=== PATIENT | female | born 1945 | race Caucasian/White ===

== ENCOUNTER → 2016-09-10 | Outpatient (CLI) | payer OTHER ==
[~2016-09-10] MED LIST: ASPI81TA21 PO; CALCTAB13 PO; CHOL200010 PO; CYAN10005 PO; FURO-85 PO; INSDGI SC; LEVO75TA33 PO; LISI-461 PO; METF1TAB53 PO; OMEG10007 PO; SIMV20TA2 PO; VITA1CRE PO; VITACAP26 PO
--- NOTE | 2016-09-10 13:19 | DIAGNOSTIC IMAGING REPORT ---
LEFT KNEE 2 VIEWS HISTORY: Left knee pain. COMPARISON: None. FINDINGS: There is no fracture or dislocation. Soft tissues are unremarkable. No radiopaque foreign bodies. No knee effusion. Cartilage spaces are maintained for age. IMPRESSION: Unremarkable left knee. Electronically signed by: Jake Dejesus M.D. 09/10/2016 1:17 PM Dictated Date/Time: 09/10/2016 1:15 PM
[2016-09-10 17:09] LABS: BLOOD UREA NITROGEN 32 mg/dl (7-18); BUN/CREATININE RATIO 24.3 (10-20); CALCIUM 9.8 mg/dl (8.5-10.1); CARBON DIOXIDE 25 mmol/L (21-32); CHLORIDE 108 mmol/L (98-107); GLUCOSE 130 mg/dl (70-99); POTASSIUM 4.5 mmol/L (3.5-5.1); SODIUM 142 mmol/L (136-145)
[2016-09-10 17:43] LABS: LYME DISEASE AB IGG NEG (NEG); LYME DISEASE AB IGM NEG (NEG)
[2016-09-11 06:24] LABS: ESTIMATED AVERAGE GLUCOSE 194 mg/dl; HA1C FLAG Normal (Normal)
== END | disposition home or self-care (01) ==
LOC: C.RADBC 12:34
PROVIDERS: ATTEND Internal Medicine Geriatric Medicine
DX: M25.562 Pain in left knee (principal); E11.65 Type 2 diabetes mellitus with hyperglycemia; I10 Essential (primary) hypertension

== ENCOUNTER → 2016-10-05 | Outpatient (CLI) | payer OTHER | END | disposition home or self-care (01) | LOC: C.LAB 12:12 | PROVIDERS: ATTEND Internal Medicine Geriatric Medicine | DX: Z11.59 Encounter for screening for other viral diseases (principal) ==

== ENCOUNTER → 2016-11-09 | Outpatient (CLI) | payer OTHER ==
--- NOTE | 2016-11-09 15:29 | MAMMOGRAPHY REPORT ---
BILATERAL DIGITAL SCREENING MAMMOGRAM WITH CAD: 11/09/2016 CLINICAL HISTORY: Routine screening examination. TECHNIQUE: Bilateral CC and MLO views were obtained. Current study was also evaluated with a Comput er Aided Detection (CAD) system. COMPARISON: Comparison is made to exams dated: 10/29/2014 mammogram, 11/03/2015 mammogram, 10/15/2011 mammogram, and 10/14/2010 mammogram - [facility]. BREAST COMPOSITION: There are scattered areas of fibroglandular density in both breasts. FINDINGS: There are moderate vascular calcifications in the breasts. Scattered benign-appearing rudy like, probable secretory calcifications throughout the left greater than right breast. No new suspi cious mass, architectural distortion or cluster of microcalcifications is seen. IMPRESSION: ACR BI-RADS CATEGORY 1: NEGATIVE There is no mammographic evidence of malignancy. A 1 year screening mammogram is recommended. The p atient will receive written notification of the results. Approximately 10% of breast cancers are not detected with mammography. A negative mammographic repor t should not delay biopsy if a clinically suggestive mass is present. Suni Merida M.D. ay/:11/09/2016 12:47:19 Automation Test Developer: Christie GOTTLIEB)(Kody), [facility] letter sent: Normal 1/2 BI-RADS Code: ACR BI-RADS Category 1: Negative
== END | disposition home or self-care (01) ==
LOC: C.MAMM 09:30
PROVIDERS: ATTEND Internal Medicine Geriatric Medicine
DX: Z12.31 Encounter for screening mammogram for malignant neoplasm of breast (principal)

== ENCOUNTER → 2017-02-16 | Outpatient (CLI) | payer OTHER ==
[2017-02-16 14:44] LABS: URINE APPEARANCE CLEAR (CLEAR); URINE BILIRUBIN NEG (NEG); URINE COLOR YELLOW; URINE NITRITE NEG (NEG); UROBILINOGEN NEG (NEG); ZZUR CULT IF INDIC CLEAN CATCH NO
[2017-02-16 14:49] LABS: MANUAL MICROSCOPIC REQUIRED? NO; REVIEW REQ? NO
== END | disposition home or self-care (01) ==
LOC: C.LABSPEC 13:23
PROVIDERS: ATTEND Obstetrics & Gynecology
DX: N95.0 Postmenopausal bleeding (principal)

== ENCOUNTER → 2017-02-23 | Outpatient (CLI) | payer OTHER ==
[2017-02-23 13:10] LABS: BASO % 0.5 %; BASO ABS # 0.05 K/uL (0-0.2); COMPLETE YES; HEMATOCRIT 40.2 % (37-47); IG% 0.2 %; LYMPH % 25.5 %; LYMPH ABS # 2.33 K/uL (1.2-3.4); MEAN CELL VOLUME 90.7 fL (80-100); MEAN CORPUSCULAR HEMOGLOBIN 31.6 pg (25-34); MEAN CORPUSCULAR HGB CONC 34.8 g/dl (32-36); MEAN PLATELET VOLUME 9.6 fL (7.4-10.4); MONO % 6.8 %; PLATELET COUNT 216 K/uL (130-400); RED BLOOD COUNT 4.43 M/uL (4.2-5.4); WHITE BLOOD COUNT 9.15 K/uL (4.8-10.8)
[2017-02-23 13:42] LABS: BLOOD UREA NITROGEN 27 mg/dl (7-18); BUN/CREATININE RATIO 24.2 (10-20); CALCIUM 9.4 mg/dl (8.5-10.1); CARBON DIOXIDE 23 mmol/L (21-32); CHLORIDE 107 mmol/L (98-107); CHOLESTEROL 140 mg/dl (0-200); GLUCOSE 234 mg/dl (70-99); POTASSIUM 4.5 mmol/L (3.5-5.1); SODIUM 139 mmol/L (136-145); TRIGLYCERIDES 294 mg/dl (0-150); VERY LOW DENSITY LIPOPROT CALC 59 mg/dl
[2017-02-23 13:49] LABS: ESTIMATED AVERAGE GLUCOSE 223 mg/dl; HA1C FLAG Normal (Normal)
[2017-02-23 13:52] LABS: CHOLESTEROL/HDL RATIO 3.8; HDL CHOLESTEROL 37 mg/dl; LDL CHOLESTEROL CALCULATED 44 mg/dl; THYROID STIMULATING HORMONE 0.868 uIu/ml (0.300-4.500)
[2017-02-23 15:00] LABS: URINE PROTIEN/CREAT RATIO 0.2 (0-0.2); URINE TOTAL PROTEIN 18.2 mg/dl (0-11.9)
== END | disposition home or self-care (01) ==
LOC: C.LAB 11:54
PROVIDERS: ATTEND Internal Medicine Geriatric Medicine
DX: E03.9 Hypothyroidism, unspecified (principal); I10 Essential (primary) hypertension; M19.90 Unspecified osteoarthritis, unspecified site; E78.5 Hyperlipidemia, unspecified; E11.42 Type 2 diabetes mellitus with diabetic polyneuropathy; E55.9 Vitamin D deficiency, unspecified; E11.65 Type 2 diabetes mellitus with hyperglycemia; M25.50 Pain in unspecified joint; N18.3 Chronic kidney disease, stage 3 (moderate)

== ENCOUNTER → 2017-07-20 | Outpatient (CLI) | payer OTHER ==
[2017-07-20 16:00] LABS: URINE PROTIEN/CREAT RATIO 0.1 (0-0.2); URINE TOTAL PROTEIN 21.1 mg/dl (0-11.9)
== END | disposition home or self-care (01) ==
LOC: C.LAB 14:18
PROVIDERS: ATTEND Internal Medicine Geriatric Medicine
DX: E03.9 Hypothyroidism, unspecified (principal); I12.9 Hypertensive chronic kidney disease with stage 1 through stage 4 chronic kidney disease, or unspecified chronic kidney disease; R60.0 Localized edema; E11.65 Type 2 diabetes mellitus with hyperglycemia; M48.00 Spinal stenosis, site unspecified; N18.3 Chronic kidney disease, stage 3 (moderate)

== ENCOUNTER → 2017-09-09 | Outpatient (CLI) | payer OTHER ==
--- NOTE | 2017-09-09 12:52 | DIAGNOSTIC IMAGING REPORT ---
RIGHT HIP 2 VIEWS HISTORY: Right hip pain. COMPARISON: None. FINDINGS: There is no fracture or dislocation. Soft tissues are unremarkable. The visualized pelvic bones are intact. Moderate cartilage space narrowing and marginal osteophytes within the right hip consistent with degenerative change. IMPRESSION: No fractures. Moderate right hip osteoarthritis. Electronically signed by: Jake Dejesus M.D. 09/09/2017 12:51 PM Dictated Date/Time: 09/09/2017 12:48 PM
== END | disposition home or self-care (01) ==
LOC: C.RAD 12:15
PROVIDERS: ATTEND Nurse Practitioner Adult Health
DX: M25.551 Pain in right hip (principal)

== ENCOUNTER → 2017-09-09 | Outpatient (CLI) | payer OTHER ==
--- NOTE | 2017-09-09 13:58 | MAMMOGRAPHY REPORT ---
UNILATERAL LEFT DIGITAL DIAGNOSTIC MAMMOGRAM TOMOSYNTHESIS WITH CAD AND TARGETED LEFT ULTRASOUND: 08/22 CLINICAL HISTORY: The patient reports sensitivity/tenderness behind her left nipple since last Tuesday . She denies any palpable lumps, nipple discharge, or skin changes of the nipple. TECHNIQUE: Breast tomosynthesis in addition to standard 2D mammography was performed. Current study was also evaluated with a Computer Aided Detection (CAD) system. Left CC and MLO 2-D and tomosynthes is images were obtained. COMPARISON: Comparison is made to exams dated: 11/09/2016 mammogram, 11/03/2015 mammogram, 10/29/2014 m ammogram, 10/17/2013 mammogram, 10/16/2012 mammogram, and 10/15/2011 mammogram - [facility]. BREAST COMPOSITION: There are scattered areas of fibroglandular density in the left breast. FINDINGS: A square marker foss the site of the tenderness in the left subareolar region. There are no suspicious masses, calcifications, or areas of architectural distortion noted in the left breast m ammographically. There has been no significant interval change compared to prior exams. Scattered b enign-appearing calcifications are stable. Targeted ultrasound was performed of the area of sensitivity/tenderness pointed out by the patient in the left subareolar breast. Sonographically normal tissue is seen in this region, without evidence of a mass or other suspicious sonographic abnormality. IMPRESSION: ACR BI-RADS CATEGORY 2: BENIGN, TARGETED ULTRASOUND ACR BI-RADS CATEGORY 2: BENIGN No suspicious mammographic or sonographic abnormality to explain sensitivity/tenderness involving the left subareolar breast. There is no mammographic or targeted sonographic evidence of malignancy. R ecommend clinical follow-up for left breast tenderness, and recommend routine bilateral screening amy mograms which are due October 2017. The patient has been verbally notified of the results. Approximately 10% of breast cancers are not detected with mammography. A negative mammographic report should not delay biopsy if a clinically suggestive mass is present. Carolee Cerna M.D. /:09/09/2017 11:26:44 Splitter Tender: Ketty Lopez, [facility] letter sent: Normal 1/2 BI-RADS Code: ACR BI-RADS Category 2: Benign Ultrasound BI-RADS: ACR BI-RADS Category 2: Benign
== END | disposition home or self-care (01) ==
LOC: C.MAMM 11:00
PROVIDERS: ATTEND Nurse Practitioner Adult Health
DX: N64.4 Mastodynia (principal); R92.8 Other abnormal and inconclusive findings on diagnostic imaging of breast

== ENCOUNTER → 2017-11-15 | Outpatient (CLI) | payer OTHER ==
[~2017-11-15] MED LIST changes: +ACET-1257; +ASCO10003 PO; +ATOR-24 PO; +COEN1CAP PO; +GLUC10007 PO; -SIMV20TA2 PO; +VITA1CAP3; -VITA1CRE PO
--- NOTE | 2017-11-17 07:48 | MAMMOGRAPHY REPORT ---
BILATERAL DIGITAL SCREENING MAMMOGRAM TOMOSYNTHESIS WITH CAD: 11/15/2017 CLINICAL HISTORY: Routine screening. TECHNIQUE: Breast tomosynthesis in addition to standard 2D mammography was performed. Current study was also evaluated with a Computer Aided Detection (CAD) system. COMPARISON: Comparison is made to exams dated: 09/09/2017 mammogram, 11/09/2016 mammogram, 11/03/2015 m ammogram, 10/29/2014 mammogram, 10/17/2013 mammogram, and 10/16/2012 mammogram - [facility]. BREAST COMPOSITION: There are scattered areas of fibroglandular density in both breasts. FINDINGS: There are moderate vascular calcifications in the breasts. Scattered benign-appearing rodl lisa calcifications as well. No suspicious mass, architectural distortion or cluster of suspicious mi crocalcifications is seen. IMPRESSION: ACR BI-RADS CATEGORY 1: NEGATIVE There is no mammographic evidence of malignancy. A 1 year screening mammogram is recommended. The pa tient will receive written notification of the results. Approximately 10% of breast cancers are not detected with mammography. A negative mammographic report should not delay biopsy if a clinically suggestive mass is present. Suni Merida M.D. ay/:11/15/2017 20:09:51 Gemologist: Osbaldo VOGEL(R)(M), [facility] letter sent: Normal 1/2 BI-RADS Code: ACR BI-RADS Category 1: Negative
== END | disposition home or self-care (01) ==
LOC: C.MAMM 09:40
PROVIDERS: ATTEND Internal Medicine Geriatric Medicine
DX: Z12.31 Encounter for screening mammogram for malignant neoplasm of breast (principal)

== ENCOUNTER 2021-03-30 13:04 | Inpatient (IN) ==
[2021-03-30] MEDS ORDERED: ACETAMINOPHEN 1,000 MG/100 ML VIAL IV STA (16:05)
[2021-03-30] MEDS ORDERED: SODIUM CHLORIDE 0.9% 1000ML 1,000 ML IV SCH (16:15)
[2021-03-30 16:58] LABS: Basophils # (auto) 0.02 K/uL (0-0.2); Basophils % (auto) 0.3 %; Eosinophils # (auto) 0.11 K/uL (0-0.5); Eosinophils % (auto) 1.5 %; Hematocrit (blood only) 34.1 % (37-47); Hemoglobin 11.2 g/dL (12.0-16.0); Immature Granulocytes # (auto) 0.02 K/uL (0.00-0.02); Immature Granulocytes % (auto) 0.3 %; Lymphocytes # (auto) 0.82 K/uL (1.2-3.4); Lymphocytes % (auto) 11.2 %; Mean Corpuscular Hemoglobin 32.5 pg (25-34); Mean Corpuscular Hgb Conc 32.8 g/dL (32-36); Mean Corpuscular Volume 98.8 fL (80-100); Mean Platelet Volume 9.3 fL (7.4-10.4); Monocytes # (auto) 0.09 K/uL (0.11-0.59); Monocytes % (auto) 1.2 %; Neutrophils # (auto) 6.23 K/uL (1.4-6.5); Neutrophils % (auto) 85.5 %; Platelet Count 175 K/uL (130-400); RDW Coefficient of Variation 14.7 % (11.5-14.5); RDW Standard Deviation 52.9 fL (36.4-46.3); Red Blood Count 3.45 M/uL (4.2-5.4); White Blood Count 7.29 K/uL (4.8-10.8)
[2021-03-30 17:00] LABS: Appearance Urine Cloudy (Clear); Bacteria Urine Automated 4+ (Negative); Bilirubin Urine Negative (Negative); Blood Urine Trace (Negative); Cast Urine Automated 0 /lpf (0-5); Color Urine Yellow; Epithelial Cell Urine Auto 0-5 /lpf (0-5); Glucose Urine UA Negative (Negative); Ketones Urine Negative (Negative); Leukocyte Esterase Urine 2+ (Negative); Nitrite Urine Positive (Negative); Protein Urine 2+ (Negative); RBC Urine Automated 0-4 /hpf (0-4); Specific Gravity Urine 1.015 (1.000-1.030); Urobilinogen Urine Negative (Negative); WBC Urine Automated >30 /hpf (0-5)
[2021-03-30 17:03] LABS: Partial Thromboplastin Ratio 0.9; Partial Thromboplastin Time 22.9 Seconds (21.0-31.0); Prothrombin Time 10.2 Seconds (9.0-12.0)
--- NOTE | 2021-03-30 17:08 | XRay Report ---
XR chest 1V portable HISTORY: 75 years-old Female SEPSIS acute sepsis COMPARISON: Chest CT 02/23/2021, chest radiograph 09/09/2020 TECHNIQUE: Portable AP view of the chest FINDINGS: Cardiac silhouette is enlarged. Left subclavian Fruqng-m-Bzdq catheter appears unchanged. There is no pneumothorax, pleural effusion, airspace consolidation or overt pulmonary edema. Degenerative change s of the shoulders and spine. Right shoulder rotator cuff calcific tendinosis. IMPRESSION: No acute process. ACT 112: Negative or not required by law. The above report was generated using voice recognition software. It may contain grammatical, syntax o r spelling errors. Electronically signed by: Chavez Hopson M.D. 03/30/2021 5:06 PM
[2021-03-30 17:20] LABS: Albumin Level 3.9 gm/dl (3.4-5.0); BUN Creatinine Ratio 24.5 (10-20); Calcium 9.5 mg/dl (8.5-10.1); Creatinine Clr Calc Pharmacy 37.7 ml/min; Est GFR (Non-African American) 38.9 ml/min; Magnesium 1.2 mg/dl (1.8-2.4); Potassium 4.5 mmol/L (3.5-5.1)
[2021-03-30 17:24] LABS: Influenza A virus by PCR Negative (Negative); Influenza B virus by PCR Negative (Negative)
[2021-03-30 17:28] LABS: Albumin Globulin Ratio 1.1 (0.9-2); Bilirubin,Total 0.9 mg/dl (0.2-1); Globulin 3.6 gm/dl (2.5-4.0); Total Protein 7.5 gm/dl (6.4-8.2); Troponin I 0.054 ng/ml (0-0.045)
[2021-03-30] MEDS ORDERED: cefTRIAXone SODIUM 1,000 MG/50 ML BAG IV STA (17:44)
[2021-03-30] MEDS: MAGNESIUM SULFATE / D5W 1 GM/100 ML BAG IV SCH ×2 (19:45→22:56)
--- NOTE | 2021-03-30 21:47 | History & Physical Report ---
Date of Service March 30, 2021 Assessment & Plan (1) Sepsis: Plan: Mrs. Gutierrez is a 75 yo woman currently undergo chemotherapy for stage IV pancreatic cancer who presented for evaluation of acute illness. - SIRS criteria met on admission (Fever, HR); patient septic - lactate elevated to 2.1, trend - as for source, she appears to have a urinary tract infection and an acute COVID 19 infection - fortunately, patient does not appear to have a pneumonia associated with her COVID 19 infection at this time (CXR clear) - follow blood and urine cultures - IV fluid resuscitation at 30ml/kg + maintenance - continue IV ceftriaxone for UTI (2) COVID-19 in immunocompromised patient: Plan: - moderate illness severity (no CXR infiltrates, O2 sat > 94% on room air, RR not elevated) - Remdesirvir and Dexamethasone not indicated at this time - however consider starting if O2 sat < 94% - CXR clear, no apparent associated pneumonia. Will not initiate azithromycin at this time. - patient unlikely to be a candidate for tocilizumab given immunocompromised status (ie ongoing chemotherapy) - check d-dimer, LDH, Ferritin and CRP - zinc sulfate 220mg and vitamin D 5,000 IU daily - COVID 19 precautions (3) UTI (urinary tract infection): Plan: - UA 2+ LE, + nitrites, 4+ bacteria, > 30 WBCs - urine culture pending - on review of previous cultures, patient has grown lam-sensitive Klebsiella , and ecoli with resistance to cipro - continue IV ceftriaxone (4) Elevated troponin: Plan: - trop elevated to 0.054 on admission - EKG without acute ST segment changes - suspect secondary to demand/supply mismatch in the setting of high output state (sepsis) - trend trops (5) Elevated serum creatinine: Plan: - Cr elevated to 1.34, BUN at 33, ratio of 24 - baseline Cr ~ 1.1 - suspect secondary to pre-renal origin in the setting of acute sepsis - IVF as above - trend BMP (6) Hypomagnesemia: Plan: - mag level low at 1.2 - 2g IV replacement x2 ordered in ED - recheck level in am (7) Diabetic peripheral neuropathy associated with type 2 diabetes mellitus: Plan: - continue home insulin - DM 2 carb consistent diet - continue high intensity statin and KATHRYN inhibitor - continue gabapentin for neuropathy (8) Hypothyroidism: Plan: - continue home dose levothyroxine (9) Dyslipidemia: Plan: - continue home dose atorvastatin (10) Gastroesophageal reflux disease: Plan: - continue home omeprazole (11) Pancreatic cancer: Plan: - stage IV with mets to liver - currently undergoing chemo - patient will likely need to cancel this Fridays scheduled treatment as she will need to be on quarantine if out of hospital DVT ppx: On Xarelto (for hx of portal vein thrombosis) Diet: Carb consistent DM 2 Dispo: Med/tele Code: Full, I discussed with patient Admission and Anticipated Discharge Date Admission Date: March 30, 2021 History of Present Illness Chief Complaint: Covid-19 Primary Care Provider: aMnny Wren DO Mrs. Gutierrez is a 75 yo woman with a PMHx of stage IV pancreatic cancer with mets to the liver (currently undergoing chemotherapy) who presented for evaluation of generalized body aches, fever, cough, shortness of breath and chest heaviness. She first developed symptoms 03/29/21. She also reports some dysuria. She has been fully vaccinated against COVID 19 - however her son and his two daughters (who live in the house next to her) were all sick with COVID last week. Her last dose of chemo was Tuesday03/27/21 and she is scheduled to get another infusion this 04/03/21. Social Hx: No eoth. Never smoker In the ED, she was febrile to 40.0. Her HR was elevated to 126. Her BP was 141/77. RR 16, satting 94 on room air. Her WBC was normal, although she did have lymphopenia. COVID 19 positive. Flu A and B negative. Her Procal was not elevated. Lactate elevated to 2.1. UA showing + nitrite, 2+ LE, > 30 WBCs, 4+ bacteria. Urine and blood cultures pending. Hgb was low at 11.2 (although this appears to be her baseline); platelets were WNL. Coags WNL. Magnesium low at 1.2. Trop elevated to 0.054. Lipase not elevated. LFTs WNL. Creatinine elevated to 1.35, BUN to 33, ratio of 29. EKG showing sinus tach. CX showing no evidence of acute disease. She was given 2g of mag IV x 2, 1g Tylenol, 1g Ceftriaxone, 1 liter of NSS. Allergies Allergy/AdvReac Type Severity Reaction Status Date / Time diflunisal Allergy Unknown Dolobid - Verified 03/30/21 18:12 Unknown oxycodone Allergy Unknown upset Verified 03/30/21 18:12 stomach Home Medications Medication Instructions Recorded Confirmed Type ascorbic acid (vitamin C) 1,000 mg 1 gm PO DAILY tab 05/02/18 03/30/21 History tablet calcium carbonate 500 mg (1,250 1 tab PO DAILY tab 05/02/18 03/30/21 History mg)-vitamin D3 200 unit tablet (Calcium 500 + D) cyanocobalamin (vitamin B-12) 500 1,000 mcg PO DAILY tab 05/02/18 03/30/21 History mcg tablet cholecalciferol (vitamin D3) 50 2,000 unit PO QAM 09/03/19 03/30/21 History mcg (2,000 unit) tablet (Vitamin D3) omeprazole 20 mg tablet,delayed 20 mg PO DAILY PRN 09/03/19 03/30/21 History release furosemide 20 mg tablet (Lasix) 20 mg PO DAILY PRN #90 tab 03/07/20 03/30/21 Rx atorvastatin 40 mg tablet (Lipitor) 40 mg PO DAILY #90 tab 04/03/20 03/30/21 Rx rivaroxaban 20 mg tablet (Xarelto) 20 mg PO QDD 04/22/20 03/30/21 History metformin 1,000 mg tablet 1,000 mg PO BID #180 tab 04/23/20 03/30/21 Rx OneTouch Verio test strips (blood #300 ea NS 05/26/20 03/04/21 Rx sugar diagnostic) ondansetron HCl 8 mg tablet 8 mg PO Q8 PRN 09/09/20 03/30/21 History insulin aspart U-100 100 unit/mL 10 unit SUBCUT TIDM #15 ml 11/20/20 03/30/21 Rx (3 mL) subcutaneous pen (Novolog Flexpen U-100 Insulin aspart) gabapentin 100 mg capsule 200 mg PO BID #120 cap 12/04/20 03/30/21 Rx insulin glargine 100 unit/mL (3 42 unit SQ QPM #15 ml 01/05/21 03/30/21 Rx mL) subcutaneous pen (Basaglar KwikPen U-100 Insulin) lisinopril 10 mg tablet 10 mg PO QAM #90 tab 01/06/21 03/30/21 Rx levothyroxine 75 mcg tablet 75 mcg PO QAM #90 tab 03/26/21 03/30/21 Rx (Synthroid) Past Med/Surg History Medical History Cervical radiculopathy Chronic kidney disease Claudication of calf muscles Claudication of gluteal region De Quervain's tenosynovitis Degenerative disc disease Diabetes mellitus type II, uncontrolled Diabetic peripheral neuropathy associated with type 2 diabetes mellitus Diverticulosis Dyslipidemia Gastroesophageal reflux disease Hypertension Hypothyroidism IBS (irritable bowel syndrome) hx Insomnia Pancreatic cancer Port-A-Cath in place (09/06/19) Insertion of Mediport With Fluoroscopy Dr. Kern 09-06-19 Sensorineural hearing loss of both ears Spinal stenosis Vitamin D deficiency Surgical History H/O colonoscopy with polypectomy History of carpal tunnel surgery bilateral History of dilation and curettage History of ERCP History of esophagogastroduodenoscopy (EGD) Hx of cataract surgery S/P tubal ligation Family History Brother No problems noted. Aunt Breast cancer maternal Sister Breast cancer FHx: pancreatic cancer Father Diabetes Lung disease Mother Diabetes Renal failure Peripheral vascular disease Social History Smoking Status: Never smoker Second Hand Exposure: No; Do You Dip or Chew Tobacco: No; Tobacco Cessation Education Requested by Patient: No Hx Alcohol Use: No Hx Substance Use: No Preferred Language: Spanish Communication Ability: Effective Visual Impairment: Diminished Hearing Ability: Hard of Hearing Grease Renderer Required: No Beliefs That Will Affect Care: Scientology Scientology Beliefs: Gnosticist marital status: Current Living Situation: Spouse current occupational status: retired Other Information That Helps Us Care for You: No Feels Safe at Home: Yes Safety Concerns: Feels Safe At This Time Childhood Exposure to Second-Hand Smoke: Yes caffeine: Yes Dental Care, Regularly: Yes Physical Activity Frequency: Daily Physical Activity Frequency Comment: leg exercises Seatbelt Use: always Sunscreen Use: Yes Do you think of yourself as: straight/heterosexual Assistive Devices: None Review of Systems Constitutional: + fever and + fatigue Respiratory: + cough Genitourinary: + dysuria Physical Exam Constitutional: WD/WN, vitals as above cooperative and comfortable; no acute distress Eyes: + anicteric sclerae ENMT: external ear and nose normal, oropharynx normal Neck: trachea midline Respiratory: normal respiratory effort, lungs clear to auscultation Auscultation: no crackles and no wheezes Cardiovascular: RRR, no murmur, no edema Heart Sounds: normal S1 and normal S2 Extremities: no pedal edema Gastrointestinal (Abdomen): normal bowel sounds, soft, nontender, no hepatosplenomegaly Musculoskeletal: Head/Neck/Chest: normocephalic and head atraumatic Skin: no rashes, warm and dry Neurologic: moves all extremities Psychiatric: A+Ox3, euthymic affect Results & Data Results & Data ([facility]) Vital Signs (Past 12 Hours) Vital Signs Temp Pulse Pulse Pulse Resp BP BP 03/30/21 21:00 106 H 20 131/68 03/30/21 20:49 18 03/30/21 20:30 98 H 17 121/48 L 03/30/21 20:08 37.4 C 03/30/21 20:00 37.4 C 105 H 107 H 26 H 95/57 L 95/57 L 03/30/21 19:41 110 H 18 124/63 03/30/21 19:00 108 H 22 127/61 03/30/21 18:15 126 H 16 141/77 H 03/30/21 16:12 125 H 20 181/87 H 03/30/21 13:19 40.0 C H 119 H 20 165/75 H Pulse Ox 03/30/21 21:00 97 03/30/21 20:49 98 03/30/21 20:30 98 03/30/21 20:08 03/30/21 20:00 03/30/21 19:41 95 03/30/21 19:00 97 03/30/21 18:15 94 03/30/21 16:12 94 03/30/21 13:19 98 Laboratory Results Laboratory Results WBC 7.29 K/uL (4.8-10.8) 03/30/21 16:40 RBC 3.45 M/uL (4.2-5.4) L 03/30/21 16:40 Hgb 11.2 g/dL (12.0-16.0) L 03/30/21 16:40 Hct 34.1 % (37-47) L 03/30/21 16:40 MCV 98.8 fL (80-100) 03/30/21 16:40 MCH 32.5 pg (25-34) 03/30/21 16:40 MCHC 32.8 g/dL (32-36) 03/30/21 16:40 RDW Std Deviation 52.9 fL (36.4-46.3) H 03/30/21 16:40 RDW Coeff of Juanjose 14.7 % (11.5-14.5) H 03/30/21 16:40 Plt Count 175 K/uL (130-400) 03/30/21 16:40 MPV 9.3 fL (7.4-10.4) 03/30/21 16:40 Immature Gran % (Auto) 0.3 % 03/30/21 16:40 Neut % (Auto) 85.5 % 03/30/21 16:40 Lymph % (Auto) 11.2 % 03/30/21 16:40 [place] % (Auto) 1.2 % 03/30/21 16:40 Eos % (Auto) 1.5 % 03/30/21 16:40 Baso % (Auto) 0.3 % 03/30/21 16:40 Neut # (Auto) 6.23 K/uL (1.4-6.5) 03/30/21 16:40 Lymph # (Auto) 0.82 K/uL (1.2-3.4) L 03/30/21 16:40 [place] # (Auto) 0.09 K/uL (0.11-0.59) L 03/30/21 16:40 Eos # (Auto) 0.11 K/uL (0-0.5) 03/30/21 16:40 Baso # (Auto) 0.02 K/uL (0-0.2) 03/30/21 16:40 Immature Gran # (Auto) 0.02 K/uL (0.00-0.02) 03/30/21 16:40 PT 10.2 Seconds (9.0-12.0) 03/30/21 16:40 INR 1.0 (0.9-1.1) 03/30/21 16:40 APTT 22.9 Seconds (21.0-31.0) 03/30/21 16:40 PTT Ratio 0.9 03/30/21 16:40 D-Dimer 2000 ug/L FEU (0-500) H* 03/30/21 23:11 Sodium 135 mmol/L (136-145) L 03/30/21 16:40 Potassium 4.5 mmol/L (3.5-5.1) 03/30/21 16:40 Chloride 104 mmol/L (98-107) 03/30/21 16:40 Carbon Dioxide 22 mmol/L (21-32) 03/30/21 16:40 Anion Gap 9.0 (3-11) 03/30/21 16:40 BUN 33 mg/dl (7-18) H 03/30/21 16:40 Creatinine 1.35 mg/dl (0.6-1.2) H 03/30/21 16:40 Est Cr Clr Drug Dosing 37.7 ml/min 03/30/21 16:40 Est GFR ( Amer) 45.0 ml/min 03/30/21 16:40 Est GFR (Non-Af Amer) 38.9 ml/min 03/30/21 16:40 BUN/Creatinine Ratio 24.5 (10-20) H 03/30/21 16:40 Glucose 181 mg/dl (70-99) H 03/30/21 16:40 POC Glucose 205 mg/dl (70-99) H 03/30/21 23:13 Lactate 2.1 mmol/L (0.4-2.0) H* 03/30/21 18:25 Calcium 9.5 mg/dl (8.5-10.1) 03/30/21 16:40 Magnesium 1.2 mg/dl (1.8-2.4) L 03/30/21 16:40 Ferritin 287.7 ng/ml (8-388) 03/30/21 23:11 Total Bilirubin 0.9 mg/dl (0.2-1) 03/30/21 16:40 AST 19 U/L (15-37) 03/30/21 16:40 ALT 31 U/L (12-78) 03/30/21 16:40 Alkaline Phosphatase 86 U/L (45-117) 03/30/21 16:40 Ammonia 28.0 umol/L (11-32) 03/30/21 16:40 Lactate Dehydrogenase 198 U/L (84-246) 03/30/21 23:11 Troponin I 0.054 ng/ml (0-0.045) H* 03/30/21 16:40 C-Reactive Protein 4.90 mg/dl (0-0.29) H 03/30/21 23:11 Total Protein 7.5 gm/dl (6.4-8.2) 03/30/21 16:40 Albumin 3.9 gm/dl (3.4-5.0) 03/30/21 16:40 Globulin 3.6 gm/dl (2.5-4.0) 03/30/21 16:40 Albumin/Globulin Ratio 1.1 (0.9-2) 03/30/21 16:40 Lipase 82 U/L (73-393) 03/30/21 16:40 Procalcitonin 0.10 ng/ml (0-0.5) 03/30/21 16:40 Urine Color Yellow 03/30/21 16:40 Urine Appearance Cloudy (Clear) A 03/30/21 16:40 Urine pH 5.0 (4.5-7.5) 03/30/21 16:40 Ur Specific V[place]leave 1.015 (1.000-1.030) 03/30/21 16:40 Urine Protein 2+ (Negative) H 03/30/21 16:40 Urine Glucose (UA) Negative (Negative) 03/30/21 16:40 Urine Ketones Negative (Negative) 03/30/21 16:40 Urine Blood Trace (Negative) H 03/30/21 16:40 Urine Nitrite Positive (Negative) A 03/30/21 16:40 Urine Bilirubin Negative (Negative) 03/30/21 16:40 Urine Urobilinogen Negative (Negative) 03/30/21 16:40 Ur Leukocyte Esterase 2+ (Negative) H 03/30/21 16:40 Urine WBC (Auto) >30 /hpf (0-5) H 03/30/21 16:40 Urine RBC (Auto) 0-4 /hpf (0-4) 03/30/21 16:40 U Hyaline Cast (Auto) 0 /lpf (0-5) 03/30/21 16:40 U Epithel Cells (Auto) 0-5 /lpf (0-5) 03/30/21 16:40 Urine Bacteria (Auto) 4+ (Negative) H 03/30/21 16:40 COVID-19 Eval Order Covid19 at [facility] 03/30/21 16:13 SARS-CoV-2 (PCR) POSITIVE (Negative) A* 03/30/21 16:13 Influ A Molecular Assay Negative (Negative) 03/30/21 16:13 Influ B Molecular Assay Negative (Negative) 03/30/21 16:13 Impressions Chest X-Ray 03/30/21 16:06 XR chest 1V portable HISTORY: 75 years-old Female SEPSIS acute sepsis COMPARISON: Chest CT 02/23/2021, chest radiograph 09/09/2020 TECHNIQUE: Portable AP view of the chest FINDINGS: Cardiac silhouette is enlarged. Left subclavian Sddlnk-k-Nwvy catheter appears unchanged. There is no pneumothorax, pleural effusion, airspace consolidation or overt pulmonary edema. Degenerative changes of the shoulders and spine. Right shoulder rotator cuff calcific tendinosis. IMPRESSION: No acute process. ACT 112: Negative or not required by law. The above report was generated using voice recognition software. It may contain grammatical, syntax or spelling errors. Electronically signed by: Chavez Hopson M.D. 03/30/2021 5:06 PM Code Status & VTE Plan VTE Prophylaxis Plan VTE Prophylaxis will be ordered: No Supervising Physician Co-Signing Physician Notes Patient seen and examined, chart reviewed, case discussed with Dr. Malagon and I agree with the assessment and plan as documented above. Briefly, patient is a 75 yo female with history of metastatic pancreatic cancer presenting with fever, tachycardia, sepsis. Patient is positive for COVID-19. UA suggestive of infection as well. Symptoms began 2 days ago. Patient is fully vaccinated against Covid. On physical exam she is presently afebrile, tachycardic, blood pressure stable. No respiratory distress. Saturating well on room air Skinwarm, dry, intact, no rashes/lesions HEENTnormal cephalic/atraumatic, pupils equal and reactive to light, neck supple, moist mucous membranes Heart+ S1/S2, regular, tachycardic, no murmur/rubs/gallops Lungsequal air entry bilaterally, no rales/rhonchi/wheezes Abdomen+ bowel sounds, soft, nontender, nondistended Extremitieswarm, well-perfused, no clubbing/cyanosis/edema Labs and images reviewed. Significant for lactate = 2.1, troponin = 0.054 Sodium = 135, BUN = 33, creatinine = 1.35 UA suggestive of infection COVID positive Assessment/plan 77-year-old female with history of metastatic pancreatic cancer, diabetes, hyperlipidemia, hypertension presenting with sepsis (fever, tachycardia). Possible sources include COVID-19 infection versus UTI. Saturations are adequate on room air Admit to medical Maintain Covid precautions Follow urine culture Ceftriaxone for urinary coverage Trend troponin. Patient with no complaints of chest pain. Remainder of plan as above Resident Activity Tracking Resident Involvement: Resident Care Provided Care Provided: Adult Hospital Medicine
[2021-03-30] MEDS ORDERED: GLUCOSE 10 TABS/TUBE PO PRN (22:51)
[2021-03-30] MEDS ORDERED: GLUCOSE 40% GEL 15 GM TUBE PO PRN (22:51)
[2021-03-30] MEDS ORDERED: SODIUM CHLORIDE 0.9% 1000ML 500 ML IV ONE (22:51)
[2021-03-30] MEDS ORDERED: CARBOHYDRATES FOR HYPOGLYCEMIA PO PRN (22:51)
[2021-03-30] MEDS ORDERED: DEXTROSE 50% 50 ML SYRINGE IV PRN (22:51)
[2021-03-30] MEDS ORDERED: SODIUM CHLORIDE 0.9% 1000ML 1,000 ML IV ONE (22:51)
[2021-03-30] MEDS ORDERED: PANTOprazole 40 MG TAB PO PRN (22:51)
[2021-03-30] MEDS ORDERED: GLUCAGON FOR INJ 1 MG VIAL SQ PRN (22:51)
[2021-03-30] MEDS: INSULIN GLARGINE SOLOSTAR 100 UNITS/ML 3 ML PEN SQ SCH (23:48)
[2021-03-30 23:50] LABS: C Reactive Protein 4.9 mg/dl (0-0.29); Ferritin 287.7 ng/ml (8-388)
[2021-03-30 23:52] LABS: D Dimer 2000 ug/L FEU (0-500)
[2021-03-31] MEDS: ZINC SULFATE 220 MG CAPSULE PO SCH ×2 (00:01→09:02)
[2021-03-31] MEDS: CHOLECALCIFEROL 1,000 UNITS 25 MCG TAB PO SCH ×2 (00:01→09:02)
[2021-03-31] MEDS: GABAPENTIN 100 MG CAP PO SCH ×3 (00:02→20:01)
--- NOTE | 2021-03-31 00:16 | Emergency Department Note ---
History of Present Illness General Chief Complaint: Shortness of Breath/Dyspnea Stated Complaint: SOB, FLU LIKE SYMPTOMS Time Seen by Provider: 03/30/21 16:05 History of Present Illness Provider Complaint: shortness of breath and cough Onset (ago): day(s) (2) Severity: moderate Maximum Pain Intensity: 8 Relieved By: + nothing Exacerbated By: + coughing Context: + other (On chemotherapy for stage IV pancreatic cancer) Associated symptoms: + fever, + cough and + sputum production; no wheezing, no orthopnea, no lower extremity pain, no polyuria, no polydipsia, no paresthesias, no palpitations, no carpopedal spasm, no hemoptysis, no diaphoresis, no nausea/vomiting, no syncope, no abdominal pain, no rash, no sense of impending d oom, no chest congestion, no dizziness or no lightheadedness HPI Narrative: Patient also reports generalized body aches. Home Medications Medication Instructions Recorded Confirmed Type ascorbic acid (vitamin C) 1,000 mg 1 gm PO DAILY tab 05/02/18 03/30/21 History tablet calcium carbonate 500 mg (1,250 1 tab PO DAILY tab 05/02/18 03/30/21 History mg)-vitamin D3 200 unit tablet (Calcium 500 + D) cyanocobalamin (vitamin B-12) 500 1,000 mcg PO DAILY tab 05/02/18 03/30/21 History mcg tablet cholecalciferol (vitamin D3) 50 2,000 unit PO QAM 09/03/19 03/30/21 History mcg (2,000 unit) tablet (Vitamin D3) omeprazole 20 mg tablet,delayed 20 mg PO DAILY PRN 09/03/19 03/30/21 History release furosemide 20 mg tablet (Lasix) 20 mg PO DAILY PRN #90 tab 03/07/20 03/30/21 Rx atorvastatin 40 mg tablet (Lipitor) 40 mg PO DAILY #90 tab 04/03/20 03/30/21 Rx rivaroxaban 20 mg tablet (Xarelto) 20 mg PO QDD 04/22/20 03/30/21 History metformin 1,000 mg tablet 1,000 mg PO BID #180 tab 04/23/20 03/30/21 Rx OneTouch Verio test strips (blood #300 ea NS 05/26/20 03/04/21 Rx sugar diagnostic) ondansetron HCl 8 mg tablet 8 mg PO Q8 PRN 09/09/20 03/30/21 History insulin aspart U-100 100 unit/mL 10 unit SUBCUT TIDM #15 ml 11/20/20 03/30/21 Rx (3 mL) subcutaneous pen (Novolog Flexpen U-100 Insulin aspart) gabapentin 100 mg capsule 200 mg PO BID #120 cap 12/04/20 03/30/21 Rx insulin glargine 100 unit/mL (3 42 unit SQ QPM #15 ml 01/05/21 03/30/21 Rx mL) subcutaneous pen (Basaglar KwikPen U-100 Insulin) lisinopril 10 mg tablet 10 mg PO QAM #90 tab 01/06/21 03/30/21 Rx levothyroxine 75 mcg tablet 75 mcg PO QAM #90 tab 03/26/21 03/30/21 Rx (Synthroid) Allergies Allergy/AdvReac Type Severity Reaction Status Date / Time diflunisal Allergy Unknown Dolobid - Verified 03/30/21 18:12 Unknown oxycodone Allergy Unknown upset Verified 03/30/21 18:12 stomach Past Med/Surg History Medical History Cervical radiculopathy Chronic kidney disease Claudication of calf muscles Claudication of gluteal region De Quervain's tenosynovitis Degenerative disc disease Diabetes mellitus type II, uncontrolled Diabetic peripheral neuropathy associated with type 2 diabetes mellitus Diverticulosis Dyslipidemia Gastroesophageal reflux disease Hypertension Hypothyroidism IBS (irritable bowel syndrome) hx Insomnia Pancreatic cancer Port-A-Cath in place (09/06/19) Insertion of Mediport With Fluoroscopy Dr. Kern 09-06-19 Sensorineural hearing loss of both ears Spinal stenosis Vitamin D deficiency Surgical History H/O colonoscopy with polypectomy History of carpal tunnel surgery bilateral History of dilation and curettage History of ERCP History of esophagogastroduodenoscopy (EGD) Hx of cataract surgery S/P tubal ligation Family History Brother No problems noted. 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 Beliefs That Will Affect Care: Adventist Adventist Beliefs: Taoist marital status: Current Living Situation: Spouse current occupational status: retired Other Information That Helps Us Care for You: No Feels Safe at Home: Yes Safety Concerns: Feels Safe At This Time Childhood Exposure to Second-Hand Smoke: Yes caffeine: Yes Dental Care, Regularly: Yes Physical Activity Frequency: Daily Physical Activity Frequency Comment: leg exercises Seatbelt Use: always Sunscreen Use: Yes Do you think of yourself as: straight/heterosexual Assistive Devices: None Review of Systems A total of 10 systems reviewed and were otherwise negative Physical Exam Vital Signs: Vital Signs - 24 hr 03/30/21 13:19 03/30/21 16:12 03/30/21 18:15 Temperature 40.0 C H Temperature Source Temporal Artery Sc an Pulse Rate 119 H Pulse Rate [Left F char[place]] 125 H 126 H Respiratory Rate 20 20 16 Respiratory Effort / Characteristics Non-Labored Respiratory Depth Normal Respiratory Patter n Regular Blood Pressure 165/75 H Blood Pressure [Ri ght Arm] 181/87 H 141/77 H Blood Pressure Clarissa n 105 Blood Pressure Clarissa n [Right Arm] 118 98 Blood Pressure Pos ition [Right Arm] Sitting Pulse Oximetry 98 94 94 Oxygen Delivery Me thod Room Air Room Air Sepsis Recent Feve r Within 48 Hours No Sepsis New/Unexpla ined Change in Men germania Status N/A Sepsis Action Take n by Nursing No Action Required 03/30/21 18:30 03/30/21 19:00 03/30/21 19:30 Temperature Temperature Source Pulse Rate 108 H Pulse Rate [Left F [place]] Respiratory Rate 22 Respiratory Effort / Characteristics Non-Labored Respiratory Depth Respiratory Patter n Blood Pressure 127/61 Blood Pressure [Ri ght Arm] Blood Pressure Clarissa n 83 83 Blood Pressure Clarissa n [Right Arm] Blood Pressure Pos ition [Right Arm] Pulse Oximetry 97 Oxygen Delivery Me thod Room Air Room Air Sepsis Recent Feve r Within 48 Hours Sepsis New/Unexpla ined Change in Men germania Status Sepsis Action Take n by Nursing Physical Exam: Physical Exam GENERAL: She is oriented to person, place, and time. She appears well-developed and well-nourished. She does not appear distressed. HENT: Exam performed. -Head: Normocephalic and atraumatic. -Right Ear: External ear normal. No mastoid tenderness. -Left Ear: External ear normal. No mastoid tenderness. -Mouth/Throat: The oropharynx is clear and moist. No trismus in the jaw. No dental abscesses or uvula swelling. No oropharyngeal exudate or tonsillar abscesses. EYES: Conjunctivae and EOM are normal. Pupils are equal, round, and reactive to light. Right eye exhibits no discharge. Left eye exhibits no discharge. No scleral icterus. NECK: Normal range of motion. Neck supple. No JVD present. No spinous process tenderness present. No carotid bruit present. No rigidity. No tracheal deviation and normal range of motion present. No Brudzinski's sign and no Kernig's sign noted. CV: Tachycardic rate, regular rhythm, normal heart sounds and intact distal pulses. There is no peripheral edema. Palpable radial pulses bue. PULM/CHEST: Effort normal and breath sounds normal. No respiratory distress. No stridor. She has no wheezes. She has no rales. -Chest Wall: She exhibits no tenderness. ABD: The abdomen is soft. Bowel sounds are normal. She has no distension. No mass is present. There is no tenderness. There is no rebound, no guarding, no Robertson's sign and no tenderness at McBurney's point. Rovsig negative. No fluid wave. MUSC/SKEL: Normal range of motion. There is no peripheral edema, tenderness or deformity. LYMPH: No cervical adenopathy. NEURO: She is alert and oriented to person, place, and time. She has normal strength. No cranial nerve deficit or sensory deficit. Coordination and gait normal. GCS eye subscore is 4. GCS verbal subscore is 5. GCS motor subscore is 6. Cerebellar tests wnl. SKIN: Skin is warm and dry. She is not diaphoretic. PSYCH: She has a normal mood and affect. Behavior is normal. Judgment and thought content normal. Course Course 1605: The patient was evaluated in room A9. A complete history and physical exam was performed Cardiac monitoring: An order was placed for continuous cardiac monitoring. The monitor shows a rate of 110 with sinus tachycardia rhythm Patient was seen during a time of extreme volume and extreme acuity during the COVID-19 pandemic. Sepsis protocols were initiated. Patient was seen in full airborne precautions. Patient was seen in N95's, gloves, gowns, face shield by myself and staff. 1830: Vital signs stable. Labs within normal limits with the exception of 2.3. Repeat lactic acid after 1 L fluid 2.1. Magnesium 1.2. Troponin elevated 0.054. Urinalysis is infected. Patient is COVID-19 positive. Patient has been vaccine gets COVID-19. Patient will be admitted to the [facility]. No need for steroids at this point as patient is not hypoxic. Rocephin given for the patient's UTI. Administered Medications Gabapentin (Gabapentin 100 Mg Cap) 200 mg PO BID PEDRO PABLO Stop: 04/29/21 22:50 Last Admin: 03/31/21 00:02 Dose: 200 mg Documented by: [id number] Magnesium Sulfate/Dextrose (Magnesium Sulfate / D5w) 1 gm in 100 mls @ 50 mls/hr IV Q2H PEDRO PABLO Stop: 03/31/21 03:44 Last Admin: 03/30/21 22:56 Dose: 50 mls/hr Documented by: [id number] Infusion: 03/30/21 22:26 Dose: 0 mls/hr Documented by: [id number] Admin: 03/30/21 19:45 Dose: 50 mls/hr Documented by: [id number] Insulin Glargine (Insulin Glargine Solostar 100 Units/Ml 3 Ml Pen) 42 units SQ QPM PEDRO PABLO Stop: 04/29/21 22:50 Last Admin: 03/30/21 23:48 Dose: 42 units Documented by: [id number] Cosigned by: [id number] Vitamin D (Cholecalciferol 1,000 Units 25 Mcg Tab) 5,000 units PO QAM PEDRO PABLO Stop: 04/29/21 22:50 Last Admin: 03/31/21 00:01 Dose: 5,000 units Documented by: [id number] Zinc Sulfate (Zinc Sulfate 220 Mg Capsule) 220 mg PO QAM PEDRO PABLO Stop: 04/29/21 22:50 Last Admin: 03/31/21 00:01 Dose: 220 mg Documented by: [id number] Discontinued Medications Sodium Chloride (Nss 1000ml) 1,000 mls @ 999 mls/hr IV .Q1H1M PEDRO PABLO Stop: 03/30/21 17:15 Last Infusion: 03/30/21 19:52 Dose: 0 mls/hr Documented by: [id number] Admin: 03/30/21 16:49 Dose: 999 mls/hr Documented by: [id number] Acetaminophen (Ofirmev) 1,000 mg in 100 mls @ 400 mls/hr IV NOW STA Stop: 03/30/21 16:19 Last Infusion: 03/30/21 18:16 Dose: 0 mls/hr Documented by: [id number] Admin: 03/30/21 17:27 Dose: 400 mls/hr Documented by: [id number] Ceftriaxone Sodium (Rocephin) 1,000 mg in 50 mls @ 100 mls/hr IV NOW STA Stop: 03/30/21 18:13 Last Infusion: 03/30/21 18:50 Dose: 0 mls/hr Documented by: [id number] Admin: 03/30/21 18:20 Dose: 100 mls/hr Documented by: [id number] Sodium Chloride (Nss 1000ml) 1,000 mls @ 999 mls/hr IV .Q1H1M ONE Stop: 03/30/21 23:51 Last Admin: 03/30/21 23:07 Dose: 999 mls/hr Documented by: [id number] Medical Decision Making Laboratory Data Result diagrams: 03/30/21 16:40 03/30/21 16:40 Lab Results 03/30/21 03/30/21 03/30/21 Range/Units 16:13 16:13 16:13 WBC (4.8-10.8) K/uL RBC (4.2-5.4) M/uL Hgb (12.0-16.0) g/dL Hct (37-47) % MCV (80-100) fL MCH (25-34) pg MCHC (32-36) g/dL RDW Std Deviation (36.4-46.3) fL RDW Coeff of Juanjose (11.5-14.5) % Plt Count (130-400) K/uL MPV (7.4-10.4) fL Immature Gran % (Auto) % Neut % (Auto) % Lymph % (Auto) % [place] % (Auto) % Eos % (Auto) % Baso % (Auto) % Neut # (Auto) (1.4-6.5) K/uL Lymph # (Auto) (1.2-3.4) K/uL [place] # (Auto) (0.11-0.59) K/uL Eos # (Auto) (0-0.5) K/uL Baso # (Auto) (0-0.2) K/uL Immature Gran # (Auto) (0.00-0.02) K/uL PT (9.0-12.0) Seconds INR (0.9-1.1) APTT (21.0-31.0) Seconds PTT Ratio Sodium (136-145) mmol/L Potassium (3.5-5.1) mmol/L Chloride (98-107) mmol/L Carbon Dioxide (21-32) mmol/L Anion Gap (3-11) BUN (7-18) mg/dl Creatinine (0.6-1.2) mg/dl Est Cr Clr Drug Dosing ml/min Est GFR ( Amer) ml/min Est GFR (Non-Af Amer) ml/min BUN/Creatinine Ratio (10-20) Glucose (70-99) mg/dl Lactate (0.4-2.0) mmol/L Calcium (8.5-10.1) mg/dl Magnesium (1.8-2.4) mg/dl Total Bilirubin (0.2-1) mg/dl AST (15-37) U/L ALT (12-78) U/L Alkaline Phosphatase (45-117) U/L Ammonia (11-32) umol/L Troponin I (0-0.045) ng/ml Total Protein (6.4-8.2) gm/dl Albumin (3.4-5.0) gm/dl Globulin (2.5-4.0) gm/dl Albumin/Globulin Ratio (0.9-2) Lipase (73-393) U/L Procalcitonin (0-0.5) ng/ml Urine Color Urine Appearance (Clear) Urine pH (4.5-7.5) Ur Specific [place] (1.000-1.030) Urine Protein (Negative) Urine Glucose (UA) (Negative) Urine Ketones (Negative) Urine Blood (Negative) Urine Nitrite (Negative) Urine Bilirubin (Negative) Urine Urobilinogen (Negative) Ur Leukocyte Esterase (Negative) Urine WBC (Auto) (0-5) /hpf Urine RBC (Auto) (0-4) /hpf U Hyaline Cast (Auto) (0-5) /lpf U Epithel Cells (Auto) (0-5) /lpf Urine Bacteria (Auto) (Negative) COVID-19 Eval Order Covid19 at [facility] SARS-CoV-2 (PCR) POSITIVE A* (Negative) Influ A Molecular Assay Negative (Negative) Influ B Molecular Assay Negative (Negative) 03/30/21 03/30/21 03/30/21 Range/Units 16:40 16:40 16:40 WBC (4.8-10.8) K/uL RBC (4.2-5.4) M/uL Hgb (12.0-16.0) g/dL Hct (37-47) % MCV (80-100) fL MCH (25-34) pg MCHC (32-36) g/dL RDW Std Deviation (36.4-46.3) fL RDW Coeff of Juanjose (11.5-14.5) % Plt Count (130-400) K/uL MPV (7.4-10.4) fL Immature Gran % (Auto) % Neut % (Auto) % Lymph % (Auto) % [place] % (Auto) % Eos % (Auto) % Baso % (Auto) % Neut # (Auto) (1.4-6.5) K/uL Lymph # (Auto) (1.2-3.4) K/uL [place] # (Auto) (0.11-0.59) K/uL Eos # (Auto) (0-0.5) K/uL Baso # (Auto) (0-0.2) K/uL Immature Gran # (Auto) (0.00-0.02) K/uL PT (9.0-12.0) Seconds INR (0.9-1.1) APTT (21.0-31.0) Seconds PTT Ratio Sodium 135 L (136-145) mmol/L Potassium 4.5 (3.5-5.1) mmol/L Chloride 104 (98-107) mmol/L Carbon Dioxide 22 (21-32) mmol/L Anion Gap 9.0 (3-11) BUN 33 H (7-18) mg/dl Creatinine 1.35 H (0.6-1.2) mg/dl Est Cr Clr Drug Dosing 37.7 ml/min Est GFR ( Amer) 45.0 ml/min Est GFR (Non-Af Amer) 38.9 ml/min BUN/Creatinine Ratio 24.5 H (10-20) Glucose 181 H (70-99) mg/dl Lactate (0.4-2.0) mmol/L Calcium 9.5 (8.5-10.1) mg/dl Magnesium 1.2 L (1.8-2.4) mg/dl Total Bilirubin 0.9 (0.2-1) mg/dl AST 19 (15-37) U/L ALT 31 (12-78) U/L Alkaline Phosphatase 86 (45-117) U/L Ammonia 28.0 (11-32) umol/L Troponin I 0.054 H* (0-0.045) ng/ml Total Protein 7.5 (6.4-8.2) gm/dl Albumin 3.9 (3.4-5.0) gm/dl Globulin 3.6 (2.5-4.0) gm/dl Albumin/Globulin Ratio 1.1 (0.9-2) Lipase 82 (73-393) U/L Procalcitonin 0.10 (0-0.5) ng/ml Urine Color Urine Appearance (Clear) Urine pH (4.5-7.5) Ur Specific [place] (1.000-1.030) Urine Protein (Negative) Urine Glucose (UA) (Negative) Urine Ketones (Negative) Urine Blood (Negative) Urine Nitrite (Negative) Urine Bilirubin (Negative) Urine Urobilinogen (Negative) Ur Leukocyte Esterase (Negative) Urine WBC (Auto) (0-5) /hpf Urine RBC (Auto) (0-4) /hpf U Hyaline Cast (Auto) (0-5) /lpf U Epithel Cells (Auto) (0-5) /lpf Urine Bacteria (Auto) (Negative) COVID-19 Eval Order SARS-CoV-2 (PCR) (Negative) Influ A Molecular Assay (Negative) Influ B Molecular Assay (Negative) 03/30/21 03/30/21 03/30/21 Range/Units 16:40 16:40 16:40 WBC 7.29 (4.8-10.8) K/uL RBC 3.45 L (4.2-5.4) M/uL Hgb 11.2 L (12.0-16.0) g/dL Hct 34.1 L (37-47) % MCV 98.8 (80-100) fL MCH 32.5 (25-34) pg MCHC 32.8 (32-36) g/dL RDW Std Deviation 52.9 H (36.4-46.3) fL RDW Coeff of Juanjose 14.7 H (11.5-14.5) % Plt Count 175 (130-400) K/uL MPV 9.3 (7.4-10.4) fL Immature Gran % (Auto) 0.3 % Neut % (Auto) 85.5 % Lymph % (Auto) 11.2 % [place] % (Auto) 1.2 % Eos % (Auto) 1.5 % Baso % (Auto) 0.3 % Neut # (Auto) 6.23 (1.4-6.5) K/uL Lymph # (Auto) 0.82 L (1.2-3.4) K/uL [place] # (Auto) 0.09 L (0.11-0.59) K/uL Eos # (Auto) 0.11 (0-0.5) K/uL Baso # (Auto) 0.02 (0-0.2) K/uL Immature Gran # (Auto) 0.02 (0.00-0.02) K/uL PT 10.2 (9.0-12.0) Seconds INR 1.0 (0.9-1.1) APTT 22.9 (21.0-31.0) Seconds PTT Ratio 0.9 Sodium (136-145) mmol/L Potassium (3.5-5.1) mmol/L Chloride (98-107) mmol/L Carbon Dioxide (21-32) mmol/L Anion Gap (3-11) BUN (7-18) mg/dl Creatinine (0.6-1.2) mg/dl Est Cr Clr Drug Dosing ml/min Est GFR ( Amer) ml/min Est GFR (Non-Af Amer) ml/min BUN/Creatinine Ratio (10-20) Glucose (70-99) mg/dl Lactate 2.3 H* (0.4-2.0) mmol/L Calcium (8.5-10.1) mg/dl Magnesium (1.8-2.4) mg/dl Total Bilirubin (0.2-1) mg/dl AST (15-37) U/L ALT (12-78) U/L Alkaline Phosphatase (45-117) U/L Ammonia (11-32) umol/L Troponin I (0-0.045) ng/ml Total Protein (6.4-8.2) gm/dl Albumin (3.4-5.0) gm/dl Globulin (2.5-4.0) gm/dl Albumin/Globulin Ratio (0.9-2) Lipase (73-393) U/L Procalcitonin (0-0.5) ng/ml Urine Color Urine Appearance (Clear) Urine pH (4.5-7.5) Ur Specific [place] (1.000-1.030) Urine Protein (Negative) Urine Glucose (UA) (Negative) Urine Ketones (Negative) Urine Blood (Negative) Urine Nitrite (Negative) Urine Bilirubin (Negative) Urine Urobilinogen (Negative) Ur Leukocyte Esterase (Negative) Urine WBC (Auto) (0-5) /hpf Urine RBC (Auto) (0-4) /hpf U Hyaline Cast (Auto) (0-5) /lpf U Epithel Cells (Auto) (0-5) /lpf Urine Bacteria (Auto) (Negative) COVID-19 Eval Order SARS-CoV-2 (PCR) (Negative) Influ A Molecular Assay (Negative) Influ B Molecular Assay (Negative) 03/30/21 03/30/21 Range/Units 16:40 18:25 WBC (4.8-10.8) K/uL RBC (4.2-5.4) M/uL Hgb (12.0-16.0) g/dL Hct (37-47) % MCV (80-100) fL MCH (25-34) pg MCHC (32-36) g/dL RDW Std Deviation (36.4-46.3) fL RDW Coeff of Juanjose (11.5-14.5) % Plt Count (130-400) K/uL MPV (7.4-10.4) fL Immature Gran % (Auto) % Neut % (Auto) % Lymph % (Auto) % [place] % (Auto) % Eos % (Auto) % Baso % (Auto) % Neut # (Auto) (1.4-6.5) K/uL Lymph # (Auto) (1.2-3.4) K/uL [place] # (Auto) (0.11-0.59) K/uL Eos # (Auto) (0-0.5) K/uL Baso # (Auto) (0-0.2) K/uL Immature Gran # (Auto) (0.00-0.02) K/uL PT (9.0-12.0) Seconds INR (0.9-1.1) APTT (21.0-31.0) Seconds PTT Ratio Sodium (136-145) mmol/L Potassium (3.5-5.1) mmol/L Chloride (98-107) mmol/L Carbon Dioxide (21-32) mmol/L Anion Gap (3-11) BUN (7-18) mg/dl Creatinine (0.6-1.2) mg/dl Est Cr Clr Drug Dosing ml/min Est GFR ( Amer) ml/min Est GFR (Non-Af Amer) ml/min BUN/Creatinine Ratio (10-20) Glucose (70-99) mg/dl Lactate 2.1 H* (0.4-2.0) mmol/L Calcium (8.5-10.1) mg/dl Magnesium (1.8-2.4) mg/dl Total Bilirubin (0.2-1) mg/dl AST (15-37) U/L ALT (12-78) U/L Alkaline Phosphatase (45-117) U/L Ammonia (11-32) umol/L Troponin I (0-0.045) ng/ml Total Protein (6.4-8.2) gm/dl Albumin (3.4-5.0) gm/dl Globulin (2.5-4.0) gm/dl Albumin/Globulin Ratio (0.9-2) Lipase (73-393) U/L Procalcitonin (0-0.5) ng/ml Urine Color Yellow Urine Appearance Cloudy A (Clear) Urine pH 5.0 (4.5-7.5) Ur Specific [place] 1.015 (1.000-1.030) Urine Protein 2+ H (Negative) Urine Glucose (UA) Negative (Negative) Urine Ketones Negative (Negative) Urine Blood Trace H (Negative) Urine Nitrite Positive A (Negative) Urine Bilirubin Negative (Negative) Urine Urobilinogen Negative (Negative) Ur Leukocyte Esterase 2+ H (Negative) Urine WBC (Auto) >30 H (0-5) /hpf Urine RBC (Auto) 0-4 (0-4) /hpf U Hyaline Cast (Auto) 0 (0-5) /lpf U Epithel Cells (Auto) 0-5 (0-5) /lpf Urine Bacteria (Auto) 4+ H (Negative) COVID-19 Eval Order SARS-CoV-2 (PCR) (Negative) Influ A Molecular Assay (Negative) Influ B Molecular Assay (Negative) Imaging Data Radiologist's Impression: Chest X-Ray 03/30/21 16:06 XR chest 1V portable HISTORY: 75 years-old Female SEPSIS acute sepsis COMPARISON: Chest CT 02/23/2021, chest radiograph 09/09/2020 TECHNIQUE: Portable AP view of the chest FINDINGS: Cardiac silhouette is enlarged. Left subclavian [id number] catheter appears unchanged. There is no pneumothorax, pleural effusion, airspace consolidation or overt pulmonary edema. Degenerative changes of the shoulders and spine. Right shoulder rotator cuff calcific tendinosis. IMPRESSION: No acute process. ACT 112: Negative or not required by law. The above report was generated using voice recognition software. It may contain grammatical, syntax or spelling errors. Electronically signed by: Chavez Hopson M.D. 03/30/2021 5:06 PM ECG Data Interpretation: Sinus tachycardia with rate 111. [place] and QTc intervals are within normal limits. No ST elevation. QRS 76. [facility] Narrative 1605: The patient was evaluated in room A9. A complete history and physical exam was performed Cardiac monitoring: An order was placed for continuous cardiac monitoring. The monitor shows a rate of 110 with sinus tachycardia rhythm Patient was seen during a time of extreme volume and extreme acuity during the COVID-19 pandemic. Sepsis protocols were initiated. Patient was seen in full airborne precautions. Patient was seen in N95's, gloves, gowns, face shield by myself and staff. 1830: Vital signs stable. Labs within normal limits with the exception of 2.3. Repeat lactic acid after 1 L fluid 2.1. Magnesium 1.2. Troponin elevated 0.054. Urinalysis is infected. Patient is COVID-19 positive. Patient has been vaccine gets COVID-19. Patient will be admitted to the [facility]. No need for steroids at this point as patient is not hypoxic. Rocephin given for the patient's UTI. Impression & Plan COVID-19 in immunocompromised patient, UTI (urinary tract infection), Sepsis, Pancreatic cancer Discharge Plan Visit Data Chief Complaint: Shortness of Breath/Dyspnea Stated Complaint: SOB, FLU LIKE SYMPTOMS Discharge Problem: COVID-19 in immunocompromised patient, UTI (urinary tract infection), Sepsis, Pancreatic cancer Patient Disposition: Admitted As Inpatient Discharge Instructions Interventions: ED Discharge Assessment Last Done: 03/30/21 21:05 Discharge Problem: UTI (urinary tract infection) Qualifiers: Urinary tract infection type: site unspecified Hematuria presence: without hematuria Qualified Code(s): N39.0 - Urinary tract infection, site not specified Sepsis Qualifiers: Sepsis type: sepsis due to unspecified organism Sepsis acute organ dysfunction status: unspecified Qualified Code(s): A41.9 - Sepsis, unspecified organism Pancreatic cancer Qualifiers: Pancreatic malignancy location: unspecified Qualified Code(s): C25.9 - Malignant neoplasm of pancreas, unspecified
[2021-03-31] MEDS: MAGNESIUM SULFATE / D5W 1 GM/100 ML BAG IV SCH ×2 (00:33→02:39)
[2021-03-31] MEDS: SODIUM CHLORIDE 0.9% 1000ML 1,000 ML IV SCH ×2 (01:09→09:01)
--- NOTE | 2021-03-31 04:33 | Billing Data ---
Date of Service March 30, 2021 Coding Level of Care Code 89548 Office/OBS Consult Lvl 3
[2021-03-31] MEDS: LEVOTHYROXINE SODIUM 75 MCG TABLET PO SCH (05:54)
[2021-03-31] MEDS: ACETAMINOPHEN 325 MG TAB PO PRN ×2 (06:00→18:17)
--- NOTE | 2021-03-31 08:32 | Hospitalist Progress Note ---
Date of Service March 31, 2021 Assessment & Plan (1) Sepsis: Plan: Mrs. Gutierrez is a 75 yo woman currently undergo chemotherapy for stage IV pancreatic cancer who presented for evaluation of acute illness. - SIRS criteria met on admission (Fever, HR); patient septic - lactate elevated to 2.1, trend - as for source, she appears to have a gram negative urinary tract infection and an acute COVID 19 infection - fortunately, patient does not appear to have a pneumonia associated with her COVID 19 infection at this time (CXR clear) - follow blood( negative to date ) and urine cultures - IV fluid resuscitation at 30ml/kg + maintenance - continue IV ceftriaxone for UTI (2) COVID-19 in immunocompromised patient: Plan: - moderate illness severity (no CXR infiltrates, O2 sat > 94% on room air, RR not elevated) - Remdesirvir and Dexamethasone not indicated at this time - however consider starting if O2 sat < 94% - CXR clear, no apparent associated pneumonia. Will not initiate azithromycin at this time. - patient unlikely to be a candidate for tocilizumab given immunocompromised status (ie ongoing chemotherapy) - d-dimer 2000, CRP 4.6 - zinc sulfate 220mg and vitamin D 5,000 IU daily - COVID 19 precautions (3) UTI (urinary tract infection): Plan: - UA 2+ LE, + nitrites, 4+ bacteria, > 30 WBCs - urine culture gram negative but sensitivities pending - on review of previous cultures, patient has grown lam-sensitive Klebsiella , and ecoli with resistance to cipro - continue IV ceftriaxone (4) Elevated troponin: Plan: - trop elevated on admission - EKG without acute ST segment changes - suspect secondary to demand ischemia /supply mismatch in the setting of high output state (sepsis) - trend trops (5) Elevated serum creatinine: Plan: - Cr elevated to 1.34, BUN at 33, ratio of 24 - baseline Cr ~ 1.1 - suspect secondary to pre-renal origin in the setting of acute sepsis - IVF as above - trend BMP (6) Hypomagnesemia: Plan: - mag level low at 1.2 - 2g IV replacement x2 ordered in ED - recheck level in am (7) Diabetic peripheral neuropathy associated with type 2 diabetes mellitus: Plan: - continue home insulin - DM 2 carb consistent diet - continue high intensity statin and KATHRYN inhibitor - continue gabapentin for neuropathy (8) Hypothyroidism: Plan: - continue home dose levothyroxine (9) Dyslipidemia: Plan: - continue home dose atorvastatin (10) Gastroesophageal reflux disease: Plan: - continue home omeprazole (11) Pancreatic cancer: Plan: - stage IV with mets to liver - currently undergoing chemo - patient will likely need to cancel this Fridays scheduled treatment as she will need to be on quarantine if out of hospital DVT ppx: On Xarelto (for hx of portal vein thrombosis) Diet: Carb consistent DM 2 Dispo: Med/tele Code: Full, I discussed with patient (12) Sore throat: Plan: this it subjecive without acute infection [place] continue to monitor Admission and Anticipated Discharge Date Admission Date: March 30, 2021 Subjective Patient has no complaints of being short of breath she has a some minor sore throat. She does have some urinary frequency but no dysuria. He is remaining without hypoxemia Review of Systems Review of Systems: Mild distress and fatigue no headache, no visual changes no speech or swallowing issues does complain of sore throat no chest pain, pressure or palpitations no shortness of breath, does have a nonproductive cough but no wheezes no abdominal pain, nausea or vomiting, diarrhea or constipation no dysuria, hematuria or frequency no focal joint pain or swelling no back pain, CVA tenderness or radicular pain no bruising, bleeding or rashes no focal signs of weakness or numbness or altered sensation no complaints of anxiety or depression.. Physical Exam Physical Exam: The patient appeared well nourished and normally developed. Vital signs as documented. Head exam is normocephalic atraumatic Oropharynx with moderate posterior erythema but no thrush or exudates Neck is without JVD, lymphadenopathy, thyromegaly, or carotid bruits. Lungs are clear to auscultation, no focal loss of breath sounds Cardiac exam, Rhythm is regular.. No murmurs, rubs or gallops. Abdominal exam reveals normal bowel sounds, soft very mild suprapubic tenderness Extremities are nonedematous and both pedal pulses are present Neurologic exam is alert and oriented, no focal loss of strength or sensation Skin is without bruises or rashes Psychologically is without concerns for anxiety or depression Results & Data Results & Data ([facility]) Vital Signs (Past 12 Hours) Vital Signs Temp Pulse Pulse Pulse Resp BP BP 03/31/21 06:35 99.0 F 03/31/21 05:56 101.5 F H 118 H 18 119/66 03/31/21 03:22 100.2 F H 118 H 24 136/71 03/30/21 23:54 99.1 F 114 H 20 131/70 03/30/21 21:35 98.4 F 107 H 18 03/30/21 21:00 106 H 20 131/68 03/30/21 20:49 18 03/30/21 20:30 98 H 17 121/48 L BP Pulse Ox 03/31/21 06:35 03/31/21 05:56 95 03/31/21 03:22 93 03/30/21 23:54 98 03/30/21 21:35 147/76 H 99 03/30/21 21:00 97 03/30/21 20:49 98 03/30/21 20:30 98 PG Care Time/CCT Total # of Minutes Spent Total Time Spent with Patient: Total time spent is greater than 50% in coordination of care (as documented) at patient's floor/unit and/or counseling patient: Coding Level of Care Code 85821 Subseq Hosp Care Lvl 3 Diagnoses Sepsis A41.9 Sepsis acute organ dysfunction status: unspecified Sepsis type: sepsis due to unspecified organism COVID-19 in immunocompromised patient U07.1; D84.9 UTI (urinary tract infection) N39.0 Hematuria presence: without hematuria Urinary tract infection type: site unspecified Elevated troponin R77.8 Elevated serum creatinine R79.89 Hypomagnesemia E83.42 Diabetic peripheral neuropathy associated with type 2 diabetes mellitus E11.42 Hypothyroidism E03.9 Dyslipidemia E78.5 Gastroesophageal reflux disease K21.9 Pancreatic cancer C25.9 Pancreatic malignancy location: unspecified Sore throat J02.9 (1) UTI (urinary tract infection) Hematuria presence: without hematuria Urinary tract infection type: site unspecified Qualified Code(s): N39.0 - Urinary tract infection, site not specified (2) Pancreatic cancer Pancreatic malignancy location: unspecified Qualified Code(s): C25.9 - Ma lignant neoplasm of pancreas, unspecified (3) Sepsis Sepsis acute organ dysfunction status: unspecified Sepsis type: sepsis due to unspecified organism Qualified Code(s): A41.9 - Sepsis, unspecified organism
[2021-03-31 08:41] LABS: Basophils # (auto) 0.02 K/uL (0-0.2); Basophils % (auto) 0.5 %; Eosinophils # (auto) 0.09 K/uL (0-0.5); Eosinophils % (auto) 2.2 %; Hematocrit (blood only) 25.1 % (37-47); Hemoglobin 8.4 g/dL (12.0-16.0); Immature Granulocytes # (auto) 0.01 K/uL (0.00-0.02); Immature Granulocytes % (auto) 0.2 %; Lymphocytes # (auto) 0.68 K/uL (1.2-3.4); Lymphocytes % (auto) 16.3 %; Mean Corpuscular Hemoglobin 32.6 pg (25-34); Mean Corpuscular Hgb Conc 33.5 g/dL (32-36); Mean Corpuscular Volume 97.3 fL (80-100); Mean Platelet Volume 8.9 fL (7.4-10.4); Monocytes # (auto) 0.08 K/uL (0.11-0.59); Monocytes % (auto) 1.9 %; Neutrophils # (auto) 3.29 K/uL (1.4-6.5); Neutrophils % (auto) 78.9 %; Platelet Count 107 K/uL (130-400); RDW Coefficient of Variation 14.7 % (11.5-14.5); RDW Standard Deviation 51.8 fL (36.4-46.3); Red Blood Count 2.58 M/uL (4.2-5.4); White Blood Count 4.17 K/uL (4.8-10.8)
[2021-03-31] MEDS: lisinopril 10 MG TAB PO SCH (09:01)
[2021-03-31] MEDS: ATORVASTATIN 40 MG TAB PO SCH (09:02)
[2021-03-31] MEDS: INSULIN ASPART 100 UNITS/ML 3 ML PEN SQ SCH ×4 (09:16→19:50)
[2021-03-31 09:24] LABS: Albumin Globulin Ratio 0.9 (0.9-2); Albumin Level 2.6 gm/dl (3.4-5.0); BUN Creatinine Ratio 24.8 (10-20); Bilirubin,Total 0.4 mg/dl (0.2-1); Calcium 7.7 mg/dl (8.5-10.1); Creatinine Clr Calc Pharmacy 48.1 ml/min; Est GFR (African American) 60.3 ml/min; Globulin 2.9 gm/dl (2.5-4.0); Potassium 4.2 mmol/L (3.5-5.1); Total Protein 5.5 gm/dl (6.4-8.2)
--- NOTE | 2021-03-31 15:23 | Electrocardiogram Report ---
Test Reason : Blood Pressure : / mmHG Vent. Rate : 111 BPM Atrial Rate : 111 BPM P-R Int : 156 ms QRS Dur : 076 ms QT Int : 326 ms P-R-T Axes : 048 -01 035 degrees QTc Int : 443 ms Poor data quality, interpretation may be adversely affected Sinus tachycardia Poor R wave progression, consider anterior CA vs. lead placement vs. LVH Abnormal ECG When compared with ECG of 09-SEP-2020 03:16, No significant change was found Confirmed by Ac Tyler ([id number]) on 03/31/2021 3:23:10 PM Referred By: REFERRED SELF Confirmed By:Sameer Tyler
[2021-03-31] MEDS: RIVAROXABAN 15 MG TAB PO SCH (17:31)
[2021-03-31] MEDS: INSULIN GLARGINE SOLOSTAR 100 UNITS/ML 3 ML PEN SQ SCH (20:34)
[2021-04-01] MEDS: LEVOTHYROXINE SODIUM 75 MCG TABLET PO SCH (05:10)
[2021-04-01] MEDS: INSULIN ASPART 100 UNITS/ML 3 ML PEN SQ SCH ×4 (09:15→20:10)
[2021-04-01] MEDS: CHOLECALCIFEROL 1,000 UNITS 25 MCG TAB PO SCH (09:34)
[2021-04-01] MEDS: ZINC SULFATE 220 MG CAPSULE PO SCH (09:34)
[2021-04-01] MEDS: GABAPENTIN 100 MG CAP PO SCH ×2 (09:34→20:22)
[2021-04-01] MEDS: ATORVASTATIN 40 MG TAB PO SCH (09:34)
[2021-04-01] MEDS: lisinopril 10 MG TAB PO SCH (09:34)
[2021-04-01] MEDS: cefTRIAXone SODIUM 2,000 MG in DEXTROSE 5% 50 ML IV SCH (15:21)
[2021-04-01] MEDS: ACETAMINOPHEN 325 MG TAB PO PRN (17:20)
[2021-04-01] MEDS: RIVAROXABAN 15 MG TAB PO SCH (17:21)
--- NOTE | 2021-04-01 18:55 | Hospitalist Progress Note ---
Date of Service April 01, 2021 Assessment & Plan (1) Sepsis: Plan: Mrs. Gutierrez is a 75 yo woman currently undergo chemotherapy for stage IV pancreatic cancer who presented for evaluation of acute illness. - SIRS criteria met on admission (Fever, HR); patient septic - lactate elevated to 2.1, - as for source, she appears to have a gram negative urinary tract infection and an acute COVID 19 infection pansensitive Klebsiella - fortunately, patient does not appear to have a pneumonia associated with her COVID 19 infection at this time (CXR clear) - follow blood( negative to date ) and urine culture klebsiella - IV fluid resuscitation at 30ml/kg stop maintainence fluid - continue IV ceftriaxone for UTI (2) COVID-19 in immunocompromised patient: Plan: - moderate illness severity (no CXR infiltrates, O2 sat > 94% on room air, RR not elevated) - Remdesirvir and Dexamethasone not indicated at this time - however consider starting if O2 sat < 94% - CXR clear, no apparent associated pneumonia. Will not initiate azithromycin at this time. - patient unlikely to be a candidate for tocilizumab given immunocompromised status (ie ongoing chemotherapy) - d-dimer 2000, CRP 4.6 - zinc sulfate 220mg and vitamin D 5,000 IU daily - COVID 19 precautions (3) UTI (urinary tract infection): Plan: - UA 2+ LE, + nitrites, 4+ bacteria, > 30 WBCs - urine culture gram negative but sensitivities pending - on review of previous cultures, patient has grown lam-sensitive Klebsiella , and ecoli with resistance to cipro - continue IV ceftriaxone (4) Elevated troponin: Plan: - trop elevated on admission - EKG without acute ST segment changes - suspect secondary to demand ischemia /supply mismatch in the setting of high output state (sepsis) - trend trops (5) Elevated serum creatinine: Plan: - Cr elevated to 1.34, BUN at 33, ratio of 24 - baseline Cr ~ 1.1 - suspect secondary to pre-renal origin in the setting of acute sepsis - (6) Hypomagnesemia: Plan: - mag level low at 1.2 - 2g IV replacement x2 ordered in ED - recheck level in am (7) Diabetic peripheral neuropathy associated with type 2 diabetes mellitus: Plan: - continue home insulin - DM 2 carb consistent diet - continue high intensity statin and KATHRYN inhibitor - continue gabapentin for neuropathy (8) Hypothyroidism: Plan: - continue home dose levothyroxine (9) Dyslipidemia: Plan: - continue home dose atorvastatin (10) Gastroesophageal reflux disease: Plan: - continue home omeprazole (11) Pancreatic cancer: Plan: - stage IV with mets to liver - currently undergoing chemo - patient will likely need to cancel this Fridays scheduled treatment as she will need to be on quarantine if out of hospital DVT ppx: On Xarelto (for hx of portal vein thrombosis) Diet: Carb consistent DM 2 Dispo: Med/tele Code: Full, I discussed with patient (12) Sore throat: Plan: this it subjecive without acute infection [place] continue to monitor Admission and Anticipated Discharge Date Admission Date: March 30, 2021 Subjective Pt does not feel well today, fatigued and worn out, loss of smell, has no diarrhea, Patient has no complaints of being short of breath she has improved sore throat pain. She does have some urinary frequency but no dysuria. He is remaining without hypoxemia Review of Systems Review of Systems: Mild distress and fatigue no headache, no visual changes no speech or swallowing issues does complain of sore throat no chest pain, pressure or palpitations no shortness of breath, does have a nonproductive cough but no wheezes no abdominal pain, nausea or vomiting, diarrhea or constipation no dysuria, hematuria or frequency no focal joint pain or swelling no back pain, CVA tenderness or radicular pain no bruising, bleeding or rashes no focal signs of weakness or numbness or altered sensation no complaints of anxiety or depression.. Physical Exam Physical Exam: The patient appeared well nourished and normally developed. Vital signs as documented. Head exam is normocephalic atraumatic Oropharynx with moderate posterior erythema but no thrush or exudates Neck is without JVD, lymphadenopathy, thyromegaly, or carotid bruits. Lungs are clear to auscultation, no focal loss of breath sounds Cardiac exam, Rhythm is regular.. No murmurs, rubs or gallops. Abdominal exam reveals normal bowel sounds, soft very mild suprapubic tenderness Extremities are nonedematous and both pedal pulses are present Neurologic exam is alert and oriented, no focal loss of strength or sensation Skin is without bruises or rashes Psychologically is without concerns for anxiety or depression Results & Data Results & Data ([facility]) Vital Signs (Past 12 Hours) Vital Signs Temp Pulse Pulse Resp BP Pulse Ox 04/01/21 15:32 100 H 04/01/21 11:52 97.9 F 89 16 116/68 93 04/01/21 08:03 99.3 F 97 H 18 114/66 93 04/01/21 07:00 100 H PG Care Time/CCT Total # of Minutes Spent Total Time Spent with Patient: Total time spent is greater than 50% in coordi nation of care (as documented) at patient's floor/unit and/or counseling patient: Coding Level of Care Code 64477 Subseq Hosp Care Lvl 2 Diagnoses Sepsis A41.9 Sepsis acute organ dysfunction status: unspecified Sepsis type: sepsis due to unspecified organism COVID-19 in immunocompromised patient U07.1; D84.9 UTI (urinary tract infection) N39.0 Hematuria presence: without hematuria Urinary tract infection type: site unspecified Elevated troponin R77.8 Elevated serum creatinine R79.89 Hypomagnesemia E83.42 Diabetic peripheral neuropathy associated with type 2 diabetes mellitus E11.42 Hypothyroidism E03.9 Dyslipidemia E78.5 Gastroesophageal reflux disease K21.9 Pancreatic cancer C25.9 Pancreatic malignancy location: unspecified Sore throat J02.9 (1) Sepsis Sepsis acute organ dysfunction status: unspecified Sepsis type: sepsis due to unspecified organism Qualified Code(s): A41.9 - Sepsis, unspecified organism (2) UTI (urinary tract infection) Hematuria presence: without hematuria Urinary tract infection type: site unspecified Qualified Code(s): N39.0 - Urinary tract infection, site not specified (3) Pancreatic cancer Pancreatic malignancy location: unspecified Qualified Code(s): C25.9 - Malignant neoplasm of pancreas, unspecified
[2021-04-01] MEDS: INSULIN GLARGINE SOLOSTAR 100 UNITS/ML 3 ML PEN SQ SCH (20:10)
[2021-04-02] MEDS: LEVOTHYROXINE SODIUM 75 MCG TABLET PO SCH (04:42)
[2021-04-02] MEDS: ACETAMINOPHEN 325 MG TAB PO PRN ×3 (04:42→21:27)
[2021-04-02] MEDS: ZINC SULFATE 220 MG CAPSULE PO SCH (08:18)
[2021-04-02] MEDS: CHOLECALCIFEROL 1,000 UNITS 25 MCG TAB PO SCH (08:19)
[2021-04-02] MEDS: GABAPENTIN 100 MG CAP PO SCH ×2 (08:19→21:26)
[2021-04-02] MEDS: ATORVASTATIN 40 MG TAB PO SCH (08:19)
[2021-04-02] MEDS: INSULIN ASPART 100 UNITS/ML 3 ML PEN SQ SCH ×4 (08:24→22:00)
--- NOTE | 2021-04-02 09:06 | XRay Report ---
SINGLE VIEW CHEST CLINICAL HISTORY: Cough and fever. Covid. FINDINGS: An AP, portable, upright chest radiograph is compared to study dated 03/30/2021 and correlate d with chest CT dated 02/23/2021. A left subclavian central venous infusion port is unchanged in positi on. The cardiomediastinal silhouette is unremarkable. Atelectasis is noted at the lung bases. The lexx gs and pleural spaces are otherwise clear. No pneumothorax is seen. The skeletal structures are osteo penic. The bony thorax is grossly intact. Calcific tendinopathy is seen in both shoulders. IMPRESSION: No active disease in the chest. ACT 112: Negative or not required by law. Electronically signed by: Ashish Patrick M.D. 04/02/2021 9:05 AM
[2021-04-02] MEDS: lisinopril 10 MG TAB PO SCH (10:41)
[2021-04-02] MEDS: cefTRIAXone SODIUM 2,000 MG in DEXTROSE 5% 50 ML IV SCH (14:06)
[2021-04-02] MEDS: CHLORHEXIDINE GLUCONATE 0.12% 480 ML MT PRN (14:07)
--- NOTE | 2021-04-02 15:31 | Hospitalist Progress Note ---
Date of Service April 02, 2021 Assessment & Plan (1) Sepsis: Plan: Mrs. Gutierrez is a 75 yo woman currently undergo chemotherapy for stage IV pancreatic cancer who presented for evaluation of acute illness. - SIRS criteria met on admission (Fever, HR); patient septic - lactate elevated to 2.1, - as for source, she appears to have a gram negative urinary tract infection and an acute COVID 19 infection pansensitive Klebsiella - fortunately, patient does not appear to have a pneumonia associated with her COVID 19 infection at this time (CXR and exam clear) - follow blood( negative to date ) and urine culture klebsiella - - continue IV ceftriaxone for UTI, lam sensitive Klebsiella poa (2) COVID-19 in immunocompromised patient: Plan: - moderate illness severity (no CXR infiltrates, O2 sat > 94% on room air, RR not elevated) - Remdesirvir and Dexamethasone not indicated at this time - however consider starting if O2 sat < 94% - CXR clear, no apparent associated pneumonia. Will not initiate azithromycin at this time. - patient unlikely to be a candidate for tocilizumab given immunocompromised status (ie ongoing chemotherapy) - d-dimer 2000, CRP 4.6 - zinc sulfate 220mg and vitamin D 5,000 IU daily - COVID 19 precautions (3) UTI (urinary tract infection): Plan: - UA 2+ LE, + nitrites, 4+ bacteria, > 30 WBCs - urine culture Klebsiella lam sensitive - continue IV ceftriaxone (4) Elevated troponin: Plan: - trop elevated on admission - EKG without acute ST segment changes - suspect secondary to demand ischemia /supply mismatch in the setting of high output state (sepsis) - trend trops (5) Elevated serum creatinine: Plan: - Cr elevated to 1.34, BUN at 33, ratio of 24 - baseline Cr ~ 1.1 - suspect secondary to pre-renal origin in the setting of acute sepsis - (6) Hypomagnesemia: Plan: - mag level low at 1.2 - 2g IV replacement x2 ordered in ED - recheck level in am (7) Diabetic peripheral neuropathy associated with type 2 diabetes mellitus: Plan: - continue home insulin - DM 2 carb consistent diet - continue high intensity statin and KATHRYN inhibitor - continue gabapentin for neuropathy (8) Hypothyroidism: Plan: - continue home dose levothyroxine (9) Dyslipidemia: Plan: - continue home dose atorvastatin (10) Gastroesophageal reflux disease: Plan: - continue home omeprazole (11) Pancreatic cancer: Plan: - stage IV with mets to liver - currently undergoing chemo - patient will likely need to cancel this Fridays scheduled treatment as she will need to be on quarantine if out of hospital DVT ppx: On Xarelto (for hx of portal vein thrombosis) Diet: Carb consistent DM 2 Dispo: Med/tele Code: Full, I discussed with patient (12) Sore throat: Plan: this it subjecive without acute infection [place] continue to monitor Admission and Anticipated Discharge Date Admission Date: April 01, 2021 Subjective Feels improved but not as well as 2 days ago, continues loss of smell, has no diarrhea, Patient has no complaints of being short of breath she has improved sore throat pain. She continues wtih urinary frequency but no dysuria. He is remaining without hypoxemia but has some fever Review of Systems Review of Systems: Mild distress and fatigue no headache, no visual changes no speech or swallowing issues does complain of sore throat no chest pain, pressure or palpitations no shortness of breath, does have a nonproductive cough but no wheezes no abdominal pain, nausea or vomiting, diarrhea or constipation no dysuria, hematuria or frequency no focal joint pain or swelling no back pain, CVA tenderness or radicular pain no bruising, bleeding or rashes no focal signs of weakness or numbness or altered sensation no complaints of anxiety or depression.. Physical Exam Physical Exam: The patient appeared well nourished and normally developed. Vital signs as documented. Head exam is normocephalic atraumatic Oropharynx with moderate posterior erythema but no thrush or exudates Neck is without JVD, lymphadenopathy, thyromegaly, or carotid bruits. Lungs are clear to auscultation, no focal loss of breath sounds Cardiac exam, Rhythm is regular.. No murmurs, rubs or gallops. Abdominal exam reveals normal bowel sounds, soft very mild suprapubic tenderness Extremities are nonedematous and both pedal pulses are present Neurologic exam is alert and oriented, no focal loss of strength or sensation Skin is without bruises or rashes Psychologically is without concerns for anxiety or depression Results & Data Results & Data ([facility]) Vital Signs (Past 12 Hours) Vital Signs Temp Pulse Pulse Resp BP BP Pulse Ox 04/02/21 11:58 99.0 F 93 H 20 124/73 99 04/02/21 08:08 98.2 F 88 18 111/68 94 04/02/21 07:00 95 H PG Care Time/CCT Total # of Minutes Spent Total Time Spent with Patient: Total time spent is greater than 50% in coordination of care (as documented) at patient's floor/unit and/or counseling patient: Coding Level of Care Code 10399 Subseq Hosp Care Lvl 2 Diagnoses Sepsis A41.9 Sepsis acute organ dysfunction status: unspecified Sepsis type: sepsis due to unspecified organism COVID-19 in immunocompromised patient U07.1; D84.9 UTI (urinary tract infection) N39.0 Hematuria presence: without hematuria Urinary tract infection type: site unspecified Elevated troponin R77.8 Elevated serum creatinine R79.89 Hypomagnesemia E83.42 Diabetic peripheral neuropathy associated with type 2 diabetes mellitus E11.42 Hypothyroidism E03.9 Dyslipidemia E78.5 Gastroesophageal reflux disease K21.9 Pancreatic cancer C25.9 Pancreatic malignancy location: unspecified Sore throat J02.9 (1) Sepsis Sepsis acute organ dysfunction status: unspecified Sepsis type: sepsis due to unspecified organism Qualified Code(s): A41.9 - Sepsis, unspecified organism (2) UTI (urinary tract infection) Hematuria presence: without hematuria Urinary tract infection type: site unspecified Qualified Code(s): N39.0 - Urinary tract infection, site not specified (3) Pancreatic cancer Pancreatic malignancy location: unspecified Qualified Code(s): C25.9 - Malignant neoplasm of pancreas, unspecified
[2021-04-02] MEDS: ONDANSETRON INJ 2 MG/ML 2 ML VIAL IV PRN (15:32)
[2021-04-02] MEDS: RIVAROXABAN 15 MG TAB PO SCH (17:29)
[2021-04-02] MEDS: INSULIN GLARGINE SOLOSTAR 100 UNITS/ML 3 ML PEN SQ SCH (22:00)
--- NOTE | 2021-04-03 00:05 | Communication Note ---
Date of Service: April 03, 2021 I was paged regarding patient having persistent fevers despite Tylenol x1 tonight - T38.5 --> 38.2. Also with worsening tachycardia 100s --> 110s. Patient is getting Rocephin for UTI; also here for COVID and is immunosuppressed. I added Azithromycin for atypical coverage given COVID-19 infection in immunocompromised host. Also ordered stat CBC, as the patient's Hgb had dropped from 11.2 to 8.4 the day after admission, without repeat CBCs ordered for the last 48 hours. If Hgb <8, will consent for pRBCs and administer 1 unit. Will also get FOBT at that point in time.
[2021-04-03 00:29] LABS: Hematocrit (blood only) 25.7 % (37-47); Hemoglobin 8.5 g/dL (12.0-16.0); Mean Corpuscular Hemoglobin 31.8 pg (25-34); Mean Corpuscular Volume 96.3 fL (80-100); Nucleated RBC # (auto) 0.04 K/uL (0-0); Nucleated RBC % (auto) 0.8 %; Red Blood Count 2.67 M/uL (4.2-5.4); White Blood Count 4.24 K/uL (4.8-10.8)
[2021-04-03 00:46] LABS: BUN Creatinine Ratio 19.1 (10-20); Calcium 8.1 mg/dl (8.5-10.1); Est GFR (African American) 44.2 ml/min; Est GFR (Non-African American) 38.2 ml/min; Potassium 4.3 mmol/L (3.5-5.1)
[2021-04-03 00:52] LABS: Mean Corpuscular Hgb Conc 33.1 g/dL (32-36); Mean Platelet Volume 8.5 fL (7.4-10.4); Platelet Count 75 K/uL (130-400)
[2021-04-03 00:55] LABS: Basophils # (auto) 0.01 K/uL (0-0.2); Basophils % (auto) 0.2 %; Eosinophils # (auto) 0.05 K/uL (0-0.5); Eosinophils % (auto) 1.2 %; Immature Granulocytes % (auto) 2.4 %; Lymphocytes # (auto) 0.69 K/uL (1.2-3.4); Lymphocytes % (auto) 16.3 %; Monocytes # (auto) 0.61 K/uL (0.11-0.59); Monocytes % (auto) 14.4 %; Neutrophils # (auto) 2.78 K/uL (1.4-6.5); Neutrophils % (auto) 65.5 %; Platelet Estimate Decreased (Normal); RBC Morphology Unremarkable
[2021-04-03] MEDS: ACETAMINOPHEN 325 MG TAB PO PRN ×4 (01:40→23:31)
[2021-04-03] MEDS: AZITHROMYCIN 250 MG TAB PO SCH ×2 (01:40→10:09)
[2021-04-03] MEDS: LEVOTHYROXINE SODIUM 75 MCG TABLET PO SCH (06:09)
[2021-04-03 08:00] LABS: Creatinine Clr Calc Pharmacy 38.2 ml/min; Est GFR (African American) 45.8 ml/min; Est GFR (Non-African American) 39.6 ml/min
--- NOTE | 2021-04-03 08:34 | Hospitalist Progress Note ---
Date of Service April 03, 2021 Assessment & Plan (1) Sepsis: Plan: Mrs. Gutierrez is a 75 yo woman currently undergo chemotherapy for stage IV pancreatic cancer who presented for evaluation of acute illness. - SIRS criteria met on admission (Fever, HR); patient septic - lactate elevated to 2.1, - as for source, she appears to have a gram negative urinary tract infection and an acute COVID 19 infection pansensitive Klebsiella -Previously she did not appear to have a pneumonia associated with her COVID 19 infection at this time chest x-ray on admission and on 04/02 remains negative - follow blood( negative to date ) and urine culture klebsiella - - continue IV ceftriaxone for UTI, lam sensitive Klebsiella poa (2) COVID-19 in immunocompromised patient: Plan: - moderate illness severity (no CXR infiltrates, O2 sat > 94% on room air, RR not elevated) - Remdesirvir and Dexamethasone not indicated at this time - however consider starting if O2 sat < 94% - CXR clear, no apparent associated pneumonia. Will not initiate azithromycin at this time. - patient unlikely to be a candidate for tocilizumab given immunocompromised status (ie ongoing chemotherapy) - d-dimer 1999, CRP 4.6 - zinc sulfate 220mg and vitamin D 5,000 IU daily - COVID 19 precautions Patient first developed symptoms on 03/29/2021. She clinically is slightly escalat ing although her vital signs are not. Probably is about usp to the possible inflammatory phase that occurs around 2 weeks we are guarded regarding having the patient go home as she is now developed daily fevers not yet appear to be hypoxemic (3) UTI (urinary tract infection): Plan: - UA 2+ LE, + nitrites, 4+ bacteria, > 30 WBCs - urine culture Klebsiella lam sensitive - continue IV ceftriaxone (4) Elevated troponin: Plan: - trop elevated on admission - EKG without acute ST segment changes - suspect secondary to demand ischemia /supply mismatch in the setting of high output state (sepsis) - (5) Elevated serum creatinine: Plan: - Cr elevated to 1.34, BUN at 33, ratio of 24 - baseline Cr ~ 1.1 - suspect secondary to pre-renal origin in the setting of acute sepsis - (6) Hypomagnesemia: Plan: - mag level low at 1.2 - 2g IV replacement x2 ordered in ED - recheck level in am (7) Diabetic peripheral neuropathy associated with type 2 diabetes mellitus: Plan: - continue home insulin - DM 2 carb consistent diet - continue high intensity statin and KATHRYN inhibitor - continue gabapentin for neuropathy (8) Hypothyroidism: Plan: - continue home dose levothyroxine (9) Dyslipidemia: Plan: - continue home dose atorvastatin (10) Gastroesophageal reflux disease: Plan: - continue home omeprazole (11) Pancreatic cancer: Plan: - stage IV with mets to liver - currently undergoing chemo - patient will cancel this Tuesday 04/03 scheduled treatment as she will need to be on quarantine if out of hospital DVT ppx: On Xarelto (for hx of portal vein thrombosis) Diet: Carb consistent DM 2 Dispo: Med/tele Code: Full, (12) Sore throat: Plan: this it subjecive without acute infection [place] continue to monitor (13) Pancytopenia: Plan: could be multifactorial from covid infection or from her cancer treatment/chemotherapy patient is on Gemzar therapy last given 02/27/2021 Admission and Anticipated Discharge Date Admission Date: April 01, 2021 Subjective Today patient feels like she has the flu, continues loss of smell, has no diarrhea, Patient has no complaints of being short of breath she has improved sore throat pain. sHe is remaining without hypoxemia but has some fever and now is developing a nonproductive cough on 04/03/2021 Review of Systems Review of Systems: Mild distress and fatigue no headache, no visual changes no speech or swallowing issues does complain of sore throat no chest pain, pressure or palpitations no shortness of breath, does have a nonproductive cough but no wheezes no abdominal pain, nausea or vomiting, diarrhea or constipation no dysuria, hematuria or frequency no focal joint pain or swelling no back pain, CVA tenderness or radicular pain no bruising, bleeding or rashes no focal signs of weakness or numbness or altered sensation no complaints of anxiety or depression.. Physical Exam Physical Exam: The patient appeared well nourished and normally developed. Vital signs as documented. Head exam is normocephalic atraumatic Oropharynx with moderate posterior erythema but no thrush or exudates Neck is without JVD, lymphadenopathy, thyromegaly, or carotid bruits. Lungs are clear to auscultation, no focal loss of breath sounds she however appears slightly dyspneic sitting in the chair Cardiac exam, Rhythm is regular.. No murmurs, rubs or gallops. Abdominal exam reveals normal bowel sounds, soft very mild suprapubic tenderness Extremities are nonedematous and both pedal pulses are present Neurologic exam is alert and oriented, no focal loss of strength or sensation Skin is without bruises or rashes Psychologically is without concerns for anxiety or depression Results & Data Results & Data ([facility]) Vital Signs (Past 12 Hours) Vital Signs Temp Pulse Pulse Resp BP Pulse Ox 04/03/21 04:00 99.9 F H 93 H 20 109/64 94 04/02/21 23:10 117 H 04/02/21 23:00 100.8 F H 116 H 20 123/71 91 PG Care Time/CCT Total # of Minutes Spent Total Time Spent with Patient: Total time spent is greater than 50% in coordination of care (as documented) at patient's floor/unit and/or counseling patient: Coding Level of Care Code 72231 Subseq Hosp Care Lvl 3 Diagnoses Sepsis A41.9 Sepsis acute organ dysfunction status: unspecified Sepsis type: sepsis due to unspecified organism COVID-19 in immunocompromised patient U07.1; D84.9 UTI (urinary tract infection) N39.0 Hematuria presence: without hematuria Urinary tract infection type: site unspecified Elevated troponin R77.8 Elevated serum creatinine R79.89 Hypomagnesemia E83.42 Diabetic peripheral neuropathy associated with type 2 diabetes mellitus E11.42 Hypothyroidism E03.9 Dyslipidemia E78.5 Gastroesophageal reflux disease K21.9 Pancreatic cancer C25.9 Pancreatic malignancy location: unspecified Sore throat J02.9 Pancytopenia D61.818 (1) UTI (urinary tract infection) Hematuria presence: without hematuria Urinary tract infection type: site unspecified Qualified Code(s): N39.0 - Urinary tract infection, site not specified (2) Pancreatic cancer Pancreatic malignancy location: unspecified Qualified Code(s): C25.9 - Malignant neoplasm of pancreas, unspecified (3) Sepsis Sepsis acute organ dysfunction status: unspecified Sepsis type: sepsis due to unspecified organism Qualified Code(s): A41.9 - Sepsis, unspecified organism
[2021-04-03] MEDS ORDERED: AZITHROMYCIN 250 MG TAB PO SCH (09:00)
[2021-04-03] MEDS: ATORVASTATIN 40 MG TAB PO SCH (09:08)
[2021-04-03] MEDS: ZINC SULFATE 220 MG CAPSULE PO SCH (09:08)
[2021-04-03] MEDS: lisinopril 10 MG TAB PO SCH (09:08)
[2021-04-03] MEDS: GABAPENTIN 100 MG CAP PO SCH ×2 (09:08→21:17)
[2021-04-03] MEDS: CHOLECALCIFEROL 1,000 UNITS 25 MCG TAB PO SCH (09:09)
[2021-04-03] MEDS: INSULIN ASPART 100 UNITS/ML 3 ML PEN SQ SCH ×4 (09:19→21:30)
[2021-04-03] MEDS: CHLORHEXIDINE GLUCONATE 0.12% 480 ML MT PRN (09:20)
[2021-04-03] MEDS: POLYETHYLENE (MIRALAX) 17 GM PACK PO PRN (09:58)
[2021-04-03] MEDS: cefTRIAXone SODIUM 2,000 MG in DEXTROSE 5% 50 ML IV SCH (14:12)
[2021-04-03] MEDS: RIVAROXABAN 15 MG TAB PO SCH (16:56)
[2021-04-03] MEDS: ONDANSETRON INJ 2 MG/ML 2 ML VIAL IV PRN (19:40)
[2021-04-03] MEDS: INSULIN GLARGINE SOLOSTAR 100 UNITS/ML 3 ML PEN SQ SCH (21:30)
[2021-04-04] MEDS: LEVOTHYROXINE SODIUM 75 MCG TABLET PO SCH (06:22)
[2021-04-04] MEDS: CHOLECALCIFEROL 1,000 UNITS 25 MCG TAB PO SCH (08:53)
[2021-04-04] MEDS: ATORVASTATIN 40 MG TAB PO SCH (08:53)
[2021-04-04] MEDS: lisinopril 10 MG TAB PO SCH (08:54)
[2021-04-04] MEDS: ACETAMINOPHEN 325 MG TAB PO PRN ×3 (08:54→20:32)
[2021-04-04] MEDS: ZINC SULFATE 220 MG CAPSULE PO SCH (08:54)
[2021-04-04] MEDS: POLYETHYLENE (MIRALAX) 17 GM PACK PO PRN (08:54)
[2021-04-04] MEDS: GABAPENTIN 100 MG CAP PO SCH ×2 (08:54→21:18)
[2021-04-04] MEDS: INSULIN ASPART 100 UNITS/ML 3 ML PEN SQ SCH ×5 (08:55→23:18)
[2021-04-04] MEDS ORDERED: bisacodyL 10 MG SUPP PR STA (13:53)
[2021-04-04] MEDS: DOCUSATE SODIUM/SENNA 50/8.6MG TAB PO SCH (14:37)
[2021-04-04] MEDS: AZITHROMYCIN 250 MG TAB PO SCH (14:37)
[2021-04-04] MEDS: cefTRIAXone SODIUM 2,000 MG in DEXTROSE 5% 50 ML IV SCH (14:38)
[2021-04-04] MEDS: ONDANSETRON INJ 2 MG/ML 2 ML VIAL IV PRN ×2 (14:38→20:10)
[2021-04-04] MEDS ORDERED: PHARMACY GLYCEMIC MGMT CONSULT PRN (18:06)
--- NOTE | 2021-04-04 18:06 | Hospitalist Progress Note ---
Date of Service April 04, 2021 Assessment & Plan (1) Sepsis: Plan: Mrs. Gutierrez is a 75 yo woman currently undergo chemotherapy for stage IV pancreatic cancer who presented for evaluation of acute illness. - SIRS criteria met on admission (Fever, HR); patient septic - lactate elevated to 2.1, - as for source, she appears to have a gram negative urinary tract infection and an acute COVID 19 infection pansensitive Klebsiella -Previously she did not appear to have a pneumonia associated with her COVID 19 infection at this time chest x-ray on admission and on 04/02 remains negative - follow blood( negative to date ) and urine culture klebsiella - - continue IV ceftriaxone for UTI, lam sensitive Klebsiella poa (2) COVID-19 in immunocompromised patient: Plan: - moderate illness severity (no CXR infiltrates, O2 sat > 94% on room air, RR not elevated) - Remdesirvir and Dexamethasone not indicated at this time - however consider starting if O2 sat < 94% - CXR clear, no apparent associated pneumonia. Will not initiate azithromycin at this time. - patient unlikely to be a candidate for tocilizumab given immunocompromised status (ie ongoing chemotherapy) - d-dimer 1999, CRP 4.6 - zinc sulfate 220mg and vitamin D 5,000 IU daily - COVID 19 precautions Patient first developed symptoms on 03/29/2021. She clinically is slightly escalat ing although her vital signs are not. Probably is about shelter to the possible inflammatory phase that occurs around 2 weeks we are guarded regarding having the patient go home as she is now developed daily fevers assessment persistently low oxygen readings below 94% we will institute dexamethasone therapy at this time (3) UTI (urinary tract infection): Plan: - UA 2+ LE, + nitrites, 4+ bacteria, > 30 WBCs - urine culture Klebsiella lam sensitive - continue IV ceftriaxone (4) Elevated troponin: Plan: - trop elevated on admission - EKG without acute ST segment changes - suspect secondary to demand ischemia /supply mismatch in the setting of high output state (sepsis) - (5) Elevated serum creatinine: Plan: - Cr elevated to 1.34, BUN at 33, ratio of 24 - baseline Cr ~ 1.1 - suspect secondary to pre-renal origin in the setting of acute sepsis - (6) Hypomagnesemia: Plan: -Replete (7) Diabetic peripheral neuropathy associated with type 2 diabetes mellitus: Plan: - continue home insulin - DM 2 carb consistent diet - continue high intensity statin and KATHRYN inhibitor - continue gabapentin for neuropathy (8) Hypothyroidism: Plan: - continue home dose levothyroxine (9) Dyslipidemia: Plan: - continue home dose atorvastatin (10) Gastroesophageal reflux disease: Plan: - continue home omeprazole (11) Pancreatic cancer: Plan: - stage IV with mets to liver - currently undergoing chemo - patient will cancel this Tuesday 04/03 scheduled treatment as she will need to be on quarantine if out of hospital DVT ppx: On Xarelto (for hx of portal vein thrombosis) Diet: Carb consistent DM 2 Dispo: Med/tele Code: Full, (12) Sore throat: Plan: this it subjecive without acute infection [place] continue to monitor (13) Pancytopenia: Plan: could be multifactorial from covid infection or from her cancer treatment/chemotherapy patient is on Gemzar therapy last given 02/27/2021 Admission and Anticipated Discharge Date Admission Date: April 01, 2021 Subjective Patient continues to feel like she has the flu. My concern is for progression of her Covid disease however she is not had reliable need for oxygen supplementation. Continue treating for urinary tract infection present on admission. Her biggest concern is that she has not had a bowel movement. Review of Systems Review of Systems: Mild distress and fatigue no headache, no visual changes no speech or swallowing issues does complain of sore throat no chest pain, pressure or palpitations no shortness of breath, does have a nonproductive cough but no wheezes no abdominal pain, nausea or vomiting, complains of constipation no dysuria, hematuria or frequency no focal joint pain or swelling no back pain, CVA tenderness or radicular pain no bruising, bleeding or rashes no focal signs of weakness or numbness or altered sensation no complaints of anxiety or depression.. Physical Exam Physical Exam: The patient appeared well nourished and normally developed. Vital signs as documented. Head exam is normocephalic atraumatic Oropharynx with moderate posterior erythema but no thrush or exudates Neck is without JVD, lymphadenopathy, thyromegaly, or carotid bruits. Lungs are clear to auscultation, no focal loss of breath sounds she however continues to appear slightly dyspneic sitting in the chair Cardiac exam, Rhythm is regular.. No murmurs, rubs or gallops. Abdominal exam reveals normal bowel sounds, soft no distention no guarding Extremities are nonedematous and both pedal pulses are present Neurologic exam is alert and oriented, no focal loss of strength or sensation Skin is without bruises or rashes Psychologically is without concerns for anxiety or depression Results & Data Results & Data ([facility]) Vital Signs (Past 12 Hours) Vital Signs Temp Pulse Pulse Resp BP Pulse Ox 04/04/21 15:23 97 H 04/04/21 14:34 98.8 F 93 H 16 118/7 L 91 04/04/21 11:47 98.4 F 93 H 20 111/69 94 04/04/21 08:13 99.7 F H 109 H 20 107/70 94 04/04/21 07:24 93 H PG Care Time/CCT Total # of Minutes Spent Total Time Spent with Patient: Total time spent is greater than 50% in coordination of care (as documented) at patient's floor/unit and/or counseling patient: Coding Level of Care Code 96786 Subseq Hosp Care Lvl 3 Diagnoses Sepsis A41.9 Sepsis acute organ dysfunction status: unspecified Sepsis type: sepsis due to unspecified organism COVID-19 in immunocompromised patient U07.1; D84.9 UTI (urinary tract infection) N39.0 Hematuria presence: without hematuria Urinary tract infection type: site unspecified Elevated troponin R77.8 Elevated serum creatinine R79.89 Hypomagnesemia E83.42 Diabetic peripheral neuropathy associated with type 2 diabetes mellitus E11.42 Hypothyroidism E03.9 Dyslipidemia E78.5 Gastroesophageal reflux disease K21.9 Pancreatic cancer C25.9 Pancreatic malignancy location: unspecified Sore throat J02.9 Pancytopenia D61.818 (1) Sepsis Sepsis acute organ dysfunction status: unspecified Sepsis type: sepsis due to unspecified organism Qualified Code(s): A41.9 - Sepsis, unspecified organism (2) UTI (urinary tract infection) Hematuria presence: without hematuria Urinary tract infection type: site unspecified Qualified Code(s): N39.0 - Urinary tract infection, site not specified (3) Pancreatic cancer Pancreatic malignancy location: unspecified Qualified Code(s): C25.9 - Malignant neoplasm of pancreas, unspecified
[2021-04-04] MEDS: RIVAROXABAN 15 MG TAB PO SCH (18:30)
[2021-04-04] MEDS ORDERED: ACETAMINOPHEN 1000 MG/100 ML IV IV PRN (20:41)
[2021-04-04] MEDS ORDERED: INSULIN GLARGINE SOLOSTAR 100 UNITS/ML 3 ML PEN SQ ONE (21:00)
--- NOTE | 2021-04-04 21:15 | Pharmacy Report ---
Pharmacy Glycemic Short Note 2 - Date of Service April 04, 2021 - Glycemic Short BSG Results (Last 24 hours): 04/04/21 04/04/21 04/04/21 07:48 11:39 16:14 POC Glucose 130 H 205 H 203 H OUTPATIENT ANTIDIABETIC REGIMEN: * Basaglar 42 units HS * Novolog 10 units TIDM * Metformin ASSESSMENT: * Patient admitted 03/30 for COVID-19. Pharmacy consulted 04/04 2nd initiation of dexamethasone * Post-prandial BSG's have been a little elevated and steroids are starting. Will tighten Novolog parameters * Will increase basal only slightly despite dexamethasone initiation as the regimen is already basal heavy and the patient has no documented CHO intake today PLAN FOR INPATIENT GLYCEMIC CONTROL: * Hold outpatient oral diabetes medications * Basal insulin * Lantus 50 units SQ HS x1 * Bolus insulin * NovoLog per scale ACHS or Q6hrs while NPO - two overnight checks * Goal Range: Low 110 mg/dL - High 140 mg/dL * Correction Factor: 15 mg/dL/unit * Nutritional / Prandial insulin per carb ratio of 1 unit per 6 grams CHO consumed PLAN FOR DISCHARGE: * tbd
[2021-04-04] MEDS: dexAMETHasone 6 MG in SYRINGE 0 ML IV SCH (21:18)
[2021-04-05] MEDS: INSULIN ASPART 100 UNITS/ML 3 ML PEN SQ SCH ×5 (04:41→21:24)
[2021-04-05] MEDS: LEVOTHYROXINE SODIUM 75 MCG TABLET PO SCH (06:01)
[2021-04-05] MEDS ORDERED: INSULIN HUMAN NPH SC SCH (09:00)
[2021-04-05] MEDS: ATORVASTATIN 40 MG TAB PO SCH (09:38)
[2021-04-05] MEDS: CHOLECALCIFEROL 1,000 UNITS 25 MCG TAB PO SCH (09:38)
[2021-04-05] MEDS: ZINC SULFATE 220 MG CAPSULE PO SCH (09:39)
[2021-04-05] MEDS: dexAMETHasone 6 MG in SYRINGE 0 ML IV SCH (09:39)
[2021-04-05] MEDS: lisinopril 10 MG TAB PO SCH (09:39)
[2021-04-05] MEDS: GABAPENTIN 100 MG CAP PO SCH ×2 (09:39→20:36)
[2021-04-05] MEDS: DOCUSATE SODIUM/SENNA 50/8.6MG TAB PO SCH (09:39)
[2021-04-05] MEDS: ONDANSETRON INJ 2 MG/ML 2 ML VIAL IV PRN (09:40)
[2021-04-05] MEDS: AZITHROMYCIN 250 MG TAB PO SCH (09:40)
[2021-04-05] MEDS: ACETAMINOPHEN 325 MG TAB PO PRN (09:40)
[2021-04-05] MEDS: POLYETHYLENE (MIRALAX) 17 GM PACK PO PRN (09:40)
--- NOTE | 2021-04-05 10:15 | XRay Report ---
XR chest 1V portable HISTORY: covid and fever COMPARISON: Chest 04/02/2021. FINDINGS: No pneumothorax. No pleural effusions. The heart is mildly enlarged. There is a left subcla vian Port-A-Cath which was at the SVC. No evidence for pulmonary edema. Upper lung zones are clear. M ild interstitial thickening at the lung bases. IMPRESSION: Mild interstitial thickening at the lung bases. This may represent a developing atypical pneumonitis. ACT 112: Negative or not required by law. Electronically signed by: Jkae Dejesus M.D. 04/05/2021 10:14 AM
--- NOTE | 2021-04-05 10:53 | Pharmacy Report ---
Pharmacy Glycemic Short Note 2 - Date of Service April 05, 2021 - Glycemic Short BSG Results (Last 24 hours): 04/04/21 04/04/21 04/04/21 11:39 16:14 21:20 POC Glucose 205 H 203 H 152 H 04/04/21 04/05/21 04/05/21 23:04 04:23 08:53 POC Glucose 159 H 214 H 202 H OUTPATIENT ANTIDIABETIC REGIMEN: * Basaglar 42 units HS * Novolog 10 units TIDM * Metformin ASSESSMENT: 04/05 * Pt has been receiving ~58 units of insulin per day with suboptimal control * Glycemic control likely to continue to deteriorate with the addition of dexamethasone IV * NPH insulin is used to counteract the hyperglycemic effect of once daily steroids. The rationale for this approach is that the pharmacodynamics profile of NPH, mirrors the pharmacodynamics of once daily steroids. NPH should be dosed at the same time that steroid is given * The dose of NPH given is dependent on the steroid dose given * For doses of prednisone 40mg/day {or equivalent} or above --> NPH dose should be 0.4 units/kg * NPH dosing above is given in addition to patients basal insulin needs * Typically, patients will also need rapid-acting insulin with meals * Steroids have their most profound effect on post-prandial hyperglycemia - since PO intake has been quite minimal over the last 24hrs will start with 0.3 units/kg NPH and titrate based on BSG trends/PO intake. 04/04 * Patient admitted 03/30 for COVID-19. Pharmacy consulted 04/04 2nd initiation of dexamethasone * Post-prandial BSG's have been a little elevated and steroids are starting. Will tighten Novolog parameters * Will increase basal only slightly despite dexamethasone initiation as the regimen is already basal heavy and the patient has no documented CHO intake today PLAN FOR INPATIENT GLYCEMIC CONTROL: * Hold outpatient oral diabetes medications * Basal insulin * Lantus 45 units SQ HS (outpatient dosing) * Steroid induced hyperglycemia with DXM 6mg IV Q 24hrs * NPH 25 units (0.3 units/kg) SQ daily with DXM * Bolus insulin * NovoLog per scale ACHS or Q6hrs while NPO - two overnight checks * Goal Range: Low 110 mg/dL - High 140 mg/dL * Correction Factor: 15 mg/dL/unit * Nutritional / Prandial insulin per carb ratio of 1 unit per 6 grams CHO consumed PLAN FOR DISCHARGE: * tbd- A1c pending 04/05/21
[2021-04-05] MEDS ORDERED: REMDESIVIR 200 MG in SODIUM CHLORIDE 0.9% 210 ML IV STA (11:37)
[2021-04-05] MEDS ORDERED: INSULIN HUMAN NPH SC ONE (12:15)
--- NOTE | 2021-04-05 14:18 | Hospitalist Progress Note ---
Date of Service April 05, 2021 Assessment & Plan (1) Sepsis: Plan: Mrs. Gutierrez is a 75 yo woman currently undergo chemotherapy for stage IV pancreatic cancer who presented for evaluation of acute illness. - SIRS criteria met on admission (Fever, HR); patient septic to be from urinary source of a pansensitive Klebsiella. - lactate elevated to 2.1, blood( negative to date ) and urine culture klebsiella continues on IV ceftriaxone for UTI, - Now seems to be progressing with recurrent fevers and acute COVID 19 infection with bibasilar pulmonary infiltrates first seen on chest x-ray from April 05 with previous 2 - chest x-rays Dexamethasone started the evening of April 04 MD severe start the morning of April 05 given chest x-ray changes relatively reduced oxygen saturations to 90-91% not needing supplementation at this time Patient although vaccinated is at higher risk as she is on current Gemzar chemotherapy for pancreatic carcinoma which has been worsening over the last scan typically follows with Dr. Vincent and Aniyah Herron (2) COVID-19 in immunocompromised patient: Plan: - moderate illness severity (no CXR infiltrates, O2 sat > 94% on room air, RR not elevated) - Remdesirvir and Dexamethasone begun [id number] - CXR April 05 was read as mild interstitial thickening at the lung bases may be representing a developing atypical pneumonitis - COVID 19 precautions Patient first developed symptoms on 03/29/2021. Patient with temp of 1027 overnight. Patient immunosuppressed by chemotherapy. Patient fully vaccinated. Will check CRP and morning as well as LFTs and CBC (3) UTI (urinary tract infection): Plan: - UA 2+ LE, + nitrites, 4+ bacteria, > 30 WBCs - urine culture Klebsiella lam sensitive - continue IV ceftriaxone (4) Elevated troponin: Plan: - trop elevated on admission - EKG without acute ST segment changes - suspect secondary to demand ischemia /supply mismatch in the setting of high output state (sepsis) - (5) Elevated serum creatinine: Plan: - Cr elevated to 1.34, BUN at 33, ratio of 24 - baseline Cr ~ 1.1 - suspect secondary to pre-renal origin in the setting of acute sepsis - (6) Hypomagnesemia: Plan: -Replete (7) Diabetic peripheral neuropathy associated with type 2 diabetes mellitus: Plan: - continue insulin racemic management assisting given steroids were initiated - DM 2 carb consistent diet - continue high intensity statin and KATHRYN inhibitor - continue gabapentin for neuropathy (8) Hypothyroidism: Plan: - continue home dose levothyroxine (9) Dyslipidemia: Plan: - continue home dose atorvastatin (10) Gastroesophageal reflux disease: Plan: - continue home omeprazole (11) Pancreatic cancer: Plan: - stage IV with mets to liver - currently undergoing chemo - patient will cancel this Tuesday 04/03 scheduled treatment as she will need to be on quarantine if out of hospital DVT ppx: On Xarelto (for hx of portal vein thrombosis) Diet: Carb consistent DM 2 Dispo: Med/tele Code: Full, (12) Sore throat: Plan: this it subjecive without acute infection gar[place] continue to monitor (13) Pancytopenia: Plan: could be multifactorial from covid infection or from her cancer treatment/chemotherapy patient is on Gemzar therapy last given 02/27/2021 Admission and Anticipated Discharge Date Admission Date: April 01, 2021 Subjective Although initially with a confirmed urinary tract infection treated with antibiotics, the patient continues to feel like she has the flu. Patient has a history of ongoing pancreatic malignancy on Gemzar maintenance therapy and has been fully vaccinated for Covid. My concern is for progression of her Covid disease however she is not had reliable need for oxygen supplementation. However her oxygen trend is gone down over the last few days. Her fever curve continues with a temperature as high as 102.7 overnight from the 14 of the . Repeat chest x-ray shows now progressive infiltrates at the bases. Subsequently on the night of the dexamethasone was started and the morning of the remdesivir was begun although were near 1 week from initial onset of symptoms with the progression of pulmonary infiltrates I felt she may benefit from an antiviral therapy at this time. Review of Systems Review of Systems: Mild distress and moderate fatigue no headache, no visual changes no speech or swallowing issues does complain of sore throat no chest pain, pressure or palpitations no shortness of breath, continues with a nonproductive cough but no wheezes no abdominal pain, nausea or vomiting, complains of constipation no dysuria, hematuria or frequency no focal joint pain or swelling no back pain, CVA tenderness or radicular pain no bruising, bleeding or rashes no focal signs of weakness or numbness or altered sensation no complaints of anxiety or depression.. Physical Exam Physical Exam: The patient appeared well nourished and normally developed. Vital signs as documented. Head exam is normocephalic atraumatic Oropharynx with moderate posterior erythema but no thrush or exudates Neck is without JVD, lymphadenopathy, thyromegaly, or carotid bruits. Lungs no focal loss of breath sounds bases with scant rales, she however continues to appear slightly dyspneic sitting in the chair Cardiac exam, Rhythm is regular.. No murmurs, rubs or gallops. Abdominal exam reveals normal bowel sounds, soft no distention no guarding Extremities are nonedematous and both pedal pulses are present Neurologic exam is alert and oriented, no focal loss of strength or sensation Skin is without bruises or rashes Psychologically is without concerns for anxiety or depression Results & Data Results & Data ([facility]) Vital Signs (Past 12 Hours) Vital Signs Temp Pulse Pulse Resp BP BP Pulse Ox 04/05/21 11:01 97.7 F 97 H 20 105/63 95 04/05/21 08:56 98.8 F 91 H 20 103/62 93 04/05/21 06:18 85 04/05/21 04:56 97.9 F 82 18 117/72 95 PG Care Time/CCT Total # of Minutes Spent Total Time Spent with Patient: Total time spent is greater than 50% in coordination of care (as documented) at patient's floor/unit and/or counseling patient: Coding Level of Care Code 37884 Subseq Hosp Care Lvl 3 Diagnoses Sepsis A41.9 Sepsis acute organ dysfunction status: unspecified Sepsis type: sepsis due to unspecified organism COVID-19 in immunocompromised patient U07.1; D84.9 UTI (urinary tract infection) N39.0 Hematuria presence: without hematuria Urinary tract infection type: site unspecified Elevated troponin R77.8 Elevated serum creatinine R79.89 Hypomagnesemia E83.42 Diabetic peripheral neuropathy associated with type 2 diabetes mellitus E11.42 Hypothyroidism E03.9 Dyslipidemia E78.5 Gastroesophageal reflux disease K21.9 Pancreatic cancer C25.9 Pancreatic malignancy location: unspecified Sore throat J02.9 Pancytopenia D61.818 (1) Sepsis Sepsis acute organ dysfunction status: unspecified Sepsis type: sepsis due to unspecified organism Qualified Code(s): A41.9 - Sepsis, unspecified organism (2) UTI (urinary tract infection) Hematuria presence: without hematuria Urinary tract infection type: site unspecified Qualified Code(s): N39.0 - Urinary tract infection, site not specified (3) Pancreatic cancer Pancreatic malignancy location: unspecified Qualified Code(s): C25.9 - Malignant neoplasm of pancreas, unspecified
[2021-04-05] MEDS: SODIUM CHLORIDE 0.9% 10ML FLUSH IV SCH (16:28)
[2021-04-05] MEDS: cefTRIAXone SODIUM 2,000 MG in DEXTROSE 5% 50 ML IV SCH (16:29)
[2021-04-05] MEDS: RIVAROXABAN 15 MG TAB PO SCH (16:40)
[2021-04-05 16:41] LABS: Estimated Average Glucose 194 mg/dl; Hemoglobin A1C 8.4 % (4.5-5.6)
[2021-04-05] MEDS ORDERED: bisacodyL 10 MG SUPP PR PRN (20:48)
[2021-04-05] MEDS: INSULIN GLARGINE SOLOSTAR 100 UNITS/ML 3 ML PEN SQ SCH (21:25)
[2021-04-06] MEDS: LEVOTHYROXINE SODIUM 75 MCG TABLET PO SCH (06:08)
[2021-04-06 06:57] LABS: Hematocrit (blood only) 27.9 % (37-47); Hemoglobin 9.5 g/dL (12.0-16.0); Mean Corpuscular Hemoglobin 32.4 pg (25-34); Mean Corpuscular Hgb Conc 34.1 g/dL (32-36); Mean Corpuscular Volume 95.2 fL (80-100); Mean Platelet Volume 9.6 fL (7.4-10.4); Nucleated RBC # (auto) 0.03 K/uL (0-0); Nucleated RBC % (auto) 0.2 %; Platelet Count 114 K/uL (130-400); RDW Coefficient of Variation 15.2 % (11.5-14.5); RDW Standard Deviation 52.5 fL (36.4-46.3); Red Blood Count 2.93 M/uL (4.2-5.4); White Blood Count 13.54 K/uL (4.8-10.8)
[2021-04-06 07:16] LABS: Basophils # (auto) 0.02 K/uL (0-0.2); Basophils % (auto) 0.1 %; Immature Granulocytes # (auto) 0.12 K/uL (0.00-0.02); Immature Granulocytes % (auto) 0.9 %; Lymphocytes # (auto) 0.94 K/uL (1.2-3.4); Lymphocytes % (auto) 6.9 %; Monocytes # (auto) 0.82 K/uL (0.11-0.59); Monocytes % (auto) 6.1 %; Neutrophils # (auto) 11.64 K/uL (1.4-6.5); Toxic Granulation 1+
[2021-04-06 07:29] LABS: Albumin Level 2.7 gm/dl (3.4-5.0); BUN Creatinine Ratio 32.7 (10-20); Calcium 8.3 mg/dl (8.5-10.1); Creatinine Clr Calc Pharmacy 32.7 ml/min; Est GFR (African American) 38.1 ml/min; Est GFR (Non-African American) 32.9 ml/min; Potassium 4.5 mmol/L (3.5-5.1)
[2021-04-06 07:31] LABS: Albumin Globulin Ratio 0.7 (0.9-2); Bilirubin,Total 0.4 mg/dl (0.2-1); C Reactive Protein 9.3 mg/dl (0-0.29); Globulin 3.8 gm/dl (2.5-4.0); Total Protein 6.5 gm/dl (6.4-8.2)
[2021-04-06] MEDS: dexAMETHasone 6 MG in SYRINGE 0 ML IV SCH (08:52)
[2021-04-06] MEDS: CHOLECALCIFEROL 1,000 UNITS 25 MCG TAB PO SCH (08:52)
[2021-04-06] MEDS: ATORVASTATIN 40 MG TAB PO SCH (08:52)
[2021-04-06] MEDS: DOCUSATE SODIUM/SENNA 50/8.6MG TAB PO SCH (08:53)
[2021-04-06] MEDS: ZINC SULFATE 220 MG CAPSULE PO SCH (08:53)
[2021-04-06] MEDS: GABAPENTIN 100 MG CAP PO SCH ×2 (08:53→21:14)
[2021-04-06] MEDS: lisinopril 10 MG TAB PO SCH (08:53)
[2021-04-06] MEDS: INSULIN ASPART 100 UNITS/ML 3 ML PEN SQ SCH ×4 (09:47→21:29)
[2021-04-06] MEDS: INSULIN HUMAN NPH SC SCH (09:49)
[2021-04-06] MEDS: POLYETHYLENE (MIRALAX) 17 GM PACK PO PRN (11:22)
[2021-04-06] MEDS: AZITHROMYCIN 250 MG TAB PO SCH (11:23)
[2021-04-06] MEDS ORDERED: REMDESIVIR 100mg: Days 2-5 IV SCH (12:00)
[2021-04-06] MEDS: SODIUM CHLORIDE 0.9% 10ML FLUSH IV SCH (12:52)
[2021-04-06] MEDS: cefTRIAXone SODIUM 2,000 MG in DEXTROSE 5% 50 ML IV SCH (14:43)
--- NOTE | 2021-04-06 14:53 | Hospitalist Progress Note ---
Date of Service April 06, 2021 Assessment & Plan (1) Sepsis: Plan: Mrs. Gutierrez is a 75 yo woman currently undergo chemotherapy for stage IV pancreatic cancer who presented for evaluation of acute illness. - SIRS criteria met on admission (Fever, HR); patient septic to be from urinary source of a pansensitive Klebsiella. - lactate elevated to 2.1, blood( negative to date ) and urine culture klebsiella continues on IV ceftriaxone for UTI, - Dexamethasone started the evening of April 04 for COVID pneumonia, changes on CXR and fever vitals stable today, no fever, sepsis resolved (2) COVID-19 in immunocompromised patient: Plan: - moderate illness severity (no CXR infiltrates, O2 sat > 94% on room air, RR not elevated) - Remdesirvir and Dexamethasone begun [id number] - CXR April 05 was read as mild interstitial thickening at the lung bases may be representing a developing atypical pneumonitis - COVID 19 precautions Patient first developed symptoms on 03/29/2021. Patient with temp of 102.7 overnight. Patient immunosuppressed by chemotherapy. Patient fully vaccinated. CRP is 9.3 still saturating well on room air, likely discharge tomorrow AM if still on room air, continue Dexamethasone but can stop Remdesivir if ready for discharge (3) UTI (urinary tract infection): Plan: - UA 2+ LE, + nitrites, 4+ bacteria, > 30 WBCs - urine culture Klebsiella lam sensitive - continue IV ceftriaxone, change to Cefdinir on d/c (4) Elevated troponin: Plan: - trop elevated on admission - EKG without acute ST segment changes - suspect secondary to demand ischemia /supply mismatch in the setting of high output state (sepsis) - (5) Elevated serum creatinine: Plan: - Cr elevated to 1.34, BUN at 33, ratio of 24 - baseline Cr ~ 1.1 - suspect secondary to pre-renal origin in the setting of acute sepsis - Cr is 1.55, repeat tomorrow (6) Hypomagnesemia: Plan: -Replete (7) Diabetic peripheral neuropathy associated with type 2 diabetes mellitus: Plan: - continue insulin glycemic management assisting given steroids were initiated - DM 2 carb consistent diet - continue high intensity statin and KATHRYN inhibitor - continue gabapentin for neuropathy sugars around 200 today (8) Hypothyroidism: Plan: - continue home dose levothyroxine (9) Dyslipidemia: Plan: - continue home dose atorvastatin (10) Gastroesophageal reflux disease: Plan: - continue home omeprazole (11) Pancreatic cancer: Plan: - stage IV with mets to liver - currently undergoing chemo - patient will cancel this Tuesday 04/03 scheduled treatment as she will need to be on quarantine if out of hospital DVT ppx: On Xarelto (for hx of portal vein thrombosis) Diet: Carb consistent DM 2 Dispo: Med/tele Code: Full, (12) Sore throat: Plan: this it subjecive without acute infection gar[place] continue to monitor (13) Pancytopenia: Plan: could be multifactorial from covid infection or from her cancer treatment/chemotherapy patient is on Gemzar therapy last given 02/27/2021 Admission and Anticipated Discharge Date Admission Date: April 01, 2021 Subjective patient doing well, says she feels a little weaker than yesterday but overall okay slight cough but her breathing is stable, non-labored appetite is normal for her, no fever/chills, no nausea + constipation, trying some stool softener and Miralax discussed that she is on room air, if still on room air tomorrow then will discharge in the morning, she agrees with this plan Review of Systems Review of Systems: All systems reviewed & are unremarkable except as noted in Subjective Constitutional: + fatigue and + weakness; no fever Respiratory: + cough; no dyspnea and no dyspnea on exertion Cardiovascular: no chest pain and no edema Gastrointestinal: + constipation Physical Exam Constitutional: WD/WN, vitals as above Neck: trachea midline, no thyromegaly Respiratory: normal respiratory effort, lungs clear to auscultation Cardiovascular: RRR, no murmur, no edema Gastrointestinal (Abdomen): normal bowel sounds, soft, nontender, no hepatosplenomegaly Musculoskeletal: no cyanosis or clubbing, extremities motor strength 5/5 Skin: no rashes, warm and dry Neurologic: patellar DTR's 2+ bilat, sensation intact and PERRL, EOMI, accommodation nl, no face palsy, no dysarthria Psychiatric: A+Ox3, euthymic affect Results & Data Results & Data ([facility]) Vital Signs (Past 12 Hours) Vital Signs Temp Pulse Pulse Pulse Resp BP BP 04/06/21 14:19 36.5 C 84 20 109/65 04/06/21 14:03 36.5 C 84 20 109/65 04/06/21 11:37 36.5 C 88 16 126/64 04/06/21 08:00 94 H 04/06/21 06:16 36.6 C 97 H 20 138/62 04/06/21 04:35 36.6 C 91 H 18 101/56 L Pulse Ox 04/06/21 14:19 91 04/06/21 14:03 91 04/06/21 11:37 95 04/06/21 08:00 04/06/21 06:16 95 04/06/21 04:35 96 Laboratory Results Laboratory Results - last 24 hr 04/05/21 04/05/21 04/05/21 06:12 16:37 20:33 WBC RBC Hgb Hct MCV MCH MCHC RDW Std Deviation RDW Coeff of Juanjose Plt Count MPV Immature Gran % (Auto) Neut % (Auto) Lymph % (Auto) [place] % (Auto) Eos % (Auto) Baso % (Auto) Neut # (Auto) Lymph # (Auto) [place] # (Auto) Eos # (Auto) Baso # (Auto) Immature Gran # (Auto) Absolute Nucleated RBC Nucleated RBC % (auto) Toxic Granulation Sodium Potassium Chloride Carbon Dioxide Anion Gap BUN Creatinine Est Cr Clr Drug Dosing Est GFR ( Amer) Est GFR (Non-Af Amer) BUN/Creatinine Ratio Glucose POC Glucose 249 H 255 H Estimat Average Glucose 194 Hemoglobin A1c 8.4 H Calcium Total Bilirubin AST ALT Alkaline Phosphatase C-Reactive Protein Total Protein Albumin Globulin Albumin/Globulin Ratio 04/06/21 04/06/21 04/06/21 06:44 06:44 08:00 WBC 13.54 H RBC 2.93 L Hgb 9.5 L Hct 27.9 L MCV 95.2 MCH 32.4 MCHC 34.1 RDW Std Deviation 52.5 H RDW Coeff of Juanjose 15.2 H Plt Count 114 L MPV 9.6 Immature Gran % (Auto) 0.9 Neut % (Auto) 86.0 Lymph % (Auto) 6.9 [place] % (Auto) 6.1 Eos % (Auto) 0.0 Baso % (Auto) 0.1 Neut # (Auto) 11.64 H Lymph # (Auto) 0.94 L [place] # (Auto) 0.82 H Eos # (Auto) 0.00 Baso # (Auto) 0.02 Immature Gran # (Auto) 0.12 H Absolute Nucleated RBC 0.03 H Nucleated RBC % (auto) 0.2 Toxic Granulation 1+ Sodium 131 L Potassium 4.5 Chloride 101 Carbon Dioxide 24 Anion Gap 6.0 BUN 51 H Creatinine 1.55 H Est Cr Clr Drug Dosing 32.7 Est GFR ( Amer) 38.1 Est GFR (Non-Af Amer) 32.9 BUN/Creatinine Ratio 32.7 H Glucose 180 H POC Glucose 207 H Estimat Average Glucose Hemoglobin A1c Calcium 8.3 L Total Bilirubin 0.4 AST 44 H ALT 33 Alkaline Phosphatase 70 C-Reactive Protein 9.30 H Total Protein 6.5 Albumin 2.7 L Globulin 3.8 Albumin/Globulin Ratio 0.7 L 04/06/21 11:20 WBC RBC Hgb Hct MCV MCH MCHC RDW Std Deviation RDW Coeff of Juanjose Plt Count MPV Immature Gran % (Auto) Neut % (Auto) Lymph % (Auto) [place] % (Auto) Eos % (Auto) Baso % (Auto) Neut # (Auto) Lymph # (Auto) [place] # (Auto) Eos # (Auto) Baso # (Auto) Immature Gran # (Auto) Absolute Nucleated RBC Nucleated RBC % (auto) Toxic Granulation Sodium Potassium Chloride Carbon Dioxide Anion Gap BUN Creatinine Est Cr Clr Drug Dosing Est GFR ( Amer) Est GFR (Non-Af Amer) BUN/Creatinine Ratio Glucose POC Glucose 218 H Estimat Average Glucose Hemoglobin A1c Calcium Total Bilirubin AST ALT Alkaline Phosphatase C-Reactive Protein Total Protein Albumin Globulin Albumin/Globulin Ratio Medications Administered Current Inpatient Medications Acetaminophen (Acetaminophen 325 Mg Tab) 650 mg PO Q4H PRN PRN Reason: Pain or Fever Stop: 04/29/21 22:50 Last Admin: 04/05/21 09:40 Dose: 650 mg Documented by: Acetaminophen (Acetaminophen 1000 Mg/100 Ml Iv) 1,000 mg IV Q8 PRN PRN Reason: fever Stop: 04/07/21 20:40 Atorvastatin Calcium (Atorvastatin 40 Mg Tab) 40 mg PO DAILY [facility] Stop: 04/30/21 08:59 Last Admin: 04/06/21 08:52 Dose: 40 mg Documented by: Azithromycin (Azithromycin 250 Mg Tab) 250 mg PO DAILY@1100 [facility] Stop: 04/09/21 23:44 Last Admin: 04/06/21 11:23 Dose: 250 mg Documented by: Bisacodyl (Bisacodyl 10 Mg Supp) 10 mg MN DAILY PRN PRN Reason: Constipation Stop: 05/05/21 20:47 Last Admin: 04/06/21 06:09 Dose: 10 mg Documented by: Chlorhexidine Gluconate (Chlorhexidine Gluconate 0.12% 480 Ml) 15 ml MT Q6H PRN PRN Reason: sore mouth Stop: 04/30/21 17:41 Last Admin: 04/03/21 09:20 Dose: 15 ml Documented by: Nystatin 30 ml/ Dexamethasone 3.75 mg/ Diphenhydramine HCl 300 mg/ Sucrose 45 ml/Microcrystalline Cellulose 45 ml/ [employer]ENTIFIER 1 ea 0 ml PO Q4H PRN PRN Reason: sore throat Stop: 04/30/21 17:41 Last Admin: 04/05/21 13:03 Dose: 5 ml Documented by: Dextrose (Dextrose 50% 50 Ml Syringe) 25 - 50 ml IV UD PRN; Protocol PRN Reason: Hypoglycemia Protocol Stop: 04/29/21 22:50 Gabapentin (Gabapentin 100 Mg Cap) 200 mg PO BID [facility] Stop: 04/29/21 22:50 Last Admin: 04/06/21 08:53 Dose: 200 mg Documented by: Glucagon (Glucagon For Inj 1 Mg Vial) 1 mg SQ UD PRN; Protocol PRN Reason: Hypoglycemia Protocol Stop: 04/29/21 22:50 Glucose (Glucose 10 Tabs/Tube) 4 - 8 tabs PO UD PRN; Protocol PRN Reason: Hypoglycemia Protocol Stop: 04/29/21 22:50 Glucose (Glucose 40% Gel 15 Gm Tube) 15 - 30 gm PO UD PRN; Protocol PRN Reason: Hypoglycemia Protocol Stop: 04/29/21 22:50 Ceftriaxone Sodium 2,000 mg/ (Dextrose) 70 mls @ 140 mls/hr IV Q24H [facility] Stop: 04/09/21 14:44 Last Admin: 04/06/21 14:43 Dose: 140 mls/hr Documented by: Dexamethasone 6 mg/ Syringe 1.5 mls @ 1 mls/min IV QAM [facility] Stop: 04/13/21 09:02 Last Admin: 04/06/21 08:52 Dose: 1 mls/min Documented by: Remdesivir 100 mg/ Sodium (Chloride) 250 mls @ 250 mls/hr IV Q24H [facility]; Protocol Stop: 04/09/21 12:59 Last Infusion: 04/06/21 12:52 Dose: Infused Documented by: Insulin Aspart (Insulin Aspart 100 Units/Ml 3 Ml Pen) 0 units SQ ACHS [facility]; Protocol Stop: 05/04/21 20:59 Last Admin: 04/06/21 13:26 Dose: 13 units Documented by: Insulin Glargine (Insulin Glargine Solostar 100 Units/Ml 3 Ml Pen) 42 units SQ QPM [facility] Stop: 05/05/21 20:59 Last Admin: 04/05/21 21:25 Dose: 42 units Documented by: Insulin Human NPH (Insulin Human Nph) 35 units SC DAILY [facility]; Protocol Stop: 05/06/21 08:59 Last Admin: 04/06/21 09:49 Dose: 35 units Documented by: Levothyroxine Sodium (Levothyroxine Sodium 75 Mcg Tablet) 75 mcg PO DAILYBB [facility] Stop: 04/30/21 06:29 Last Admin: 04/06/21 06:08 Dose: 75 mcg Documented by: Lisinopril (Lisinopril 10 Mg Tab) 10 mg PO QAM [facility] Stop: 04/30/21 08:59 Last Admin: 04/06/21 08:53 Dose: 10 mg Documented by: Miscellaneous (Carbohydrates For Hypoglycemia ) 15 - 30 gm PO UD PRN PRN Reason: Hypoglycemia Protocol Stop: 04/29/21 22:50 Miscellaneous Information (Pharmacy Glycemic Mgmt Consult) 1 ea N/A UD PRN PRN Reason: Consult Stop: 05/04/21 18:05 Ondansetron HCl (Ondansetron Inj 2 Mg/Ml 2 Ml Vial) 4 mg IV Q6H PRN PRN Reason: Nausea Stop: 04/29/21 22:50 Last Admin: 04/05/21 09:40 Dose: 4 mg Documented by: Pantoprazole Sodium (Pantoprazole 40 Mg Tab) 40 mg PO DAILY PRN PRN Reason: Heartburn Polyethylene Glycol (Polyethylene (Miralax) 17 Gm Pack) 17 gm PO DAILY PRN PRN Reason: Constipation Stop: 04/29/21 22:50 Last Admin: 04/06/21 11:22 Dose: 17 gm Documented by: Rivaroxaban (Rivaroxaban 15 Mg Tab) 15 mg PO QDD [facility] Stop: 04/30/21 16:29 Last Admin: 04/05/21 16:40 Dose: 15 mg Documented by: Senna/Docusate Sodium (Docusate Sodium/Senna 50/8.6mg Tab) [facility] [place] [facility] [place] Stop: 05/04/21 13:59 Last Admin: 04/06/21 08:53 Dose: 2 tab Documented by: Sodium Chloride (Sodium Chloride 0.9% 10ml Flush) 30 ml IV Q24H [facility] Stop: 04/09/21 13:01 Last Admin: 04/06/21 12:52 Dose: 30 ml Documented by: Vitamin D (Cholecalciferol 1,000 Units 25 Mcg Tab) 5,000 units [facility] [place] [facility] [place] Stop: 04/29/21 22:50 Last Admin: 04/06/21 08:52 Dose: 5,000 units Documented by: Zinc Sulfate (Zinc Sulfate 220 Mg Capsule) 220 [facility] [place] [facility] [place] Stop: 04/29/21 22:50 Last Admin: 04/06/21 08:53 Dose: 220 mg Documented by: PG Care Time/CCT Total # of Minutes Spent Total Time Spent with Patient: Total time spent is greater than 50% in coordination of care (as documented) at patient's floor/unit and/or counseling patient: Coding Level of Care Code 91724 Subseq Hosp Care Lvl 3 Diagnoses Sepsis A41.9 Sepsis acute organ dysfunction status: unspecified Sepsis type: sepsis due to unspecified organism COVID-19 in immunocompromised patient U07.1; D84.9 UTI (urinary tract infection) N39.0 Hematuria presence: without hematuria Urinary tract infection type: site unspecified Elevated troponin R77.8 Elevated serum creatinine R79.89 Hypomagnesemia E83.42 Diabetic peripheral neuropathy associated with type 2 diabetes mellitus E11.42 Hypothyroidism E03.9 Dyslipidemia E78.5 Gastroesophageal reflux disease K21.9 Pancreatic cancer C25.9 Pancreatic malignancy location: unspecified Sore throat J02.9 Pancytopenia D61.818 (1) Sepsis Sepsis acute organ dysfunction status: unspecified Sepsis type: sepsis due to unspecified organism Qualified Code(s): A41.9 - Sepsis, unspecified organism (2) UTI (urinary tract infection) Hematuria presence: without hematuria Urinary tract infection type: site unspecified Qualified Code(s): N39.0 - Urinary tract infection, site not specified (3) Pancreatic cancer Pancreatic malignancy location: unspecified Qualified Code(s): C25.9 - Malignant neoplasm of pancreas, unspecified
[2021-04-06] MEDS: RIVAROXABAN 15 MG TAB PO SCH (17:52)
[2021-04-06] MEDS: INSULIN GLARGINE SOLOSTAR 100 UNITS/ML 3 ML PEN SQ SCH (21:29)
[2021-04-07] MEDS: LEVOTHYROXINE SODIUM 75 MCG TABLET PO SCH (06:12)
[2021-04-07] MEDS: POLYETHYLENE (MIRALAX) 17 GM PACK PO PRN (08:55)
[2021-04-07] MEDS: DOCUSATE SODIUM/SENNA 50/8.6MG TAB PO SCH (08:56)
[2021-04-07] MEDS: CHOLECALCIFEROL 1,000 UNITS 25 MCG TAB PO SCH (08:57)
[2021-04-07] MEDS: ATORVASTATIN 40 MG TAB PO SCH (08:57)
[2021-04-07] MEDS: lisinopril 10 MG TAB PO SCH (08:57)
[2021-04-07] MEDS: dexAMETHasone 6 MG in SYRINGE 0 ML IV SCH (08:57)
[2021-04-07] MEDS: GABAPENTIN 100 MG CAP PO SCH (08:58)
[2021-04-07] MEDS: ZINC SULFATE 220 MG CAPSULE PO SCH (08:58)
[2021-04-07] MEDS: INSULIN ASPART 100 UNITS/ML 3 ML PEN SQ SCH (09:11)
--- NOTE | 2021-04-07 09:11 | Discharge Summary ---
Date of Service April 07, 2021 Admission HPI Per Admitting Provider Mrs. Gutierrez is a 75 yo woman with a PMHx of stage IV pancreatic cancer with mets to the liver (currently undergoing chemotherapy) who presented for evaluation of generalized body aches, fever, cough, shortness of breath and chest heaviness. She first developed symptoms 03/29/21. She also reports some dysuria. She has been fully vaccinated against COVID 19 - however her son and his two daughters (who live in the house next to her) were all sick with COVID last week. Her last dose of chemo was Tuesday03/27/21 and she is scheduled to get another infusion this 04/03/21. Social Hx: No eoth. Never smoker In the ED, she was febrile to 40.0. Her HR was elevated to 126. Her BP was 141/77. RR 16, satting 94 on room air. Her WBC was normal, although she did have lymphopenia. COVID 19 positive. Flu A and B negative. Her Procal was not elevated. Lactate elevated to 2.1. UA showing + nitrite, 2+ LE, > 30 WBCs, 4+ bacteria. Urine and blood cultures pending. Hgb was low at 11.2 (although this appears to be her baseline); platelets were WNL. Coags WNL. Magnesium low at 1.2. Trop elevated to 0.054. Lipase not elevated. LFTs WNL. Creatinine elevated to 1.35, BUN to 33, ratio of 29. EKG showing sinus tach. CX showing no evidence of acute disease. She was given 2g of mag IV x 2, 1g Tylenol, 1g Ceftriaxone, 1 liter of NSS. Principal Diagnosis COVID 19 infection, UTI Discharge Exam Constitutional WD/WN, vitals as above Neck trachea midline, no thyromegaly Respiratory normal respiratory effort, lungs clear to auscultation Cardiovascular RRR, no murmur, no edema Gastrointestinal (Abdomen) normal bowel sounds, soft, nontender, no hepatosplenomegaly Musculoskeletal no cyanosis or clubbing, extremities motor strength 5/5 Skin no rashes, warm and dry Neurologic patellar DTR's 2+ bilat, sensation intact and PERRL, EOMI, accommodation nl, no face palsy, no dysarthria Psychiatric A+Ox3, euthymic affect Discharge Data Allergies Allergy/AdvReac Type Severity Reaction Status Date / Time diflunisal Allergy Unknown Dolobid - Verified 03/30/21 18:12 Unknown oxycodone Allergy Unknown upset Verified 03/30/21 18:12 stomach Consultations 03/30/21 18:08 ED Decision to Admit Stat Hospital Course (1) COVID-19 in immunocompromised patient: - moderate illness severity (no CXR infiltrates, O2 sat > 94% on room air, RR not elevated) - Remdesirvir and Dexamethasone begun [id number] - CXR April 05 was read as mild interstitial thickening at the lung bases may be representing a developing atypical pneumonitis - COVID 19 precautions Patient first developed symptoms on 03/29/2021. Patient with temp of 102.7 overnight. Patient immunosuppressed by chemotherapy. Patient fully vaccinated. CRP is 9.3 still saturating well on room air entire visit, although saturations did drop below 94% periodically treated initially with dexamethasone and Remdesivir, can stop the Remdesivir will send home on dexamethasone 6mg PO daily for 7 more days stay well rested, well nourished, well hydrated use Zinc for immune support follow up with PCP (2) Sepsis: Mrs. Gutierrez is a 75 yo woman currently undergo chemotherapy for stage IV pancreatic cancer who presented for evaluation of acute illness. - SIRS criteria met on admission (Fever, HR); patient septic to be from urinary source of a pansensitive Klebsiella. - lactate elevated to 2.1, blood( negative to date ) and urine culture klebsiella, treated with IV ceftriaxone for UTI Dexamethasone started the evening of April 04 for COVID pneumonia, changes on CXR and fever vitals stable for 3 days, no hypoxia send home on course of Cefdinir (3) UTI (urinary tract infection): - UA 2+ LE, + nitrites, 4+ bacteria, > 30 WBCs - urine culture Klebsiella lam sensitive - continue IV ceftriaxone, change to Cefdinir on d/c and complete a few more days of treatment (4) Elevated troponin: - trop elevated on admission - EKG without acute ST segment changes - suspect secondary to demand ischemia /supply mismatch in the setting of high output state (sepsis) (5) Elevated serum creatinine: - Cr elevated to 1.34, BUN at 33, ratio of 24 - baseline Cr ~ 1.1 - suspect secondary to pre-renal origin in the setting of acute sepsis - Cr was up to 1.55, down to 1.4 continue to hold lisinopril, only use Lasix if she has edema in legs stay well hydrated follow up with PCP, making adequate urine (6) Hypomagnesemia: -Replete (7) Diabetic peripheral neuropathy associated with type 2 diabetes mellitus: - continue insulin glycemic management assisting given steroids were initiated - DM 2 carb consistent diet - continue high intensity statin and KATHRYN inhibitor - continue gabapentin for neuropathy will use NPH insulin with the dexamethasone, she is comfortable with this plan (8) Hypothyroidism: - continue home dose levothyroxine (9) Dyslipidemia: - continue home dose atorvastatin (10) Gastroesophageal reflux disease: - continue home omeprazole (11) Pancreatic cancer: - stage IV with mets to liver - currently undergoing chemo - patient will contact Dr. Vincent this week to determine time of next follow up and next treatment DVT ppx: On Xarelto (for hx of portal vein thrombosis) Diet: Carb consistent DM 2 Dispo: Med/tele Code: Full, (12) Sore throat: this it subjecive without acute infection [place] continue to monitor (13) Pancytopenia: could be multifactorial from covid infection or from her cancer treatment/chemotherapy patient is on Gemzar therapy last given 02/27/2021 follow up with CBC with oncology Total Time Total Time Spent Total Time Spent (In Minutes): 38 Total Time Includes: Examination of the Patient, Discharge Planning and Medication Reconciliation Discharge Plan Discharge Items Patient Disposition: Home - Self-Care Reason For Visit: COVID 19 WITH SEPSIS Discharge Diagnosis: COVID 19 pneumonia Klebsiella UTI Condition on Discharge: Good Goals: stay well hydrated, well nourished complete course of dexamethasone Activity: Per Instructions section Activity Comment: stay isolated through 04/10/21, positive COVID test was 03/30/21 Driving/Machine Use: No limitations Weightbearing: Full weightbearing Non-emergency contact: Primary Care Provider Call non-emergency contact if: you have any medication questions and your symptoms worsen Follow-up/Referrals: Manny Wren DO [Primary Care Provider] - 04/15/21 2:00 pm () Diet: Carb Consistent or DM2 Addtl Attending Provider Instructions: Medications: - DEXAMETHASONE: 6mg daily for 7 more days, take in the morning, next dose on 04/08/21 - NPH INSULIN: 35 units in the morning, take with dexamethasone, this will blunt the hyperglycemic effects of the dexamethasone - CEFDINIR: antibiotic for Klebsiella UTI, take 5 more doses, next dose is this evening - ZINC: 220mg daily for immune support, take for next 10 days, obtain over the counter - LASIX: recommend holding this while you are fighting off infection, only use if you have edema in legs - LISINOPRIL: recommend holding this for the next week, blood pressure is stable, follow up with Dr Wren for further instructions hold on chemotherapy for time being, call Dr. Vincent's office for further instruc tion on when to schedule follow up, next chemo session COVID 19 pneumonia, moderate symptoms, never required oxygen no need for further Remdesivir, but given your chemotherapy status and being immunocompromised, would recommend completing course of dexamethasone stay well nourished, well hydrated, get plenty of rest monitor yourself for any worsening shortness of breath, you can monitor your pulse oximetry with a finger pulse ox (can get at pharmacy, [facility] etc) contact PCP if you breathing gets worse Klebsiella UTI: treated with Rocephin, change to Cefdinir for 5 more doses Pending Studies at Discharge: No Stand-Alone Forms: [facility] [employer], Smoking Cessation Medications and DC Order Prescriptions: New zinc sulfate [Orazinc] 50 mg zinc (220 mg) Capsule 220 mg PO QAM 10 Days Qty: 44 RF: 0 Novolin N NPH U-100 Insulin 100 unit/mL Suspension 35 unit SC DAILY 7 Days Qty: 2.45 RF: 0 dexamethasone 4 mg tablet 6 mg PO DAILY 7 Days Qty: 11 RF: 0 Continued ascorbic acid (vitamin C) 1,000 mg tablet 1 gm PO DAILY RF: 0 cyanocobalamin (vitamin B-12) 500 mcg tablet 1,000 mcg PO DAILY RF: 0 calcium carbonate-vitamin D3 [Calcium 500 + D] 500 mg(1,250mg) -200 unit tablet 1 tab PO DAILY RF: 0 furosemide [Lasix] 20 mg tablet 20 mg PO DAILY PRN (Reason: edema) Qty: 90 RF: 3 atorvastatin [Lipitor] 40 mg tablet 40 mg PO DAILY Qty: 90 RF: 3 Xarelto 20 mg tablet 20 mg PO QDD RF: 0 metformin 1,000 mg tablet 1,000 mg PO BID Qty: 180 RF: 3 (DME) OneTouch Verio test strips Strip See Rx Instructions .ROUTE .MEDSUPPLY Qty: 300 RF: 3 insulin aspart U-100 [Novolog Flexpen U-100 Insulin] 100 unit/mL (3 mL) insulin pen 10 unit subcut TIDM Qty: 15 RF: 3 Basaglar KwikPen U-100 Insulin 100 unit/mL (3 mL) insulin pen 42 unit SQ QPM Qty: 15 RF: 3 levothyroxine [Synthroid] 75 mcg tablet 75 mcg PO QAM Qty: 90 RF: 3 gabapentin 100 mg capsule 200 mg PO BID Qty: 120 RF: 3 cholecalciferol (vitamin D3) [Vitamin D3] 2,000 unit Tablet 2,000 unit PO QAM RF: 0 omeprazole 20 mg Tablet,Delayed Release (Dr/Ec) 20 mg PO DAILY PRN (Reason: Heartburn) RF: 0 ondansetron HCl 8 mg tablet 8 mg PO Q8 PRN (Reason: Nausea) RF: 0 Discontinued lisinopril 10 mg tablet 10 mg PO QAM Qty: 90 RF: 3 Discharge Orders: Discharge Order (Routine); Ordered 04/07/21 Ordered By: Ramirez Hawkins/Other Patient Handouts: A1C, Managing Type 2 Diabetes Admission Data Admit Date/Time: 04/01/21 18:50 Attending Provider: Ramirez Mora Admit Provider: Morgan Roper Primary Care Provider: Manny Wren Other Providers: Scott David Other Interventions: Discharge Summary Assessment (RN) Last Done: 04/07/21 10:00 Coding Level of Care Code D/C DAY MANAGEMENT >30 MINS Diagnoses Sepsis A41.9 Sepsis acute organ dysfunction status: unspecified Sepsis type: sepsis due to unspecified organism COVID-19 in immunocompromised patient U07.1; D84.9 UTI (urinary tract infection) N39.0 Hematuria presence: without hematuria Urinary tract infection type: site unspecified Elevated troponin R77.8 Elevated serum creatinine R79.89 Hypomagnesemia E83.42 Diabetic peripheral neuropathy associated with type 2 diabetes mellitus E11.42 Hypothyroidism E03.9 Dyslipidemia E78.5 Gastroesophageal reflux disease K21.9 Pancreatic cancer C25.9 Pancreatic malignancy location: unspecified Sore throat J02.9 Pancytopenia D61.818
[2021-04-07] MEDS: INSULIN HUMAN NPH SC SCH (09:12)
[2021-04-07 10:06] LABS: BUN Creatinine Ratio 38.2 (10-20); Calcium 8.6 mg/dl (8.5-10.1); Creatinine Clr Calc Pharmacy 34.9 ml/min; Est GFR (African American) 42.4 ml/min; Est GFR (Non-African American) 36.5 ml/min; Potassium 4.7 mmol/L (3.5-5.1)
[2021-04-07] MEDS: AZITHROMYCIN 250 MG TAB PO SCH (10:23)
--- NOTE | 2021-04-16 17:29 | Coding Query ---
CODING QUERY To promote full compliance with coding requirements relating to patient care, provider participation is requested in all cases of academic affairs dean uncertainty. Please assist us with the question(s) below: Coding Question(s): Patient admitted with COVID 19 infection and UTI-Sepsis. Discharge Summary documents pnemonia: mild interstitiual disease at lung bases, may be developing atypical pneumonia. Pt also is immunocompromised with Pancreatic cancer , receiving chemotherpy. Please document, if known or suspected, the etiology of the Pneumonia. Thanks for your help. Deandre Escalante [facility] Physician's Response(s): COVID 19 pneumonia suspected covered her for possible atypical bacterial infection initially given her immunocompromised status Principal Diagnosis: "that condition established after study, to be chiefly responsible for occasioning the admission of the patient to the hospital for care." Co-Existing Principal Diagnosis: "when two or more diagnoses equally meet the criteria for principal diagnosis as determined by the circumstances of admission, diagnostic work up, and/or therapy provided, and the Alphabetic Index, Tabular List, or another coding guideline does not provide sequencing direction, any one of the diagnoses may be sequenced first." "When the physician has documented what appears to be a current diagnosis in the body of the record, but has not included the diagnosis in the final diagnostic statement, the physician should be asked whether the diagnosis should be added." (Source Coding Clinic 2 QTR90. p3-4) DAOD
== END 2021-04-07 11:47 | disposition home or self-care (01) | DRG 871 ==
LOC: 2W 13:04 → ED 13:04 → SUATTDRO 19:34 → 2W 21:05 → SUATTDRO 04-01 18:50

== ENCOUNTER 2021-11-30 07:29 | Observation (INO) ==
[2021-11-30] MEDS ORDERED: SODIUM CHLORIDE 0.9% 500 ML IV ONE ×2 (07:54→10:49)
--- NOTE | 2021-11-30 08:01 | Emergency Department Note ---
History of Present Illness General Chief complaint: Back Injury/Pain Stated complaint: BACK PAIN, CAN'T THINK STRAIGHT Time Seen by Provider: 11/30/21 07:39 Source: patient Mode of arrival: ambulatory Limitations: no limitations History of Present Illness Maximum Pain Intensity: 10 This patient is a 76-year-old female who presents to the emergency department for evaluation of upper abdominal pain which started early yesterday morning/overnight. She states that the pain woke her up from sleep. She had a few episodes of vomiting but has not vomited since lunchtime yesterday. She states that the pain is across her upper abdomen, up under her ribs and radiates into the back. She took 3 Tylenol prior to arrival this morning and states that the pain is much better at this time. It was a 10/10 at its most severe. She denies any changes in bowel movements. She denies any urinary symptoms. She denies fever/chills. Patient does report that she has pancreatic cancer and is currently undergoing chemotherapy. She is scheduled for chemotherapy this morning but was concerned about the pain and decided to come get checked out first. Home Medications Medication Instructions Recorded Confirmed Type ascorbic acid (vitamin C) 1,000 mg 1 gm PO DAILY tab 05/02/18 11/30/21 History tablet calcium carbonate 500 mg-vitamin 1 tab PO DAILY tab 05/02/18 11/30/21 History D3 5 mcg (200 unit) tablet (Calcium 500 + D) cyanocobalamin (vitamin B-12) 500 1,000 mcg PO DAILY tab 05/02/18 11/30/21 History mcg tablet cholecalciferol (vitamin D3) 50 2,000 unit PO QAM 09/03/19 11/30/21 History mcg (2,000 unit) tablet (Vitamin D3) omeprazole 20 mg tablet,delayed 20 mg PO DAILY PRN 09/03/19 11/30/21 History release furosemide 20 mg tablet (Lasix) 20 mg PO DAILY PRN #90 tab 03/07/20 11/30/21 Rx rivaroxaban 20 mg tablet (Xarelto) 20 mg PO QDD 04/22/20 11/30/21 History ondansetron HCl 8 mg tablet 8 mg PO Q8 PRN 09/09/20 11/30/21 History levothyroxine 75 mcg tablet 75 mcg PO QAM #90 tab 03/26/21 11/30/21 Rx (Synthroid) insulin aspart U-100 100 unit/mL 10 unit SUBCUT TIDM #15 ml 05/29/21 11/30/21 Rx (3 mL) subcutaneous pen (Novolog Flexpen U-100 Insulin aspart) OneTouch Verio test strips (blood #300 ea NS 06/30/21 11/24/21 Rx sugar diagnostic) gabapentin 100 mg capsule 200 mg PO BID #120 cap 07/21/21 11/30/21 Rx metformin 1,000 mg tablet 1,000 mg PO BID #180 tab 08/03/21 11/30/21 Rx mirabegron 25 mg tablet,extended 25 mg PO DAILY #30 tab 10/27/21 11/30/21 Rx release 24 hr (Myrbetriq) insulin glargine 100 unit/mL (3 42 unit SQ QPM ml 11/19/21 11/30/21 History mL) subcutaneous pen (Basaglar KwikPen U-100 Insulin) Allergies Allergy/AdvReac Type Severity Reaction Status Date / Time diflunisal Allergy Unknown Dolobid - Verified 11/30/21 08:02 Unknown Past Med/Surg History Medical History (Updated 11/30/21 @ 15:33 by Heidy Tinoco PA-C) Cervical radiculopathy Chronic anticoagulation Chronic kidney disease Claudication of calf muscles Claudication of gluteal region COVID-19 in immunocompromised patient De Quervain's tenosynovitis Degenerative disc disease Diabetes mellitus type II, uncontrolled Diabetic peripheral neuropathy associated with type 2 diabetes mellitus Diverticulosis Dyslipidemia Gastroesophageal reflux disease Hypertension Hypothyroidism IBS (irritable bowel syndrome) hx Insomnia Mesenteric vein thrombosis Pancreatic cancer Port-A-Cath in place (09/06/19) Insertion of Mediport With Fluoroscopy Dr. Kern 09-06-19 Portal vein thrombosis Sensorineural hearing loss of both ears Sepsis Spinal stenosis Vitamin D deficiency Surgical History H/O colonoscopy with polypectomy History of carpal tunnel surgery bilateral History of dilation and curettage History of ERCP History of esophagogastroduodenoscopy (EGD) Hx of cataract surgery S/P tubal ligation Family History Brother No problems noted. Aunt Breast cancer maternal Sister Breast cancer FHx: pancreatic cancer Father Diabetes Lung disease Mother Diabetes Renal failure Peripheral vascular disease Social History Smoking Status: Never smoker Second Hand Exposure: No; Hx Alcohol Use: No Hx Substance Use: No Preferred Language: Turkish Communication Ability: Effective Visual Impairment: No Limitations Hearing Ability: Hard of Hearing Diabetic Educator Required: No Beliefs That Will Affect Care: Quaker Quaker Beliefs: Sikh marital status: Current Living Situation: Spouse current occupational status: retired Feels Safe at Home: Yes Childhood Exposure to Second-Hand Smoke: Yes caffeine: Yes Dental Care, Regularly: Yes Physical Activity Frequency: Daily Physical Activity Frequency Comment: leg exercises Seatbelt Use: always Sunscreen Use: Yes Do you think of yourself as: straight/heterosexual Assistive Devices: Walker Review of Systems A total of 10 systems reviewed and were otherwise negative Physical Exam Vital Signs Vital Signs - 24 hr 11/30/21 07:34 11/30/21 07:54 11/30/21 10:59 Temperature 36.7 C Temperature Source Temporal Artery Scan Pulse Rate 92 H Pulse Rate [Apical] 87 94 H Pulse Rhythm [Apical] Pulse Strength [Apical] Respiratory Rate 20 16 20 Respiratory Effort / Characteristics Non-Labored Respiratory Depth Normal Respiratory Pattern Blood Pressure 138/66 Blood Pressure [Left Arm] 106/57 L 114/67 Blood Pressure Mean 90 Blood Pressure Mean [Left Arm] 73 82 Blood Pressure Position Sitting Blood Pressure Position [Left Arm] Pulse Oximetry 100 100 100 Oxygen Delivery Method Room Air Sepsis Recent Fever Within 48 Hours No Sepsis New/Unexplained Change in Mental Status No Sepsis Action Taken by Nursing No Action Required 11/30/21 11:42 11/30/21 13:59 Temperature Temperature Source Pulse Rate Pulse Rate [Apical] 92 H 92 H Pulse Rhythm [Apical] Regular Pulse Strength [Apical] Normal Respiratory Rate 20 16 Respiratory Effort / Characteristics Non-Labored Spontaneous Respiratory Depth Normal Respiratory Pattern Regular Blood Pressure Blood Pressure [Left Arm] 116/66 142/93 H Blood Pressure Mean Blood Pressure Mean [Left Arm] 82 109 Blood Pressure Position Blood Pressure Position [Left Arm] Sitting Pulse Oximetry 99 99 Oxygen Delivery Method Room Air Sepsis Recent Fever Within 48 Hours Sepsis New/Unexplained Change in Mental Status Sepsis Action Taken by Nursing VITALS: Vitals are noted on the nurse's note and reviewed by myself. GENERAL: This is a 76-year-old female, in no acute distress, well-developed well-nourished. SKIN: The skin was without rashes. No jaundice. EYES: Pupils equal round and reactive to light and accommodation. No scleral icterus. MOUTH: Mucous membranes moist. NECK: Supple without nuchal rigidity. No lymphadenopathy. HEART: Regular rate and rhythm. Grade 2 systolic murmur heard at the left sternal border LUNGS: Clear to auscultation bilaterally without wheezes, rales or rhonchi. ABDOMEN: Positive bowel sounds x 4. Soft, nontender to palpation. No guarding or rebound tenderness. NEURO: Patient was alert and oriented to person place and time. Course Administered Medications Discontinued Medications Acetaminophen (Acetaminophen 325 Mg Tab) 650 mg PO NOW STA Stop: 11/30/21 13:51 Last Admin: 11/30/21 13:55 Dose: 650 mg Documented by: [id number] Hydromorphone HCl (Hydromorphone Inj 0.5 Mg/0.5 Ml Syr) 0.5 mg IV NOW STA Stop: 11/30/21 15:04 Last Admin: 11/30/21 15:07 Dose: 0.5 mg Documented by: [id number] Sodium Chloride (Nss) 500 mls @ 999 mls/hr IV .Q31M ONE Stop: 11/30/21 08:24 Last Infusion: 11/30/21 09:22 Dose: 0 mls/hr Documented by: [id number] Admin: 11/30/21 08:04 Dose: 999 mls/hr Documented by: [id number] Sodium Chloride (Nss) 500 mls @ 999 mls/hr IV .Q31M ONE Stop: 11/30/21 11:19 Last Infusion: 11/30/21 11:31 Dose: 0 mls/hr Documented by: [id number] Admin: 11/30/21 10:59 Dose: 999 mls/hr Documented by: [id number] Magnesium Sulfate/Dextrose (Magnesium Sulfate / D5w) 1 gm in 100 mls @ 50 mls/hr IV Q2H STA Stop: 11/30/21 14:09 Last Admin: 11/30/21 12:23 Dose: 50 mls/hr Documented by: [id number] Ioversol (Optiray 320 100ml) 95 ml IV ONCE ONE Stop: 11/30/21 09:29 Last Admin: 11/30/21 09:15 Dose: 95 ml Documented by: [id number] Ondansetron HCl (Ondansetron Inj 2 Mg/Ml 2 Ml Vial) 4 mg IV NOW STA Stop: 11/30/21 13:51 Last Admin: 11/30/21 13:55 Dose: 4 mg Documented by: [id number] Medical Decision Making Differential Diagnosis Appendicitis, ovarian cyst, ovarian torsion, infections, diverticulitis, UTI, obstruction, mesenteric ischemia, aortic pathology, inflammatory bowel disease, renal colic, PUD, pancreatitis, biliary pathology, hernia, volvulus, constipation, as well as other pathologies. Home Medications Current Medication List: was personally reviewed by me Laboratory Data Attestation: I reviewed the patient's lab results. Result diagrams: 11/30/21 07:55 11/30/21 07:55 Lab Results 11/30/21 11/30/21 11/30/21 Range/Units 07:55 07:55 07:55 WBC 4.97 (4.8-10.8) K/uL RBC 3.10 L (4.2-5.4) M/uL Hgb 10.4 L (12.0-16.0) g/dL Hct 31.0 L (37-47) % MCV 100.0 (80-100) fL MCH 33.5 (25-34) pg MCHC 33.5 (32-36) g/dL RDW Std Deviation 65.1 H (36.4-46.3) fL RDW Coeff of Juanjose 18.0 H (11.5-14.5) % Plt Count 168 (130-400) K/uL MPV 8.6 (7.4-10.4) fL Immature Gran % (Auto) 0.2 % Neut % (Auto) 75.8 % Lymph % (Auto) 12.3 % Donley % (Auto) 9.5 % Eos % (Auto) 2.0 % Baso % (Auto) 0.2 % Neut # (Auto) 3.77 (1.4-6.5) K/uL Lymph # (Auto) 0.61 L (1.2-3.4) K/uL Donley # (Auto) 0.47 (0.11-0.59) K/uL Eos # (Auto) 0.10 (0-0.5) K/uL Baso # (Auto) 0.01 (0-0.2) K/uL Immature Gran # (Auto) 0.01 (0.00-0.02) K/uL Sodium 134 L (136-145) mmol/L Potassium 4.4 (3.5-5.1) mmol/L Chloride 102 (98-107) mmol/L Carbon Dioxide 25 (21-32) mmol/L Anion Gap 7 (3-11) BUN 27 H (6-23) mg/dl Creatinine 1.24 H (0.6-1.2) mg/dl Est Cr Clr Drug Dosing 38.5 ml/min Est GFR ( Amer) 49.6 ml/min Est GFR (Non-Af Amer) 42.8 ml/min BUN/Creatinine Ratio 21.8 H (10-20) Glucose 179 H (70-99(Fasting)) mg/dl Lactate (0.4-2.0) mmol/L Calcium 8.6 (8.5-10.1) mg/dl Magnesium 1.6 L (1.7-2.4) mg/dl Total Bilirubin 0.5 (0.2-1.0) mg/dl AST 16 (13-39) U/L ALT 14 (7-52) U/L Alkaline Phosphatase 84 (34-104) U/L Troponin I < 0.03 (0-0.04) ng/ml Total Protein 5.7 L (6.0-8.3) gm/dl Albumin 3.4 (3.4-5.0) gm/dl Globulin 2.3 L (2.5-4.0) gm/dl Albumin/Globulin Ratio 1.5 (0.9-2) Lipase 78 (11-82) U/L Urine Color Urine Appearance (Clear) Urine pH (4.5-7.5) Ur Specific [place] (1.000-1.030) Urine Protein (Negative) Urine Glucose (UA) (Negative) Urine Ketones (Negative) Urine Blood (Negative) Urine Nitrite (Negative) Urine Bilirubin (Negative) Urine Urobilinogen (Negative) Ur Leukocyte Esterase (Negative) Urine WBC (Auto) (0-5) /hpf Urine RBC (Auto) (0-4) /hpf U Hyaline Cast (Auto) (0-5) /lpf U Epithel Cells (Auto) (0-5) /lpf Urine Bacteria (Auto) (Negative) SARS-CoV-2, RNA, NAAT (NEGATIVE) 11/30/21 11/30/21 11/30/21 Range/Units 08:14 08:15 10:49 WBC (4.8-10.8) K/uL RBC (4.2-5.4) M/uL Hgb (12.0-16.0) g/dL Hct (37-47) % MCV (80-100) fL MCH (25-34) pg MCHC (32-36) g/dL RDW Std Deviation (36.4-46.3) fL RDW Coeff of Juanjose (11.5-14.5) % Plt Count (130-400) K/uL MPV (7.4-10.4) fL Immature Gran % (Auto) % Neut % (Auto) % Lymph % (Auto) % Donley % (Auto) % Eos % (Auto) % Baso % (Auto) % Neut # (Auto) (1.4-6.5) K/uL Lymph # (Auto) (1.2-3.4) K/uL [place]ley # (Auto) (0.11-0.59) K/uL Eos # (Auto) (0-0.5) K/uL Baso # (Auto) (0-0.2) K/uL Immature Gran # (Auto) (0.00-0.02) K/uL Sodium (136-145) mmol/L Potassium (3.5-5.1) mmol/L Chloride (98-107) mmol/L Carbon Dioxide (21-32) mmol/L Anion Gap (3-11) BUN (6-23) mg/dl Creatinine (0.6-1.2) mg/dl Est Cr Clr Drug Dosing ml/min Est GFR ( Amer) ml/min Est GFR (Non-Af Amer) ml/min BUN/Creatinine Ratio (10-20) Glucose (70-99(Fasting)) mg/dl Lactate 1.2 (0.4-2.0) mmol/L Calcium (8.5-10.1) mg/dl Magnesium (1.7-2.4) mg/dl Total Bilirubin (0.2-1.0) mg/dl AST (13-39) U/L ALT (7-52) U/L Alkaline Phosphatase (34-104) U/L Troponin I (0-0.04) ng/ml Total Protein (6.0-8.3) gm/dl Albumin (3.4-5.0) gm/dl Globulin (2.5-4.0) gm/dl Albumin/Globulin Ratio (0.9-2) Lipase (11-82) U/L Urine Color Yellow Urine Appearance Clear (Clear) Urine pH 5.0 (4.5-7.5) Ur Specific [place] 1.020 (1.000-1.030) Urine Protein Negative (Negative) Urine Glucose (UA) Negative (Negative) Urine Ketones Trace H (Negative) Urine Blood Negative (Negative) Urine Nitrite Negative (Negative) Urine Bilirubin Negative (Negative) Urine Urobilinogen Negative (Negative) Ur Leukocyte Esterase 2+ H (Negative) Urine WBC (Auto) 10-30 H (0-5) /hpf Urine RBC (Auto) 0-4 (0-4) /hpf U Hyaline Cast (Auto) 5-10 H (0-5) /lpf U Epithel Cells (Auto) >30 H (0-5) /lpf Urine Bacteria (Auto) Negative (Negative) SARS-CoV-2, RNA, NAAT NEGATIVE (NEGATIVE) Imaging Data Attestation: I personally reviewed and interpreted this imaging study as follows: Radiologist's Impression: Abdomen/Pelvis CT 11/30/21 07:55 CT abd pelvis IV con only CLINICAL HISTORY: upper abdominal pain, pancreatic cancer TECHNIQUE: Helical axial images of the abdomen and pelvis were obtained and displayed. Automated dose lowering techniques and/or adjustment according to patient size were utilized for this exam. This exam was performed with intravenous contrast. COMPARISON: Comparison is made to CT abdomen pelvis 11/12/2021 FINDINGS: Lower chest: Bibasilar atelectasis versus scarring is seen. Again noted is a 4 mm left lower lobe nodule (series 3 image 50). Liver: Redemonstration of hepatic lesions measuring up to 13 mm in the right hepatic dome. These are better seen on prior CT chest performed 11/12/2021. Gallbladder and biliary tree: No calcified gallstones. Normal caliber wall. No intra- or extrahepatic biliary ductal dilation. Pancreas: Numerous cystic lesions are seen in the pancreas. There is prominence of the pancreatic duct at the pancreatic head. An ill-defined low-attenuation soft tissue density is seen in the pancreatic head. Soft tissue stranding is seen about the pancreas, minimally increased from prior exam. Spleen: Unremarkable. Adrenals: Unremarkable. Kidneys and ureters: Subcentimeter hypodensities are too small to characterize. Bladder: Unremarkable. Reproductive organs: Unremarkable. Bowel: Diverticulosis is seen without evidence of diverticulitis. The appendix is normal. Lymph nodes Retroperitoneal: Redemonstration of previously noted retroperitoneal mass. It is approximately unchanged in size measuring 28 20 mm. Mesenteric: Right sided soft tissue nodule adjacent to the kidney measures 12 x 20 mm, essentially unchanged. Pelvic: Unremarkable. Peritoneum: Normal. Vessels: Atherosclerotic calcifications are seen. Abdominal wall: Bilateral fat-containing inguinal hernias are seen. Bones: Degenerative changes in the visualized spine. IMPRESSION: 1. Interval development of fat stranding about the pancreas concerning for acute pancreatitis in this patient with abdominal pain. 2. Redemonstration of pancreatic mass and cystic lesions. 3. Redemonstration of hepatic lesions. 4. Multiple soft tissue nodules are again seen. Some 5. Stable pulmonary nodule. ACT 112: Negative or not required by law. Electronically signed by: Ramirez Ellison M.D. 11/30/2021 10:05 AM Chest X-Ray 11/30/21 07:58 XR chest 1V portable CLINICAL HISTORY: upper abdominal pain TECHNIQUE: Single frontal radiograph of the chest was obtained. Comparison: Comparison is made to chest radiographs 06/24/2021 FINDINGS: No lines and tubes are seen. The cardiomediastinal silhouette is normal. The lungs are clear. No evidence of pleural effusion or pneumothorax. Calcific tendinopathy is incidentally seen in the bilateral shoulders. IMPRESSION: No acute chest disease. ACT 112: Negative or not required by law. Electronically signed by: Ramirez Ellison M.D. 11/30/2021 8:26 AM MDM Narrative Continuous cardiac catheterization technologist: Order was placed for continuous cardiac catheterization technologist. Patient was placed on the cardiac catheterization technologist. Patient was noted to be in normal sinus rhythm at an initial rate of 92 bpm. The patient is a 76-year-old female who presents today complaining of upper abdominal and back pain. Patient has a history of pancreatic cancer. Labs revealed no leukocytosis, stable H&H. Creatinine mildly elevated which appears to be baseline for the patient. Lipase is not elevated, however CT scan does show evidence of pancreatitis. [facility] given [facility] care. Impression & Plan Acute pancreatitis Discharge Plan Visit Data Chief Complaint: Back Injury/Pain Stated Complaint: BACK PAIN, CAN'T THINK STRAIGHT ED Provider: Devang Kay ED Midlevel Provider: Heidy Tinoco Discharge Problem: Acute pancreatitis Forms Stand Alone Forms: My [facility] Prescriptions Prescriptions: No Action ascorbic acid (vitamin C) 1,000 mg tablet 1 gm PO DAILY RF: 0 cyanocobalamin (vitamin B-12) 500 mcg tablet 1,000 mcg PO DAILY RF: 0 calcium carbonate-vitamin D3 [Calcium 500 + D] 500 mg(1,250mg) -200 unit tablet 1 tab PO DAILY RF: 0 furosemide [Lasix] 20 mg tablet 20 mg PO DAILY PRN (Reason: edema) Qty: 90 RF: 3 Xarelto 20 mg tablet 20 mg PO QDD RF: 0 levothyroxine [Synthroid] 75 mcg tablet 75 mcg PO QAM Qty: 90 RF: 3 insulin aspart U-100 [Novolog Flexpen U-100 Insulin] 100 unit/mL (3 mL) insulin pen 10 unit subcut TIDM Qty: 15 RF: 3 (DME) OneTouch Verio test strips Strip See Rx Instructions .ROUTE .MEDSUPPLY Qty: 300 RF: 3 metformin 1,000 mg tablet 1,000 mg PO BID Qty: 180 RF: 3 Myrbetriq 25 mg tablet extended release 24 hr 25 mg PO DAILY Qty: 30 RF: 2 gabapentin 100 mg capsule 200 mg PO BID Qty: 120 RF: 3 Basaglar KwikPen U-100 Insulin 100 unit/mL (3 mL) insulin pen 42 unit SQ QPM RF: 0 cholecalciferol (vitamin D3) [Vitamin D3] 2,000 unit Tablet 2,000 unit PO QAM RF: 0 omeprazole 20 mg Tablet,Delayed Release (Dr/Ec) 20 mg PO DAILY PRN (Reason: Heartburn) RF: 0 ondansetron HCl 8 mg tablet 8 mg PO Q8 PRN (Reason: Nausea) RF: 0 Referrals Referrals: Manny Wren DO [Primary Care Provider] - Discharge Problem: Acute pancreatitis Qualifiers: Pancreatitis type: unspecified pancreatitis type Acute pancreatitis complication: unspecified Qualified Code(s): K85.90 - Acute pancreatitis without necrosis or infection, unspecified
[2021-11-30 08:04] LABS: Basophils # (auto) 0.01 K/uL (0-0.2); Basophils % (auto) 0.2 %; Hemoglobin 10.4 g/dL (12.0-16.0); Immature Granulocytes # (auto) 0.01 K/uL (0.00-0.02); Immature Granulocytes % (auto) 0.2 %; Lymphocytes # (auto) 0.61 K/uL (1.2-3.4); Lymphocytes % (auto) 12.3 %; Mean Corpuscular Hemoglobin 33.5 pg (25-34); Mean Corpuscular Hgb Conc 33.5 g/dL (32-36); Mean Platelet Volume 8.6 fL (7.4-10.4); Monocytes # (auto) 0.47 K/uL (0.11-0.59); Monocytes % (auto) 9.5 %; Neutrophils # (auto) 3.77 K/uL (1.4-6.5); Neutrophils % (auto) 75.8 %; Platelet Count 168 K/uL (130-400); RDW Standard Deviation 65.1 fL (36.4-46.3); White Blood Count 4.97 K/uL (4.8-10.8)
--- NOTE | 2021-11-30 08:27 | XRay Report ---
XR chest 1V portable CLINICAL HISTORY: upper abdominal pain TECHNIQUE: Single frontal radiograph of the chest was obtained. Comparison: Comparison is made to chest radiographs 06/24/2021 FINDINGS: No lines and tubes are seen. The cardiomediastinal silhouette is normal. The lungs are clear. No evid ence of pleural effusion or pneumothorax. Calcific tendinopathy is incidentally seen in the bilateral shoulders. IMPRESSION: No acute chest disease. ACT 112: Negative or not required by law. Electronically signed by: Ramirez Ellison M.D. 11/30/2021 8:26 AM
[2021-11-30 08:35] LABS: Alanine Aminotransferase 14 U/L (7-52); Albumin Globulin Ratio 1.5 (0.9-2); Albumin Level 3.4 gm/dl (3.4-5.0); Alkaline Phosphatase 84 U/L (34-104); Anion Gap 7 (3-11); Aspartate Aminotransferase 16 U/L (13-39); BUN Creatinine Ratio 21.8 (10-20); Bilirubin,Total 0.5 mg/dl (0.2-1.0); Blood Urea Nitrogen 27 mg/dl (6-23); Calcium 8.6 mg/dl (8.5-10.1); Carbon Dioxide 25 mmol/L (21-32); Chloride 102 mmol/L (98-107); Creatinine Clr Calc Pharmacy 38.5 ml/min; Est GFR (African American) 49.6 ml/min; Est GFR (Non-African American) 42.8 ml/min; Globulin 2.3 gm/dl (2.5-4.0); Glucose 179 mg/dl (70-99(Fasting)); Lipase 78 U/L (11-82); Potassium 4.4 mmol/L (3.5-5.1); Sodium 134 mmol/L (136-145); Total Protein 5.7 gm/dl (6.0-8.3); Troponin I < 0.03 ng/ml (0-0.04)
[2021-11-30 08:45] LABS: Appearance Urine Clear (Clear); Bacteria Urine Automated Negative (Negative); Bilirubin Urine Negative (Negative); Blood Urine Negative (Negative); Color Urine Yellow; Epithelial Cell Urine Auto >30 /lpf (0-5); Glucose Urine UA Negative (Negative); Ketones Urine Trace (Negative); Leukocyte Esterase Urine 2+ (Negative); Nitrite Urine Negative (Negative); Protein Urine Negative (Negative); RBC Urine Automated 0-4 /hpf (0-4); Urobilinogen Urine Negative (Negative)
[2021-11-30] MEDS ORDERED: OPTIRAY 320 100ml IV ONE (09:28)
--- NOTE | 2021-11-30 10:06 | CT Scan Report ---
CT abd pelvis IV con only CLINICAL HISTORY: upper abdominal pain, pancreatic cancer TECHNIQUE: Helical axial images of the abdomen and pelvis were obtained and displayed. Automated dose lowering techniques and/or adjustment according to patient size were utilized for this exam. This e xam was performed with intravenous contrast. COMPARISON: Comparison is made to CT abdomen pelvis 11/12/2021 FINDINGS: Lower chest: Bibasilar atelectasis versus scarring is seen. Again noted is a 4 mm left lower lobe no dule (series 3 image 50). Liver: Redemonstration of hepatic lesions measuring up to 13 mm in the right hepatic dome. These are better seen on prior CT chest performed 11/12/2021. Gallbladder and biliary tree: No calcified gallstones. Normal caliber wall. No intra- or extrahepatic biliary ductal dilation. Pancreas: Numerous cystic lesions are seen in the pancreas. There is prominence of the pancreatic bryant t at the pancreatic head. An ill-defined low-attenuation soft tissue density is seen in the pancreati c head. Soft tissue stranding is seen about the pancreas, minimally increased from prior exam. Spleen: Unremarkable. Adrenals: Unremarkable. Kidneys and ureters: Subcentimeter hypodensities are too small to characterize. Bladder: Unremarkable. Reproductive organs: Unremarkable. Bowel: Diverticulosis is seen without evidence of diverticulitis. The appendix is normal. Lymph nodes Retroperitoneal: Redemonstration of previously noted retroperitoneal mass. It is approximately unchanged in size measu ring 28 20 mm. Mesenteric: Right sided soft tissue nodule adjacent to the kidney measures 12 x 20 mm, essentially un changed. Pelvic: Unremarkable. Peritoneum: Normal. Vessels: Atherosclerotic calcifications are seen. Abdominal wall: Bilateral fat-containing inguinal hernias are seen. Bones: Degenerative changes in the visualized spine. IMPRESSION: 1. Interval development of fat stranding about the pancreas concerning for acute pancreatitis in thi s patient with abdominal pain. 2. Redemonstration of pancreatic mass and cystic lesions. 3. Redemonstration of hepatic lesions. 4. Multiple soft tissue nodules are again seen. Some 5. Stable pulmonary nodule. ACT 112: Negative or not required by law. Electronically signed by: Ramirez Ellison M.D. 11/30/2021 10:05 AM
--- NOTE | 2021-11-30 11:06 | Emergency Department Note ---
ED Visit Note Patient was seen and evaluated at the bedside w/ Latia Tinoco PA-C. Please see their note for history, physical, details, and disposition. Patient has history of pancreatic cancer who presents with pancreatitis. Patient was admitted to the medicine service. .
--- NOTE | 2021-11-30 11:27 | History & Physical Report ---
Date of Service November 30, 2021 Assessment & Plan (1) Acute pancreatitis: Plan: With history of metastatic pancreatic cancer currently on chemotherapy Presents with severe epigastric pain radiating through to the mid back and evidence of acute pancreatitis on CT abdomen/pelvis. Lipase is normal, LFTs are normal. No leukocytosis and is afebrile. Pain is pretty much resolved at this point with taking oxycodone and Tylenol prior to arrival, but will bring in on observation overnight to ensure she continues to improve Suspect pancreatitis is secondary to her pancreatic cancer. There is no evidence of intra or extrahepatic ductal dilatation or gallstones. She is not hypercalcemic. No known offending medications except perhaps Lasix which she takes occasionally. -Admit to medical/surgical unit -Keep n.p.o. except for ice chips and sips and can take p.o. meds -Start LR at 125 mL's per hour -Follow CBC, CMP, magnesium, lipase in the morning -Replete magnesium -IV Dilaudid as needed -Tylenol as needed for pain (2) Pancreatic cancer: Plan: With metastatic disease to the lungs, liver, muscle Currently undergoing chemotherapy with liposomal Irinotecan plus 5-FU/leucovorin with [facility]-Aniyah Fletcher PA-C Follow-up with oncology after discharge I will discuss with her primary oncology provider (3) Hypomagnesemia: Plan: Magnesium 1.6, does have chronic diarrhea and poor p.o. intake the last 2 days Replace with IV magnesium sulfate 2 g Follow level in the morning (4) Diabetes mellitus type II, uncontrolled: Plan: Previous hemoglobin A1c in 06/2021 controlled at 7.0% Cut her Lantus dose in half to 21 units in the evenings while n.p.o. NovoLog sliding scale Accu-Cheks Holding home metformin (5) Diabetic peripheral neuropathy associated with type 2 diabetes mellitus: Plan: Continue home gabapentin (6) Hypertension: Plan: Blood pressures are controlled and it appears she Carranza takes antihypertensives Takes Lasix as needed leg edema (7) Chronic kidney disease: Plan: CKD stage III, creatinine is at baseline at 1.24 -Avoid nephrotoxins -renally dose meds when appropriate -follow BMP (8) Hypothyroidism: Plan: Continue home levothyroxine Check TSH in the morning as it has been 1 year since her previous check (9) Gastroesophageal reflux disease: Plan: Continue PPI p.o. 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: Plan: As above (12) Portal vein thrombosis: Plan: As above Plan: DVT prophylaxis-Xarelto Disposition-bring in on observation to medical/surgical unit, expect could advance diet by tomorrow and discharged home if continues to improve Full code History of Present Illness Chief Complaint: Abdominal pain Primary Care Provider: Manny Wren DO This patient is a 76-year-old female with history of metastatic pancreatic cancer currently on chemotherapy, splenic and superior mesenteric vein as well as main portal vein thromboses on Xarelto, peripheral neuropathy, CKD stage III, HTN, hypothyroidism, chemotherapy-induced anemia, DM 2, hypokalemia, chemo induced diarrhea, and BRBPR secondary to hemorrhoids, who presents to the ER with severe upper abdominal pain radiating through to the mid and upper back for the last 48 hours. She did have some nausea vomiting yesterday but that has improved. The pain is somewhat improved with taking oxycodone and Tylenol prior to arrival. She was supposed to have chemotherapy this morning but came to the ER to get checked out instead. Pain was a 10/10 at its most severe. She was having a lot of diarrhea recently with her chemotherapy, but that had improved the last few days with taking Imodium. Denies urinary symptoms, no fevers or chills. No lightheadedness or headaches, no chest pain or shortness of breath. By the time I saw her for admission, she was reporting that her epigastric pain was completely resolved and she was feeling very hungry. In the ER, she was found to be afebrile and have normal vital signs, and laboratory work-up fairly unremarkable except for anemia with hemoglobin of 10.4, creatinine at 1.24 which is lower than her baseline, sodium mildly low at 134, but troponin was negative, lactate negative, blood glucose somewhat elevated at 179. LFTs and lipase were both normal, however a CT of the abdomen/pelvis showed acute pancreatitis and stable metastatic disease with pancreatic and liver masses. She was given 1 L of normal saline in the ER and will be admitted for acute pancreatitis. Allergies Allergy/AdvReac Type Severity Reaction Status Date / Time diflunisal Allergy Unknown Dolobid - Verified 11/30/21 08:02 Unknown Home Medications Medication Instructions Recorded Confirmed Type ascorbic acid (vitamin C) 1,000 mg 1 gm PO DAILY tab 05/02/18 11/30/21 History tablet calcium carbonate 500 mg-vitamin 1 tab PO DAILY tab 05/02/18 11/30/21 History D3 5 mcg (200 unit) tablet (Calcium 500 + D) cyanocobalamin (vitamin B-12) 500 1,000 mcg PO DAILY tab 05/02/18 11/30/21 History mcg tablet cholecalciferol (vitamin D3) 50 2,000 unit PO QAM 09/03/19 11/30/21 History mcg (2,000 unit) tablet (Vitamin D3) omeprazole 20 mg tablet,delayed 20 mg PO DAILY PRN 09/03/19 11/30/21 History release furosemide 20 mg tablet (Lasix) 20 mg PO DAILY PRN #90 tab 03/07/20 11/30/21 Rx rivaroxaban 20 mg tablet (Xarelto) 20 mg PO QDD 04/22/20 11/30/21 History ondansetron HCl 8 mg tablet 8 mg PO Q8 PRN 09/09/20 11/30/21 History levothyroxine 75 mcg tablet 75 mcg PO QAM #90 tab 03/26/21 11/30/21 Rx (Synthroid) insulin aspart U-100 100 unit/mL 10 unit SUBCUT TIDM #15 ml 05/29/21 11/30/21 Rx (3 mL) subcutaneous pen (Novolog Flexpen U-100 Insulin aspart) OneTouch Verio test strips (blood #300 ea NS 06/30/21 11/24/21 Rx sugar diagnostic) gabapentin 100 mg capsule 200 mg PO BID #120 cap 07/21/21 11/30/21 Rx metformin 1,000 mg tablet 1,000 mg PO BID #180 tab 08/03/21 11/30/21 Rx mirabegron 25 mg tablet,extended 25 mg PO DAILY #30 tab 10/27/21 11/30/21 Rx release 24 hr (Myrbetriq) insulin glargine 100 unit/mL (3 42 unit SQ QPM ml 11/19/21 11/30/21 History mL) subcutaneous pen (Basaglar KwikPen U-100 Insulin) Past Med/Surg History Medical History (Updated 11/30/21 @ 11:26 by Betty Patterson MD) Cervical radiculopathy Chronic anticoagulation Chronic kidney disease Claudication of calf muscles Claudication of gluteal region COVID-19 in immunocompromised patient De Quervain's tenosynovitis Degenerative disc disease Diabetes mellitus type II, uncontrolled Diabetic peripheral neuropathy associated with type 2 diabetes mellitus Diverticulosis Dyslipidemia Gastroesophageal reflux disease Hypertension Hypothyroidism IBS (irritable bowel syndrome) hx Insomnia Mesenteric vein thrombosis Pancreatic cancer Port-A-Cath in place (09/06/19) Insertion of Mediport With Fluoroscopy Dr. Kern 09-06-19 Portal vein thrombosis Sensorineural hearing loss of both ears Sepsis Spinal stenosis Vitamin D deficiency Surgical History H/O colonoscopy with polypectomy History of carpal tunnel surgery bilateral History of dilation and curettage History of ERCP History of esophagogastroduodenoscopy (EGD) Hx of cataract surgery S/P tubal ligation Family History Brother No problems noted. Aunt Breast cancer maternal Sister Breast cancer FHx: pancreatic cancer Father Diabetes Lung disease Mother Diabetes Renal failure Peripheral vascular disease Social History Smoking Status: Never smoker Second Hand Exposure: No; Hx Alcohol Use: No Hx Substance Use: No Preferred Language: Hungarian Communication Ability: Effective Visual Impairment: No Limitations Hearing Ability: Hard of Hearing Occupational Therapist Aide Required: No Beliefs That Will Affect Care: Pentecostal Pentecostal Beliefs: Adventist marital status: Current Living Situation: Spouse current occupational status: retired Feels Safe at Home: Yes Childhood Exposure to Second-Hand Smoke: Yes caffeine: Yes Dental Care, Regularly: Yes Physical Activity Frequency: Daily Physical Activity Frequency Comment: leg exercises Seatbelt Use: always Sunscreen Use: Yes Do you think of yourself as: straight/heterosexual Assistive Devices: Walker Review of Systems Review of Systems: All systems reviewed & are unremarkable except as noted in HPI & below Physical Exam Constitutional: WD/WN, vitals as above Eyes: + anicteric sclerae ENMT: external ear and nose normal, oropharynx normal Neck: trachea midline, no thyromegaly Respiratory: normal respiratory effort, lungs clear to auscultation Cardiovascular: RRR, no murmur, no edema Chest (Breasts): Chest: normal inspection of chest Gastrointestinal (Abdomen): normal bowel sounds, soft, nontender, no hepatosplenomegaly (Mildly distended) Musculoskeletal: Extremities: extremities normal to inspection; no cyanosis and no clubbing Skin: no rashes, warm and dry Neurologic: moves all extremities and awake; no focal motor deficits Psychiatric: A+Ox3, euthymic affect Lymphatic: no lymphedema Results & Data Results & Data ([facility]) Vital Signs (Past 12 Hours) Vital Signs Temp Pulse Pulse Resp BP BP Pulse Ox 11/30/21 10:59 94 H 20 114/67 100 11/30/21 07:54 87 16 106/57 L 100 11/30/21 07:34 36.7 C 92 H 20 138/66 100 Laboratory Results 11/30/21 11/30/21 11/30/21 Range/Units 10:49 08:15 08:14 WBC (4.8-10.8) K/uL RBC (4.2-5.4) M/uL Hgb (12.0-16.0) g/dL Hct (37-47) % MCV (80-100) fL MCH (25-34) pg MCHC (32-36) g/dL RDW Std Deviation (36.4-46.3) fL RDW Coeff of Juanjose (11.5-14.5) % Plt Count (130-400) K/uL MPV (7.4-10.4) fL Immature Gran % (Auto) % Neut % (Auto) % Lymph % (Auto) % [place] % (Auto) % Eos % (Auto) % Baso % (Auto) % Neut # (Auto) (1.4-6.5) K/uL Lymph # (Auto) (1.2-3.4) K/uL [place] # (Auto) (0.11-0.59) K/uL Eos # (Auto) (0-0.5) K/uL Baso # (Auto) (0-0.2) K/uL Immature Gran # (Auto) (0.00-0.02) K/uL Sodium (136-145) mmol/L Potassium (3.5-5.1) mmol/L Chloride (98-107) mmol/L Carbon Dioxide (21-32) mmol/L Anion Gap (3-11) BUN (6-23) mg/dl Creatinine (0.6-1.2) mg/dl Est Cr Clr Drug Dosing ml/min Est GFR ( Amer) ml/min Est GFR (Non-Af Amer) ml/min BUN/Creatinine Ratio (10-20) Glucose (70-99(Fasting)) mg/dl Lactate 1.2 (0.4-2.0) mmol/L Calcium (8.5-10.1) mg/dl Total Bilirubin (0.2-1.0) mg/dl AST (13-39) U/L ALT (7-52) U/L Alkaline Phosphatase (34-104) U/L Troponin I (0-0.04) ng/ml Total Protein (6.0-8.3) gm/dl Albumin (3.4-5.0) gm/dl Globulin (2.5-4.0) gm/dl Albumin/Globulin Ratio (0.9-2) Lipase (11-82) U/L Urine Color Yellow Urine Appearance Clear (Clear) Urine pH 5.0 (4.5-7.5) Ur Specific [place] 1.020 (1.000-1.030) Urine Protein Negative (Negative) Urine Glucose (UA) Negative (Negative) Urine Ketones Trace H (Negative) Urine Blood Negative (Negative) Urine Nitrite Negative (Negative) Urine Bilirubin Negative (Negative) Urine Urobilinogen Negative (Negative) Ur Leukocyte Esterase 2+ H (Negative) Urine WBC (Auto) 10-30 H (0-5) /hpf Urine RBC (Auto) 0-4 (0-4) /hpf U Hyaline Cast (Auto) 5-10 H (0-5) /lpf U Epithel Cells (Auto) >30 H (0-5) /lpf Urine Bacteria (Auto) Negative (Negative) SARS-CoV-2, RNA, NAAT NEGATIVE (NEGATIVE) 11/30/21 11/30/21 Range/Units 07:55 07:55 WBC 4.97 (4.8-10.8) K/uL RBC 3.10 L (4.2-5.4) M/uL Hgb 10.4 L (12.0-16.0) g/dL Hct 31.0 L (37-47) % MCV 100.0 (80-100) fL MCH 33.5 (25-34) pg MCHC 33.5 (32-36) g/dL RDW Std Deviation 65.1 H (36.4-46.3) fL RDW Coeff of Juanjose 18.0 H (11.5-14.5) % Plt Count 168 (130-400) K/uL MPV 8.6 (7.4-10.4) fL Immature Gran % (Auto) 0.2 % Neut % (Auto) 75.8 % Lymph % (Auto) 12.3 % [place] % (Auto) 9.5 % Eos % (Auto) 2.0 % Baso % (Auto) 0.2 % Neut # (Auto) 3.77 (1.4-6.5) K/uL Lymph # (Auto) 0.61 L (1.2-3.4) K/uL [place] # (Auto) 0.47 (0.11-0.59) K/uL Eos # (Auto) 0.10 (0-0.5) K/uL Baso # (Auto) 0.01 (0-0.2) K/uL Immature Gran # (Auto) 0.01 (0.00-0.02) K/uL Sodium 134 L (136-145) mmol/L Potassium 4.4 (3.5-5.1) mmol/L Chloride 102 (98-107) mmol/L Carbon Dioxide 25 (21-32) mmol/L Anion Gap 7 (3-11) BUN 27 H (6-23) mg/dl Creatinine 1.24 H (0.6-1.2) mg/dl Est Cr Clr Drug Dosing 38.5 ml/min Est GFR ( Amer) 49.6 ml/min Est GFR (Non-Af Amer) 42.8 ml/min BUN/Creatinine Ratio 21.8 H (10-20) Glucose 179 H (70-99(Fasting)) mg/dl Lactate (0.4-2.0) mmol/L Calcium 8.6 (8.5-10.1) mg/dl Total Bilirubin 0.5 (0.2-1.0) mg/dl AST 16 (13-39) U/L ALT 14 (7-52) U/L Alkaline Phosphatase 84 (34-104) U/L Troponin I < 0.03 (0-0.04) ng/ml Total Protein 5.7 L (6.0-8.3) gm/dl Albumin 3.4 (3.4-5.0) gm/dl Globulin 2.3 L (2.5-4.0) gm/dl Albumin/Globulin Ratio 1.5 (0.9-2) Lipase 78 (11-82) U/L Urine Color Urine Appearance (Clear) Urine pH (4.5-7.5) Ur Specific [place] (1.000-1.030) Urine Protein (Negative) Urine Glucose (UA) (Negative) Urine Ketones (Negative) Urine Blood (Negative) Urine Nitrite (Negative) Urine Bilirubin (Negative) Urine Urobilinogen (Negative) Ur Leukocyte Esterase (Negative) Urine WBC (Auto) (0-5) /hpf Urine RBC (Auto) (0-4) /hpf U Hyaline Cast (Auto) (0-5) /lpf U Epithel Cells (Auto) (0-5) /lpf Urine Bacteria (Auto) (Negative) SARS-CoV-2, RNA, NAAT (NEGATIVE) Diagnostic Findings Abdomen/Pelvis CT 11/30/21 07:55 CT abd pelvis IV con only CLINICAL HISTORY: upper abdominal pain, pancreatic cancer TECHNIQUE: Helical axial images of the abdomen and pelvis were obtained and displayed. Automated dose lowering techniques and/or adjustment according to patient size were utilized for this exam. This exam was performed with intravenous contrast. COMPARISON: Comparison is made to CT abdomen pelvis 11/12/2021 FINDINGS: Lower chest: Bibasilar atelectasis versus scarring is seen. Again noted is a 4 mm left lower lobe nodule (series 3 image 50). Liver: Redemonstration of hepatic lesions measuring up to 13 mm in the right hepatic dome. These are better seen on prior CT chest performed 11/12/2021. Gallbladder and biliary tree: No calcified gallstones. Normal caliber wall. No intra- or extrahepatic biliary ductal dilation. Pancreas: Numerous cystic lesions are seen in the pancreas. There is prominence of the pancreatic duct at the pancreatic head. An ill-defined low-attenuation soft tissue density is seen in the pancreatic head. Soft tissue stranding is seen about the pancreas, minimally increased from prior exam. Spleen: Unremarkable. Adrenals: Unremarkable. Kidneys and ureters: Subcentimeter hypodensities are too small to characterize. Bladder: Unremarkable. Reproductive organs: Unremarkable. Bowel: Diverticulosis is seen without evidence of diverticulitis. The appendix is normal. Lymph nodes Retroperitoneal: Redemonstration of previously noted retroperitoneal mass. It is approximately unchanged in size measuring 28 20 mm. Mesenteric: Right sided soft tissue nodule adjacent to the kidney measures 12 x 20 mm, essentially unchanged. Pelvic: Unremarkable. Peritoneum: Normal. Vessels: Atherosclerotic calcifications are seen. Abdominal wall: Bilateral fat-containing inguinal hernias are seen. Bones: Degenerative changes in the visualized spine. IMPRESSION: 1. Interval development of fat stranding about the pancreas concerning for acute pancreatitis in this patient with abdominal pain. 2. Redemonstration of pancreatic mass and cystic lesions. 3. Redemonstration of hepatic lesions. 4. Multiple soft tissue nodules are again seen. Some 5. Stable pulmonary nodule. ACT 112: Negative or not required by law. Electronically signed by: Ramirez Ellison M.D. 11/30/2021 10:05 AM Chest X-Ray 11/30/21 07:58 XR chest 1V portable CLINICAL HISTORY: upper abdominal pain TECHNIQUE: Single frontal radiograph of the chest was obtained. Comparison: Comparison is made to chest radiographs 06/24/2021 FINDINGS: No lines and tubes are seen. The cardiomediastinal silhouette is normal. The lungs are clear. No evidence of pleural effusion or pneumothorax. Calcific tendinopathy is incidentally seen in the bilateral shoulders. IMPRESSION: No acute chest disease. ACT 112: Negative or not required by law. Electronically signed by: Ramirez Ellison M.D. 11/30/2021 8:26 AM ECG Additional Comments: ECG with normal sinus rhythm, rate 91, some fusion complexes and incomplete right bundle branch block new from previous, no ischemic changes Code Status & VTE Plan Code Status Full code VTE Prophylaxis Plan VTE Prophylaxis will be ordered: Yes PG Care Time/CCT Total # of Minutes Spent Total Time Spent with Patient: Total time spent is greater than 50% in coordination of care (as documented) at patient's floor/unit and/or counseling patient: Coding Level of Care Code INT OBSERVATION CARE 70M LVL 3 Diagnoses Pancreatic cancer C25.9 Pancreatic malignancy location: unspecified Hypomagnesemia E83.42 Diabetes mellitus type II, uncontrolled E11.65 Diabetic peripheral neuropathy associated with type 2 diabetes mellitus E11.42 Hypertension I10 Chronic kidney disease N18.9 Hypothyroidism E03.9 Gastroesophageal reflux disease K21.9 Chronic anticoagulation Z79.01 Mesenteric vein thrombosis K55.069 Portal vein thrombosis I81 Acute pancreatitis K85.90 (1) Pancreatic cancer Pancreatic malignancy location: unspecified Qualified Code(s): C25.9 - Malign ant neoplasm of pancreas, unspecified
[2021-11-30] MEDS ORDERED: MAGNESIUM SULFATE / D5W 1 GM/100 ML BAG IV STA (12:10)
[2021-11-30] MEDS ORDERED: ACETAMINOPHEN 325 MG TAB PO STA (13:50)
[2021-11-30] MEDS ORDERED: ONDANSETRON INJ 2 MG/ML 2 ML VIAL IV STA (13:50)
[2021-11-30] MEDS ORDERED: HYDROmorphone INJ 0.5 MG/0.5 ML SYR IV STA (15:03)
[2021-11-30] MEDS ORDERED: DEXTROSE 50% 50 ML SYRINGE IV PRN (16:39)
[2021-11-30] MEDS ORDERED: ACETAMINOPHEN 325 MG TAB PO PRN (16:39)
[2021-11-30] MEDS ORDERED: CARBOHYDRATES FOR HYPOGLYCEMIA PO PRN (16:39)
[2021-11-30] MEDS ORDERED: ONDANSETRON INJ 2 MG/ML 2 ML VIAL IV PRN (16:39)
[2021-11-30] MEDS ORDERED: GLUCOSE 10 TABS/TUBE PO PRN (16:39)
[2021-11-30] MEDS ORDERED: GLUCOSE 40% GEL 15 GM TUBE PO PRN (16:39)
[2021-11-30] MEDS ORDERED: GLUCAGON FOR INJ 1 MG VIAL SQ PRN (16:39)
[2021-11-30] MEDS: LACTATED RINGER'S 1,000 ML IV SCH ×2 (17:01→20:38)
[2021-11-30] MEDS: HYDROmorphone INJ 0.5 MG/0.5 ML SYR IV PRN (17:05)
[2021-11-30] MEDS: INSULIN ASPART PER UNIT SC SCH (18:28)
[2021-11-30] MEDS: oxyCODONE HCL IR 5 MG TAB (IMMEDIATE RELEASE) PO PRN (18:29)
[2021-11-30] MEDS: GABAPENTIN 100 MG CAP PO SCH (20:17)
[2021-12-01] MEDS: INSULIN GLARGINE SOLOSTAR 100 UNITS/ML 3 ML PEN SQ SCH ×2 (00:18→20:58)
[2021-12-01] MEDS: oxyCODONE HCL IR 5 MG TAB (IMMEDIATE RELEASE) PO PRN ×2 (00:24→07:31)
[2021-12-01] MEDS: INSULIN ASPART PER UNIT SC SCH ×5 (00:43→20:57)
[2021-12-01] MEDS: HYDROmorphone INJ 0.5 MG/0.5 ML SYR IV PRN (03:52)
[2021-12-01] MEDS: LACTATED RINGER'S 1,000 ML IV SCH ×2 (05:17→15:12)
[2021-12-01] MEDS: LEVOTHYROXINE SODIUM 75 MCG TABLET PO SCH (05:20)
[2021-12-01 08:23] LABS: Basophils # (auto) 0.01 K/uL (0-0.2); Basophils % (auto) 0.2 %; Eosinophils # (auto) 0.13 K/uL (0-0.5); Eosinophils % (auto) 2.8 %; Hematocrit (blood only) 32.1 % (37-47); Hemoglobin 10.9 g/dL (12.0-16.0); Immature Granulocytes # (auto) 0.01 K/uL (0.00-0.02); Immature Granulocytes % (auto) 0.2 %; Lymphocytes # (auto) 0.66 K/uL (1.2-3.4); Mean Corpuscular Hemoglobin 33.5 pg (25-34); Mean Corpuscular Volume 98.8 fL (80-100); Mean Platelet Volume 8.6 fL (7.4-10.4); Monocytes % (auto) 10.6 %; Neutrophils % (auto) 72.2 %; Platelet Count 188 K/uL (130-400); RDW Coefficient of Variation 17.7 % (11.5-14.5); RDW Standard Deviation 63.7 fL (36.4-46.3); Red Blood Count 3.25 M/uL (4.2-5.4); White Blood Count 4.71 K/uL (4.8-10.8)
[2021-12-01 09:01] LABS: Estimated Average Glucose 123 mg/dl; Hemoglobin A1C 5.9 % (4.5-5.6)
[2021-12-01] MEDS: RIVAROXABAN 20 MG TAB PO SCH (09:58)
[2021-12-01] MEDS: PANTOprazole 40 MG TAB PO SCH (09:58)
[2021-12-01] MEDS: GABAPENTIN 100 MG CAP PO SCH ×2 (09:58→20:57)
[2021-12-01 10:43] LABS: Albumin Globulin Ratio 1.5 (0.9-2); Albumin Level 3.4 gm/dl (3.4-5.0); BUN Creatinine Ratio 18.4 (10-20); Bilirubin,Total 0.4 mg/dl (0.2-1.0); Calcium 8.9 mg/dl (8.5-10.1); Creatinine Clr Calc Pharmacy 46.2 ml/min; Est GFR (Non-African American) 53.5 ml/min; Globulin 2.3 gm/dl (2.5-4.0); Potassium 5.1 mmol/L (3.5-5.1); Total Protein 5.7 gm/dl (6.0-8.3)
--- NOTE | 2021-12-01 13:50 | Hospitalist Progress Note ---
Date of Service December 01, 2021 Assessment & Plan (1) Acute pancreatitis: Plan: With history of metastatic pancreatic cancer currently on chemotherapy Presents with severe epigastric pain radiating through to the mid back and evidence of acute pancreatitis on CT abdomen/pelvis. Lipase is normal, LFTs are normal. No leukocytosis and is afebrile. Suspect pancreatitis is secondary to her pancreatic cancer. -pain better this morning -Clear liquid diet, advance as tolerated (2) Pancreatic cancer: Plan: With metastatic disease to the lungs, liver, muscle Currently undergoing chemotherapy with liposomal Irinotecan plus 5-FU/leucovorin with the [facility]-Aniyah Fletcher PA-C Follow-up with oncology after discharge I will discuss with her primary oncology provider (3) Hypomagnesemia: Plan: Magnesium 1.6, does have chronic diarrhea and poor p.o. intake the last 2 days Replace with IV magnesium sulfate 2 g Follow level in the morning (4) Diabetes mellitus type II, uncontrolled: Plan: Previous hemoglobin A1c in 06/2021 controlled at 7.0% Cut her Lantus dose in half to 21 units in the evenings while n.p.o. NovoLog sliding scale Accu-Cheks Holding home metformin (5) Diabetic peripheral neuropathy associated with type 2 diabetes mellitus: Plan: Continue home gabapentin (6) Hypertension: Plan: Blood pressures are controlled and it appears she Carranza takes antihypertensives Takes Lasix as needed leg edema (7) Chronic kidney disease: Plan: CKD stage III, creatinine is at baseline at 1.24 -Avoid nephrotoxins -renally dose meds when appropriate -follow BMP (8) Hypothyroidism: Plan: Continue home levothyroxine Check TSH in the morning as it has been 1 year since her previous check (9) Gastroesophageal reflux disease: Plan: Continue PPI p.o. 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 Physical Exam Physical Exam: The patient is awake, alert and oriented 3, well developed and well nourished, normocephalic and atraumatic, lying in bed and in no acute distress. HEENT--PERRL, EOMI, mucous membranes and oropharynx mildly dry Neck--supple. No JVD. No bruits. Thyroid normal, trachea midline, no adenopathy. Heart--normal S1 and S2. No murmurs, rubs or gallops. Lungs--clear bilaterally, no respiratory distress, no accessory muscle use. Abdomen--mild abdominal tenderness Extremities--no cyanosis or clubbing. No edema. Dermatologic--normal skin turgor, normal color, no abnormal lymph nodes, no rash. Neurologic--cranial nerves II through XII grossly intact. Rheumatologic--normal range of motion. Psychiatric--normal affect. Results & Data Results & Data ([facility]) Vital Signs (Past 12 Hours) Vital Signs Temp Pulse Resp BP Pulse Ox 12/01/21 11:59 98.4 F 88 17 130/73 97 12/01/21 07:09 97.9 F 91 H 18 151/83 H 99 12/01/21 03:00 96 H 143/88 H 97 Laboratory Results Laboratory Results - last 24 hr 11/30/21 12/01/21 12/01/21 17:57 00:15 06:26 WBC RBC Hgb Hct MCV MCH MCHC RDW Std Deviation RDW Coeff of Juanjose Plt Count MPV Immature Gran % (Auto) Neut % (Auto) Lymph % (Auto) [place] % (Auto) Eos % (Auto) Baso % (Auto) Neut # (Auto) Lymph # (Auto) [place] # (Auto) Eos # (Auto) Baso # (Auto) Immature Gran # (Auto) Sodium Potassium Chloride Carbon Dioxide Anion Gap BUN Creatinine Est Cr Clr Drug Dosing Est GFR ( Amer) Est GFR (Non-Af Amer) BUN/Creatinine Ratio Glucose POC Glucose 146 H 108 H 90 Estimat Average Glucose Hemoglobin A1c Calcium Magnesium Total Bilirubin AST ALT Alkaline Phosphatase Total Protein Albumin Globulin Albumin/Globulin Ratio Lipase TSH 12/01/21 12/01/21 12/01/21 07:54 07:54 07:54 WBC 4.71 L RBC 3.25 L Hgb 10.9 L Hct 32.1 L MCV 98.8 MCH 33.5 MCHC 34.0 RDW Std Deviation 63.7 H RDW Coeff of Juanjose 17.7 H Plt Count 188 MPV 8.6 Immature Gran % (Auto) 0.2 Neut % (Auto) 72.2 Lymph % (Auto) 14.0 [place] % (Auto) 10.6 Eos % (Auto) 2.8 Baso % (Auto) 0.2 Neut # (Auto) 3.40 Lymph # (Auto) 0.66 L [place] # (Auto) 0.50 Eos # (Auto) 0.13 Baso # (Auto) 0.01 Immature Gran # (Auto) 0.01 Sodium 136 Potassium 5.1 Chloride 104 Carbon Dioxide 26 Anion Gap 6 BUN 19 Creatinine 1.03 Est Cr Clr Drug Dosing 46.2 Est GFR ( Amer) 62.0 Est GFR (Non-Af Amer) 53.5 BUN/Creatinine Ratio 18.4 Glucose 97 POC Glucose Estimat Average Glucose 123 Hemoglobin A1c 5.9 H Calcium 8.9 Magnesium 2.0 Total Bilirubin 0.4 AST 17 ALT 13 Alkaline Phosphatase 87 Total Protein 5.7 L Albumin 3.4 Globulin 2.3 L Albumin/Globulin Ratio 1.5 Lipase 16 TSH 12/01/21 12/01/21 07:54 11:55 WBC RBC Hgb Hct MCV MCH MCHC RDW Std Deviation RDW Coeff of Juanjose Plt Count MPV Immature Gran % (Auto) Neut % (Auto) Lymph % (Auto) [place] % (Auto) Eos % (Auto) Baso % (Auto) Neut # (Auto) Lymph # (Auto) [place] # (Auto) Eos # (Auto) Baso # (Auto) Immature Gran # (Auto) Sodium Potassium Chloride Carbon Dioxide Anion Gap BUN Creatinine Est Cr Clr Drug Dosing Est GFR ( Amer) Est GFR (Non-Af Amer) BUN/Creatinine Ratio Glucose POC Glucose 89 Estimat Average Glucose Hemoglobin A1c Calcium Magnesium Total Bilirubin AST ALT Alkaline Phosphatase Total Protein Albumin Globulin Albumin/Globulin Ratio Lipase TSH 2.335 PG Care Time/CCT Total # of Minutes Spent Total Time Spent with Patient: Total time spent is greater than 50% in coordination of care (as documented) at patient's floor/unit and/or counseling patient: Coding Level of Care Code 63404 Subseq Obs Care Lvl 2 Diagnoses Acute pancreatitis K85.90 Pancreatic cancer C25.9 Pancreatic malignancy location: unspecified Hypomagnesemia E83.42 Diabetes mellitus type II, uncontrolled E11.65 Diabetic peripheral neuropathy associated with type 2 diabetes mellitus E11.42 Hypertension I10 Chronic kidney disease N18.9 Hypothyroidism E03.9 Gastroesophageal reflux disease K21.9 Chronic anticoagulation Z79.01 Mesenteric vein thrombosis K55.069 Portal vein thrombosis I81 Time Spent (min) 35 (1) Pancreatic cancer Pancreatic malignancy location: unspecified Qualified Code(s): C25.9 - Malignant neoplasm of pancreas, unspecified
--- NOTE | 2021-12-01 21:22 | Electrocardiogram Report ---
Test Reason : Blood Pressure : / mmHG Vent. Rate : 091 BPM Atrial Rate : 091 BPM P-R Int : 182 ms QRS Dur : 102 ms QT Int : 394 ms P-R-T Axes : 066 003 027 degrees QTc Int : 484 ms Sinus rhythm Possible Left atrial enlargement Low voltage QRS Incomplete right bundle branch block Cannot rule out Anterior infarct (cited on or before 30-NOV-2021) Prolonged QT Abnormal ECG When compared with ECG of 30-MAR-2021 16:23, Incomplete right bundle branch block is now Present Confirmed by Charanjit Hendrix ([id number]) on 12/01/2021 9:21:39 PM Referred By: REFERRED SELF Confirmed By:Charanjit Hendrix
[2021-12-02] MEDS: LEVOTHYROXINE SODIUM 75 MCG TABLET PO SCH (05:40)
[2021-12-02] MEDS: INSULIN ASPART PER UNIT SC SCH (09:16)
[2021-12-02] MEDS: RIVAROXABAN 20 MG TAB PO SCH (09:18)
[2021-12-02] MEDS: PANTOprazole 40 MG TAB PO SCH (09:18)
[2021-12-02] MEDS: GABAPENTIN 100 MG CAP PO SCH (09:18)
--- NOTE | 2021-12-02 14:38 | Discharge Summary ---
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 She did have some nausea vomiting yesterday but that has improved. The pain is somewhat improved with taking oxycodone and Tylenol prior to arrival. She was supposed to have chemotherapy this morning but came to the ER to get checked out instead. Pain was a 10/10 at its most severe. She was having a lot of diarrhea recently with her chemotherapy, but that had improved the last few days with taking Imodium. Denies urinary symptoms, no fevers or chills. No lightheadedness or headaches, no chest pain or shortness of breath. By the time I saw her for admission, she was reporting that her epigastric pain was completely resolved and she was feeling very hungry. In the ER, she was found to be afebrile and have normal vital signs, and laboratory work-up fairly unremarkable except for anemia with hemoglobin of 10.4, creatinine at 1.24 which is lower than her baseline, sodium mildly low at 134, but troponin was negative, lactate negative, blood glucose somewhat elevated at 179. LFTs and lipase were both normal, however a CT of the abdomen/pelvis showed acute pancreatitis and stable metastatic disease with pancreatic and liver masses. She was given 1 L of normal saline in the ER and will be admitted for acute pancreatitis. Principal Diagnosis Acute Pancreatitis Discharge Exam The patient is awake, alert and oriented 3, well developed and well nourished, normocephalic and atraumatic, lying in bed and in no acute distress. HEENT--PERRL, EOMI, mucous membranes and oropharynx mildly dry Neck--supple. No JVD. No bruits. Thyroid normal, trachea midline, no adenopathy. Heart--normal S1 and S2. No murmurs, rubs or gallops. Lungs--clear bilaterally, no respiratory distress, no accessory muscle use. Abdomen--mild abdominal tenderness Extremities--no cyanosis or clubbing. No edema. Dermatologic--normal skin turgor, normal color, no abnormal lymph nodes, no rash. Neurologic--cranial nerves II through XII grossly intact. Rheumatologic--normal range of motion. Psychiatric--normal affect. Discharge Data Allergies Allergy/AdvReac Type Severity Reaction Status Date / Time diflunisal Allergy Unknown Dolobid - Verified 11/30/21 08:02 Unknown Ordered Studies 11/30/21 07:55 CT abd pelvis IV con only Stat Hospital Course (1) Acute pancreatitis: With history of metastatic pancreatic cancer currently on chemotherapy Presents with severe epigastric pain radiating through to the mid back and evidence of acute pancreatitis on CT abdomen/pelvis. Lipase is normal, LFTs are normal. No leukocytosis and is afebrile. Suspect pancreatitis is secondary to her pancreatic cancer. -pain is resolved -tolerated general diet (2) Pancreatic cancer: With metastatic disease to the lungs, liver, muscle Currently undergoing chemotherapy with liposomal Irinotecan plus 5-FU/leucovorin with [facility]Aniyah Fletcher PA-C Follow-up with oncology after discharge I will discuss with her primary oncology provider (3) Hypomagnesemia: Magnesium 1.6, does have chronic diarrhea and poor p.o. intake the last 2 days Replace with IV magnesium sulfate 2 g Follow level in the morning (4) Diabetes mellitus type II, uncontrolled: Previous hemoglobin A1c in 06/2021 controlled at 7.0% Cut her Lantus dose in half to 21 units in the evenings while n.p.o. NovoLog sliding scale Accu-Cheks Holding home metformin (5) Diabetic peripheral neuropathy associated with type 2 diabetes mellitus: Continue home gabapentin (6) Hypertension: Blood pressures are controlled and it appears she Carranza takes antihypertensives Takes Lasix as needed leg edema (7) Chronic kidney disease: CKD stage III, creatinine is at baseline at 1.24 -Avoid nephrotoxins -renally dose meds when appropriate -follow BMP (8) Hypothyroidism: Continue home levothyroxine Check TSH in the morning as it has been 1 year since her previous check (9) Gastroesophageal reflux disease: Continue PPI p.o. 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: As above (12) Portal vein thrombosis: As above DVT prophylaxis-Xarelto Disposition-bring in on observation to medical/surgical unit, expect could advance diet by tomorrow and discharged home if continues to improve Full code Total Time Total Time Spent Total Time Spent (In Minutes): 35 Discharge Plan Discharge Items Patient Disposition: Home - Self-Care Reason For Visit: ACUTE PANCREATITIS, PANCREATIC CA Discharge Diagnosis: acute pancreatitis-resolved Condition on Discharge: Good Activity: Resume your previous activity Non-emergency contact: Primary Care Provider Call non-emergency contact if: you have any medication questions and your symptoms worsen Follow-up/Referrals: Manny Wren DO [Primary Care Provider] - 12/08/21 11:30 am Diet: Regular Addtl Attending Provider Instructions: please make appointment to follow up with your regular doctors Pending Studies at Discharge: No Stand-Alone Forms: [employer], Smoking Cessation Medications and DC Order Prescriptions: Continued ascorbic acid (vitamin C) 1,000 mg tablet 1 gm PO DAILY RF: 0 cyanocobalamin (vitamin B-12) 500 mcg tablet 1,000 mcg PO DAILY RF: 0 calcium carbonate-vitamin D3 [Calcium 500 + D] 500 mg(1,250mg) -200 unit tablet 1 tab PO DAILY RF: 0 furosemide [Lasix] 20 mg tablet 20 mg PO DAILY PRN (Reason: edema) Qty: 90 RF: 3 Xarelto 20 mg tablet 20 mg PO QDD RF: 0 levothyroxine [Synthroid] 75 mcg tablet 75 mcg PO QAM Qty: 90 RF: 3 insulin aspart U-100 [Novolog Flexpen U-100 Insulin] 100 unit/mL (3 mL) insulin pen 10 unit subcut TIDM Qty: 15 RF: 3 (DME) OneTouch Verio test strips Strip See Rx Instructions .ROUTE .MEDSUPPLY Qty: 300 RF: 3 metformin 1,000 mg tablet 1,000 mg PO BID Qty: 180 RF: 3 Myrbetriq 25 mg tablet extended release 24 hr 25 mg PO DAILY Qty: 30 RF: 2 gabapentin 100 mg capsule 200 mg PO BID Qty: 120 RF: 3 Basaglar KwikPen U-100 Insulin 100 unit/mL (3 mL) insulin pen 42 unit SQ QPM RF: 0 cholecalciferol (vitamin D3) [Vitamin D3] 2,000 unit Tablet 2,000 unit PO QAM RF: 0 omeprazole 20 mg Tablet,Delayed Release (Dr/Ec) 20 mg PO DAILY PRN (Reason: Heartburn) RF: 0 ondansetron HCl 8 mg tablet 8 mg PO Q8 PRN (Reason: Nausea) RF: 0 Discharge Orders: Discharge Order (Routine); Ordered 12/02/21 Ordered By: Iesha Hawkins/Other Patient Handouts: Pancreatitis Acute Dc Admission Data Admit Date/Time: 11/30/21 12:09 Attending Provider: Iesha Drake Admit Provider: Betty Patterson Primary Care Provider: Manny Wren Other Interventions: Discharge Summary Assessment (RN) Last Done: 12/02/21 10:30 Coding Level of Care Code D/C DAY MANAGEMENT >30 MINS Diagnoses Acute pancreatitis K85.90 Pancreatic cancer C25.9 Pancreatic malignancy location: unspecified Hypomagnesemia E83.42 Diabetes mellitus type II, uncontrolled E11.65 Diabetic peripheral neuropathy associated with type 2 diabetes mellitus E11.42 Hypertension I10 Chronic kidney disease N18.9 Hypothyroidism E03.9 Gastroesophageal reflux disease K21.9 Chronic anticoagulation Z79.01 Mesenteric vein thrombosis K55.069 Portal vein thrombosis I81 Time Spent (min) 35
== END 2021-12-02 11:09 | disposition home or self-care (01) ==
LOC: ED 07:29 → 2W 07:29 → SUATTDRO 12:09 → 2W 16:24 → 3N 12-02 04:16
DX: Z79.82 Long term (current) use of aspirin; K55.069 Acute infarction of intestine, part and extent unspecified; Z79.01 Long term (current) use of anticoagulants; E03.9 Hypothyroidism, unspecified; Z88.6 Allergy status to analgesic agent; Z79.899 Other long term (current) drug therapy; K85.90 Acute pancreatitis without necrosis or infection, unspecified; E11.65 Type 2 diabetes mellitus with hyperglycemia; K21.9 Gastro-esophageal reflux disease without esophagitis; C25.9 Malignant neoplasm of pancreas, unspecified; N18.30 Chronic kidney disease, stage 3 unspecified; I12.9 Hypertensive chronic kidney disease with stage 1 through stage 4 chronic kidney disease, or unspecified chronic kidney disease; E11.42 Type 2 diabetes mellitus with diabetic polyneuropathy; Z79.84 Long term (current) use of oral hypoglycemic drugs; Z79.4 Long term (current) use of insulin; E11.22 Type 2 diabetes mellitus with diabetic chronic kidney disease; I81 Portal vein thrombosis; E83.42 Hypomagnesemia

== ENCOUNTER 2022-01-19 07:31 | Inpatient (IN) ==
--- NOTE | 2022-01-19 07:43 | Emergency Department Note ---
Impression & Plan Acute pancreatitis, Pancreatic cancer, Pancytopenia, Nausea & vomiting ED Provider Note NAME: DAMARIS ROSSI AGE: 76 SEX: F : 1945 ARRIVES VIA: Walk-In INFORMANT: [Patient][, ] ED PROVIDER(S): [Devang Kay MD] Chief Complaint: Nausea vomiting diarrhea HPI: Patient presents due to concern for nausea vomiting and diarrhea. The patient states that her symptoms began yesterday. The patient does have a known history of pancreatic cancer last receiving chemotherapy a week prior and does follow with Aniyah Russo PA-C through the cancer center. Patient denies any chest pains or shortness of breath. The patient was on a treatment of Bactrim which she finished yesterday for a history of a chronic wound of the left foot for which she states is slowly improving but still improving. Patient denies any current issues with left foot. Patient denies any fevers or chills. Patient most recently had a pancreatitis episode of several months ago and thinks that this is similar. Patient does have some upper abdominal pain that is nonradiating has been fairly constant beginning yesterday. The patient does have some scant blood in the stools but this is bright red and scant and believes it secondary to her hemorrhoids. The patient denies any dark stools. Patient denies any blood in the urine or dysuria. Patient denies history of kidney stones. Patient states he does not have any back pain and no trauma to the abdomen. Patient denies any alcohol or tobacco use. Patient did try to t shakila an oxycodone this morning but is unsure as to whether or not she vomited it back up. Patient denies any blood in the vomit. ROS: See HPI for pertinent positives and negatives. A total of 10 systems were reviewed and otherwise negative. Past medical history: See below Surgical history: See below Social history: See below Physical Exam: GENERAL: Fatigued in appearance, NAD, [wearing a mask,] non-toxic. EYE EXAM: Normal conjunctiva. PERRL, no anisocoria and EOM's grossly intact w/o pain. NECK: Supple, no nuchal rigidity, no adenopathy, non-tender. No signs of meningismus. LUNGS: Clear to auscultation. Normal chest wall mechanics. HEART: NSR, systolic ejection murmur noted. ABDOMEN: Abdomen soft, mild epigastric discomfort without peritonitis, no lower abdominal pain, negative obturators and psoas, normo-active bowel sounds, no masses, no rebound or guarding. BACK: No CVA TTP. SKIN: No rashes and no bruising. UPPER EXTREMITIES: Upper extremities are grossly normal. LOWER EXTREMITIES: Grossly normal, no edema. NEURO EXAM: A&O x3, cranial nerves II-XII grossly intact, normal speech, moves all 4 extremities on command w/o issue. Differential diagnoses: Appendicitis, ovarian cyst, ovarian torsion, ectopic , TOA, PID, infections, diverticulitis, UTI, obstruction, mesenteric ischemia, aortic pathology, inflammatory bowel disease, renal colic, PUD, pancreatitis, biliary pathology, hernia, volvulus, constipation, as well as other pathologies. Course: Patient was seen and evaluated the bedside. Full history physical exam was performed. [EKG interpreted by me] [] Imaging Studies: See Below [Cardiac monitoring: An order was placed for continuous cardiac monitoring. The monitor shows a rate of 105 with tachycardic and regular rhythm.] MDM: Patient was seen due to concern for vomiting diarrhea. Blood work is obtained along with CT abdomen pelvis. The patient was treated with IV fluids antiemetics and IV pain medication. Patient blood work does show significant leukopenia with anemia and thrombocytopenia. The patient states that she did get an injectable last week after her chemo in order to help raise her white blood cell count. The patien t's kidney function is at virtual baseline from her most recent with creat of 1.5. The patient did receive IV fluids. Urinalysis not show NIzza virus infection. COVID-negative. Lipase is elevated at 880. Patient CT consistent with acute on chronic pancreatitis. The patient does have mild increase in size of hepatic foci. Small omental soft tissue implants consistent with peritoneal carcinomatosis, which has not significantly changed. Patient may have an element of ileitis. Patient was informed of the findings. The patient currently is asymptomatic but given the patient's leukopenia/pancytopenia and associated pancreatitis with the patient would benefit from admission and treatment at this time. I did speak with the on-call hospitalist HERB White and the patient was admitted by Dr. Dash. Past Med/Surg History Medical History Acute pancreatitis Cervical radiculopathy Chronic anticoagulation Chronic kidney disease Claudication of calf muscles Claudication of gluteal region COVID-19 in immunocompromised patient De Quervain's tenosynovitis Degenerative disc disease Diabetes mellitus type II, uncontrolled Diabetic peripheral neuropathy associated with type 2 diabetes mellitus Diverticulosis Dyslipidemia Gastroesophageal reflux disease Hypertension Hypothyroidism IBS (irritable bowel syndrome) hx Insomnia Mesenteric vein thrombosis Pancreatic cancer Port-A-Cath in place (09/06/19) Insertion of Mediport With Fluoroscopy Dr. Kern 09-06-19 Portal vein thrombosis Sensorineural hearing loss of both ears Sepsis Spinal stenosis Vitamin D deficiency Surgical History H/O colonoscopy with polypectomy History of carpal tunnel surgery bilateral History of dilation and curettage History of ERCP History of esophagogastroduodenoscopy (EGD) Hx of cataract surgery S/P tubal ligation Family History Brother No problems noted. Aunt Breast cancer maternal Sister Breast cancer FHx: pancreatic cancer Father Diabetes Lung disease Mother Diabetes Renal failure Peripheral vascular disease Social History Smoking Status: Never smoker Second Hand Exposure: No; Hx Alcohol Use: No Hx Substance Use: No Preferred Language: [place] Communication Ability: Effective Visual Impairment: Diminished Hearing Ability: Hard of Hearing Carriage Dogger Required: No Beliefs That Will Affect Care: Spiritual marital status: Current Living Situation: Spouse current occupational status: retired Feels Safe at Home: Yes Childhood Exposure to Second-Hand Smoke: Yes caffeine: Yes Dental Care, Regularly: Yes Physical Activity Frequency: Daily Physical Activity Frequency Comment: leg exercises Seatbelt Use: always Sunscreen Use: Yes Do you think of yourself as: straight/heterosexual Assistive Devices: Cane and Walker Allergies Allergies Allergy/AdvReac Type Severity Reaction Status Date / Time diflunisal Allergy Unknown Dolobid - Verified 01/19/22 11:32 Unknown Home Meds Home Medications Medication Instructions Recorded Confirmed ascorbic acid (vitamin C) 1,000 mg 1 gm PO DAILY tab 05/02/18 01/19/22 tablet cyanocobalamin (vitamin B-12) 500 1,000 mcg PO DAILY tab 05/02/18 01/19/22 mcg tablet cholecalciferol (vitamin D3) 50 2,000 unit PO QAM 09/03/19 01/19/22 mcg (2,000 unit) tablet (Vitamin D3) omeprazole 20 mg tablet,delayed 20 mg PO DAILY PRN 09/03/19 01/19/22 release rivaroxaban 20 mg tablet (Xarelto) 20 mg PO QDD 04/22/20 01/19/22 ondansetron HCl 8 mg tablet 8 mg PO Q8 PRN 09/09/20 01/19/22 insulin glargine 100 unit/mL (3 42 unit SQ QPM ml 11/19/21 01/19/22 mL) subcutaneous pen (Basaglar KwikPen U-100 Insulin) Previous Rx's Medication Instructions Recorded furosemide 20 mg tablet (Lasix) 20 mg PO DAILY PRN #90 tab 03/07/20 levothyroxine 75 mcg tablet 75 mcg PO QAM #90 tab 03/26/21 (Synthroid) insulin aspart U-100 100 unit/mL 10 unit SUBCUT TIDM #15 ml 05/29/21 (3 mL) subcutaneous pen (Novolog Flexpen U-100 Insulin aspart) OneTouch Verio test strips (blood #300 ea NS 06/30/21 sugar diagnostic) gabapentin 100 mg capsule 200 mg PO BID #120 cap 07/21/21 metformin 1,000 mg tablet 1,000 mg PO BID #180 tab 08/03/21 mirabegron 25 mg tablet,extended 25 mg PO DAILY #30 tab 10/27/21 release 24 hr (Myrbetriq) Results & Data (ED) Vital Signs Vital Signs - 24 hr 01/19/22 07:33 01/19/22 07:52 01/19/22 08:06 Temperature 36.5 C Temperature Source Temporal Artery Scan Pulse Rate 111 H 91 H Pulse Rate [Left Finger] 93 H Pulse Rhythm Regular Pulse Rhythm [Left Finger] Pulse Strength [Left Finger] Normal Respiratory Rate 18 17 17 Respiratory Effort / Characteristics Non-Labored Spontaneous Respiratory Depth Normal Respiratory Pattern Blood Pressure 116/63 Blood Pressure [Left Arm] 109/65 Blood Pressure Mean 80 Blood Pressure Mean [Left Arm] 79 Blood Pressure Position Sitting Blood Pressure Position [Left Arm] Lying Pulse Oximetry 98 99 99 Oxygen Delivery Method Room Air Room Air Sepsis Recent Fever Within 48 Hours No Sepsis New/Unexplained Change in Mental Status No Sepsis Action Taken by Nursing No Action Required 01/19/22 09:31 01/19/22 11:00 Temperature Temperature Source Pulse Rate Pulse Rate [Left Finger] 90 90 Pulse Rhythm Pulse Rhythm [Left Finger] Regular Regular Pulse Strength [Left Finger] Normal Normal Respiratory Rate 18 17 Respiratory Effort / Characteristics Non-Labored Spontaneous Non-Labored Spontaneous Respiratory Depth Normal Normal Respiratory Pattern Regular Regular Blood Pressure Blood Pressure [Left Arm] 116/53 L Blood Pressure Mean Blood Pressure Mean [Left Arm] 74 Blood Pressure Position Blood Pressure Position [Left Arm] Lying Pulse Oximetry 98 96 Oxygen Delivery Method Room Air Room Air Sepsis Recent Fever Within 48 Hours Sepsis New/Unexplained Change in Mental Status Sepsis Action Taken by Alf Medications Current Medication List: was personally reviewed by me Laboratory Data Attestation: I reviewed the patient's lab results. Result diagrams: 01/19/22 08:05 01/19/22 08:05 Lab Results 01/19/22 01/19/22 01/19/22 Range/Units 08:05 08:05 08:05 WBC 0.37 L* (4.8-10.8) K/uL RBC 2.40 L (4.2-5.4) M/uL Hgb 8.0 L (12.0-16.0) g/dL Hct 24.3 L (37-47) % MCV 101.3 H (80-100) fL MCH 33.3 (25-34) pg MCHC 32.9 (32-36) g/dL RDW Std Deviation 58.9 H (36.4-46.3) fL RDW Coeff of Juanjose 15.7 H (11.5-14.5) % Plt Count 97 L (130-400) K/uL MPV 8.7 (7.4-10.4) fL Immature Gran % (Auto) Cancelled Neut % (Auto) Cancelled Lymph % (Auto) Cancelled Sutter % (Auto) Cancelled Eos % (Auto) Cancelled Baso % (Auto) Cancelled Neut # (Auto) Cancelled Lymph # (Auto) Cancelled Sutter # (Auto) Cancelled Eos # (Auto) Cancelled Baso # (Auto) Cancelled Immature Gran # (Auto) Cancelled Neutrophils % (Manual) Cancelled Band Neutrophils % Cancelled Lymphocytes % (Manual) Cancelled Prolymphocyte % Cancelled Reactive Lymphs % (Man) Cancelled Monocytes % (Manual) Cancelled Eosinophils % (Manual) Cancelled Basophils % (Manual) Cancelled Metamyelocytes % (Man) Cancelled Myelocytes % (Man) Cancelled Promyelocytes % (Man) Cancelled Blast Cells % (Manual) Cancelled Plasma Cell % (Manual) Cancelled Other Cells % Cancelled Nucleated RBC % Cancelled Neutrophils # (Manual) Cancelled Band Neutrophils # Cancelled Total Absolute Neuts Cancelled Lymphocytes # (Manual) Cancelled Prolymphocyte # Cancelled Reactive Lymphs # Cancelled Total Abs Lymphocytes Cancelled Monocytes # (Manual) Cancelled Eosinophils # (Manual) Cancelled Basophils # (Manual) Cancelled Metamyelocytes # (Man) Cancelled Myelocytes # (Manual) Cancelled Promyelocytes # (Man) Cancelled Blast Cells # (Man) Cancelled Plasma Cell # (Manual) Cancelled Other Cells # Cancelled Nucleated RBCs # (Man) Cancelled Hypersegmented Neuts Cancelled Hyposegmented Neuts Cancelled Hypogranular Neuts Cancelled Large Granular Lymphs Cancelled # Lrg Granular Lymphs Cancelled Hairy Cells Cancelled Smudge Cells Cancelled Toxic Granulation Cancelled Toxic Vacuolation Cancelled Dohle Bodies Cancelled Kleber Rods Cancelled Platelet Estimate Decreased L (Normal) Hypogranular Platelets Cancelled Clumped Platelets Cancelled Giant Platelets Cancelled Platelet Satelliting Cancelled RBC Morphology Cancelled Polychromasia Cancelled Hypochromasia Cancelled Poikilocytosis Cancelled Basophilic Stippling Cancelled Anisocytosis Cancelled Microcytosis Cancelled Macrocytosis Cancelled Spherocytes Cancelled Pappenheimer Bodies Cancelled Sickle Cells Cancelled Target Cells Cancelled Tear Drop Cells Cancelled Ovalocytes Cancelled Stomatocytes Cancelled [place] Bodies Cancelled Echinocytes Cancelled Acanthocytes (Spur) Cancelled Rouleaux Cancelled RBC Agglutinates Cancelled Schistocytes Cancelled RBC Morph Comment Cancelled Sezary Cell Cancelled Sodium 134 L (136-145) mmol/L Potassium 5.0 (3.5-5.1) mmol/L Chloride 103 (98-107) mmol/L Carbon Dioxide 24 (21-32) mmol/L Anion Gap 7 (3-11) BUN 32 H (6-23) mg/dl Creatinine 1.58 H (0.6-1.2) mg/dl Est Cr Clr Drug Dosing 29.0 ml/min Est GFR ( Amer) 37.0 ml/min Est GFR (Non-Af Amer) 31.9 ml/min BUN/Creatinine Ratio 20.3 H (10-20) Glucose 155 H (70-99(Fasting)) mg/dl Calcium 8.6 (8.5-10.1) mg/dl Total Bilirubin 0.6 (0.2-1.0) mg/dl AST 11 L (13-39) U/L ALT 9 (7-52) U/L Alkaline Phosphatase 87 (34-104) U/L Total Protein 5.9 L (6.0-8.3) gm/dl Albumin 3.5 (3.4-5.0) gm/dl Globulin 2.4 L (2.5-4.0) gm/dl Albumin/Globulin Ratio 1.5 (0.9-2) Lipase 882 H (11-82) U/L Urine Color Urine Appearance (Clear) Urine pH (4.5-7.5) Ur Specific [place] (1.000-1.030) Urine Protein (Negative) Urine Glucose (UA) (Negative) Urine Ketones (Negative) Urine Blood (Negative) Urine Nitrite (Negative) Urine Bilirubin (Negative) Urine Urobilinogen (Negative) Ur Leukocyte Esterase (Negative) Urine WBC (Auto) (0-5) /hpf Urine RBC (Auto) (0-4) /hpf U Hyaline Cast (Auto) (0-5) /lpf U Epithel Cells (Auto) (0-5) /lpf Urine Bacteria (Auto) (Negative) SARS-CoV-2, RNA, NAAT NEGATIVE (NEGATIVE) 01/19/22 Range/Units 10:00 WBC (4.8-10.8) K/uL RBC (4.2-5.4) M/uL Hgb (12.0-16.0) g/dL Hct (37-47) % MCV (80-100) fL MCH (25-34) pg MCHC (32-36) g/dL RDW Std Deviation (36.4-46.3) fL RDW Coeff of Juanjose (11.5-14.5) % Plt Count (130-400) K/uL MPV (7.4-10.4) fL Immature Gran % (Auto) Neut % (Auto) Lymph % (Auto) Sutter % (Auto) Eos % (Auto) Baso % (Auto) Neut # (Auto) Lymph # (Auto) Sutter # (Auto) Eos # (Auto) Baso # (Auto) Immature Gran # (Auto) Neutrophils % (Manual) Band Neutrophils % Lymphocytes % (Manual) Prolymphocyte % Reactive Lymphs % (Man) Monocytes % (Manual) Eosinophils % (Manual) Basophils % (Manual) Metamyelocytes % (Man) Myelocytes % (Man) Promyelocytes % (Man) Blast Cells % (Manual) Plasma Cell % (Manual) Other Cells % Nucleated RBC % Neutrophils # (Manual) Band Neutrophils # Total Absolute Neuts Lymphocytes # (Manual) Prolymphocyte # Reactive Lymphs # Total Abs Lymphocytes Monocytes # (Manual) Eosinophils # (Manual) Basophils # (Manual) Metamyelocytes # (Man) Myelocytes # (Manual) Promyelocytes # (Man) Blast Cells # (Man) Plasma Cell # (Manual) Other Cells # Nucleated RBCs # (Man) Hypersegmented Neuts Hyposegmented Neuts Hypogranular Neuts Large Granular Lymphs # Lrg Granular Lymphs Hairy Cells Smudge Cells Toxic Granulation Toxic Vacuolation Dohle Bodies Kleber Rods Platelet Estimate (Normal) Hypogranular Platelets Clumped Platelets Giant Platelets Platelet Satelliting RBC Morphology Polychromasia Hypochromasia Poikilocytosis Basophilic Stippling Anisocytosis Microcytosis Macrocytosis Spherocytes Pappenheimer Bodies Sickle Cells Target Cells Tear Drop Cells Ovalocytes Stomatocytes [place] Bodies Echinocytes Acanthocytes (Spur) Rouleaux RBC Agglutinates Schistocytes RBC Morph Comment Sezary Cell Sodium (136-145) mmol/L Potassium (3.5-5.1) mmol/L Chloride (98-107) mmol/L Carbon Dioxide (21-32) mmol/L Anion Gap (3-11) BUN (6-23) mg/dl Creatinine (0.6-1.2) mg/dl Est Cr Clr Drug Dosing ml/min Est GFR ( Amer) ml/min Est GFR (Non-Af Amer) ml/min BUN/Creatinine Ratio (10-20) Glucose (70-99(Fasting)) mg/dl Calcium (8.5-10.1) mg/dl Total Bilirubin (0.2-1.0) mg/dl AST (13-39) U/L ALT (7-52) U/L Alkaline Phosphatase (34-104) U/L Total Protein (6.0-8.3) gm/dl Albumin (3.4-5.0) gm/dl Globulin (2.5-4.0) gm/dl Albumin/Globulin Ratio (0.9-2) Lipase (11-82) U/L Urine Color Yellow Urine Appearance Cloudy A (Clear) Urine pH 5.0 (4.5-7.5) Ur Specific [place] 1.018 (1.000-1.030) Urine Protein Negative (Negative) Urine Glucose (UA) Negative (Negative) Urine Ketones Negative (Negative) Urine Blood Negative (Negative) Urine Nitrite Negative (Negative) Urine Bilirubin Negative (Negative) Urine Urobilinogen Negative (Negative) Ur Leukocyte Esterase Negative (Negative) Urine WBC (Auto) 1-5 (0-5) /hpf Urine RBC (Auto) 0-4 (0-4) /hpf U Hyaline Cast (Auto) 1-5 (0-5) /lpf U Epithel Cells (Auto) 20-30 H (0-5) /lpf Urine Bacteria (Auto) Negative (Negative) SARS-CoV-2, RNA, NAAT (NEGATIVE) Administered Medications Discontinued Medications Sodium Chloride (Nss 1000ml) 1,000 mls @ 999 mls/hr IV .Q1H1M STA Stop: 01/19/22 08:49 Last Infusion: 01/19/22 09:48 Dose: 0 mls/hr Documented by: [id number] Admin: 01/19/22 08:18 Dose: 999 mls/hr Documented by: [id number] Ioversol (Optiray 320 100ml) 95 ml IV ONCE ONE Stop: 01/19/22 09:58 Last Admin: 01/19/22 09:57 Dose: 95 ml Documented by: [id number] Morphine Sulfate (Morphine Sulfate 4 Mg/Ml 1 Ml Carp\Vial) 4 mg IV NOW STA Stop: 01/19/22 07:50 Last Admin: 01/19/22 08:19 Dose: Not Given Documented by: [id number] Morphine Sulfate (Morphine Sulfate 2 Mg/Ml Carp) 2 mg IV NOW STA Stop: 01/19/22 07:50 Last Admin: 01/19/22 08:18 Dose: 2 mg Documented by: [id number] Imaging Data Radiologist's Impression: Abdomen/Pelvis CT 01/19/22 07:[address] WITH IV CONTRAST CT DOSE: 452.28 mGy.cm HISTORY: h/o pancreatic cancer w/ h/o pancreatitis, nausea, vomiting, diarrhea. TECHNIQUE: Multiaxial CT images of the abdomen and pelvis were performed foll owing the use of intravenous contrast. A dose lowering technique was utilized adhering to the principles of ALARA. COMPARISON STUDY: Abdomen and pelvis CT 11/30/2021. FINDINGS: Patchy groundglass densities within the lungs posteriorly there is mild dependent change. Subcentimeter left lung base nodules remain unchanged. No pneumoperitoneum. No pneumatosis. Moderate right and mild left hip osteoarthritis. Vertebral body hemangiomas again noted within the lumbar spine. No suspicious osseous lesions identified. Increase in size in the scattered hepatic metastases. For comparative purposes a 2.2 cm lesion within the right hepatic dome previously measured 1.4 cm. The gallbladder is unremarkable. The spleen remains mildly enlarged. Normal adrenal glands. No hydronephrosis. Stable indeterminate 1.1 cm exophytic lesion within the upper pole the right kidney. A few left peripelvic renal cysts are noted. Mild peripancreatic inflammatory change and multiple cystic lesions within the pancreas are again noted. 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 Periaortic irregular 4.2 cm metastatic deposit is again noted. This encases the distal abdominal aorta and is slightly increased in size. Scattered omental soft tissue nodules consistent with peritoneal carcinomatosis again noted and not significantly changed. Redemonstration of the uterine fibroid. Normal bladder. Colonic diverticulosis. No evidence for acute diverticulitis. No evidence for bowel obstruction. Moderate thickening and adjacent fat stranding at the terminal ileum. This is consistent with a nonspecific ileitis. There is again noted a mildly enlarged ileocolic lymph node adjacent to the right kidney measuring 1.7 x 0.9 cm. Multiple cystic foci seen throughout the pancreas again noted. A discrete pancreatic mass is not clearly identified. IMPRESSION: 1. Redemonstration of the mild peripancreatic inflammatory change suggestive of acute pancreatitis. 2. Increase in size in the hepatic and a stat foci and distal periaortic metastatic lesion. 3. Scattered small omental soft tissue implants consistent with peritoneal carcinomatosis are again noted and not significantly changed. 4. Moderate thickening and adjacent fat stranding at the terminal ileum consist ent with a nonspecific ileitis. 5. Chronic occlusion of the portal splenic confluence is again noted. 6. Multiple scattered cystic lesions seen throughout the pancreas. A discrete pancreatic mass is not clearly identified. 7. Additional findings as described above. ACT 112: Negative or not required by law. Electronically signed by: Jake Dejesus M.D. 01/19/2022 11:08 AM Discharge Plan Visit Data Chief Complaint: Vomiting Stated Complaint: VOMITING, DIARRHEA, PAIN UNDER RIBS ED Provider: Devang Kay Discharge Problem: Acute pancreatitis, Pancreatic cancer, Pancytopenia, Nausea & vomiting Patient Disposition: Admitted As Inpatient Forms Stand Alone Forms: [facility] Prescriptions Prescriptions: No Action ascorbic acid (vitamin C) 1,000 mg tablet 1 gm PO DAILY RF: 0 cyanocobalamin (vitamin B-12) 500 mcg tablet 1,000 mcg PO DAILY RF: 0 furosemide [Lasix] 20 mg tablet 20 mg PO DAILY PRN (Reason: edema) Qty: 90 RF: 3 Xarelto 20 mg tablet 20 mg PO QDD RF: 0 levothyroxine [Synthroid] 75 mcg tablet 75 mcg PO QAM Qty: 90 RF: 3 insulin aspart U-100 [Novolog Flexpen U-100 Insulin] 100 unit/mL (3 mL) insulin pen 10 unit subcut TIDM Qty: 15 RF: 3 (DME) OneTouch Verio test strips Strip See Rx Instructions .ROUTE .MEDSUPPLY Qty: 300 RF: 3 metformin 1,000 mg tablet 1,000 mg PO BID Qty: 180 RF: 3 Myrbetriq 25 mg tablet extended release 24 hr 25 mg PO DAILY Qty: 30 RF: 2 gabapentin 100 mg capsule 200 mg PO BID Qty: 120 RF: 3 Basaglar KwikPen U-100 Insulin 100 unit/mL (3 mL) insulin pen 42 unit SQ QPM RF: 0 cholecalciferol (vitamin D3) [Vitamin D3] 2,000 unit Tablet 2,000 unit PO QAM RF: 0 omeprazole 20 mg Tablet,Delayed Release (Dr/Ec) 20 mg PO DAILY PRN (Reason: Heartburn) RF: 0 ondansetron HCl 8 mg tablet 8 mg PO Q8 PRN (Reason: Nausea) RF: 0 Referrals Referrals: Manny Wren, [Primary Care Provider] -
[2022-01-19] MEDS ORDERED: MoRPHine SULFATE 2 MG/ML CARP IV STA (07:49)
[2022-01-19] MEDS ORDERED: SODIUM CHLORIDE 0.9% 1000ML 1,000 ML IV STA (07:49)
[2022-01-19] MEDS ORDERED: MoRPHine SULFATE 4 MG/ML 1 ML CARP\\VIAL IV STA (07:49)
[2022-01-19 08:33] LABS: Hematocrit (blood only) 24.3 % (37-47); Mean Corpuscular Hemoglobin 33.3 pg (25-34); Mean Corpuscular Hgb Conc 32.9 g/dL (32-36); Mean Corpuscular Volume 101.3 fL (80-100); Mean Platelet Volume 8.7 fL (7.4-10.4); RDW Coefficient of Variation 15.7 % (11.5-14.5); RDW Standard Deviation 58.9 fL (36.4-46.3); White Blood Count 0.37 K/uL (4.8-10.8)
[2022-01-19 08:47] LABS: Platelet Count 97 K/uL (130-400); Platelet Estimate Decreased (Normal)
[2022-01-19 09:31] LABS: BUN Creatinine Ratio 20.3 (10-20); Calcium 8.6 mg/dl (8.5-10.1); Est GFR (Non-African American) 31.9 ml/min
[2022-01-19 09:32] LABS: Albumin Globulin Ratio 1.5 (0.9-2); Albumin Level 3.5 gm/dl (3.4-5.0); Bilirubin,Total 0.6 mg/dl (0.2-1.0); Globulin 2.4 gm/dl (2.5-4.0); Total Protein 5.9 gm/dl (6.0-8.3)
[2022-01-19] MEDS ORDERED: OPTIRAY 320 100ml IV ONE (09:57)
[2022-01-19 10:14] LABS: Appearance Urine Cloudy (Clear); Bacteria Urine Automated Negative (Negative); Bilirubin Urine Negative (Negative); Blood Urine Negative (Negative); Color Urine Yellow; Epithelial Cell Urine Auto 20-30 /lpf (0-5); Glucose Urine UA Negative (Negative); Ketones Urine Negative (Negative); Leukocyte Esterase Urine Negative (Negative); Nitrite Urine Negative (Negative); Protein Urine Negative (Negative); RBC Urine Automated 0-4 /hpf (0-4); Specific Gravity Urine 1.018 (1.000-1.030); Urobilinogen Urine Negative (Negative)
--- NOTE | 2022-01-19 11:10 | CT Scan Report ---
ABDOMEN AND PELVIS CT WITH IV CONTRAST CT DOSE: 452.28 mGy.cm HISTORY: h/o pancreatic cancer w/ h/o pancreatitis, nausea, vomiting, diarrhea. TECHNIQUE: Multiaxial CT images of the abdomen and pelvis were performed following the use of intrave nous contrast. A dose lowering technique was utilized adhering to the principles of ALARA. COMPARISON STUDY: Abdomen and pelvis CT 11/30/2021. FINDINGS: Patchy groundglass densities within the lungs posteriorly there is mild dependent change. S ubcentimeter left lung base nodules remain unchanged. No pneumoperitoneum. No pneumatosis. Moderate r ight and mild left hip osteoarthritis. Vertebral body hemangiomas again noted within the lumbar spine . No suspicious osseous lesions identified. Increase in size in the scattered hepatic metastases. For comparative purposes a 2.2 cm lesion within the right hepatic dome previously measured 1.4 cm. The g allbladder is unremarkable. The spleen remains mildly enlarged. Normal adrenal glands. No hydronephro sis. Stable indeterminate 1.1 cm exophytic lesion within the upper pole the right kidney. A few left peripelvic renal cysts are noted. Mild peripancreatic inflammatory change and multiple cystic lesions within the pancreas are again noted. Chronic occlusion of the portosplenic confluence is again noted . Periaortic irregular 4.2 cm metastatic deposit is again noted. This encases the distal abdominal ao rta and is slightly increased in size. Scattered omental soft tissue nodules consistent with peritone al carcinomatosis again noted and not significantly changed. Redemonstration of the uterine fibroid. Normal bladder. Colonic diverticulosis. No evidence for acute diverticulitis. No evidence for bowel o bstruction. Moderate thickening and adjacent fat stranding at the terminal ileum. This is consistent with a nonspecific ileitis. There is again noted a mildly enlarged ileocolic lymph node adjacent to t he right kidney measuring 1.7 x 0.9 cm. Multiple cystic foci seen throughout the pancreas again noted . A discrete pancreatic mass is not clearly identified. IMPRESSION: 1. Redemonstration of the mild peripancreatic inflammatory change suggestive of acute pancreatitis. 2. Increase in size in the hepatic and a stat foci and distal periaortic metastatic lesion. 3. Scattered small omental soft tissue implants consistent with peritoneal carcinomatosis are again n oted and not significantly changed. 4. Moderate thickening and adjacent fat stranding at the terminal ileum consistent with a nonspecific ileitis. 5. Chronic occlusion of the portal splenic confluence is again noted. 6. Multiple scattered cystic lesions seen throughout the pancreas. A discrete pancreatic mass is not clearly identified. 7. Additional findings as described above. ACT 112: Negative or not required by law. Electronically signed by: Jake Dejesus M.D. 01/19/2022 11:08 AM
--- NOTE | 2022-01-19 12:40 | History & Physical Report ---
Date of Service January 19, 2022 Assessment & Plan (1) Acute pancreatitis: Plan: Elevated lipase, epigastric abdominal pain with nausea/vomiting and radiographic evidence - BISAP- 2 - Secondary to her pancreatic cancer likely - LR infusion - adjust related to her urine output and hemodynamics - Clear bland diet- if pain and nausea return - will make NPO - Follow symptoms (2) Pancreatic cancer: Plan: Stage IV with metastasis to lung, liver, bone Currently undergoing chemotherapy with liposomal Irinotecan plus 5- FU/leucovorin - follow pancytopenia (3) Chronic anticoagulation: Plan: For mesenteric and portal vein thrombosus (4) Pancytopenia: Plan: WBC, HGB, Platlet count lower than normal when checked - patient states she got her WBC stimulating shot on last week - follow labs in morning- peripheral smear ordered (5) Pancytopenia due to antineoplastic chemotherapy: (6) Diabetes mellitus type II, uncontrolled: Plan: Hold Metformin - Aspart slinding scale - half dose her long lasting insulin until PO intake established to be consistent (7) Hypertension: Plan: Hold Lasix (8) Chronic kidney disease: Plan: GABRIELLA on CKD IIIa - GFR is 29 currently- in the setting of nausea/vomitting likely pre-renal - will provide crystalloid infusion overnight with LR for her pancreatitis and volume replacment - Continue with her current dose of her Xarelto- adjust dose in morning if renal function/CRCL not improved - Suspect this will improve with above treatment (9) Hypothyroidism: Plan: Continue Synthroid (10) Heel ulcer: Plan: Diabetic foot ulceration to her left heel- MSSA + on [id number]- completed 14 day course of bactrim - PCT negative and no osteo noted on previous imaging - appears better than previous picutres- no drainage or fluctuance (11) Ileitis: (12) Tachycardia: History of Present Illness Chief Complaint: upper abdominal pain Primary Care Provider: Manny Wren, DO 76 YOF [facility] medical history of: Pancreatic cancer (adenocarcinoma-2019) with mixed response and mets (currently on Lipsomal Irinotecan and 5FU Lucovirin), chronic left foot ulceration (follows with wound care- finished 14 day Bactrim for staph noted on foot culture), DMII, CKD IIIa, Hypothyroidism, GERD, 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 Patient comes to the EMD today for 2 day history of nausea, diarrhea, vomiting. This started on Tuesday evening, which is also her last report of tolerating any diet. She was woke up this morning with worsening of her abdominal pain, and both diarrhea and vomiting simultaneously. Her diarrhea has resolved but remains with nausea. Her emesis has been green, yellow, orange. No blood noted. She is noted to be leukopenic on admission- reports that she did get her "white blood cell shot" on of last week. Will send biomarkers for infectious/inflammatory markers. BMP with mild hyponatremia and hypochloremia. 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 Her lipase is elevated to 882 with stranding around the pancreas. Patient will be admitted, start IV hydration, nausea medications. Start with clear liquid bland diet if tolerates. Will currently hold on ABX at this time as afebrile, PCT is negative- she has just completed course of Bactrim as above- no evidence of osteo on previous foot xray. COVID: NEGATIVE on admission Allergies Allergy/AdvReac Type Severity Reaction Status Date / Time diflunisal Allergy Unknown Dolobid - Verified 01/19/22 11:32 Unknown Home Medications Medication Instructions Recorded Confirmed Type ascorbic acid (vitamin C) 1,000 mg 1 gm PO DAILY tab 05/02/18 01/19/22 History tablet cyanocobalamin (vitamin B-12) 500 1,000 mcg PO DAILY tab 05/02/18 01/19/22 History mcg tablet cholecalciferol (vitamin D3) 50 2,000 unit PO QAM 09/03/19 01/19/22 History mcg (2,000 unit) tablet (Vitamin D3) omeprazole 20 mg tablet,delayed 20 mg PO DAILY PRN 09/03/19 01/19/22 History release furosemide 20 mg tablet (Lasix) 20 mg PO DAILY PRN #90 tab 03/07/20 01/19/22 Rx rivaroxaban 20 mg tablet (Xarelto) 20 mg PO QDD 04/22/20 01/19/22 History ondansetron HCl 8 mg tablet 8 mg PO Q8 PRN 09/09/20 01/19/22 History levothyroxine 75 mcg tablet 75 mcg PO QAM #90 tab 03/26/21 01/19/22 Rx (Synthroid) insulin aspart U-100 100 unit/mL 10 unit SUBCUT TIDM #15 ml 05/29/21 01/19/22 Rx (3 mL) subcutaneous pen (Novolog Flexpen U-100 Insulin aspart) OneTouch Verio test strips (blood #300 ea NS 06/30/21 01/14/22 Rx sugar diagnostic) gabapentin 100 mg capsule 200 mg PO BID #120 cap 07/21/21 01/19/22 Rx metformin 1,000 mg tablet 1,000 mg PO BID #180 tab 08/03/21 01/19/22 Rx mirabegron 25 mg tablet,extended 25 mg PO DAILY #30 tab 10/27/21 01/19/22 Rx release 24 hr (Myrbetriq) insulin glargine 100 unit/mL (3 42 unit SQ QPM ml 11/19/21 01/19/22 History mL) subcutaneous pen (Basaglar KwikPen U-100 Insulin) Past Med/Surg History Medical History Acute pancreatitis Cervical radiculopathy Chronic anticoagulation Chronic kidney disease Claudication of calf muscles Claudication of gluteal region COVID-19 in immunocompromised patient De Quervain's tenosynovitis Degenerative disc disease Diabetes mellitus type II, uncontrolled Diabetic peripheral neuropathy associated with type 2 diabetes mellitus Diverticulosis Dyslipidemia Gastroesophageal reflux disease Hypertension Hypothyroidism IBS (irritable bowel syndrome) hx Insomnia Mesenteric vein thrombosis Pancreatic cancer Port-A-Cath in place (09/06/19) Insertion of Mediport With Fluoroscopy Dr. Kern 09-06-19 Portal vein thrombosis Sensorineural hearing loss of both ears Sepsis Spinal stenosis Vitamin D deficiency Surgical History H/O colonoscopy with polypectomy History of carpal tunnel surgery bilateral History of dilation and curettage History of ERCP History of esophagogastroduodenoscopy (EGD) Hx of cataract surgery S/P tubal ligation Family History Brother No problems noted. Aunt Breast cancer maternal Sister Breast cancer FHx: pancreatic cancer Father Diabetes Lung disease Mother Diabetes Renal failure Peripheral vascular disease Social History Smoking Status: Never smoker Second Hand Exposure: No; Do You Dip or Chew Tobacco: No; Tobacco Cessation Education Requested by Patient: No Hx Alcohol Use: No Hx Substance Use: No Preferred Language: Vietnamese Communication Ability: Effective Visual Impairment: Diminished Hearing Ability: Hard of Hearing Quality Assurance Analyst Required: No Beliefs That Will Affect Care: Shinto Shinto Beliefs: Scientology marital status: Current Living Situation: Spouse current occupational status: retired Other Information That Helps Us Care for You: No Feels Safe at Home: Yes Safety Concerns: Feels Safe At This Time Childhood Exposure to Second-Hand Smoke: Yes caffeine: Yes Dental Care, Regularly: Yes Physical Activity Frequency: Daily Physical Activity Frequency Comment: leg exercises Seatbelt Use: always Sunscreen Use: Yes Do you think of yourself as: straight/heterosexual Assistive Devices: None Review of Systems Review of Systems: REVIEW OF SYSTEMS: Constitutional: No fever, sweats or chills Eyes: No diplopia, no worsening or blurred vision ENT: normal hearing, no trouble swallowing Respiratory: No cough, sputum, dyspnea at rest or on exertion Cardiovascular: No chest pain, tightness or palpitations Abdomen: (+) pain, nausea, vomiting, diarrhea, (+) NO constipation Musculoskeletal: No joint pain, calf pain, swelling Neurologic: No weakness, numbness/tingling, or balance problems Psychiatric: No anxiety or depression Skin: No rash or itch Physical Exam Physical Exam: PHYSICAL EXAM: General: awake, alert, no apparent distress Head: Normocephalic, atraumatic ENT: PERRLA, EOMI, no pharyngeal exudate, mucous membranes moist Neuro: AAO x 3, speech clear and appropriate, strength intact bilaterally 5/5, sensation intact and equal all extremities and dermatomes, no pronator drift Chest: equal rise and fall of the chest, no accessory muscle use, no heaves or thrills, Clear to auscultation, on room air, Cardiac: Regular rate and rhythm, telemetry reviewed, skin warm dry, cap refill <3 seconds, peripheral pulses +2 no JVD, no murmur, no edema GI: NABS x 4 quadrants, soft, nontender to palpation, no rebound, guarding or tenderness : Spontaneously voiding, no pain, no CVA tenderness, Extremities: Normal inspection, no peripheral edema or erythema, calfs nontender to palpation Psych: Normal mood and affect Skin: left heel ulceration well granulated, no open area- covered with optifoam Results & Data Results & Data ([facility]) Vital Signs (Past 12 Hours) Vital Signs Temp Pulse Pulse Resp BP BP Pulse Ox 01/19/22 11:00 90 17 116/53 L 96 01/19/22 09:31 90 18 98 01/19/22 08:06 91 H 17 99 01/19/22 07:52 93 H 17 109/65 99 01/19/22 07:33 36.5 C 111 H 18 116/63 98 Laboratory Results Abnormal lab results 01/19/22 01/19/22 01/19/22 Range/Units 08:05 08:05 08:05 WBC 0.37 L* (4.8-10.8) K/uL RBC 2.40 L (4.2-5.4) M/uL Hgb 8.0 L (12.0-16.0) g/dL Hct 24.3 L (37-47) % MCV 101.3 H (80-100) fL RDW Std Deviation 58.9 H (36.4-46.3) fL RDW Coeff of Juanjose 15.7 H (11.5-14.5) % Plt Count 97 L (130-400) K/uL Platelet Estimate Decreased L (Normal) Sodium 134 L (136-145) mmol/L BUN 32 H (6-23) mg/dl Creatinine 1.58 H (0.6-1.2) mg/dl BUN/Creatinine Ratio 20.3 H (10-20) Glucose 155 H (70-99(Fasting)) mg/dl AST 11 L (13-39) U/L C-Reactive Protein 1.61 H (0-0.5) mg/dl Total Protein 5.9 L (6.0-8.3) gm/dl Globulin 2.4 L (2.5-4.0) gm/dl Lipase 882 H (11-82) U/L Urine Appearance (Clear) U Epithel Cells (Auto) (0-5) /lpf 01/19/22 Range/Units 10:00 WBC (4.8-10.8) K/uL RBC (4.2-5.4) M/uL Hgb (12.0-16.0) g/dL Hct (37-47) % MCV (80-100) fL RDW Std Deviation (36.4-46.3) fL RDW Coeff of Juanjose (11.5-14.5) % Plt Count (130-400) K/uL Platelet Estimate (Normal) Sodium (136-145) mmol/L BUN (6-23) mg/dl Creatinine (0.6-1.2) mg/dl BUN/Creatinine Ratio (10-20) Glucose (70-99(Fasting)) mg/dl AST (13-39) U/L C-Reactive Protein (0-0.5) mg/dl Total Protein (6.0-8.3) gm/dl Globulin (2.5-4.0) gm/dl Lipase (11-82) U/L Urine Appearance Cloudy A (Clear) U Epithel Cells (Auto) 20-30 H (0-5) /lpf Diagnostic Findings Abdomen/Pelvis CT 01/19/22 07:[address] WITH IV CONTRAST CT DOSE: 452.28 mGy.cm HISTORY: h/o pancreatic cancer w/ h/o pancreatitis, nausea, vomiting, diarrhea. TECHNIQUE: Multiaxial CT images of the abdomen and pelvis were performed following the use of intravenous contrast. A dose lowering technique was utilized adhering to the principles of ALARA. COMPARISON STUDY: Abdomen and pelvis CT 11/30/2021. FINDINGS: Patchy groundglass densities within the lungs posteriorly there is mild dependent change. Subcentimeter left lung base nodules remain unchanged. No pneumoperitoneum. No pneumatosis. Moderate right and mild left hip osteoarthritis. Vertebral body hemangiomas again noted within the lumbar spine. No suspicious osseous lesions identified. Increase in size in the scattered hepatic metastases. For comparative purposes a 2.2 cm lesion within the right hepatic dome previously measured 1.4 cm. The gallbladder is unremarkable. The spleen remains mildly enlarged. Normal adrenal glands. No hydronephrosis. Stable indeterminate 1.1 cm exophytic lesion within the upper pole the right kidney. A few left peripelvic renal cysts are noted. Mild peripancreatic inflammatory change and multiple cystic lesions within the pancreas are again noted. 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 Periaortic irregular 4.2 cm metastatic deposit is again noted. This encases the distal abdominal aorta and is slightly increased in size. Scattered omental soft tissue nodules consistent with peritoneal carcinomatosis again noted and not significantly changed. Redemonstration of the uterine fibroid. Normal bladder. Colonic diverticulosis. No evidence for acute diverticulitis. No evidence for bowel obstruction. Moderate thickening and adjacent fat stranding at the terminal i leum. This is consistent with a nonspecific ileitis. There is again noted a mildly enlarged ileocolic lymph node adjacent to the right kidney measuring 1.7 x 0.9 cm. Multiple cystic foci seen throughout the pancreas again noted. A discrete pancreatic mass is not clearly identified. IMPRESSION: 1. Redemonstration of the mild peripancreatic inflammatory change suggestive of acute pancreatitis. 2. Increase in size in the hepatic and a stat foci and distal periaortic metastatic lesion. 3. Scattered small omental soft tissue implants consistent with peritoneal carcinomatosis are again noted and not significantly changed. 4. Moderate thickening and adjacent fat stranding at the terminal ileum consistent with a nonspecific ileitis. 5. Chronic occlusion of the portal splenic confluence is again noted. 6. Multiple scattered cystic lesions seen throughout the pancreas. A discrete pancreatic mass is not clearly identified. 7. Additional findings as described above. ACT 112: Negative or not required by law. Electronically signed by: Jake Dejesus M.D. 01/19/2022 11:08 AM Medications Administered Home Medications ascorbic acid (vitamin C) 1,000 mg tablet 1 gm PO DAILY tab 05/02/18 [History Confirmed 01/19/22] cyanocobalamin (vitamin B-12) 500 mcg tablet 1,000 mcg PO DAILY tab 05/02/18 [History Confirmed 01/19/22] cholecalciferol (vitamin D3) 50 mcg (2,000 unit) tablet (Vitamin D3) 2,000 unit PO QAM 09/03/19 [History Confirmed 01/19/22] omeprazole 20 mg tablet,delayed release 20 mg PO DAILY PRN 09/03/19 [History Confirmed 01/19/22] furosemide 20 mg tablet (Lasix) 20 mg PO DAILY PRN #90 tab 03/07/20 [Rx Confirmed 01/19/22] rivaroxaban 20 mg tablet (Xarelto) 20 mg PO QDD 04/22/20 [History Confirmed 01/19/22] ondansetron HCl 8 mg tablet 8 mg PO Q8 PRN 09/09/20 [History Confirmed 01/19/22] levothyroxine 75 mcg tablet (Synthroid) 75 mcg PO QAM #90 tab 03/26/21 [Rx Confirmed 01/19/22] insulin aspart U-100 100 unit/mL (3 mL) subcutaneous pen (Novolog Flexpen U-100 Insulin aspart) 10 unit SUBCUT TIDM #15 ml 05/29/21 [Rx Confirmed 01/19/22] [employer] Verio test strips (blood sugar diagnostic) #300 ea NS 06/30/21 [Rx Confirmed 01/14/22] gabapentin 100 mg capsule 200 mg PO BID #120 cap 07/21/21 [Rx Confirmed 01/19/22] metformin 1,000 mg tablet 1,000 mg PO BID #180 tab 08/03/21 [Rx Confirmed 01/19/22] mirabegron 25 mg tablet,extended release 24 hr (Myrbetriq) 25 mg PO DAILY #30 tab 10/27/21 [Rx Confirmed 01/19/22] insulin glargine 100 unit/mL (3 mL) subcutaneous pen (Basaglar KwikPen U-100 Insulin) 42 unit SQ QPM ml 11/19/21 [History Confirmed 01/19/22] Active Medications Acetaminophen (Acetaminophen 325 Mg Tab) 650 mg PO Q4H PRN PRN Reason: Pain or Fever Stop: 02/18/22 13:38 Cyanocobalamin (Cyanocobalamin (B-12) 500 Mcg Tablet) 1,000 mcg PO DAILY PEDRO PABLO Stop: 02/19/22 08:59 Dextrose (Dextrose 50% 50 Ml Syringe) 25 - 50 ml IV UD PRN; Protocol PRN Reason: Hypoglycemia Protocol Stop: 02/18/22 13:38 Gabapentin (Gabapentin 100 Mg Cap) 200 mg PO BID PEDRO PABLO Stop: 02/18/22 20:59 Glucagon (Glucagon For Inj 1 Mg Vial) 1 mg SQ UD PRN; Protocol PRN Reason: Hypoglycemia Protocol Stop: 02/18/22 13:38 Glucose (Glucose 10 Tabs/Tube) 4 - 8 tabs PO UD PRN; Protocol PRN Reason: Hypoglycemia Protocol Stop: 02/18/22 13:38 Glucose (Glucose 40% Gel 15 Gm Tube) 15 - 30 gm PO UD PRN; Protocol PRN Reason: Hypoglycemia Protocol Stop: 02/18/22 13:38 Lactated Ringer's (Lr) 1,000 mls @ 110 mls/hr IV .Q9H6M [facility] Stop: 02/18/22 12:29 Last Admin: 01/19/22 13:50 Dose: 110 mls/hr Documented by: Insulin Aspart (Insulin Aspart Per Unit) 0 units SC ACHS [facility] Stop: 02/18/22 16:29 Last Admin: 01/19/22 16:35 Dose: Not Given Documented by: Insulin Glargine (Insulin Glargine Solostar 100 Units/Ml 3 Ml Pen) 21 units SQ QPM PEDRO PABLO Stop: 02/18/22 20:59 Levothyroxine Sodium (Levothyroxine Sodium 75 Mcg Tablet) 75 mcg PO DAILYBB [facility] Stop: 02/19/22 06:29 Mirabegron (Mirabegron Er 25 Mg Tab) 25 mg PO DAILY [facility] Stop: 02/19/22 08:59 Miscellaneous (Carbohydrates For Hypoglycemia ) 15 - 30 gm PO UD PRN PRN Reason: Hypoglycemia Protocol Stop: 02/18/22 13:38 Morphine Sulfate (Morphine Sulfate 2 Mg/Ml Carp) 2 mg IV Q4 PRN PRN Reason: Pain moderate to severe Stop: 02/02/22 13:38 Ondansetron HCl (Ondansetron Inj 2 Mg/Ml 2 Ml Vial) 4 mg IV Q6H PRN PRN Reason: Nausea Stop: 02/18/22 13:38 Rivaroxaban (Rivaroxaban 20 Mg Tab) 20 mg PO QDD [facility] Stop: 02/18/22 16:29 ECG Additional Comments: Sinus rhythm Possible Left atrial enlargement Low voltage QRS Incomplete right bundle branch block Cannot rule out Anterior infarct (cited on or before 30-NOV-2021) Prolonged QT Abnormal ECG When compared with ECG of 30-MAR-2021 16:23, Incomplete right bundle branch block is now Present Confirmed by Charanjit Hendrix ([id number]) on 12/01/2021 9:21:39 PM Code Status & VTE Plan Code Status CODE:: FULL VTE: SCDs, Rivaroxaban VTE Prophylaxis Plan VTE Prophylaxis will be ordered: Yes Supervising Physician Co-Signing Physician Notes Attending Attestation & Admission Note: Pt seen/examined, chart reviewed, care plan d/w ASHLEIGH Garcia. I agree w/ the sanford components of his admission documentation. Pleasant 76yo female with known stage 4 pancreatic ca currently receiving chemo under the care of Aniyah SOTELO at [facility], prior h/o acute pancreatitis, PVT & mesenteric vein thrombosis on Xarelto, CKD, and T2DM - presenting with <24 hours of severe upper abdominal pain (under both ribs) with radiation to both scapula. This was associated with nausea, emesis, and copious diarrhea. No fever. No sick contacts. Recent chemo on 01/11. Recent 14-day course of b actrim with day #1 of Rx on 01/04/22 per records for L heel ulcer. I saw the patient on the tele unit and by the time of my assessment her dry heaves, nausea, and abd pain had resolved. No diarrhea since early this am. She took clear liquid tray for dinner - tolerated such with no GI intolerance. Denies any chest pain, pleuritic pain or dyspnea. PMH/PSH/allergies/meds/sochx/famhx - reviewed tachy, afebrile, BP wnl gen - relaxing in recliner, NAD, nontoxic mouth - MM dry neck - no JVD heart - tachy, s1 s2 lungs - CTA b/l abd - minimal tenderness high epigastric region, BS+, no lower abdominal tenderness, mild distension, no peritoneal signs ext - no edema, pulses 2+ b/l CBC - pancytopenia BMP - Cr stable lipase - 882 CT a/p - reviewed EKG - NSR, no ST changes; low voltage; IRBBB A/P: 1. acute pancreatitis - etiology - recent bactrim use can cause such. Pancreatic ca itself via obstruction of the pancreatic duct could cause. Prior triglyceride levels several years ago was mildly high in the high 200s. Calcium wnl. No gallstones on CT today. LR at 125cc/hr. Pain meds. Clears are ok today - pain already resolved. I am surprised how rapidly her symptoms resolved, and her pain was somewhat unusual as it was just underneath the b/l ribs (as opposed to the midabdomen). Serial exams. Lipase in am. 2. ileitis - cause of presenting abd pain/nausea/emesis/diarrhea?? Exam is not c/w typhlitis. Monitor carefully. 3. stage 4 pancreatic ca - last chemo about 1 week ago 4. chemotherapy-induced pancytopenia - cbc am. 5. tachycardia - early SIRS?? Check echo, r/o any developing malignant pericardial effusion or other cardiac issue causing tachycardia. 6. nausea/vomiting/diarrhea - due to #1? due to nonspecific enteritis or ileitis? Check a cdiff. 7. no signs of typhlitis 8. chemotherapy-induced neutropenia/leukopenia - neutropenic precautions. 9. PVT/mesenteric vein thrombosis - on Xarelto 10. hypothyroidism - TSH 11/2021 wnl; on synthroid 11. T2DM Nader Dash MD PG Care Time/CCT Total # of Minutes Spent Total Time Spent with Patient: Total time spent is greater than 50% in coordination of care (as documented) at patient's floor/unit and/or counseling patient: Coding Level of Care Code 06248 Initial Inpt Care Lvl 3 Diagnoses Acute pancreatitis K85.90 Acute pancreatitis complication: unspecified Pancreatitis type: unspecified pancreatitis type Pancreatic cancer C25.9 Pancreatic malignancy location: unspecified Chronic anticoagulation Z79.01 Pancytopenia D61.818 Diabetes mellitus type II, uncontrolled E11.65 Hypertension I10 Chronic kidney disease N18.9 Hypothyroidism E03.9 Heel ulcer L97.409 Pancytopenia due to antineoplastic chemotherapy D61.810; [id number] Ileitis K52.9 Tachycardia R00.0 (1) Pancreatic cancer Pancreatic malignancy location: unspecified Qualified Code(s): C25.9 - Malignant neoplasm of pancreas, unspecified (2) Acute pancreatitis Acute pancreatitis complication: unspecified Pancreatitis type: unspecified pancreatitis type Qualified Code(s): K85.90 - Acute pancreatitis without necrosis or infection, unspecified
[2022-01-19] MEDS ORDERED: GLUCOSE 10 TABS/TUBE PO PRN (13:39)
[2022-01-19] MEDS ORDERED: GLUCAGON FOR INJ 1 MG VIAL SQ PRN (13:39)
[2022-01-19] MEDS ORDERED: GLUCOSE 40% GEL 15 GM TUBE PO PRN (13:39)
[2022-01-19] MEDS ORDERED: DEXTROSE 50% 50 ML SYRINGE IV PRN (13:39)
[2022-01-19] MEDS ORDERED: ONDANSETRON INJ 2 MG/ML 2 ML VIAL IV PRN (13:39)
[2022-01-19] MEDS: LACTATED RINGER'S 1,000 ML IV SCH ×2 (13:50→22:04)
[2022-01-19] MEDS: INSULIN ASPART PER UNIT SC SCH ×2 (16:35→20:36)
[2022-01-19] MEDS: RIVAROXABAN 20 MG TAB PO SCH (19:25)
[2022-01-19] MEDS: GABAPENTIN 100 MG CAP PO SCH (20:35)
[2022-01-19] MEDS: INSULIN GLARGINE SOLOSTAR 100 UNITS/ML 3 ML PEN SQ SCH (20:35)
[2022-01-19] MEDS: MoRPHine SULFATE 2 MG/ML CARP IV PRN (21:14)
[2022-01-19] MEDS: ACYCLOVIR 5% OINT 15 GM TUBE EXT SCH (23:29)
[2022-01-19] MEDS: ACETAMINOPHEN 325 MG TAB PO PRN (23:31)
[2022-01-19] MEDS: CARBOHYDRATES FOR HYPOGLYCEMIA PO PRN (23:42)
[2022-01-20] MEDS: MoRPHine SULFATE 2 MG/ML CARP IV PRN (01:18)
[2022-01-20] MEDS: LACTATED RINGER'S 1,000 ML IV SCH ×2 (05:33→18:24)
[2022-01-20] MEDS: LEVOTHYROXINE SODIUM 75 MCG TABLET PO SCH (05:33)
[2022-01-20] MEDS: CARBOHYDRATES FOR HYPOGLYCEMIA PO PRN (06:56)
[2022-01-20] MEDS: GABAPENTIN 100 MG CAP PO SCH ×2 (07:37→20:38)
[2022-01-20] MEDS: CYANOCOBALAMIN (B-12) 500 MCG TABLET PO SCH (07:38)
[2022-01-20] MEDS: FIRST - Mouthwash BLM 119 ML PO SCH ×4 (07:38→20:39)
[2022-01-20] MEDS: MIRABEGRON ER 25 MG TAB PO SCH (07:38)
[2022-01-20] MEDS: ACYCLOVIR 5% OINT 15 GM TUBE EXT SCH ×4 (07:39→20:39)
[2022-01-20] MEDS: INSULIN ASPART PER UNIT SC SCH ×4 (08:33→20:39)
[2022-01-20 08:49] LABS: Hematocrit (blood only) 24.1 % (37-47); Hemoglobin 7.9 g/dL (12.0-16.0); Mean Corpuscular Hemoglobin 33.1 pg (25-34); Mean Corpuscular Hgb Conc 32.8 g/dL (32-36); Mean Corpuscular Volume 100.8 fL (80-100); Mean Platelet Volume 9.1 fL (7.4-10.4); Platelet Count 64 K/uL (130-400); RDW Coefficient of Variation 15.3 % (11.5-14.5); RDW Standard Deviation 56.1 fL (36.4-46.3); Red Blood Count 2.39 M/uL (4.2-5.4); White Blood Count 0.26 K/uL (4.8-10.8)
[2022-01-20 09:03] LABS: BUN Creatinine Ratio 16.5 (10-20); Calcium 8.7 mg/dl (8.5-10.1); Creatinine Clr Calc Pharmacy 39.9 ml/min; Est GFR (African American) 54.3 ml/min; Est GFR (Non-African American) 46.8 ml/min; Magnesium 1.9 mg/dl (1.7-2.4); Potassium 4.6 mmol/L (3.5-5.1)
--- NOTE | 2022-01-20 10:29 | Hospitalist Progress Note ---
Date of Service January 20, 2022 Assessment & Plan (1) Acute pancreatitis: Plan: Elevated lipase, epigastric abdominal pain with nausea/vomiting and radiographic evidence - Rapid resolution - influenced her pancreatic cancer likely - Clear bland diet- (2) Pancreatic cancer: Plan: Stage IV with metastasis to lung, liver, bone Currently undergoing chemotherapy with liposomal Irinotecan plus 5-FU/leucov tee - pancytopenia I had a personal discussion with oncologic provider will use neupogen with daily assesment (3) Chronic anticoagulation: Plan: For mesenteric and portal vein thrombosus, rivaroxaban (4) Diabetes mellitus type II, uncontrolled: Plan: Hold Metformin - Aspart slinding scale - half dose her long lasting insulin until consistent po intake (5) Hypertension: Plan: Hold Lasix (6) Chronic kidney disease: Plan: GABRIELLA on CKD IIIa, gabriella resolved - GFR is 29 currently- in the setting of nausea/vomitting likely pre-renal - (7) Hypothyroidism: Plan: Continue Synthroid, tsh last checked 12/11 and normal (8) Heel ulcer: Plan: Diabetic foot ulceration to her left heel- MSSA + on [id number]- completed 14 day course of bactrim - PCT negative and no osteo noted on previous imaging - - no drainage or fluctuance Admission and Anticipated Discharge Date Admission Date: January 19, 2022 Subjective pt is improving, she is pancytopenic, discussion with oncology with permission to use neupogen eating better, still no appetite, intermittent mild abdominal pain, no diarrhea Review of Systems Review of Systems: 10 body systems reviewed in review of systems and are negative unless listed above Physical Exam Physical Exam: The patient appeared well nourished and normally developed. Vital signs as documented. Head exam is normocephalic atraumatic cold sore on lower left lip, apthous ulcers in mouth Neck is without JVD, thyromegaly, or carotid bruits. Lungs are clear to auscultation, no focal loss of breath sounds Cardiac exam, Rhythm is regular.. No murmurs, rubs or gallops. Abdominal exam reveals normal bowel sounds, soft non tender, no masses Extremities are nonedematous and both pedal pulses are present Neurologic exam is alert and oriented, no focal loss of strength or sensation Skin is with herpetic lip ulcers, healing, mouth ulcers look like aphthous ulcer s Psychologically is without concerns for anxiety or depression.. Results & Data Results & Data ([facility]) Vital Signs (Past 12 Hours) Vital Signs Temp Pulse Pulse Resp BP Pulse Ox 01/20/22 07:32 90 01/20/22 06:29 97.3 F L 89 18 109/66 99 01/20/22 03:57 97.9 F 102 H 18 124/67 98 01/19/22 23:18 97.9 F 96 H 18 119/69 99 PG Care Time/CCT Total # of Minutes Spent Total Time Spent with Patient: Total time spent is greater than 50% in coordination of care (as documented) at patient's floor/unit and/or counseling patient: Coding Level of Care Code 34261 Subseq Hosp Care Lvl 3 Diagnoses Acute pancreatitis K85.90 Acute pancreatitis complication: unspecified Pancreatitis type: unspecified pancreatitis type Pancreatic cancer C25.9 Pancreatic malignancy location: unspecified Chronic anticoagulation Z79.01 Diabetes mellitus type II, uncontrolled E11.65 Hypertension I10 Chronic kidney disease N18.9 Hypothyroidism E03.9 Heel ulcer L97.409 (1) Pancreatic cancer Pancreatic malignancy location: unspecified Qualified Code(s): C25.9 - Malignant neoplasm of pancreas, unspecified (2) Acute pancreatitis Acute pancreatitis complication: unspecified Pancreatitis type: unspecified pancreatitis type Qualified Code(s): K85.90 - Acute pancreatitis without necrosis or infection, unspecified
[2022-01-20] MEDS ORDERED: FILGRASTIM 480 MCG/1.6 ML VIAL SC ONE (15:16)
[2022-01-20] MEDS: RIVAROXABAN 20 MG TAB PO SCH (15:25)
[2022-01-20] MEDS: INSULIN GLARGINE SOLOSTAR 100 UNITS/ML 3 ML PEN SQ SCH (20:40)
[2022-01-20] MEDS: CHLORHEXIDINE GLUCONATE 0.12% 480 ML MT PRN (22:22)
[2022-01-20] MEDS: ACETAMINOPHEN 325 MG TAB PO PRN (22:22)
--- NOTE | 2022-01-20 23:14 | XCELERA ---
[id number]
[2022-01-21] MEDS: CARBOHYDRATES FOR HYPOGLYCEMIA PO PRN ×2 (00:57→01:08)
[2022-01-21] MEDS: LEVOTHYROXINE SODIUM 75 MCG TABLET PO SCH (05:17)
[2022-01-21] MEDS: MoRPHine SULFATE 2 MG/ML CARP IV PRN ×3 (06:03→16:56)
[2022-01-21] MEDS: CHLORHEXIDINE GLUCONATE 0.12% 480 ML MT PRN ×3 (06:11→21:26)
[2022-01-21] MEDS: GABAPENTIN 100 MG CAP PO SCH ×2 (07:55→21:29)
[2022-01-21] MEDS: ACYCLOVIR 5% OINT 15 GM TUBE EXT SCH ×4 (07:55→21:28)
[2022-01-21] MEDS: FIRST - Mouthwash BLM 119 ML PO SCH ×4 (07:56→21:29)
[2022-01-21] MEDS: MIRABEGRON ER 25 MG TAB PO SCH (07:56)
[2022-01-21] MEDS: CYANOCOBALAMIN (B-12) 500 MCG TABLET PO SCH (07:56)
[2022-01-21 08:18] LABS: Hematocrit (blood only) 22.4 % (37-47); Hemoglobin 7.5 g/dL (12.0-16.0); Mean Corpuscular Hemoglobin 33.5 pg (25-34); Mean Corpuscular Hgb Conc 33.5 g/dL (32-36); Mean Platelet Volume 9.5 fL (7.4-10.4); Platelet Count 59 K/uL (130-400); RDW Coefficient of Variation 15.3 % (11.5-14.5); RDW Standard Deviation 56.6 fL (36.4-46.3); Red Blood Count 2.24 M/uL (4.2-5.4); White Blood Count 0.62 K/uL (4.8-10.8)
[2022-01-21] MEDS ORDERED: SODIUM CHLORIDE 0.9% 250 ML IV PRN (08:32)
[2022-01-21 08:35] LABS: Platelet Estimate Decreased (Normal); Potassium 4.4 mmol/L (3.5-5.1); RBC Morphology Unremarkable
[2022-01-21 08:36] LABS: BUN Creatinine Ratio 10.3 (10-20); Calcium 8.7 mg/dl (8.5-10.1); Creatinine Clr Calc Pharmacy 39.6 ml/min; Est GFR (African American) 53.7 ml/min; Est GFR (Non-African American) 46.3 ml/min; Magnesium 1.8 mg/dl (1.7-2.4)
[2022-01-21] MEDS ORDERED: METOPROLOL TARTRATE 1 MG/ML VIAL IV PRN (08:37)
[2022-01-21 08:43] LABS: ALC (manual) 0.56 K/uL (1.2-3.4); ANC (manual) 0.01 K/uL (1.4-6.5); Basophils % (manual) 0.5 %; Lymphocytes # (manual) 0.56 K/uL (1.2-3.4); Lymphocytes % (manual) 90.2 %; Monocytes # (manual) 0.04 K/uL (0.11-0.59); Monocytes % (manual) 7.2 %; Neutrophils # (manual) 0.01 K/uL (1.4-6.5); Neutrophils % (manual) 2.1 %
[2022-01-21] MEDS: INSULIN ASPART PER UNIT SC SCH ×4 (08:57→21:13)
[2022-01-21] MEDS ORDERED: FILGRASTIM 480 MCG/1.6 ML VIAL SC ONE (10:26)
[2022-01-21] MEDS: ACETAMINOPHEN 325 MG TAB PO PRN ×2 (10:58→18:46)
[2022-01-21] MEDS: CEFEPIME 2,000 MG in SYRINGE 0 ML IV SCH ×2 (11:51→21:34)
--- NOTE | 2022-01-21 13:14 | Electrocardiogram Report ---
Test Reason : Blood Pressure : / mmHG Vent. Rate : 092 BPM Atrial Rate : 092 BPM P-R Int : 188 ms QRS Dur : 110 ms QT Int : 394 ms P-R-T Axes : 055 038 034 degrees QTc Int : 487 ms Normal sinus rhythm Low voltage QRS Incomplete right bundle branch block Poor R wave progression, consider anterior IA vs. lead placement vs. LVH Borderline ECG When compared with ECG of 30-NOV-2021 07:44, No significant change was found Confirmed by Leonardo Ceja ([id number]) on 01/21/2022 1:14:31 PM Referred By: REFERRED SELF Confirmed By:Leonardo Ceja
--- NOTE | 2022-01-21 14:34 | Electrocardiogram Report ---
Test Reason : Blood Pressure : / mmHG Vent. Rate : 120 BPM Atrial Rate : 120 BPM P-R Int : 162 ms QRS Dur : 110 ms QT Int : 324 ms P-R-T Axes : 061 -09 027 degrees QTc Int : 457 ms Sinus tachycardia Low voltage QRS Incomplete right bundle branch block Borderline ECG When compared with ECG of 19-JAN-2022 21:06, No significant change was found Confirmed by Leonardo Ceja ([id number]) on 01/21/2022 2:34:14 PM Referred By: REFERRED SELF Confirmed By:Leonardo Ceja
[2022-01-21] MEDS: RIVAROXABAN 20 MG TAB PO SCH (16:57)
--- NOTE | 2022-01-21 17:59 | Hospitalist Progress Note ---
Date of Service January 21, 2022 Assessment & Plan (1) Acute pancreatitis: Plan: REsolved Elevated lipase, epigastric abdominal pain with nausea/vomiting and radiographic evidence - Rapid resolution - influenced her pancreatic cancer likely - Clear bland diet- (2) Pancreatic cancer: Plan: Stage IV with metastasis to lung, liver, bone Currently undergoing chemotherapy with liposomal Irinotecan plus 5- FU/leucovorin - pancytopenia I had a personal discussion with oncologic provider will use neupogen with repeat dose 01/21/22 & daily assessment (3) Chronic anticoagulation: Plan: For mesenteric and portal vein thrombosus, rivaroxaban is anemic but does not seem to be blood loss but secondary to chemotherapy (4) Diabetes mellitus type II, uncontrolled: Plan: Hold Metformin - Aspart slinding scale - half dose her long lasting insulin until consistent po intake (5) Hypertension: Plan: Hold Lasix (6) Chronic kidney disease: Plan: GABRIELLA on CKD IIIa, gabriella resolved - GFR is 29 currently- in the setting of nausea/vomitting likely pre-renal - (7) Hypothyroidism: Plan: Continue Synthroid, tsh last checked 12/11 and normal (8) Heel ulcer: Plan: Diabetic foot ulceration to her left heel- MSSA + on - completed 14 day course of bactrim - PCT negative and no osteo noted on previous imaging - - no drainage or fluctuance (9) Anemia: Plan: symptomatic anemia, transfused x 1 unit, will follow, no signs of blood loss Admission and Anticipated Discharge Date Admission Date: January 19, 2022 Subjective pt does not feel well today, fatigued was having some tachycardia without chest pain was sinus tach, is anemic and will be transfused Review of Systems Review of Systems: 10 body systems reviewed in review of systems and are negative unless listed above Physical Exam Physical Exam: The patient appeared well nourished and normally developed. Vital signs as documented. Head exam is normocephalic atraumatic cold sore on lower left lip, apthous ulcers in mouth Neck is without JVD, thyromegaly, or carotid bruits. Lungs are clear to auscultation, no focal loss of breath sounds Cardiac exam, Rhythm is regular.. No murmurs, rubs or gallops. Abdominal exam reveals normal bowel sounds, soft non tender, no masses Extremities are nonedematous and both pedal pulses are present Neurologic exam is alert and oriented, no focal loss of strength or sensation Skin is with herpetic lip ulcers, healing, mouth ulcers look like aphthous ulcers Psychologically is without concerns for anxiety or depression.. Results & Data Results & Data ([facility]) Vital Signs (Past 12 Hours) Vital Signs Temp Pulse Pulse Resp BP BP Pulse Ox 01/21/22 15:57 98.1 F 100 H 18 122/74 97 01/21/22 15:21 108 H 01/21/22 14:40 98.1 F 106 H 18 128/74 97 01/21/22 13:40 98.8 F 105 H 18 121/70 97 01/21/22 13:39 01/21/22 12:40 98.8 F 105 H 19 125/69 96 01/21/22 12:10 98.8 F 113 H 18 119/67 96 01/21/22 11:55 99.0 F 108 H 18 122/68 96 01/21/22 11:39 98.2 F 108 H 18 130/72 96 01/21/22 11:10 98.2 F 108 H 20 133/73 95 01/21/22 10:43 99.9 F H 110 H 18 167/87 H 96 01/21/22 06:36 99.1 F 80 18 150/74 H 95 Pulse Ox 01/21/22 15:57 01/21/22 15:21 01/21/22 14:40 01/21/22 13:40 01/21/22 13:39 96 01/21/22 12:40 01/21/22 12:10 01/21/22 11:55 01/21/22 11:39 01/21/22 11:10 01/21/22 10:43 01/21/22 06:36 PG Care Time/CCT Total # of Minutes Spent Total Time Spent with Patient: Total time spent is greater than 50% in coordination of care (as documented) at patient's floor/unit and/or counseling patient: Coding Level of Care Code 92519 Subseq Hosp Care Lvl 2 Diagnoses Acute pancreatitis K85.90 Acute pancreatitis complication: unspecified Pancreatitis type: unspecified pancreatitis type Pancreatic cancer C25.9 Pancreatic malignancy location: unspecified Chronic anticoagulation Z79.01 Diabetes mellitus type II, uncontrolled E11.65 Hypertension I10 Chronic kidney disease N18.9 Hypothyroidism E03.9 Heel ulcer L97.409 Anemia D64.9 (1) Acute pancreatitis Acute pancreatitis complication: unspecified Pancreatitis type: unspecified pancreatitis type Qualified Code(s): K85.90 - Acute pancreatitis without necrosis or infection, unspecified (2) Pancreatic cancer Pancreatic malignancy location: unspecified Qualified Code(s): C25.9 - Malignant neoplasm of pancreas, unspecified
[2022-01-21] MEDS ORDERED: INSULIN GLARGINE SOLOSTAR 100 UNITS/ML 3 ML PEN SQ SCH (21:00)
[2022-01-22] MEDS: LEVOTHYROXINE SODIUM 75 MCG TABLET PO SCH (05:48)
[2022-01-22] MEDS: CHLORHEXIDINE GLUCONATE 0.12% 480 ML MT PRN (07:42)
[2022-01-22] MEDS: FIRST - Mouthwash BLM 119 ML PO SCH ×2 (07:43→11:40)
[2022-01-22] MEDS: INSULIN ASPART PER UNIT SC SCH ×2 (08:54→12:17)
[2022-01-22] MEDS: MIRABEGRON ER 25 MG TAB PO SCH (08:55)
[2022-01-22] MEDS: GABAPENTIN 100 MG CAP PO SCH (08:55)
[2022-01-22] MEDS: CYANOCOBALAMIN (B-12) 500 MCG TABLET PO SCH (08:55)
[2022-01-22 08:56] LABS: Hemoglobin 8.9 g/dL (12.0-16.0); Mean Corpuscular Hemoglobin 33.2 pg (25-34); Mean Corpuscular Hgb Conc 34.2 g/dL (32-36); RDW Coefficient of Variation 18.8 % (11.5-14.5); RDW Standard Deviation 65.8 fL (36.4-46.3); Red Blood Count 2.68 M/uL (4.2-5.4); White Blood Count 1.75 K/uL (4.8-10.8)
[2022-01-22] MEDS: ACYCLOVIR 5% OINT 15 GM TUBE EXT SCH ×2 (08:56→11:40)
[2022-01-22 08:58] LABS: Mean Platelet Volume 10.2 fL (7.4-10.4); Platelet Count 69 K/uL (130-400)
[2022-01-22 09:27] LABS: BUN Creatinine Ratio 9.9 (10-20); Calcium 8.6 mg/dl (8.5-10.1); Creatinine Clr Calc Pharmacy 38.5 ml/min; Magnesium 1.7 mg/dl (1.7-2.4); Potassium 3.9 mmol/L (3.5-5.1)
[2022-01-22 09:41] LABS: Anisocytosis Present; Dohle Bodies 2+; Giant Platelets 1+; Toxic Granulation 2+
[2022-01-22 09:43] LABS: ALC (manual) 0.85 K/uL (1.2-3.4); ANC (manual) 0.68 K/uL (1.4-6.5); Basophils # (manual) 0.05 K/uL (0-0.2); Basophils % (manual) 2.6 %; Blast # (manual) 0.02 K/uL (0-0); Blast Cells % (manual) 0.9 %; Lymphocytes # (manual) 0.85 K/uL (1.2-3.4); Lymphocytes % (manual) 48.3 %; Monocytes # (manual) 0.17 K/uL (0.11-0.59); Monocytes % (manual) 9.6 %; Neutrophils # (manual) 0.68 K/uL (1.4-6.5); Neutrophils % (manual) 38.6 %
[2022-01-22] MEDS: CEFEPIME 2,000 MG in SYRINGE 0 ML IV SCH (11:40)
--- NOTE | 2022-01-22 13:59 | Discharge Summary ---
Date of Service January 22, 2022 Admission HPI Per Admitting Provider 76 YOF [facility] medical history of: Pancreatic cancer (adenocarcinoma-2019) with mixed response and mets (currently on Lipsomal Irinotecan and 5FU Lucovirin), chronic left foot ulceration (follows with wound care- finished 14 day Bactrim for staph noted on foot culture), DMII, CKD IIIa, Hypothyroidism, GERD, 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 Patient comes to the EMD today for 2 day history of nausea, diarrhea, vomiting. This started on Tuesday evening, which is also her last report of tolerating any diet. She was woke up this morning with worsening of her abdominal pain, and both diarrhea and vomiting simultaneously. Her diarrhea has resolved but remains with nausea. Her emesis has been green, yellow, orange. No blood noted. She is noted to be leukopenic on admission- reports that she did get her "white blood cell shot" on of last week. Will send biomarkers for infectious/inflammatory markers. BMP with mild hyponatremia and hypochloremia. BUN and [employer] slight increase. Her lipase is elevated to 882 with stranding around the pancreas. Patient will be admitted, start IV hydration, nausea medications. Start with clear liquid bland diet if tolerates. Will currently hold on ABX at this time as afebrile, PCT is negative- she has just completed course of Bactrim as above- no evidence of osteo on previous foot xray. COVID: NEGATIVE on admission Principal Diagnosis pancreatitis ruled out chemotherapy induced pancytopenia intractable nausea and vomiting Discharge Exam The patient appeared stable Vital signs as documented. Lungs are clear to auscultation and appear unlabored Cardiac exam, Rhythm is regular.. No murmurs, rubs or gallops. Abdominal exam reveals normal bowel sounds, soft non tender, no masses Extremities are nonedematous and both pedal pulses are normal. Neurologic exam is alert and oriented, no focal loss of strength or sensation Skin is with cold sore on right lower lip with a small ulcers on inner left cheek Psychologically is without concerns for anxiety or depression. Discharge Data Allergies Allergy/AdvReac Type Severity Reaction Status Date / Time diflunisal Allergy Unknown Dolobid - Verified 01/19/22 11:32 Unknown Consultations 01/19/22 11:49 ED Decision to Admit Stat Ordered Studies 01/19/22 07:49 CT abd pelvis IV con only Stat Hospital Course (1) Acute pancreatitis: REsolved, ruled out elevated lipase, epigastric abdominal pain with nausea/vomiting and radiographic evidence - Rapid resolution of laboratory abnormalities -Changes seen on imaging leg influenced her pancreatic cancer -Tolerated diet well (2) Pancreatic cancer: Stage IV with metastasis to lung, liver, bone Currently undergoing chemotherapy with liposomal Irinotecan plus 5-FU/leuc ovorin -Chemotherapy induced pancytopenia I had a personal discussion with oncologic provider will use neupogen with repeat dose 01/21/22 & improvement of white count. Patient with some blasts seen this was also shared with oncology they will continue to watch this but feel this is a response of bone marrow to the stimulating factor (3) Chronic anticoagulation: For mesenteric and portal vein thrombosus, rivaroxaban is anemic but does not seem to be blood loss but secondary to chemotherapy (4) Diabetes mellitus type II, uncontrolled: Resume metformin and home insulin regiment (5) Hypertension: Lasix (6) Chronic kidney disease: GABRIELLA on CKD IIIa, gabriella resolved - (7) Hypothyroidism: Continue Synthroid, tsh last checked 12/11 and normal (8) Heel ulcer: Diabetic foot ulceration to her left heel- MSSA + on [id number]- completed 14 day course of bactrim - PCT negative and no osteo noted on previous imaging - - no drainage or fluctuance (9) Anemia: symptomatic anemia, transfused x 1 unit, will follow, no signs of blood loss Total Time Total Time Spent Total Time Spent (In Minutes): It required greater than 30 minutes to prepare this patient for discharge Discharge Plan Discharge Items Patient Disposition: Home - Self-Care Reason For Visit: NAUSEA,VOMITING Discharge Diagnosis: pancreatitis ruled out chemotherapy induced pancytopenia intractable nausea and vomiting Activity: Per Instructions section Activity Comment: slowly increase activity Non-emergency contact: Primary Care Provider and Oncologist Call non-emergency contact if: your symptoms worsen and you have a fever Follow-up/Referrals: Manny Wren, [Primary Care Provider] - Diet: Regular Addtl Attending Provider Instructions: Rest and recover at home Hydration and nutritional intake consider low-fat diet at this time Expect to keep [facility] with blood drawn at that point in time Monitor yourself at home for fever For cold sore continue to use the cream given to the hospital keep your cold sore moist with Chapstick or similar product Pending Studies at Discharge: Yes Stand-Alone Forms: [facility], Smoking Cessation Medications and DC Order Prescriptions: Continued ascorbic acid (vitamin C) 1,000 mg tablet 1 gm PO DAILY RF: 0 cyanocobalamin (vitamin B-12) 500 mcg tablet 1,000 mcg PO DAILY RF: 0 furosemide [Lasix] 20 mg tablet 20 mg PO DAILY PRN (Reason: edema) Qty: 90 RF: 3 Xarelto 20 mg tablet 20 mg PO QDD RF: 0 levothyroxine [Synthroid] 75 mcg tablet 75 mcg PO QAM Qty: 90 RF: 3 insulin aspart U-100 [Novolog Flexpen U-100 Insulin] 100 unit/mL (3 mL) insulin pen 10 unit subcut TIDM Qty: 15 RF: 3 (DME) OneTouch Verio test strips Strip See Rx Instructions .ROUTE .MEDSUPPLY Qty: 300 RF: 3 metformin 1,000 mg tablet 1,000 mg PO BID Qty: 180 RF: 3 Myrbetriq 25 mg tablet extended release 24 hr 25 mg PO DAILY Qty: 30 RF: 2 gabapentin 100 mg capsule 200 mg PO BID Qty: 120 RF: 3 Basaglar KwikPen U-100 Insulin 100 unit/mL (3 mL) insulin pen 42 unit SQ QPM RF: 0 cholecalciferol (vitamin D3) [Vitamin D3] 2,000 unit Tablet 2,000 unit PO QAM RF: 0 omeprazole 20 mg Tablet,Delayed Release (Dr/Ec) 20 mg PO DAILY PRN (Reason: Heartburn) RF: 0 ondansetron HCl 8 mg tablet 8 mg PO Q8 PRN (Reason: Nausea) RF: 0 Discharge Orders: Discharge Order (Routine); Ordered 01/22/22 Ordered By: Morgan Roper Admission Data Admit Date/Time: 01/19/22 12:35 Attending Provider: Morgan Roper Admit Provider: Nader Dash Primary Care Provider: Manny Wren Other Providers: Nader Dash Coding Level of Care Code D/C DAY MANAGEMENT >30 MINS Diagnoses Acute pancreatitis K85.90 Acute pancreatitis complication: unspecified Pancreatitis type: unspecified pancreatitis type Pancreatic cancer C25.9 Pancreatic malignancy location: unspecified Chronic anticoagulation Z79.01 Diabetes mellitus type II, uncontrolled E11.65 Hypertension I10 Chronic kidney disease N18.9 Hypothyroidism E03.9 Heel ulcer L97.409 Anemia D64.9
== END 2022-01-22 15:41 | disposition home health service (06) | DRG 808 ==
LOC: ED 07:31 → SUATTDRO 12:35 → EDINP 12:35 → 2W 13:28

== ENCOUNTER 2022-03-04 21:02 | Observation (INO) ==
[2022-03-04 21:34] LABS: Hematocrit (blood only) 28.1 % (34.1-44.9); Hemoglobin 9.2 g/dl (12.0-16.0); Mean Corpuscular Hemoglobin 34.2 pg (25.0-34.0); Mean Corpuscular Hgb Conc 32.7 g/dL (32.0-36.0); Mean Corpuscular Volume 104.5 fL (80.0-100.0); Mean Platelet Volume 8.6 fL (9.4-12.3); Platelet Count 171 K/uL (130-400); RDW Coefficient of Variation 17.5 % (11.5-14.5); Red Blood Count 2.69 M/uL (3.93-5.22); White Blood Count 20.06 K/ul (4.8-10.8)
[2022-03-04 21:52] LABS: Anion Gap 8 (3-11); BUN Creatinine Ratio 19.8 (10-20); Blood Urea Nitrogen 21 mg/dl (6-23); Carbon Dioxide 27 mmol/L (21-32); Chloride 100 mmol/L (98-107); Est GFR (African American) 59.9 ml/min; Est GFR (Non-African American) 51.7 ml/min; Glucose 114 mg/dl (70-99(Fasting)); Lipase 343 U/L (11-82); Potassium 4.5 mmol/L (3.5-5.1); Sodium 135 mmol/L (136-145)
[2022-03-04] MEDS ORDERED: MoRPHine SULFATE 10 MG/ML CARP/VIAL IV STA (22:14)
[2022-03-04] MEDS ORDERED: ACETAMINOPHEN 1,000 MG/100 ML VIAL IV STA (22:14)
[2022-03-04] MEDS ORDERED: SODIUM CHLORIDE 0.9% 1000ML 1,000 ML IV ONE (22:14)
[2022-03-04] MEDS ORDERED: OPTIRAY 320 100ml IV ONE (22:57)
[2022-03-04 23:11] LABS: Albumin Level 3.5 gm/dl (3.4-5.0); Bilirubin,Total 0.4 mg/dl (0.2-1.0); Total Protein 6.6 gm/dl (6.0-8.3)
[2022-03-04 23:17] LABS: Appearance Urine Clear (Clear); Bacteria Urine Automated Negative (Negative); Bilirubin Urine Negative (Negative); Blood Urine Negative (Negative); Cast Urine Automated 0 /lpf (0-5); Color Urine Yellow; Glucose Urine UA Negative (Negative); Ketones Urine Negative (Negative); Leukocyte Esterase Urine Negative (Negative); Nitrite Urine Negative (Negative); Protein Urine Trace (Negative); RBC Urine Automated 0-4 /hpf (0-4); Specific Gravity Urine 1.016 (1.000-1.030); Urobilinogen Urine Negative (Negative)
--- NOTE | 2022-03-05 00:15 | Emergency Department Note ---
Impression & Plan Pancreatitis, Pancreatic cancer, Abdominal carcinomatosis, Epigastric abdominal pain ED Provider Note NAME: DAMARIS ROSSI AGE: 76 SEX: F ARRIVES VIA: Walk-In INFORMANT: Patient ED PROVIDER(S): Chandrakant Gramajo MD CHIEF COMPLAINT: N/v, abdominal pain. 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 She denies any fevers, chills, cough, congestion. She reports that she had her last chemotherapy a week ago and reports she also receives UDENYCA injection to elevate her white blood cell count. Denies fevers, cough, congestion, chest pain or shortness of breath. On arrival, the patient is uncomfortable no acute distress, afebrile, HR 100s, BP 160s/70s and otherewise stable vital signs. She appears clinically dry. She has mild epigastric discomfort without discrete tenderness. EKG without overt acute ischemia. WBC 20K similar to prior values in the setting of receiving UDENYCA injection. H/H similar to prior. Platelets within normal limits. Chemistry without metabolic acidosis. LFTs without significant abnormality. Lipase is newly elevated from recent at 343. Procalcitonin is not significantly elevated. UA without convincing evidence of infection. COVID-19 RNA, SANYA test was negative. CT of the abdomen pelvis was performed and per preliminary stat rad report did not demonstrate acute findings however re-demonstrates the patient's known pancreatic cancer with associated carcinomatosis. Upon reevaluation the patient was feeling somwhat improved after IV fluid hydration, APAP and morphine. Patient and agrees with plan for admission for further management of her symptoms. Case was discussed with Dr. Antonio, [facility] hospitalist, who will evaluate the patient for admission. Triage Nursing notes reviewed and agree them. Prior medical records reviewed Vital Signs: reviewed and remarkable for tachycardia and hypertension. Differential diagnosis: Gastroenteritis, food borne illness, infections, appendicitis, diverticulitis, inflammatory bowel disease, obstruction, GI bleed, biliary pathology, volvulus, as well as other pathologies. ER treatment provided: See below. Diagnostics interpreted by me: ECG: Normal sinus rhythm, 96 bpm, no ectopy, no overt ST elevation or depression, QTC 42, QRS 102 Cardiac Monitoring: An order for continuous cardiac monitoring was placed and demonstrated normal sinus rhythm, 96 bpm, no ectopy. Laboratory studies: See below Imaging studies: See below Consultation(s): Case was discussed with Dr. Antonio, [facility] hospitalist, who will evaluate the patient for admission. 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 She denies any fevers, chills, cough, congestion. She reports that she had her last chemotherapy a week ago and reports she also receives UDENYCA injection to elevate her white blood cell count. Denies fevers, cough, conge stion, chest pain or shortness of breath. ROS: See above HPI for pertinent positives & negatives. A total of 10 systems reviewed and were otherwise negative. VITALS:See Below PHYSICAL EXAMINATION: GENERAL: Awake, alert, uncomfortable-appearing, in no distress HENT: Normocephalic, atraumatic. Oropharynx with dry mucous membranes and otherwise unremarkable. EYES: Normal conjunctiva. Sclera non-icteric. NECK: Supple. No nuchal rigidity. FROM. No JVD. RESPIRATORY: Clear to auscultation. CARDIAC: Regular rate, normal rhythm. Extremities warm and well perfused. Pulses equal. ABDOMEN: Soft, non-distended. Mild epigastric abdominal tenderness to palpation. No rebound or guarding. No masses. RECTAL: Deferred. MUSCULOSKELETAL: Chest examination reveals no tenderness. The back is symmetrical on inspection without obvious abnormality. There is no CVA tenderness to palpation. No joint edema. LOWER EXTREMITIES: Calves are equal size bilaterally and non-tender. No edema. No discoloration. NEURO: Normal sensorium. No sensory or motor deficits noted. SKIN: No rash or jaundice noted. Chandrakant Gramajo MD Past Med/Surg History Medical History Acute pancreatitis Cervical radiculopathy Chronic anticoagulation Chronic kidney disease Claudication of calf muscles Claudication of gluteal region COVID-19 in immunocompromised patient De Quervain's tenosynovitis Degenerative disc disease Diabetes mellitus type II, uncontrolled Diabetic peripheral neuropathy associated with type 2 diabetes mellitus Diverticulosis Dyslipidemia Gastroesophageal reflux disease Hypertension Hypothyroidism IBS (irritable bowel syndrome) hx Insomnia Mesenteric vein thrombosis Pancreatic cancer Port-A-Cath in place (09/06/19) Insertion of Mediport With Fluoroscopy Dr. Kern 09-06-19 Portal vein thrombosis Sensorineural hearing loss of both ears Sepsis Spinal stenosis Vitamin D deficiency Surgical History H/O colonoscopy with polypectomy History of carpal tunnel surgery bilateral History of dilation and curettage History of ERCP History of esophagogastroduodenoscopy (EGD) Hx of cataract surgery S/P tubal ligation Family History Brother No problems noted. Aunt Breast cancer maternal Sister Breast cancer FHx: pancreatic cancer Father Diabetes Lung disease Mother Diabetes Renal failure Peripheral vascular disease Social History Smoking Status: Never smoker Second Hand Exposure: No; Hx Alcohol Use: No Hx Substance Use: No Preferred Language: Jordanian Communication Ability: Effective Visual Impairment: Diminished Hearing Ability: Hard of Hearing Glacing Machine Tender Required: No Beliefs That Will Affect Care: None marital status: Current Living Situation: Spouse current occupational status: retired Feels Safe at Home: Yes Childhood Exposure to Second-Hand Smoke: Yes caffeine: Yes Dental Care, Regularly: Yes Physical Activity Frequency: Daily Physical Activity Frequency Comment: leg exercises Seatbelt Use: always Sunscreen Use: Yes Do you think of yourself as: straight/heterosexual Assistive Devices: Cane Allergies Allergies Allergy/AdvReac Type Severity Reaction Status Date / Time diflunisal Allergy Unknown Dolobid - Verified 03/05/22 02:34 Unknown Home Meds Home Medications Medication Instructions Recorded Confirmed ascorbic acid (vitamin C) 1,000 mg 1 gm PO DAILY 05/02/18 03/05/22 tablet cyanocobalamin (vitamin B-12) 500 1,000 mcg PO DAILY 05/02/18 03/05/22 mcg tablet cholecalciferol (vitamin D3) 50 2,000 unit PO QAM 09/03/19 03/05/22 mcg (2,000 unit) tablet (Vitamin D3) omeprazole 20 mg tablet,delayed 20 mg PO DAILY PRN Heartburn 09/03/19 03/05/22 release rivaroxaban 20 mg tablet (Xarelto) 20 mg PO QDD 04/22/20 03/05/22 ondansetron HCl 8 mg tablet 8 mg PO Q8 PRN Nausea 09/09/20 03/05/22 insulin glargine 100 unit/mL (3 42 unit subcut QPM 11/19/21 03/05/22 mL) subcutaneous pen (Basaglar KwikPen U-100 Insulin) blood sugar diagnostic (OneTouch 02/24/22 03/05/22 Verio test strips) insulin aspart U-100 100 unit/mL 10 unit subcut BID 03/01/22 03/05/22 (3 mL) subcutaneous pen (Novolog Flexpen U-100 Insulin aspart) insulin aspart U-100 100 unit/mL 15 unit subcut QAM 03/05/22 03/05/22 (3 mL) subcutaneous pen (Novolog Flexpen U-100 Insulin aspart) Previous Rx's Medication Instructions Recorded furosemide 20 mg tablet (Lasix) 20 mg PO DAILY PRN edema #90 tabs 03/07/20 levothyroxine 75 mcg tablet 75 mcg PO QAM #90 tabs 03/26/21 (Synthroid) gabapentin 100 mg capsule 200 mg PO BID #120 caps 07/21/21 metformin 1,000 mg tablet 1,000 mg PO BID #180 tabs 08/03/21 mirabegron 25 mg tablet,extended 25 mg PO DAILY #30 tabs 10/27/21 release 24 hr (Myrbetriq) lisinopril 10 mg tablet 10 mg PO DAILY #90 tabs 02/04/22 amoxicillin 500 mg capsule 500 mg PO TID #15 caps 02/26/22 Results & Data (ED) Vital Signs Vital Signs - 24 hr 03/04/22 21:05 03/04/22 21:55 03/04/22 23:03 Temperature 37 C Temperature Source Temporal Artery Scan Pulse Rate 108 H Pulse Rate [Apical] 100 H 95 H Pulse Rhythm Regular Pulse Rhythm [Apical] Pulse Strength Normal Respiratory Rate 18 18 18 Respiratory Effort / Characteristics Non-Labored Spontaneous Non-Labored Spontaneous Respiratory Depth Normal Normal Respiratory Pattern Regular Blood Pressure 168/77 H Blood Pressure [Left Arm] 144/86 H 113/72 Blood Pressure Mean 107 Blood Pressure Mean [Left Arm] 105 85 Blood Pressure Position Sitting Pulse Oximetry 100 99 98 Oxygen Delivery Method Room Air Room Air Room Air Sepsis Recent Fever Within 48 Hours No Sepsis New/Unexplained Change in Mental Status N/A Sepsis Action Taken by Nursing No Action Required 03/05/22 01:00 Temperature Temperature Source Pulse Rate Pulse Rate [Apical] 89 Pulse Rhythm Pulse Rhythm [Apical] Regular Pulse Strength Respiratory Rate 18 Respiratory Effort / Characteristics Respiratory Depth Respiratory Pattern Blood Pressure Blood Pressure [Left Arm] 141/70 H Blood Pressure Mean Blood Pressure Mean [Left Arm] 93 Blood Pressure Position Pulse Oximetry 96 Oxygen Delivery Method Room Air Sepsis Recent Fever Within 48 Hours Sepsis New/Unexplained Change in Mental Status Sepsis Action Taken by Nursing Laboratory Data Attestation: I reviewed the patient's lab results. Result diagrams: 03/04/22 21:20 03/04/22 21:20 Lab Results 03/04/22 03/04/22 03/04/22 Range/Units 21:20 21:20 21:20 WBC 20.06 H (4.8-10.8) K/ul RBC 2.69 L (3.93-5.22) M/uL Hgb 9.2 L (12.0-16.0) g/dl Hct 28.1 L (34.1-44.9) % MCV 104.5 H (80.0-100.0) fL MCH 34.2 H (25.0-34.0) pg MCHC 32.7 (32.0-36.0) g/dL RDW Std Deviation 67.0 H (36.4-46.3) fL RDW Coeff of Juanjose 17.5 H (11.5-14.5) % Plt Count 171 (130-400) K/uL MPV 8.6 L (9.4-12.3) fL Sodium 135 L (136-145) mmol/L Potassium 4.5 (3.5-5.1) mmol/L Chloride 100 (98-107) mmol/L Carbon Dioxide 27 (21-32) mmol/L Anion Gap 8 (3-11) BUN 21 (6-23) mg/dl Creatinine 1.06 (0.6-1.2) mg/dl Est Cr Clr Drug Dosing Not Reportable Est GFR ( Amer) 59.9 ml/min Est GFR (Non-Af Amer) 51.7 ml/min BUN/Creatinine Ratio 19.8 (10-20) Glucose 114 H (70-99(Fasting)) mg/dl Calcium 9.0 (8.5-10.1) mg/dl Total Bilirubin 0.4 (0.2-1.0) mg/dl Direct Bilirubin 0.0 (0-0.2) mg/dl AST 19 (13-39) U/L ALT 10 (7-52) U/L Alkaline Phosphatase 132 H (34-104) U/L Total Protein 6.6 (6.0-8.3) gm/dl Albumin 3.5 (3.4-5.0) gm/dl Lipase 343 H (11-82) U/L Procalcitonin (0-0.5) ng/ml Urine Color Urine Appearance (Clear) Urine pH (4.5-7.5) Ur Specific [place] (1.000-1.030) Urine Protein (Negative) Urine Glucose (UA) (Negative) Urine Ketones (Negative) Urine Blood (Negative) Urine Nitrite (Negative) Urine Bilirubin (Negative) Urine Urobilinogen (Negative) Ur Leukocyte Esterase (Negative) Urine WBC (Auto) (0-5) /hpf Urine RBC (Auto) (0-4) /hpf U Hyaline Cast (Auto) (0-5) /lpf U Epithel Cells (Auto) (0-5) /lpf Urine Bacteria (Auto) (Negative) SARS-CoV-2, RNA, NAAT (NEGATIVE) 03/04/22 03/04/22 03/04/22 Range/Units 21:20 22:52 23:03 WBC (4.8-10.8) K/ul RBC (3.93-5.22) M/uL Hgb (12.0-16.0) g/dl Hct (34.1-44.9) % MCV (80.0-100.0) fL MCH (25.0-34.0) pg MCHC (32.0-36.0) g/dL RDW Std Deviation (36.4-46.3) fL RDW Coeff of Juanjose (11.5-14.5) % Plt Count (130-400) K/uL MPV (9.4-12.3) fL Sodium (136-145) mmol/L Potassium (3.5-5.1) mmol/L Chloride (98-107) mmol/L Carbon Dioxide (21-32) mmol/L Anion Gap (3-11) BUN (6-23) mg/dl Creatinine (0.6-1.2) mg/dl Est Cr Clr Drug Dosing Est GFR ( Amer) ml/min Est GFR (Non-Af Amer) ml/min BUN/Creatinine Ratio (10-20) Glucose (70-99(Fasting)) mg/dl Calcium (8.5-10.1) mg/dl Total Bilirubin (0.2-1.0) mg/dl Direct Bilirubin (0-0.2) mg/dl AST (13-39) U/L ALT (7-52) U/L Alkaline Phosphatase (34-104) U/L Total Protein (6.0-8.3) gm/dl Albumin (3.4-5.0) gm/dl Lipase (11-82) U/L Procalcitonin 0.27 (0-0.5) ng/ml Urine Color Yellow Urine Appearance Clear (Clear) Urine pH 6.0 (4.5-7.5) Ur Specific [place] 1.016 (1.000-1.030) Urine Protein Trace H (Negative) Urine Glucose (UA) Negative (Negative) Urine Ketones Negative (Negative) Urine Blood Negative (Negative) Urine Nitrite Negative (Negative) Urine Bilirubin Negative (Negative) Urine Urobilinogen Negative (Negative) Ur Leukocyte Esterase Negative (Negative) Urine WBC (Auto) 1-5 (0-5) /hpf Urine RBC (Auto) 0-4 (0-4) /hpf U Hyaline Cast (Auto) 0 (0-5) /lpf U Epithel Cells (Auto) 10-20 H (0-5) /lpf Urine Bacteria (Auto) Negative (Negative) SARS-CoV-2, RNA, NAAT NEGATIVE (NEGATIVE) Administered Medications Lactated Ringer's (Lr) 1,000 mls @ 150 mls/hr IV .Q6H40M PEDRO PABLO Stop: 03/05/22 16:03 Last Admin: 03/05/22 03:15 Dose: 150 mls/hr Documented By: MICHAEL Levothyroxine Sodium (Levothyroxine Sodium 75 Mcg Tablet) 75 mcg PO DAILYBB PEDRO PABLO Stop: 04/04/22 06:29 Last Admin: 03/05/22 05:43 Dose: 75 mcg Documented By: JOSEPH Discontinued Medications Sodium Chloride (Nss 1000ml) 1,000 mls @ 999 mls/hr IV .Q1H1M ONE Stop: 03/04/22 23:14 Last Infusion: 03/05/22 02:38 Dose: 0 mls/hr Documented By: Admin: 03/04/22 22:38 Dose: 999 mls/hr Documented By: SHEN Acetaminophen (Ofirmev) 1,000 mg in 100 mls @ 400 mls/hr IV NOW STA Stop: 03/04/22 22:28 Last Infusion: 03/05/22 02:39 Dose: 0 mls/hr Documented By: Admin: 03/04/22 22:37 Dose: 400 mls/hr Documented By: SHEN Sodium Chloride (Nss 1000ml) 1,000 mls @ 125 mls/hr IV .Q8H PEDRO PABLO Stop: 04/04/22 00:59 Last Infusion: 03/05/22 04:42 Dose: 0 mls/hr Documented By: Admin: 03/05/22 02:38 Dose: 125 mls/hr Documented By: SHEN Ioversol (Optiray 320 100ml) 94 ml IV ONCE ONE Stop: 03/04/22 22:58 Last Admin: 03/04/22 22:58 Dose: 94 ml Documented By: AFTAB Morphine Sulfate (Morphine Sulfate 10 Mg/Ml Carp/Vial) 6 mg IV NOW STA Stop: 03/04/22 22:15 Last Admin: 03/04/22 22:37 Dose: 6 mg Documented By: SHEN Imaging Data Radiologist's Impression: STATRAD Preliminary Findings Only See Final Report For Complete Findings CT ABDOMEN & PELVIS With Contrast: Comparison: CT abdomen pelvis with contrast 01/19/2022 No acute findings or significant interval change compared to the prior exam. Redemonstration of multifocal cystic lesions throughout the uncinate process, head, body and tail of the pancreas, in this patient with provided history of known pancreatic cancer, with the largest lesion located within the pancreatic head and measuring approximately 3.3 x 2.3 cm in greatest axial dimension. Mild peripancreatic fat stranding, similar to prior, which can be seen in the clinical setting of pancreatitis. Grossly stable soft tissue metastatic implant adjacent to the anterior and left lateral margins of the distal aorta just above the aortic bifurcation. Redemonstration of multiple hypodensities compatible with metastases throughout the liver, a few in the right hepatic lobe which have increased in size. Chronic occlusion of the portal vein/splenic vein confluence with venous collaterals. Lucent lesions within L1 and L3, as seen previously, which likely represent osseous metastases. Multiple small scattered soft tissue implants, compatible with peritoneal carcinomatosis. Incidental findings: Colonic diverticulosis without active inflammation. Splenomegaly. Radiologist: Julia Katz M.D. Study ready at 23:11 and initial results transmitted at 23:46 Discharge Plan Visit Data Chief Complaint: Nausea Stated Complaint: PANCREATITIS. NAUSEA,DIZZY,WEAKNESS ED Provider: Chandrakant Gramajo Discharge Problem: Pancreatitis, Pancreatic cancer, Abdominal carcinomatosis, Epigastric abdominal pain Patient Disposition: Admitted As Inpatient Discharge Instructions Interventions: ED Discharge Assessment Last Done: 03/05/22 02:33
[2022-03-05] MEDS ORDERED: SODIUM CHLORIDE 0.9% 1000ML 1,000 ML IV SCH (01:00)
[2022-03-05] MEDS ORDERED: ONDANSETRON INJ 2 MG/ML 2 ML VIAL IV PRN ×2 (01:01→02:44)
--- NOTE | 2022-03-05 02:23 | History & Physical Report ---
Date of Service March 05, 2022 Assessment & Plan (1) Pancreatitis: Plan: 76yo female with history of metastatic adenocarcinoma of the pancreas, episodic pancreatitis presenting with epigastric abdominal pain, nausea, similar to prior episodes of pancreatitis. Lipase is elevated at 343. CT imaging with peripancreatic inflammation and stranding - possibly chronic finding. Pain is well controlled at present -Admit to medical -NPO -LR at 150mL/hr x 2 liters -Pain control with Tylenol, Morphine PRN -Zofran as needed (2) Pancreatic cancer: Plan: Patient follows with Oncology. She received her last chemo treatment on 02/23/22. -Outpatient followup as instructed (3) Diabetes: Plan: Well controlled. Last HgbA1C on 12/01/21 = 5.9 -Hold Metformin -Lantus 7u BID -Continue Gabapentin -ISS - goal blood sugar 100 - 140 (4) Hypertension: Plan: Blood pressure mildly elevated at 141/70 -Continue Lisinopril -Continue pain control -Monitor BP (5) Hypothyroidism: Plan: Chronic. Well controlled. TSH on 12/01/21 - 2.335 -Continue Synthroid 75mcg po daily (6) Heel ulcer: Plan: Chronic. Dressing in place -Continue wound care daily and as needed (7) Chronic anticoagulation: Plan: History of VTE -Continue Xarelto (8) Gastroesophageal reflux disease: Plan: Chronic -Pepcid 40mg po daily Plan F/E/N - LR at 150mL/hr x 2 liters, monitor electrolytes, NPO Ppx - Continue anticoagulation Code - Full Dispo - Admit to medical History of Present Illness Chief Complaint: abdominal pain Primary Care Provider: DO Helne Haile is a pleasant 76yo female with history of metastatic adenocarcinoma of the tail fo the pancreas diagnosed 08/01/2019. She has completed chemotherapy - last treatment 02/23/22 with Neupogen. Patient presents today with complaint of epigastric abdominal pain as well as nausea with two episodes of non-bloody/non-bilious emesis. She took an Oxycodone at home around 15:30 with some relief. Patients symptoms feel like prior episodes of pancreatitis. She denies fever, chills, chest pain, cough, SOB, diarrhea. No additional complaints at this time. ER Course: NSS x 1L, Morphine 6mg IV, Tylenol 1gm Allergies Allergy/AdvReac Type Severity Reaction Status Date / Time diflunisal Allergy Unknown Dolobid - Verified 03/05/22 02:34 Unknown Home Medications Medication Instructions Recorded Confirmed Type ascorbic acid (vitamin C) 1,000 mg 1 gm PO DAILY 05/02/18 03/01/22 History tablet cyanocobalamin (vitamin B-12) 500 1,000 mcg PO DAILY 05/02/18 03/01/22 History mcg tablet cholecalciferol (vitamin D3) 50 2,000 unit PO QAM 09/03/19 03/01/22 History mcg (2,000 unit) tablet (Vitamin D3) omeprazole 20 mg tablet,delayed 20 mg PO DAILY PRN Heartburn 09/03/19 03/01/22 History release furosemide 20 mg tablet (Lasix) 20 mg PO DAILY PRN edema #90 tabs 03/07/2007/13 Rx rivaroxaban 20 mg tablet (Xarelto) 20 mg PO QDD 04/22/20 03/01/22 History ondansetron HCl 8 mg tablet 8 mg PO Q8 PRN Nausea 09/09/20 03/01/22 History levothyroxine 75 mcg tablet 75 mcg PO QAM #90 tabs 03/26/21 03/01/22 Rx (Synthroid) gabapentin 100 mg capsule 200 mg PO BID #120 caps 07/21/21 03/01/22 Rx metformin 1,000 mg tablet 1,000 mg PO BID #180 tabs 08/03/21 03/01/22 Rx mirabegron 25 mg tablet,extended 25 mg PO DAILY #30 tabs 10/27/21 03/01/22 Rx release 24 hr (Myrbetriq) insulin glargine 100 unit/mL (3 42 unit subcut QPM 11/19/21 03/01/22 History mL) subcutaneous pen (Basaglar KwikPen U-100 Insulin) lisinopril 10 mg tablet 10 mg PO DAILY #90 tabs 02/04/22 03/01/22 Rx blood sugar diagnostic (OneTouch 02/24/22 03/01/22 History Verio test strips) amoxicillin 500 mg capsule 500 mg PO TID #15 caps 02/26/22 03/01/22 Rx insulin aspart U-100 100 unit/mL 10 unit subcut TIDM 03/01/22 History (3 mL) subcutaneous pen (Novolog Flexpen U-100 Insulin aspart) insulin aspart U-100 100 unit/mL 15 unit subcut QAM 03/05/22 03/05/22 History (3 mL) subcutaneous pen (Novolog Flexpen U-100 Insulin aspart) Past Med/Surg History Medical History Acute pancreatitis Cervical radiculopathy Chronic anticoagulation Chronic kidney disease Claudication of calf muscles Claudication of gluteal region COVID-19 in immunocompromised patient De Quervain's tenosynovitis Degenerative disc disease Diabetes mellitus type II, uncontrolled Diabetic peripheral neuropathy associated with type 2 diabetes mellitus Diverticulosis Dyslipidemia Gastroesophageal reflux disease Hypertension Hypothyroidism IBS (irritable bowel syndrome) hx Insomnia Mesenteric vein thrombosis Pancreatic cancer Port-A-Cath in place (09/06/19) Insertion of Mediport With Fluoroscopy Dr. Kern 09-06-19 Portal vein thrombosis Sensorineural hearing loss of both ears Sepsis Spinal stenosis Vitamin D deficiency Surgical History H/O colonoscopy with polypectomy History of carpal tunnel surgery bilateral History of dilation and curettage History of ERCP History of esophagogastroduodenoscopy (EGD) Hx of cataract surgery S/P tubal ligation Family History Brother No problems noted. Aunt Breast cancer maternal Sister Breast cancer FHx: pancreatic cancer Father Diabetes Lung disease Mother Diabetes Renal failure Peripheral vascular disease Social History Smoking Status: Never smoker Second Hand Exposure: No; Hx Alcohol Use: No Hx Substance Use: No Preferred Language: Bengali Communication Ability: Effective Visual Impairment: Diminished Hearing Ability: Hard of Hearing Case Technician Required: No Beliefs That Will Affect Care: Zoroastrian Zoroastrian Beliefs: Zoroastrian marital status: Current Living Situation: Spouse current occupational status: retired Feels Safe at Home: Yes Childhood Exposure to Second-Hand Smoke: Yes caffeine: Yes Dental Care, Regularly: Yes Physical Activity Frequency: Daily Physical Activity Frequency Comment: leg exercises Seatbelt Use: always Sunscreen Use: Yes Do you think of yourself as: straight/heterosexual Assistive Devices: Cane and Walker Review of Systems Review of Systems: All systems reviewed & are unremarkable except as noted in HPI & below Physical Exam Physical Exam: General: patient resting comfortably, NAD, non-toxic in appearance, AA&O x 4 Skin: warm, dry, intact, no rashes or lesions HEENT: NC/AT, PERRL, EOMI, anicteric sclera, conjunctiva without injection, external ear normal to inspection and nontender, nares patent, moist mucus membranes, dentition intact, no oropharyngeal lesions, neck supple, trachea midline, no LAD, no thyromegaly, no JVD Heart: +S1/S2, regular, 3/6 CAITIE across precordium, no rubs/gallops Lungs: equal air entry bilaterally, no rales/rhonchi/wheezes Abd: +BS, soft, mildly tender in epigastric region, no rebound/guarding Ext: warm, 2+ pulses in UE/LE bilaterally, no clubbing/cyanosis or edema, wound on LLE medial heel - dressing in place, boot in place Neuro: nonfocal, patient AA&O x 4, speech intact, no facial droop, moving all extremities on command with equal strength 5/5 Results & Data Results & Data ([facility]) Vital Signs (Past 12 Hours) Vital Signs Temp Pulse Pulse Resp BP BP Pulse Ox 03/05/22 01:00 89 18 141/70 H 96 03/04/22 23:03 95 H 18 113/72 98 03/04/22 21:55 100 H 18 144/86 H 99 03/04/22 21:05 37 C 108 H 18 168/77 H 100 O2 Del Method 03/05/22 01:00 Room Air 03/04/22 23:03 Room Air 03/04/22 21:55 Room Air 03/04/22 21:05 Room Air Laboratory Results Laboratory Results WBC 20.06 K/ul (4.8-10.8) H 03/04/22 21:20 RBC 2.69 M/uL (3.93-5.22) L 03/04/22 21:20 Hgb 9.2 g/dl (12.0-16.0) L 03/04/22 21:20 Hct 28.1 % (34.1-44.9) L 03/04/22 21:20 MCV 104.5 fL (80.0-100.0) H 03/04/22 21:20 MCH 34.2 pg (25.0-34.0) H 03/04/22 21:20 MCHC 32.7 g/dL (32.0-36.0) 03/04/22 21:20 RDW Std Deviation 67.0 fL (36.4-46.3) H 03/04/22 21:20 RDW Coeff of Juanjose 17.5 % (11.5-14.5) H 03/04/22 21:20 Plt Count 171 K/uL (130-400) 03/04/22 21:20 MPV 8.6 fL (9.4-12.3) L 03/04/22 21:20 Sodium 135 mmol/L (136-145) L 03/04/22 21:20 Potassium 4.5 mmol/L (3.5-5.1) 03/04/22 21:20 Chloride 100 mmol/L (98-107) 03/04/22 21:20 Carbon Dioxide 27 mmol/L (21-32) 03/04/22 21:20 Anion Gap 8 (3-11) 03/04/22 21:20 BUN 21 mg/dl (6-23) 03/04/22 21:20 Creatinine 1.06 mg/dl (0.6-1.2) 03/04/22 21:20 Est Cr Clr Drug Dosing Not Reportable 03/04/22 21:20 Est GFR ( Amer) 59.9 ml/min 03/04/22 21:20 Est GFR (Non-Af Amer) 51.7 ml/min 03/04/22 21:20 BUN/Creatinine Ratio 19.8 (10-20) 03/04/22 21:20 Glucose 114 mg/dl (70-99(Fasting)) H 03/04/22 21:20 Calcium 9.0 mg/dl (8.5-10.1) 03/04/22 21:20 Total Bilirubin 0.4 mg/dl (0.2-1.0) 03/04/22 21:20 Direct Bilirubin 0.0 mg/dl (0-0.2) 03/04/22 21:20 AST 19 U/L (13-39) 03/04/22 21:20 ALT 10 U/L (7-52) 03/04/22 21:20 Alkaline Phosphatase 132 U/L (34-104) H 03/04/22 21:20 Total Protein 6.6 gm/dl (6.0-8.3) 03/04/22 21:20 Albumin 3.5 gm/dl (3.4-5.0) 03/04/22 21:20 Lipase 343 U/L (11-82) H 03/04/22 21:20 Procalcitonin 0.27 ng/ml (0-0.5) 03/04/22 21:20 Urine Color Yellow 03/04/22 22:52 Urine Appearance Clear (Clear) 03/04/22 22:52 Urine pH 6.0 (4.5-7.5) 03/04/22 22:52 Ur Specific [place] 1.016 (1.000-1.030) 03/04/22 22:52 Urine Protein Trace (Negative) H 03/04/22 22:52 Urine Glucose (UA) Negative (Negative) 03/04/22 22:52 Urine Ketones Negative (Negative) 03/04/22 22:52 Urine Blood Negative (Negative) 03/04/22 22:52 Urine Nitrite Negative (Negative) 03/04/22 22:52 Urine Bilirubin Negative (Negative) 03/04/22 22:52 Urine Urobilinogen Negative (Negative) 03/04/22 22:52 Ur Leukocyte Esterase Negative (Negative) 03/04/22 22:52 Urine WBC (Auto) 1-5 /hpf (0-5) 03/04/22 22:52 Urine RBC (Auto) 0-4 /hpf (0-4) 03/04/22 22:52 U Hyaline Cast (Auto) 0 /lpf (0-5) 03/04/22 22:52 U Epithel Cells (Auto) 10-20 /lpf (0-5) H 03/04/22 22:52 Urine Bacteria (Auto) Negative (Negative) 03/04/22 22:52 SARS-CoV-2, RNA, NAAT NEGATIVE (NEGATIVE) 03/04/22 23:[address] Abdomen and Pelvis with IV contrast - per STAT rad - No acute findings or significant interval change cocmpared to the prior exam. Redemonstration of multifocal cystic lesions throughout the uncinate process, head, body and tail of the pancreas, in this patient with provided histoyr of known pancreatic cancer, withthe largest lesion located within the pancreatic head and measuring appx 3.3 x 2.3cm in greatest axial dimension. Mild peripancreatic fat stranding, similar to prior, which can be seen in the clinical setting of pancreatitis. Grossly stable soft tissue metastatic implant adjacent ot the anterior an dleft lateral margins of the distal aorta just above the aortic bifurcation. Redemonstration of multiple hypodensities compatible with metastases throughout the liver... Code Status & VTE Plan VTE Prophylaxis Plan VTE Prophylaxis will be ordered: Yes PG Care Time/CCT Total # of Minutes Spent Total Time Spent with Patient: Total time spent is greater than 50% in coordination of care (as documented) at patient's floor/unit and/or counseling patient: Coding Level of Care Code 96410 Initial Inpt Care Lvl 3 Diagnoses Pancreatitis K85.90 Pancreatic cancer C25.9 Diabetes E11.9 Hypertension I10 Hypothyroidism E03.9 Heel ulcer L97.409 Chronic anticoagulation Z79.01 Gastroesophageal reflux disease K21.9
[2022-03-05] MEDS ORDERED: DOCUSATE SODIUM 100 MG CAP PO PRN (02:44)
[2022-03-05] MEDS ORDERED: GLUCOSE 40% GEL 15 GM TUBE PO PRN (02:44)
[2022-03-05] MEDS ORDERED: DEXTROSE 50% 50 ML SYRINGE IV PRN (02:44)
[2022-03-05] MEDS ORDERED: ACETAMINOPHEN 325 MG TAB PO PRN (02:44)
[2022-03-05] MEDS ORDERED: GLUCAGON FOR INJ 1 MG VIAL SQ PRN (02:44)
[2022-03-05] MEDS ORDERED: CARBOHYDRATES FOR HYPOGLYCEMIA PO PRN (02:44)
[2022-03-05] MEDS ORDERED: GLUCOSE 10 TAB/TUBE PO PRN (02:44)
[2022-03-05] MEDS: LACTATED RINGER'S 1,000 ML IV SCH ×2 (03:15→11:15)
[2022-03-05] MEDS: LEVOTHYROXINE SODIUM 75 MCG TABLET PO SCH (05:43)
[2022-03-05] MEDS: lisinopril 10 MG TAB PO SCH (07:30)
[2022-03-05] MEDS: CYANOCOBALAMIN (B-12) 500 MCG TABLET PO SCH (07:30)
[2022-03-05] MEDS: MIRABEGRON ER 25 MG TAB PO SCH (07:30)
[2022-03-05] MEDS: GABAPENTIN 100 MG CAP PO SCH ×2 (07:30→20:32)
[2022-03-05] MEDS: FAMOTIDINE 40 MG TABLET PO SCH (07:30)
--- NOTE | 2022-03-05 07:31 | CT Scan Report ---
CT abd pelvis IV con only CLINICAL HISTORY: Diffuse abdominal pain with nausea and vomiting. Evaluate for pancreatitis. History of pancreatic carcinoma and carcinomatosis. COMPARISON STUDY: 01/19/2022 CT DOSE: 681.30 mGy.cm TECHNIQUE: Standard CT of the Abdomen and Pelvis was performed with IV contrast. A dose lowering chad hnique was utilized adhering to the principles of ALARA. Contrast Volume: Optiray 320, 94 ml. The patient did not receive oral contrast. FINDINGS: Lung base: There has been interval increase in size and number of noncalcified pulmonary nodules invo lving the lower lobes characteristic of worsening metastatic disease. Mild interstitial fibrotic lebron ges are again seen at the left lung base. The patient is status post previous mitral valve surgery. Abdominal cavity: There is again evidence for periaortic adenopathy which is not significantly change d. Minimal peritoneal seeding is also present characteristic of carcinomatosis. There is no gross asc ites. There are bilateral inguinal hernias containing peritoneal fat. No bowel loop herniation is see n. Liver: There is increase in size and number of metastatic lesions throughout the liver. Spleen: There is homogeneous attenuation of the splenic parenchyma. There is no enhancing mass lesion . There is mild splenomegaly. Pancreas: There is again evidence for a large cystic mass involving the head of pancreas . Multiple c ystic lesions are also present within the pancreatic bed. Mild chronic peripancreatic inflammatory ch anges are seen which are not significantly changed from previous study. Findings are characteristic o f chronic pancreatitis. Gall Bladder: The gallbladder is well distended with no evidence for intraluminal calculi, wall thick ening or pericholecystic edema. Adrenal glands: The adrenal glands are normal in size and attenuation. There is no evidence for enhan cing mass lesion. Kidneys: There is homogeneous attenuation of the renal parenchyma bilaterally. There is no evidence f or renal calculus or hydronephrosis. There is no evidence for enhancing mass. Bowel: The bowel loops are normally placed within the abdomen and pelvis without evidence for dilatat ion or obstruction. There is no evidence for mass lesion. There is sigmoid diverticulosis without kathi dence for diverticulitis. There are no inflammatory changes present. There is no evidence for free ai r. Bladder: The bladder is within normal limits with no evidence for focal mass, calculus or diverticulu m. : There is an enlarged, fibroid uterus. There is no evidence for pelvic ascites. Vasculature: There is no evidence for aneurysmal dilatation of the abdominal aorta. There is chronic portal vein thrombosis. Collateral vessels present. Osseous structures: There is no acute osseous pathology. There are again lytic lesions of L1 and L3 c haracteristic of metastatic disease. Prominent degenerative changes are also present. IMPRESSION: 1. Compared to previous examination, there is worsening metastatic disease to the lungs and liver. Kailyn mbar spine metastases are also again seen. 2. Large cystic mass of the head and uncinate process of pancreas is again seen along with cystic ebony nges of the body and tail. Mild chronic pancreatitis is present. 3. Periaortic adenopathy and carcinomatosis are again seen. 4. Diverticulosis without evidence for diverticulitis. 5. Additional nonacute findings are delineated above. ACT 112: Negative or not required by law. Electronically signed by: Zack Logan M.D. 03/05/2022 7:30 AM
--- NOTE | 2022-03-05 07:47 | Hospitalist Progress Note ---
Date of Service March 05, 2022 Assessment & Plan (1) Pancreatitis: Plan: 76yo female with history of metastatic adenocarcinoma of the pancreas, episodic pancreatitis presenting with epigastric abdominal pain, nausea, similar to prior episodes of pancreatitis. Lipase is elevated at 343. CT imaging with peripancreatic inflammation and stranding - possibly chronic finding. Pain is controlled at present -try clears -LR at 150mL/hr x 2 liters -Pain control with Tylenol, Morphine PRN -Zofran as needed (2) Pancreatic cancer: Plan: Patient follows with Oncology. She received her last chemo treatment on 02/23/22. -Outpatient followup as instructed (3) Diabetes: Plan: Well controlled. Last HgbA1C on 12/01/21 = 5.9 -Holding Metformin -Lantus 7u BID -Continue Gabapentin -ISS - goal blood sugar 100 - 140 (4) Hypertension: Plan: Blood pressure mildly elevated at 141/70 -Continue Lisinopril -Continue pain control (5) Hypothyroidism: Plan: Chronic. Well controlled. TSH on 12/01/21 - 2.335 -Continue Synthroid 75mcg po daily (6) Heel ulcer: Plan: Chronic. Dressing in place -Continue wound care daily and as needed (7) Chronic anticoagulation: Plan: History of VTE -Continue Xarelto (8) Gastroesophageal reflux disease: Plan: Chronic -Pepcid 40mg po daily Plan F/E/N - LR at 150mL/hr x 2 liters, monitor electrolytes, NPO Ppx - Continue anticoagulation Code - Full Admission and Anticipated Discharge Date Admission Date: March 05, 2022 Subjective pt is feeling improved and wants to eat some clear liquids no additional pain Review of Systems Review of Systems: Mild distress and fatigue no headache, no visual changes no speech or swallowing issues no chest pain, pressure or palpitations no shortness of breath, cough or wheezes mild abdominal pain, no nausea or vomiting no dysuria, hematuria or frequency no focal joint pain or swelling no back pain, CVA tenderness or radicular pain no bruising, bleeding or rashes no focal signs of weakness or numbness or altered sensation no complaints of anxiety or depression.. Physical Exam Physical Exam: The patient appeared well nourished and normally developed. Vital signs as documented. Head exam is normocephalic atraumatic Neck is without JVD, thyromegaly, or carotid bruits. Lungs are clear to auscultation, no focal loss of breath sounds Cardiac exam, Rhythm is regular.. No murmurs, rubs or gallops. Abdominal exam reveals normal bowel sounds, soft mildly tender Extremities are nonedematous and both pedal pulses are present Neurologic exam is alert and oriented, no focal loss of strength or sensation Skin is without bruises or rashes Psychologically is without concerns for anxiety or depression.. Results & Data Results & Data ([facility]) Vital Signs (Past 12 Hours) Vital Signs Temp Pulse Pulse Pulse Resp BP BP 03/05/22 04:50 97.7 F 89 20 117/75 03/05/22 04:30 97.7 F 89 18 117/75 03/05/22 04:08 82 18 127/65 03/05/22 02:41 87 18 124/63 03/05/22 01:00 89 18 141/70 H 03/04/22 23:03 95 H 18 113/72 03/04/22 21:55 100 H 18 144/86 H 03/04/22 21:05 98.6 F 108 H 18 168/77 H Pulse Ox O2 Del Method 03/05/22 04:50 98 Room Air 03/05/22 04:30 98 Room Air 03/05/22 04:08 98 Room Air 03/05/22 02:41 98 Room Air 03/05/22 01:00 96 Room Air 03/04/22 23:03 98 Room Air 03/04/22 21:55 99 Room Air 03/04/22 21:05 100 Room Air PG Care Time/CCT Total # of Minutes Spent Total Time Spent with Patient: Total time spent is greater than 50% in coordination of care (as documented) at patient's floor/unit and/or counseling patient: Coding Level of Care Code 82976 Subseq Hosp Care Lvl 2 Diagnoses Pancreatitis K85.90 Pancreatic cancer C25.9 Diabetes E11.9 Hypertension I10 Hypothyroidism E03.9 Heel ulcer L97.409 Chronic anticoagulation Z79.01 Gastroesophageal reflux disease K21.9
[2022-03-05] MEDS: LANTUS PER UNIT CHARGE SQ SCH ×2 (08:27→20:33)
[2022-03-05] MEDS: INSULIN ASPART PER UNIT SC SCH ×4 (08:28→20:32)
[2022-03-05] MEDS: MoRPHine SULFATE 4 MG/ML 1 ML CARP\\VIAL IV PRN ×2 (12:15→21:48)
[2022-03-05] MEDS: MoRPHine SULFATE 2 MG/ML CARP IV PRN ×2 (14:46→18:54)
[2022-03-05] MEDS: RIVAROXABAN 20 MG TAB PO SCH (15:49)
--- NOTE | 2022-03-05 18:02 | Electrocardiogram Report ---
Test Reason : Blood Pressure : / mmHG Vent. Rate : 096 BPM Atrial Rate : 096 BPM P-R Int : 172 ms QRS Dur : 102 ms QT Int : 382 ms P-R-T Axes : 070 013 025 degrees QTc Int : 482 ms Normal sinus rhythm Possible Left atrial enlargement Low voltage QRS Incomplete right bundle branch block Borderline ECG Confirmed by Ac Tyler ([id number]) on 03/05/2022 6:02:24 PM Referred By: REFERRED SELF Confirmed By:Sameer Tyler
[2022-03-06] MEDS: LEVOTHYROXINE SODIUM 75 MCG TABLET PO SCH (05:34)
[2022-03-06] MEDS: INSULIN ASPART PER UNIT SC SCH ×4 (08:01→20:28)
[2022-03-06 08:02] LABS: Basophils # (auto) 0.04 K/uL (0-0.2); Basophils % (auto) 0.4 %; Eosinophils # (auto) 0.15 K/uL (0-0.50); Eosinophils % (auto) 1.3 %; Hematocrit (blood only) 25.1 % (34.1-44.9); Hemoglobin 7.8 g/dl (12.0-16.0); Immature Granulocytes # (auto) 0.16 K/uL (0.00-0.02); Immature Granulocytes % (auto) 1.4 %; Lymphocytes # (auto) 1.04 K/uL (1.2-3.4); Lymphocytes % (auto) 9.2 %; Mean Corpuscular Hemoglobin 32.8 pg (25.0-34.0); Mean Corpuscular Hgb Conc 31.1 g/dL (32.0-36.0); Mean Corpuscular Volume 105.5 fL (80.0-100.0); Mean Platelet Volume 8.5 fL (9.4-12.3); Monocytes # (auto) 0.67 K/uL (0.24-0.82); Monocytes % (auto) 5.9 %; Neutrophils # (auto) 9.25 K/uL (1.4-6.5); Neutrophils % (auto) 81.8 %; Platelet Count 150 K/uL (130-400); RDW Coefficient of Variation 17.2 % (11.5-14.5); RDW Standard Deviation 65.9 fL (36.4-46.3); Red Blood Count 2.38 M/uL (3.93-5.22); White Blood Count 11.31 K/ul (4.8-10.8)
[2022-03-06] MEDS: LANTUS PER UNIT CHARGE SQ SCH ×2 (08:02→20:28)
[2022-03-06] MEDS: CYANOCOBALAMIN (B-12) 500 MCG TABLET PO SCH (08:06)
[2022-03-06] MEDS: MIRABEGRON ER 25 MG TAB PO SCH (08:06)
[2022-03-06] MEDS: GABAPENTIN 100 MG CAP PO SCH ×2 (08:06→20:29)
[2022-03-06] MEDS: lisinopril 10 MG TAB PO SCH (08:07)
[2022-03-06] MEDS: FAMOTIDINE 40 MG TABLET PO SCH (08:07)
[2022-03-06 08:26] LABS: Albumin Level 3.1 gm/dl (3.4-5.0); BUN Creatinine Ratio 14.3 (10-20); Bilirubin,Total 0.2 mg/dl (0.2-1.0); Calcium 8.4 mg/dl (8.5-10.1); Creatinine Clr Calc Pharmacy 47.3 ml/min; Est GFR (African American) 65.9 ml/min; Est GFR (Non-African American) 56.8 ml/min; Phosphorus 3.8 mg/dl (2.5-4.9); Potassium 4.3 mmol/L (3.5-5.1); Total Protein 5.7 gm/dl (6.0-8.3)
[2022-03-06 08:39] LABS: RBC Morphology Unremarkable
[2022-03-06] MEDS: LIDOCAINE 5% 1 PATCH TD SCH (11:22)
[2022-03-06] MEDS: RIVAROXABAN 20 MG TAB PO SCH (17:08)
--- NOTE | 2022-03-06 17:18 | Hospitalist Progress Note ---
Date of Service March 06, 2022 Assessment & Plan (1) Pancreatitis: Plan: 76yo female with history of metastatic adenocarcinoma of the pancreas, episodic pancreatitis presenting with epigastric abdominal pain, nausea, similar to prior episodes of pancreatitis. Lipase is elevated at 343->. CT imaging with peripancreatic inflammation and stranding - possibly chronic finding. pain is persistent -stopping ivf -Pain control with Tylenol, Morphine PRN -Zofran as needed is known to have diane mets, has shoulder pain will have x ray (2) Pancreatic cancer: Plan: Patient follows with Oncology. She received her last chemo treatment on 02/23/22. -Outpatient followup as instructed has chemo induced anemia (3) Diabetes: Plan: Well controlled. Last HgbA1C on 12/01/21 = 5.9 -Holding Metformin -Lantus 7u BID -Continue Gabapentin -ISS - goal blood sugar 100 - 140 (4) Hypertension: Plan: Blood pressure mildly elevated at 141/70 -Continue Lisinopril -Continue pain control (5) Hypothyroidism: Plan: Chronic. Well controlled. TSH on 12/01/21 - 2.335 -Continue Synthroid 75mcg po daily (6) Heel ulcer: Plan: Chronic. Dressing in place -Continue wound care daily and as needed (7) Chronic anticoagulation: Plan: History of VTE -Continue Xarelto (8) Gastroesophageal reflux disease: Plan: Chronic -Pepcid 40mg po daily Plan Ppx - Continue anticoagulation Code - Full Admission and Anticipated Discharge Date Admission Date: March 05, 2022 Subjective pt is feeling improved and wants to advance pt required parenteral pain medicine Review of Systems Review of Systems: Mild distress and fatigue no headache, no visual changes no speech or swallowing issues no chest pain, pressure or palpitations no shortness of breath, cough or wheezes mild abdominal pain, no nausea or vomiting no dysuria, hematuria or frequency right shoulder pain no back pain, CVA tenderness or radicular pain no bruising, bleeding or rashes no focal signs of weakness or numbness or altered sensation no complaints of anxiety or depression.. Physical Exam Physical Exam: The patient appeared well nourished and normally developed. Vital signs as documented. Head exam is normocephalic atraumatic Neck is without JVD, thyromegaly, or carotid bruits. Lungs are clear to auscultation, no focal loss of breath sounds Cardiac exam, Rhythm is regular.. No murmurs, rubs or gallops. Abdominal exam reveals normal bowel sounds, soft mildly tender Extremities are nonedematous and both pedal pulses are present left shoulder pain Neurologic exam is alert and oriented, no focal loss of strength or sensation Skin is without bruises or rashes Psychologically is without concerns for anxiety or depression.. Results & Data Results & Data ([facility]) Vital Signs (Past 12 Hours) Vital Signs Temp Pulse Resp BP Pulse Ox O2 Del Method 03/06/22 15:16 98.2 F 95 H 20 108/60 97 03/06/22 06:16 97.9 F 96 H 18 120/69 96 Room Air PG Care Time/CCT Total # of Minutes Spent Total Time Spent with Patient: Total time spent is greater than 50% in coordination of care (as documented) at patient's floor/unit and/or counseling patient: Coding Level of Care Code 43569 Subseq Hosp Care Lvl 2 Diagnoses Pancreatitis K85.90 Pancreatic cancer C25.9 Diabetes E11.9 Hypertension I10 Hypothyroidism E03.9 Heel ulcer L97.409 Chronic anticoagulation Z79.01 Gastroesophageal reflux disease K21.9
[2022-03-07] MEDS: LEVOTHYROXINE SODIUM 75 MCG TABLET PO SCH (05:36)
[2022-03-07] MEDS: MoRPHine SULFATE 4 MG/ML 1 ML CARP\\VIAL IV PRN ×2 (07:30→21:58)
--- NOTE | 2022-03-07 08:27 | XRay Report ---
LEFT SHOULDER 3 VIEWS CLINICAL HISTORY: Atraumatic left shoulder pain. FINDINGS: 3 views of the left shoulder are obtained. No prior studies are available for comparison at the time of dictation. The skeletal structures are osteopenic. There is no radiographic evidence of fracture or dislocation. Productive degenerative change is noted at the acromioclavicular joint. Mild osteophytic arthritic change is seen at the glenohumeral articulation. Bony overgrowth is noted donato g the greater tuberosity of the humeral head. There is evidence of calcific tendinopathy. A left subc lavian central venous infusion port is in place. The heart is enlarged. The left lung parenchyma is c lear as imaged. IMPRESSION: 1. No acute bony abnormality is identified in the left shoulder. 2. Osteopenia with degenerative change and calcific tendinopathy as above. Electronically signed by: Ashish Patrick M.D. 03/07/2022 8:26 AM
[2022-03-07] MEDS: LIDOCAINE 5% 1 PATCH TD SCH (08:36)
[2022-03-07] MEDS: CYANOCOBALAMIN (B-12) 500 MCG TABLET PO SCH (08:37)
[2022-03-07] MEDS: FAMOTIDINE 40 MG TABLET PO SCH (08:37)
[2022-03-07] MEDS: MIRABEGRON ER 25 MG TAB PO SCH (08:37)
[2022-03-07] MEDS: GABAPENTIN 100 MG CAP PO SCH ×2 (08:37→21:55)
[2022-03-07] MEDS: lisinopril 10 MG TAB PO SCH (08:38)
[2022-03-07] MEDS: LANTUS PER UNIT CHARGE SQ SCH ×2 (08:43→21:54)
[2022-03-07] MEDS: INSULIN ASPART PER UNIT SC SCH ×4 (08:44→21:54)
[2022-03-07] MEDS ORDERED: oxyCODONE HCL IR 5 MG TAB (IMMEDIATE RELEASE) PO STA (09:41)
[2022-03-07] MEDS ORDERED: oxyCODONE HCL IR 5 MG TAB (IMMEDIATE RELEASE) PO PRN (09:41)
[2022-03-07] MEDS ORDERED: dexAMETHasone 4 MG in SYRINGE 0 ML IV ONE (10:00)
--- NOTE | 2022-03-07 17:52 | Hospitalist Progress Note ---
Date of Service March 07, 2022 Assessment & Plan (1) Pancreatitis: Plan: 76yo female with history of metastatic adenocarcinoma of the pancreas, episodic pancreatitis presenting with epigastric abdominal pain, nausea, similar to prior episodes of pancreatitis. Lipase is elevated at 343->. CT imaging with peripancreatic inflammation and stranding - possibly chronic finding. pain is resolved -stopping ivf -Pain control with Tylenol, Morphine PRN -Zofran as needed is known to have diane mets, has shoulder pain x ray no mets but arthritic changes, try lidoderm on back and voltaren on front (2) Pancreatic cancer: Plan: Patient follows with Oncology. She received her last chemo treatment on 02/23/22. -Outpatient followup as instructed has chemotherapy induced anemia (3) Diabetes: Plan: Well controlled. Last HgbA1C on 12/01/21 = 5.9 -Holding Metformin -Lantus 7u BID -Continue Gabapentin -ISS - goal blood sugar 100 - 140 (4) Hypertension: Plan: Blood pressure mildly elevated at 141/70 -Continue Lisinopril -Continue pain control (5) Hypothyroidism: Plan: Chronic. Well controlled. TSH on 12/01/21 - 2.335 -Continue Synthroid 75mcg po daily (6) Heel ulcer: Plan: Chronic. Dressing in place -Continue wound care daily and as needed (7) Chronic anticoagulation: Plan: History of VTE -Continue Xarelto (8) Gastroesophageal reflux disease: Plan: Chronic -Pepcid 40mg po daily Plan Ppx - Continue anticoagulation Code - Full Admission and Anticipated Discharge Date Admission Date: March 05, 2022 Subjective pt is feeling improved and wants to advance diet pt required parenteral pain medicine biggest issue is left shoulder pain Review of Systems Review of Systems: Mild distress and fatigue no headache, no visual changes no speech or swallowing issues no chest pain, pressure or palpitations no shortness of breath, cough or wheezes mild abdominal pain, no nausea or vomiting no dysuria, hematuria or frequency left shoulder pain both anterior and posterior no back pain, CVA tenderness or radicular pain no bruising, bleeding or rashes no focal signs of weakness or numbness or altered sensation no complaints of anxiety or depression.. Physical Exam Physical Exam: The patient appeared well nourished and normally developed. Vital signs as documented. Head exam is normocephalic atraumatic Neck is without JVD, thyromegaly, or carotid bruits. Lungs are clear to auscultation, no focal loss of breath sounds Cardiac exam, Rhythm is regular.. No murmurs, rubs or gallops. Abdominal exam reveals normal bowel sounds, soft mildly tender Extremities are nonedematous and both pedal pulses are present left shoulder pain both the AC area and the posterior scapulae spine Neurologic exam is alert and oriented, no focal loss of strength or sensation Skin is without bruises or rashes Psychologically is without concerns for anxiety or depression.. Results & Data Results & Data ([facility]) Vital Signs (Past 12 Hours) Vital Signs Temp Pulse Resp BP Pulse Ox O2 Del Method 03/07/22 07:11 98.2 F 87 20 109/68 98 Room Air PG Care Time/CCT Total # of Minutes Spent Total Time Spent with Patient: Total time spent is greater than 50% in coordination of care (as documented) at patient's floor/unit and/or counseling patient: Coding Level of Care Code 15760 Subseq Hosp Care Lvl 2 Diagnoses Pancreatitis K85.90 Pancreatic cancer C25.9 Diabetes E11.9 Hypertension I10 Hypothyroidism E03.9 Heel ulcer L97.409 Chronic anticoagulation Z79.01 Gastroesophageal reflux disease K21.9
[2022-03-07] MEDS ORDERED: ACETAMINOPHEN 500 MG TAB PO PRN (17:57)
[2022-03-07] MEDS: RIVAROXABAN 20 MG TAB PO SCH (18:06)
[2022-03-07] MEDS: DICLOFENAC SOD 1% GEL 100 GM TUBE EXT SCH ×2 (18:08→22:26)
[2022-03-08] MEDS: LEVOTHYROXINE SODIUM 75 MCG TABLET PO SCH (06:13)
[2022-03-08] MEDS: INSULIN ASPART PER UNIT SC SCH ×2 (08:39→12:11)
[2022-03-08] MEDS: LANTUS PER UNIT CHARGE SQ SCH (08:39)
[2022-03-08] MEDS: CYANOCOBALAMIN (B-12) 500 MCG TABLET PO SCH (08:40)
[2022-03-08] MEDS: lisinopril 10 MG TAB PO SCH (08:40)
[2022-03-08] MEDS: LIDOCAINE 5% 1 PATCH TD SCH (08:40)
[2022-03-08] MEDS: FAMOTIDINE 40 MG TABLET PO SCH (08:40)
[2022-03-08] MEDS: MIRABEGRON ER 25 MG TAB PO SCH (08:40)
[2022-03-08] MEDS: GABAPENTIN 100 MG CAP PO SCH (08:41)
[2022-03-08] MEDS: DICLOFENAC SOD 1% GEL 100 GM TUBE EXT SCH (08:42)
--- NOTE | 2022-03-08 17:22 | Discharge Summary ---
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 She has completed chemotherapy - last treatment 02/23/22 with Neupogen. Patient presents today with complaint of epigastric abdominal pain as well as nausea with two episodes of non-bloody/non-bilious emesis. She took an Oxycodone at home around 15:30 with some relief. Patients symptoms feel like prior episodes of pancreatitis. She denies fever, chills, chest pain, cough, SOB, diarrhea. No additional complaints at this time. ER Course: NSS x 1L, Morphine 6mg IV, Tylenol 1gm Principal Diagnosis pancreatic cancer with oncologic associated pain pancreatitis left shoulder pain Discharge Exam The patient appeared stable Vital signs as documented. Lungs are clear to auscultation and appear unlabored Cardiac exam, Rhythm is regular.. No murmurs, rubs or gallops. Abdominal exam reveals normal bowel sounds, soft non tender, no masses Extremities left shoulder has some pain and limited ROM Neurologic exam is alert and oriented, no focal loss of strength or sensation Skin is without bruises or rashes Psychologically is without concerns for anxiety or depression. Discharge Data Allergies Allergy/AdvReac Type Severity Reaction Status Date / Time diflunisal Allergy Unknown Dolobid - Verified 03/05/22 02:34 Unknown Consultations 03/05/22 00:57 ED Decision to Admit Stat Ordered Studies 03/04/22 22:14 CT abd pelvis IV con only Urgent Hospital Course (1) Pancreatitis: 76yo female with history of metastatic adenocarcinoma of the pancreas, episodic pancreatitis presenting with epigastric abdominal pain, nausea, similar to prior episodes of pancreatitis. Lipase is elevated at 343->. CT imaging with peripancreatic inflammation and stranding - possibly chronic finding. pain is resolved is known to have diane mets, has shoulder pain x ray no mets but arthritic changes, try voltaren and can use topical lidoderm otc if needed (2) Pancreatic cancer: Patient follows with Oncology. She received her last chemo treatment on 02/23/22. -Outpatient followup as instructed has chemotherapy induced anemia (3) Diabetes: Well controlled. Last HgbA1C on 12/01/21 = 5.9 -resume Metformin -Continue Gabapentin (4) Hypertension: -Continue Lisinopril (5) Hypothyroidism: Chronic. Well controlled. TSH on 12/01/21 - 2.335 -Continue Synthroid 75mcg po daily (6) Heel ulcer: Chronic. (7) Chronic anticoagulation: History of VTE -Continue Xarelto (8) Gastroesophageal reflux disease: Chronic -Pepcid 40mg po daily Plan Code - Full Total Time Total Time Spent Total Time Spent (In Minutes): It required greater than 30 minutes to prepare this patient for discharge Discharge Plan Discharge Items Patient Disposition: Home - Home Health Services Reason For Visit: ABDOMINAL PAIN Discharge Diagnosis: abdominal pain due to pancreatitis pancreatic cancer shoulder pain Activity: Resume your previous activity Non-emergency contact: Oncologist Call non-emergency contact if: your symptoms worsen and you have a fever Follow-up/Referrals: Manny Wren DO [Primary Care Provider] - 03/12/22 2:45 pm Diet: Regular Addtl Attending Provider Instructions: [facility] for [facility] you may use the Voltaren cream to help with your arthritic shoulder pain if you wish to get pain patches you may use them also but not both at the same time on the same site, you can try the over the counter patches first and if you need them continuously you may get Rx from your pcp Pending Studies at Discharge: No Stand-Alone Forms: [facility] [employer], Smoking Cessation Medications and DC Order Prescriptions: New acetaminophen [Tylenol Extra Strength] 500 mg Tablet 1,000 mg PO Q8H PRN (Reason: fever or pain) Qty: 90 0RF diclofenac sodium [Voltaren Arthritis Pain] 1 % Gel 2 g EXT BID PRN (Reason: arthritic pain) Qty: 100 0RF Continued ascorbic acid (vitamin C) 1,000 mg tablet 1 gm PO DAILY cyanocobalamin (vitamin B-12) 500 mcg tablet 1,000 mcg PO DAILY insulin aspart U-100 [Novolog Flexpen U-100 Insulin] 100 unit/mL (3 mL) insulin pen 10 unit subcut BID Rx Instructions: 15 U @ bkft, 10 U lunch&supper; sliding scale furosemide [Lasix] 20 mg tablet 20 mg PO DAILY PRN (Reason: edema) Qty: 90 3RF Xarelto 20 mg tablet 20 mg PO QDD Rx Instructions: must administer with evening meal levothyroxine [Synthroid] 75 mcg tablet 75 mcg PO QAM Qty: 90 3RF metformin 1,000 mg tablet 1,000 mg PO BID Qty: 180 3RF Myrbetriq 25 mg tablet extended release 24 hr 25 mg PO DAILY Qty: 30 2RF lisinopril 10 mg tablet 10 mg PO DAILY Qty: 90 3RF gabapentin 100 mg capsule 200 mg PO BID Qty: 120 3RF Basaglar KwikPen U-100 Insulin 100 unit/mL (3 mL) insulin pen 42 unit SQ QPM (DME) OneTouch Verio test strips Strip See Rx Instructions .ROUTE .MEDSUPPLY Rx Instructions: use to test three times daily cholecalciferol (vitamin D3) [Vitamin D3] 2,000 unit Tablet 2,000 unit PO QAM omeprazole 20 mg Tablet,Delayed Release (Dr/Ec) 20 mg PO DAILY PRN (Reason: Heartburn) ondansetron HCl 8 mg tablet 8 mg PO Q8 PRN (Reason: Nausea) insulin aspart U-100 [Novolog Flexpen U-100 Insulin] 100 unit/mL (3 mL) in sulin pen 15 unit SUBCUT QAM Discontinued amoxicillin 500 mg capsule 500 mg PO TID Qty: 15 0RF Discharge Orders: Discharge Order (Routine); Ordered 03/08/22 Ordered By: Morgan Roper Admission Data Admit Date/Time: 03/05/22 02:18 Attending Provider: Morgan Roper Admit Provider: Heather Antonio Primary Care Provider: Manny Wren Other Providers: Heather Antonio Other Interventions: Discharge Summary Assessment (RN) Last Done: 03/08/22 12:28 Coding Level of Care Code D/C DAY MANAGEMENT >30 MINS Diagnoses Pancreatitis K85.90 Pancreatic cancer C25.9 Diabetes E11.9 Hypertension I10 Hypothyroidism E03.9 Heel ulcer L97.409 Chronic anticoagulation Z79.01 Gastroesophageal reflux disease K21.9
== END 2022-03-08 13:45 | disposition home health service (06) ==
LOC: ED 21:02 → SUATTDRO 03-05 02:18 → INTOOBSV 03-05 02:18 → EDINP 03-05 02:18 → 2W 03-05 02:33

== ENCOUNTER 2022-03-15 12:46 | Observation (INO) ==
[2022-03-15] MEDS ORDERED: SODIUM CHLORIDE 0.9% 1000ML 1,000 ML IV STA (13:07)
[2022-03-15] MEDS ORDERED: ONDANSETRON INJ 2 MG/ML 2 ML VIAL IV STA (13:07)
--- NOTE | 2022-03-15 13:15 | Emergency Department Note ---
Impression & Plan Epigastric abdominal pain, Pancreatic cancer, Acute pancreatitis ED Provider Note NAME: DAMARIS ROSSI AGE: 76 SEX: F : 1945 ARRIVES VIA: Walk-In INFORMANT: [Patient] ED PROVIDER(S): [Ashish Dupree MD] CHIEF COMPLAINT: Abdominal pain HISTORY OF PRESENT ILLNESS: Patient is a 76-year-old female with a history of pancreatic cancer and pancreatitis. She was discharged from our hospital on 03/08 after a bout of pancreatic discomfort/pancreatitis. She states that her symptoms have returned. She has had epigastric pain that is severe radiating to her shoulder blades for the last 3 days. She has had some nausea and some vomiting. She had a bout of diarrhea yesterday. No urinary complaints. No fever, no cough or congestion or shortness of breath. She believes that she has pancreatitis today again. The patient states that she had a PET scan performed to see how her pancreatic cancer is doing. That test was performed today, she is not sure the results. She is not currently receiving chemotherapy. REVIEW OF SYSTEMS: See HPI for pertinent positives and negatives. A total of ten systems were reviewed and were otherwise negative. PMHx/PSHx: See Below SOCIAL HISTORY: See Below. PHYSICAL EXAM: GENERAL: Patient is in no acute distress. HEENT: No acute trauma, normocephalic atraumatic, mucous membranes moist, no nasal congestion, no scleral icterus. NECK: No stridor, no adenopathy, no meningismus, trachea is midline. LUNGS: Clear to auscultation bilaterally, no wheeze, no rhonchi, breath sounds equal. HEART: Mildly tachycardic, 2/6 systolic murmur, regular rhythm ABDOMEN: Soft, mildly tender in the epigastrium, no rebound, no peritonitis EXTREMITIES: No cyanosis, moderate bilateral pedal edema, full range of motion of all the joints without pain or difficulty, no signs for acute trauma. NEUROLOGIC: Oriented x 3, no acute motor or sensory deficits, no focal weakness. SKIN: No rash, no jaundice, no diaphoresis. DIFFERENTIAL DIAGNOSIS: Appendicitis, ovarian cyst, ovarian torsion, diverticulitis, UTI, obstruction, mesenteric ischemia, aortic pathology, inflammatory bowel disease, renal colic, PUD, pancreatitis, biliary pathology, hernia, volvulus, constipation, as well as other pathologies. EMERGENCY DEPARTMENT COURSE/PROCEDURES: ECG: Indication was abdominal pain. The ECG shows a sinus rhythm with PVCs. The rate is 86. There is an incomplete right bundle branch block. There is no ST elevation. QTc is 507. Continuous Cardiac Monitoring: An order was placed for continuous cardiac monitoring. The monitor shows a rate of 89 with normal sinus rhythm. MEDICAL DECISION MAKING: There is no leukocytosis. The patient is anemic, but, this is baseline for the patient. There is a normal platelet count. No renal failure or significant electrolyte abnormality. No worrisome liver enzyme elevation. ECG shows a sinus rhythm, no ischemia. Cardiac enzyme testing x1 is not consistent with acute cardiac injury. Lipase is elevated consistent with pancreatitis. Urinalysis does not show infection. COVID test returned negative. Chest x-ray does not show pneumonia or free air. Abdominal and pelvis CT shows pancreatitis, the pancreas appeared worse when compared to previous imaging. The patient presents with epigastric pain. She has a history of pancreatitis. She was given IV morphine and IV Zofran, she received IV saline. Given the recurrence of the pancreatitis, I do think a hospital stay is w arranted. I spoke with the patient and child support case officer. The on-call hospitalist was consulted. Past Med/Surg History Medical History Acute pancreatitis Cervical radiculopathy Chronic anticoagulation Chronic kidney disease Claudication of calf muscles Claudication of gluteal region COVID-19 in immunocompromised patient De Quervain's tenosynovitis Degenerative disc disease Diabetes mellitus type II, uncontrolled Diabetic peripheral neuropathy associated with type 2 diabetes mellitus Diverticulosis Dyslipidemia Gastroesophageal reflux disease Hypertension Hypothyroidism IBS (irritable bowel syndrome) hx Insomnia Mesenteric vein thrombosis Pancreatic cancer Port-A-Cath in place (09/06/19) Insertion of Mediport With Fluoroscopy Dr. Kern 09-06-19 Portal vein thrombosis Sensorineural hearing loss of both ears Sepsis Spinal stenosis Vitamin D deficiency Surgical History H/O colonoscopy with polypectomy History of carpal tunnel surgery bilateral History of dilation and curettage History of ERCP History of esophagogastroduodenoscopy (EGD) Hx of cataract surgery S/P tubal ligation Family History Brother No problems noted. Aunt Breast cancer maternal Sister Breast cancer FHx: pancreatic cancer Father Diabetes Lung disease Mother Diabetes Renal failure Peripheral vascular disease Social History Smoking Status: Never smoker Second Hand Exposure: No; Hx Alcohol Use: No Hx Substance Use: No Preferred Language: Salvadorean Communication Ability: Effective Visual Impairment: Diminished Hearing Ability: Hard of Hearing Physician Primary Care Sports Medicine Required: No Beliefs That Will Affect Care: None marital status: Current Living Situation: Spouse current occupational status: retired Feels Safe at Home: Yes Childhood Exposure to Second-Hand Smoke: Yes caffeine: Yes Dental Care, Regularly: Yes Physical Activity Frequency: Daily Physical Activity Frequency Comment: leg exercises Seatbelt Use: always Sunscreen Use: Yes Do you think of yourself as: straight/heterosexual Assistive Devices: Cane, Special Shoe and Walker Allergies Allergies Allergy/AdvReac Type Severity Reaction Status Date / Time diflunisal Allergy Unknown Dolobid - Verified 03/15/22 15:28 Unknown Home Meds Home Medications Medication Instructions Recorded Confirmed ascorbic acid (vitamin C) 1,000 mg 1 gm PO DAILY 05/02/18 03/15/22 tablet cyanocobalamin (vitamin B-12) 500 1,000 mcg PO DAILY 05/02/18 03/15/22 mcg tablet cholecalciferol (vitamin D3) 50 2,000 unit PO QAM 09/03/19 03/15/22 mcg (2,000 unit) tablet (Vitamin D3) omeprazole 20 mg tablet,delayed 20 mg PO DAILY PRN Heartburn 09/03/19 03/15/22 release rivaroxaban 20 mg tablet (Xarelto) 20 mg PO QDD 04/22/20 03/15/22 ondansetron HCl 8 mg tablet 8 mg PO Q8 PRN Nausea 09/09/20 03/15/22 insulin glargine 100 unit/mL (3 42 unit subcut QPM 11/19/21 03/15/22 mL) subcutaneous pen (Basaglar KwikPen U-100 Insulin) blood sugar diagnostic (OneTouch 02/24/22 03/12/22 Verio test strips) insulin aspart U-100 100 unit/mL 10 unit subcut BID 03/01/22 03/15/22 (3 mL) subcutaneous pen (Novolog Flexpen U-100 Insulin aspart) insulin aspart U-100 100 unit/mL 15 unit subcut QAM 03/05/22 03/15/22 (3 mL) subcutaneous pen (Novolog Flexpen U-100 Insulin aspart) Previous Rx's Medication Instructions Recorded furosemide 20 mg tablet (Lasix) 20 mg PO DAILY PRN edema #90 tabs 03/07/20 levothyroxine 75 mcg tablet 75 mcg PO QAM #90 tabs 03/26/21 (Synthroid) gabapentin 100 mg capsule 200 mg PO BID #120 caps 07/21/21 metformin 1,000 mg tablet 1,000 mg PO BID #180 tabs 08/03/21 mirabegron 25 mg tablet,extended 25 mg PO DAILY #30 tabs 10/27/21 release 24 hr (Myrbetriq) lisinopril 10 mg tablet 10 mg PO DAILY #90 tabs 02/04/22 acetaminophen 500 mg tablet 1,000 mg PO Q8H PRN fever or pain 03/08/22 (Tylenol Extra Strength) #90 tabs diclofenac sodium 1 % topical gel 2 g EXT BID PRN arthritic pain 03/08/22 (Voltaren Arthritis Pain) #100 grams Results & Data (ED) Vital Signs Vital Signs - 24 hr 03/15/22 12:54 03/15/22 13:16 03/15/22 14:09 Temperature 36.7 C Temperature Source Temporal Artery Scan Pulse Rate 89 85 90 Respiratory Rate 20 23 20 Respiratory Effort / Characteristics Non-Labored Spontaneous Respiratory Depth Normal Respiratory Pattern Regular Blood Pressure 162/74 H 167/84 H Blood Pressure Mean 103 111 Pulse Oximetry 100 Oxygen Delivery Method Room Air Sepsis Recent Fever Within 48 Hours No Sepsis New/Unexplained Change in Mental Status No Sepsis Action Taken by Nursing No Action Required 03/15/22 15:26 03/15/22 15:29 03/15/22 15:00 Temperature Temperature Source Pulse Rate 91 H Respiratory Rate 18 Respiratory Effort / Characteristics Non-Labored Respiratory Depth Normal Respiratory Pattern Blood Pressure 156/84 H Blood Pressure Mean 108 Pulse Oximetry 99 99 Oxygen Delivery Method Room Air Room Air Sepsis Recent Fever Within 48 Hours Sepsis New/Unexplained Change in Mental Status Sepsis Action Taken by [facility] Medications Current Medication List: was personally reviewed by me Laboratory Data Attestation: I reviewed the patient's lab results. Result diagrams: 03/15/22 13:39 03/15/22 13:39 Lab Results 03/15/22 03/15/22 03/15/22 Range/Units 13:39 13:39 13:39 WBC 10.76 (4.8-10.8) K/ul RBC 2.55 L (3.93-5.22) M/uL Hgb 8.5 L (12.0-16.0) g/dl Hct 26.2 L (34.1-44.9) % MCV 102.7 H (80.0-100.0) fL MCH 33.3 (25.0-34.0) pg MCHC 32.4 (32.0-36.0) g/dL RDW Std Deviation 59.9 H (36.4-46.3) fL RDW Coeff of Juanjose 15.9 H (11.5-14.5) % Plt Count 217 (130-400) K/uL MPV 8.6 L (9.4-12.3) fL Immature Gran % (Auto) 0.5 % Neut % (Auto) 82.3 % Lymph % (Auto) 10.1 % Terry % (Auto) 4.9 % Eos % (Auto) 1.7 % Baso % (Auto) 0.5 % Neut # (Auto) 8.86 H (1.4-6.5) K/uL Lymph # (Auto) 1.09 L (1.2-3.4) K/uL Terry # (Auto) 0.53 (0.24-0.82) K/uL Eos # (Auto) 0.18 (0-0.50) K/uL Baso # (Auto) 0.05 (0-0.2) K/uL Immature Gran # (Auto) 0.05 H (0.00-0.02) K/uL Sodium 133 L (136-145) mmol/L Potassium 4.1 (3.5-5.1) mmol/L Chloride 99 (98-107) mmol/L Carbon Dioxide 27 (21-32) mmol/L Anion Gap 7 (3-11) BUN 18 (6-23) mg/dl Creatinine 0.94 (0.6-1.2) mg/dl Est Cr Clr Drug Dosing Not Reportable Est GFR ( Amer) 69.3 ml/min Est GFR (Non-Af Amer) 59.8 ml/min BUN/Creatinine Ratio 19.1 (10-20) Glucose 125 H (70-99(Fasting)) mg/dl Calcium 9.2 (8.5-10.1) mg/dl Magnesium 1.7 (1.7-2.4) mg/dl Total Bilirubin 0.4 (0.2-1.0) mg/dl AST 16 (13-39) U/L ALT 10 (7-52) U/L Alkaline Phosphatase 96 (34-104) U/L Troponin I High Sens 11.4 (0-14) pg/ml Total Protein 6.4 (6.0-8.3) gm/dl Albumin 3.4 (3.4-5.0) gm/dl Globulin 3.0 (2.5-4.0) gm/dl Albumin/Globulin Ratio 1.1 (0.9-2) Lipase 126 H (11-82) U/L Urine Color Urine Appearance (Clear) Urine pH (4.5-7.5) Ur Specific [place] (1.000-1.030) Urine Protein (Negative) Urine Glucose (UA) (Negative) Urine Ketones (Negative) Urine Blood (Negative) Urine Nitrite (Negative) Urine Bilirubin (Negative) Urine Urobilinogen (Negative) Ur Leukocyte Esterase (Negative) SARS-CoV-2, RNA, NAAT NEGATIVE (NEGATIVE) 03/15/22 Range/Units 14:13 WBC (4.8-10.8) K/ul RBC (3.93-5.22) M/uL Hgb (12.0-16.0) g/dl Hct (34.1-44.9) % MCV (80.0-100.0) fL MCH (25.0-34.0) pg MCHC (32.0-36.0) g/dL RDW Std Deviation (36.4-46.3) fL RDW Coeff of Juanjose (11.5-14.5) % Plt Count (130-400) K/uL MPV (9.4-12.3) fL Immature Gran % (Auto) % Neut % (Auto) % Lymph % (Auto) % Terry % (Auto) % Eos % (Auto) % Baso % (Auto) % Neut # (Auto) (1.4-6.5) K/uL Lymph # (Auto) (1.2-3.4) K/uL Terry # (Auto) (0.24-0.82) K/uL Eos # (Auto) (0-0.50) K/uL Baso # (Auto) (0-0.2) K/uL Immature Gran # (Auto) (0.00-0.02) K/uL Sodium (136-145) mmol/L Potassium (3.5-5.1) mmol/L Chloride (98-107) mmol/L Carbon Dioxide (21-32) mmol/L Anion Gap (3-11) BUN (6-23) mg/dl Creatinine (0.6-1.2) mg/dl Est Cr Clr Drug Dosing Est GFR ( Amer) ml/min Est GFR (Non-Af Amer) ml/min BUN/Creatinine Ratio (10-20) Glucose (70-99(Fasting)) mg/dl Calcium (8.5-10.1) mg/dl Magnesium (1.7-2.4) mg/dl Total Bilirubin (0.2-1.0) mg/dl AST (13-39) U/L ALT (7-52) U/L Alkaline Phosphatase (34-104) U/L Troponin I High Sens (0-14) pg/ml Total Protein (6.0-8.3) gm/dl Albumin (3.4-5.0) gm/dl Globulin (2.5-4.0) gm/dl Albumin/Globulin Ratio (0.9-2) Lipase (11-82) U/L Urine Color Yellow Urine Appearance Clear (Clear) Urine pH 7.0 (4.5-7.5) Ur Specific [place] 1.011 (1.000-1.030) Urine Protein Negative (Negative) Urine Glucose (UA) Negative (Negative) Urine Ketones Negative (Negative) Urine Blood Negative (Negative) Urine Nitrite Negative (Negative) Urine Bilirubin Negative (Negative) Urine Urobilinogen Negative (Negative) Ur Leukocyte Esterase Negative (Negative) SARS-CoV-2, RNA, NAAT (NEGATIVE) Administered Medications Morphine Sulfate (Morphine Sulfate 4 Mg/Ml 1 Ml Carp\\Vial) 4 mg IV Q15M PRN PRN Reason: Pain Stop: 03/29/22 13:06 Last Admin: 03/15/22 15:03 Dose: 4 mg Documented By: Admin: 03/15/22 13:32 Dose: 4 mg Documented By: HS Discontinued Medications Sodium Chloride (Nss 1000ml) 1,000 mls @ 999 mls/hr IV .Q1H1M STA Stop: 03/15/22 14:07 Last Infusion: 03/15/22 15:04 Dose: 0 mls/hr Documented By: Admin: 03/15/22 13:32 Dose: 999 mls/hr Documented By: HS Ondansetron HCl (Ondansetron Inj 2 Mg/Ml 2 Ml Vial) 4 mg IV NOW STA Stop: 03/15/22 13:08 Last Admin: 03/15/22 13:32 Dose: 4 mg Documented By: HS Imaging Data Radiologist's Impression: Chest X-Ray 03/15/22 13:08 XR chest 1V portable HISTORY: Generalized abdominal pain. COMPARISON: Chest 11/30/2021. FINDINGS: The cardiac silhouette remains mildly enlarged. Bibasilar interstitial thickening persists. No new focal lung consolidations. No evidence for pulmonary edema. No pleural effusions. No pneumothorax. A left subclavian Port-A-Cath terminates at the SVC. IMPRESSION: Mild cardiomegaly and chronic bibasilar interstitial thickening. ACT 112: Negative or not required by law. Electronically signed by: Jake Dejesus M.D. 03/15/2022 1:39 PM Abdomen/Pelvis CT 03/15/22 13:10 CT abd pelvis wo con CLINICAL HISTORY: Epigastric pain. History of pancreatic cancer with metastatic disease and chronic pancreatitis COMPARISON STUDY: 03/05/2022 CT DOSE: 502.53 mGy.cm TECHNIQUE: Standard CT of the Abdomen and Pelvis was performed without IV contrast. The patient did not receive oral contrast. A dose lowering technique was utilized adhering to the principles of ALARA. FINDINGS: Lung base: Multiple pulmonary nodules are again seen at the lung bases. There is again evidence of previous mitral valve surgery. Abdominal cavity: There is again evidence for periaortic adenopathy. No gross abdominal ascites is seen. There is again evidence for peritoneal seeding characteristic of carcinomatosis. Liver: There are again diffuse liver metastases which are not as well-seen on this noncontrast study.. Spleen: The spleen is homogeneous in attenuation on these limited noncontrast images. There is again evidence for mild splenomegaly. Pancreas: There is again a large cystic mass at the head of the pancreas with cystic changes seen throughout the body the pancreas. Increased inflammatory changes are seen within the peripancreatic fat, again characteristic of pancreatitis. The findings have slightly worsened since the previous study. Gall Bladder: The gallbladder is well distended with no evidence for cholel ithiasis, wall thickening or pericholecystic edema.. Adrenal glands: The adrenal glands are normal in size and attenuation on these limited noncontrast images. Kidneys: The kidneys are homogeneous in attenuation on these limited noncontrast images. There is no evidence for gross renal mass, calculus or hydronephrosis bilaterally. Bowel: The bowel loops are normally placed within the abdomen and pelvis without evidence for dilatation or obstruction. There is no evidence for mass lesion. There is again evidence for sigmoid diverticulosis without evidence for diverticulitis. There are no inflammatory changes present. There is no evidence for free air. Bladder: There is no evidence for focal bladder wall thickening, calculus or diverticulum. : There is again enlarged, fibroid uterus. Vasculature: There is no evidence for focal aneurysmal dilatation of the abdominal aorta. Osseous structures: There is no acute osseous pathology. Extensive degenerative changes are again seen along with lytic lesions of L1 and L3. IMPRESSION: 1. Compared to the previous study of 10 days ago, there is evidence for increased inflammatory changes surrounding the pancreas characteristic of worsening pancreatitis. 2. No other evidence for new acute intra-abdominal or pelvic abnormality on these limited noncontrast images. 3. There is again evidence for pancreatic mass and metastatic disease which is unchanged. ACT 112: Negative or not required by law. Electronically signed by: Zack Logan M.D. 03/15/2022 2:13 PM Discharge Plan Visit Data Chief Complaint: Abdominal Pain Stated Complaint: ABD PAIN ED Provider: Ashish Dupree Discharge Problem: Epigastric abdominal pain, Pancreatic cancer, Acute pancreatitis Patient Disposition: Admitted As Inpatient Condition: Fair Forms Stand Alone Forms: My [facility] Prescriptions Prescriptions: No Action ascorbic acid (vitamin C) 1,000 mg tablet 1 gm PO DAILY cyanocobalamin (vitamin B-12) 500 mcg tablet 1,000 mcg PO DAILY insulin aspart U-100 [Novolog Flexpen U-100 Insulin] 100 unit/mL (3 mL) insulin pen 10 unit subcut BID Rx Instructions: 15 U @ bkft, 10 U lunch&supper; sliding scale furosemide [Lasix] 20 mg tablet 20 mg PO DAILY PRN (Reason: edema) Qty: 90 3RF Xarelto 20 mg tablet 20 mg PO QDD Rx Instructions: PER PT "TOOK TODAY", 03/15/22. must administer with evening meal levothyroxine [Synthroid] 75 mcg tablet 75 mcg PO QAM Qty: 90 3RF metformin 1,000 mg tablet 1,000 mg PO BID Qty: 180 3RF Myrbetriq 25 mg tablet extended release 24 hr 25 mg PO DAILY Qty: 30 2RF lisinopril 10 mg tablet 10 mg PO DAILY Qty: 90 3RF gabapentin 100 mg capsule 200 mg PO BID Qty: 120 3RF Basaglar KwikPen U-100 Insulin 100 unit/mL (3 mL) insulin pen 42 unit SQ QPM (DME) OneTouch Verio test strips Strip See Rx Instructions .ROUTE .MEDSUPPLY Rx Instructions: use to test three times daily cholecalciferol (vitamin D3) [Vitamin D3] 2,000 unit Tablet 2,000 unit PO QAM omeprazole 20 mg Tablet,Delayed Release (Dr/Ec) 20 mg PO DAILY PRN (Reason: Heartburn) ondansetron HCl 8 mg tablet 8 mg PO Q8 PRN (Reason: Nausea) insulin aspart U-100 [Novolog Flexpen U-100 Insulin] 100 unit/mL (3 mL) insulin pen 15 unit SUBCUT QAM acetaminophen [Tylenol Extra Strength] 500 mg Tablet 1,000 mg PO Q8H PRN (Reason: fever or pain) Qty: 90 0RF diclofenac sodium [Voltaren Arthritis Pain] 1 % Gel 2 g EXT BID PRN (Reason: arthritic pain) Qty: 100 0RF Referrals Referrals: Manny Wren DO [Primary Care Provider] -
[2022-03-15] MEDS: MoRPHine SULFATE 4 MG/ML 1 ML CARP\\VIAL IV PRN ×4 (13:32→20:20)
--- NOTE | 2022-03-15 13:41 | XRay Report ---
XR chest 1V portable HISTORY: Generalized abdominal pain. COMPARISON: Chest 11/30/2021. FINDINGS: The cardiac silhouette remains mildly enlarged. Bibasilar interstitial thickening persists. No new focal lung consolidations. No evidence for pulmonary edema. No pleural effusions. No pneumoth orax. A left subclavian Port-A-Cath terminates at the SVC. IMPRESSION: Mild cardiomegaly and chronic bibasilar interstitial thickening. ACT 112: Negative or not required by law. Electronically signed by: Jake Dejesus M.D. 03/15/2022 1:39 PM
[2022-03-15 14:00] LABS: Basophils # (auto) 0.05 K/uL (0-0.2); Basophils % (auto) 0.5 %; Eosinophils # (auto) 0.18 K/uL (0-0.50); Eosinophils % (auto) 1.7 %; Hematocrit (blood only) 26.2 % (34.1-44.9); Hemoglobin 8.5 g/dl (12.0-16.0); Immature Granulocytes # (auto) 0.05 K/uL (0.00-0.02); Immature Granulocytes % (auto) 0.5 %; Lymphocytes # (auto) 1.09 K/uL (1.2-3.4); Lymphocytes % (auto) 10.1 %; Mean Corpuscular Hemoglobin 33.3 pg (25.0-34.0); Mean Corpuscular Hgb Conc 32.4 g/dL (32.0-36.0); Mean Corpuscular Volume 102.7 fL (80.0-100.0); Mean Platelet Volume 8.6 fL (9.4-12.3); Monocytes # (auto) 0.53 K/uL (0.24-0.82); Monocytes % (auto) 4.9 %; Neutrophils # (auto) 8.86 K/uL (1.4-6.5); Neutrophils % (auto) 82.3 %; Platelet Count 217 K/uL (130-400); RDW Coefficient of Variation 15.9 % (11.5-14.5); RDW Standard Deviation 59.9 fL (36.4-46.3); Red Blood Count 2.55 M/uL (3.93-5.22); White Blood Count 10.76 K/ul (4.8-10.8)
--- NOTE | 2022-03-15 14:15 | CT Scan Report ---
CT abd pelvis wo con CLINICAL HISTORY: Epigastric pain. History of pancreatic cancer with metastatic disease and chronic p ancreatitis COMPARISON STUDY: 03/05/2022 CT DOSE: 502.53 mGy.cm TECHNIQUE: Standard CT of the Abdomen and Pelvis was performed without IV contrast. The patient did not receive oral contrast. A dose lowering technique was utilized adhering to the principles of JEREMY Burger FINDINGS: Lung base: Multiple pulmonary nodules are again seen at the lung bases. There is again evidence of pr evious mitral valve surgery. Abdominal cavity: There is again evidence for periaortic adenopathy. No gross abdominal ascites is se en. There is again evidence for peritoneal seeding characteristic of carcinomatosis. Liver: There are again diffuse liver metastases which are not as well-seen on this noncontrast study. . Spleen: The spleen is homogeneous in attenuation on these limited noncontrast images. There is again evidence for mild splenomegaly. Pancreas: There is again a large cystic mass at the head of the pancreas with cystic changes seen thr oughout the body the pancreas. Increased inflammatory changes are seen within the peripancreatic fat, again characteristic of pancreatitis. The findings have slightly worsened since the previous study. Gall Bladder: The gallbladder is well distended with no evidence for cholelithiasis, wall thickening or pericholecystic edema.. Adrenal glands: The adrenal glands are normal in size and attenuation on these limited noncontrast im ages. Kidneys: The kidneys are homogeneous in attenuation on these limited noncontrast images. There is no evidence for gross renal mass, calculus or hydronephrosis bilaterally. Bowel: The bowel loops are normally placed within the abdomen and pelvis without evidence for dilatat ion or obstruction. There is no evidence for mass lesion. There is again evidence for sigmoid diverti culosis without evidence for diverticulitis. There are no inflammatory changes present. There is no e vidence for free air. Bladder: There is no evidence for focal bladder wall thickening, calculus or diverticulum. : There is again enlarged, fibroid uterus. Vasculature: There is no evidence for focal aneurysmal dilatation of the abdominal aorta. Osseous structures: There is no acute osseous pathology. Extensive degenerative changes are again see n along with lytic lesions of L1 and L3. IMPRESSION: 1. Compared to the previous study of 10 days ago, there is evidence for increased inflammatory change s surrounding the pancreas characteristic of worsening pancreatitis. 2. No other evidence for new acute intra-abdominal or pelvic abnormality on these limited noncontrast images. 3. There is again evidence for pancreatic mass and metastatic disease which is unchanged. ACT 112: Negative or not required by law. Electronically signed by: Zack Logan M.D. 03/15/2022 2:13 PM
[2022-03-15 14:29] LABS: Troponin I High Sensitivity 11.4 pg/ml (0-14)
[2022-03-15 14:33] LABS: Alanine Aminotransferase 10 U/L (7-52); Albumin Globulin Ratio 1.1 (0.9-2); Albumin Level 3.4 gm/dl (3.4-5.0); Alkaline Phosphatase 96 U/L (34-104); Anion Gap 7 (3-11); Aspartate Aminotransferase 16 U/L (13-39); BUN Creatinine Ratio 19.1 (10-20); Bilirubin,Total 0.4 mg/dl (0.2-1.0); Blood Urea Nitrogen 18 mg/dl (6-23); Calcium 9.2 mg/dl (8.5-10.1); Carbon Dioxide 27 mmol/L (21-32); Chloride 99 mmol/L (98-107); Est GFR (African American) 69.3 ml/min; Est GFR (Non-African American) 59.8 ml/min; Glucose 125 mg/dl (70-99(Fasting)); Lipase 126 U/L (11-82); Magnesium 1.7 mg/dl (1.7-2.4); Potassium 4.1 mmol/L (3.5-5.1); Sodium 133 mmol/L (136-145); Total Protein 6.4 gm/dl (6.0-8.3)
[2022-03-15 15:17] LABS: Appearance Urine Clear (Clear); Bilirubin Urine Negative (Negative); Blood Urine Negative (Negative); Color Urine Yellow; Glucose Urine UA Negative (Negative); Ketones Urine Negative (Negative); Leukocyte Esterase Urine Negative (Negative); Nitrite Urine Negative (Negative); Protein Urine Negative (Negative); Specific Gravity Urine 1.011 (1.000-1.030); Urobilinogen Urine Negative (Negative)
--- NOTE | 2022-03-15 16:09 | History & Physical Report ---
Date of Service March 15, 2022 Assessment & Plan (1) Acute pancreatitis: (2) Pancreatic cancer: Plan: Concern for possible acute pancreatitis, however the patient is not acutely tender and has a minimally elevated lipase. Suspect this may be progression of the patient's known pancreatic cancer with worsening chronic pain. Will admit to a general medical bed for now Keep n.p.o., hydrate with NS Continue to follow lipase Patient was given morphine 4mg which was effective in controlling her pain. We will switch over to low-dose IV Dilaudid for now With ask palliative care to evaluate for symptom control, patient may need help completing a POLST form as she was unclear on her CODE STATUS Also consider oncology evaluation, patient follows with Aniyah Herron at the oncology office Of note, patient has a history of mesenteric vein thrombosis, for which she is on Xarelto anticoagulation (3) Hypothyroidism: Plan: Continue Synthroid as ordered (4) Hypertension: Plan: Continue lisinopril (5) Diabetes mellitus type II, uncontrolled: Plan: I will place patient on sliding scale insulin. Patient is on glargine 42 units every afternoon, will cut to 21 units while patient remains n.p.o. and Hold metformin Plan Patient is on Xarelto 20 mg daily, will continue this as well I did discuss CODE STATUS with the patient, she was very unsure what she wanted, frequently deferring to her . She did eventually decide on a DNR/DNI. As noted above, we will asked palliative care to come and discuss POLST form as well as participating in symptom management. History of Present Illness Chief Complaint: Abdominal shoulder pain Primary Care Provider: Manny Wren, This is a 76-year-old female with past medical history of metastatic pancreatic cancer that presents today complaining of abdominal pain. Patient is pleasant good historian. is present at bedside. Patient was admitted here with similar complaints. Patient has a history of metastatic adenocarcinoma, previously diagnosed 08/01. She just finished chemotherapy on 02/23. Patient had initially been admitted with nausea with some vomiting along with epigastric pain. Patient tells me she was discharged and is feeling much better. She was sticking to a clear liquid diet. However, she did have a little bit of barbecue chicken and feels that this may have set off of further pain. Starting 48 hours prior to admission, the pain returned and is similar presentation as before. This is notably epigastric with some radiation along the diaphragmatic border. He says it also radiates into her shoulder, mainly the left. She has been nauseous and has diminished p.o. intake. She did restart the clear liquid diet but does not think it was very effective in clearing her symptoms. Patient had a PET scan scheduled earlier today which she did get done. No read is available for this yet. She then presented to the emergency room for further evaluation. At this time, she appears to be comfortable after analgesia in the ER. Lipase was minimally elevated to 128 and ER is asking us to admit for acute pancreatitis. Allergies Allergy/AdvReac Type Severity Reaction Status Date / Time diflunisal Allergy Unknown Dolobid - Verified 03/15/22 15:28 Unknown Home Medications Medication Instructions Recorded Confirmed Type ascorbic acid (vitamin C) 1,000 mg 1 gm PO DAILY 05/02/18 03/15/22 History tablet cyanocobalamin (vitamin B-12) 500 1,000 mcg PO DAILY 05/02/18 03/15/22 History mcg tablet cholecalciferol (vitamin D3) 50 2,000 unit PO QAM 09/03/19 03/15/22 History mcg (2,000 unit) tablet (Vitamin D3) omeprazole 20 mg tablet,delayed 20 mg PO DAILY PRN Heartburn 09/03/19 03/15/22 History release furosemide 20 mg tablet (Lasix) 20 mg PO DAILY PRN edema #90 tabs 03/07/20 03/15/22 Rx rivaroxaban 20 mg tablet (Xarelto) 20 mg PO QDD 04/22/20 03/15/22 History ondansetron HCl 8 mg tablet 8 mg PO Q8 PRN Nausea 09/09/20 03/15/22 History levothyroxine 75 mcg tablet 75 mcg PO QAM #90 tabs 03/26/21 03/15/22 Rx (Synthroid) gabapentin 100 mg capsule 200 mg PO BID #120 caps 07/21/21 03/15/22 Rx metformin 1,000 mg tablet 1,000 mg PO BID #180 tabs 08/03/21 03/15/22 Rx mirabegron 25 mg tablet,extended 25 mg PO DAILY #30 tabs 10/27/21 03/15/22 Rx release 24 hr (Myrbetriq) insulin glargine 100 unit/mL (3 42 unit subcut QPM 11/19/21 03/15/22 History mL) subcutaneous pen (Basaglar KwikPen U-100 Insulin) lisinopril 10 mg tablet 10 mg PO DAILY #90 tabs 02/04/22 03/15/22 Rx blood sugar diagnostic (OneTouch 02/24/22 03/12/22 History Verio test strips) insulin aspart U-100 100 unit/mL 10 unit subcut BID 03/01/22 03/15/22 History (3 mL) subcutaneous pen (Novolog Flexpen U-100 Insulin aspart) insulin aspart U-100 100 unit/mL 15 unit subcut QAM 03/05/22 03/15/22 History (3 mL) subcutaneous pen (Novolog Flexpen U-100 Insulin aspart) acetaminophen 500 mg tablet 1,000 mg PO Q8H PRN fever or pain 03/08/22 03/15/22 Rx (Tylenol Extra Strength) #90 tabs diclofenac sodium 1 % topical gel 2 g EXT BID PRN arthritic pain 03/08/22 03/15/22 Rx (Voltaren Arthritis Pain) #100 grams Past Med/Surg History Medical History (Updated 03/15/22 @ 16:33 by Ashish Dupree MD) Acute pancreatitis Cervical radiculopathy Chronic anticoagulation Chronic kidney disease Claudication of calf muscles Claudication of gluteal region COVID-19 in immunocompromised patient De Quervain's tenosynovitis Degenerative disc disease Diabetes mellitus type II, uncontrolled Diabetic peripheral neuropathy associated with type 2 diabetes mellitus Diverticulosis Dyslipidemia Gastroesophageal reflux disease Hypertension Hypothyroidism IBS (irritable bowel syndrome) hx Insomnia Mesenteric vein thrombosis Pancreatic cancer Port-A-Cath in place (09/06/19) Insertion of Mediport With Fluoroscopy Dr. Kern 09-06-19 Portal vein thrombosis Sensorineural hearing loss of both ears Sepsis Spinal stenosis Vitamin D deficiency Surgical History H/O colonoscopy with polypectomy History of carpal tunnel surgery bilateral History of dilation and curettage History of ERCP History of esophagogastroduodenoscopy (EGD) Hx of cataract surgery S/P tubal ligation Family History Brother No problems noted. Aunt Breast cancer maternal Sister Breast cancer FHx: pancreatic cancer Father Diabetes Lung disease Mother Diabetes Renal failure Peripheral vascular disease Social History Smoking Status: Never smoker Second Hand Exposure: No; Hx Alcohol Use: No Hx Substance Use: No Preferred Language: Telugu Communication Ability: Effective Visual Impairment: Diminished Hearing Ability: Hard of Hearing Food Service Clerk Required: No Beliefs That Will Affect Care: None marital status: Current Living Situation: Spouse current occupational status: retired Feels Safe at Home: Yes Childhood Exposure to Second-Hand Smoke: Yes caffeine: Yes Dental Care, Regularly: Yes Physical Activity Frequency: Daily Physical Activity Frequency Comment: leg exercises Seatbelt Use: always Sunscreen Use: Yes Do you think of yourself as: straight/heterosexual Assistive Devices: Cane, Special Shoe and Walker Review of Systems Constitutional: + weakness and + weight loss; no fever, no chills and no weight gain Eyes: as per Subjective / HPI Respiratory: no cough, no chest congestion, no dyspnea and no dyspnea on exertion Cardiovascular: no chest pain, no orthopnea, no palpitations, no lightheadedness and no edema Gastrointestinal: + abdominal pain, + nausea and + diarrhea/loose stools (chronic/unchanged); no vomiting and no constipation Genitourinary: no dysuria, no difficulty urinating, no urinary frequency, no urinary hesitancy, no urinary urgency and no flank pain Musculoskeletal: no back pain, no neck pain, no joint pain, no stiffness and no myalgia Integumentary: no rash Neurologic: no gait abnormality, no unsteadiness, no falls and no generalized weakness Physical Exam Constitutional: cooperative; no acute distress Eyes: nonicteric Neck: trachea midline, no thyromegaly Respiratory: normal respiratory effort Auscultation: lungs clear to au scultation bilaterally; no crackles, no rales, no rhonchi and no wheezes Cardiovascular: Rate/Rhythm: regular rate and regular rhythm Heart Sounds: normal S1 and normal S2 Gastrointestinal (Abdomen): Inspection/Auscultation: abdomen normal to inspection and + hypoactive bowel sounds Percussion/Palpation: abdomen soft; abdomen nontender, no guarding, abdomen not rigid and no hepatosplenomegaly Skin: no rashes, warm and dry Neurologic: patellar DTR's 2+ bilat, sensation intact and PERRL, EOMI, accommodation nl, no face palsy, no dysarthria Results & Data Results & Data ([facility]) Vital Signs (Past 12 Hours) Vital Signs Temp Pulse Resp BP Pulse Ox O2 Del Method 03/15/22 15:00 91 H 18 156/84 H 99 03/15/22 15:29 Room Air 03/15/22 15:26 99 Room Air 03/15/22 14:09 90 20 167/84 H 03/15/22 13:16 85 23 03/15/22 12:54 36.7 C 89 20 162/74 H 100 Room Air Laboratory Results Laboratory Results WBC 10.76 K/ul (4.8-10.8) 03/15/22 13:39 RBC 2.55 M/uL (3.93-5.22) L 03/15/22 13:39 Hgb 8.5 g/dl (12.0-16.0) L 03/15/22 13:39 Hct 26.2 % (34.1-44.9) L 03/15/22 13:39 MCV 102.7 fL (80.0-100.0) H 03/15/22 13:39 MCH 33.3 pg (25.0-34.0) 03/15/22 13:39 MCHC 32.4 g/dL (32.0-36.0) 03/15/22 13:39 RDW Std Deviation 59.9 fL (36.4-46.3) H 03/15/22 13:39 RDW Coeff of Juanjose 15.9 % (11.5-14.5) H 03/15/22 13:39 Plt Count 217 K/uL (130-400) 03/15/22 13:39 MPV 8.6 fL (9.4-12.3) L 03/15/22 13:39 Immature Gran % (Auto) 0.5 % 03/15/22 13:39 Neut % (Auto) 82.3 % 03/15/22 13:39 Lymph % (Auto) 10.1 % 03/15/22 13:39 [place] % (Auto) 4.9 % 03/15/22 13:39 Eos % (Auto) 1.7 % 03/15/22 13:39 Baso % (Auto) 0.5 % 03/15/22 13:39 Neut # (Auto) 8.86 K/uL (1.4-6.5) H 03/15/22 13:39 Lymph # (Auto) 1.09 K/uL (1.2-3.4) L 03/15/22 13:39 [place] # (Auto) 0.53 K/uL (0.24-0.82) 03/15/22 13:39 Eos # (Auto) 0.18 K/uL (0-0.50) 03/15/22 13:39 Baso # (Auto) 0.05 K/uL (0-0.2) 03/15/22 13:39 Immature Gran # (Auto) 0.05 K/uL (0.00-0.02) H 03/15/22 13:39 Sodium 133 mmol/L (136-145) L 03/15/22 13:39 Potassium 4.1 mmol/L (3.5-5.1) 03/15/22 13:39 Chloride 99 mmol/L (98-107) 03/15/22 13:39 Carbon Dioxide 27 mmol/L (21-32) 03/15/22 13:39 Anion Gap 7 (3-11) 03/15/22 13:39 BUN 18 mg/dl (6-23) 03/15/22 13:39 Creatinine 0.94 mg/dl (0.6-1.2) 03/15/22 13:39 Est Cr Clr Drug Dosing Not Reportable 03/15/22 13:39 Est GFR ( Amer) 69.3 ml/min 03/15/22 13:39 Est GFR (Non-Af Amer) 59.8 ml/min 03/15/22 13:39 BUN/Creatinine Ratio 19.1 (10-20) 03/15/22 13:39 Glucose 125 mg/dl (70-99(Fasting)) H 03/15/22 13:39 Calcium 9.2 mg/dl (8.5-10.1) 03/15/22 13:39 Magnesium 1.7 mg/dl (1.7-2.4) 03/15/22 13:39 Total Bilirubin 0.4 mg/dl (0.2-1.0) 03/15/22 13:39 AST 16 U/L (13-39) 03/15/22 13:39 ALT 10 U/L (7-52) 03/15/22 13:39 Alkaline Phosphatase 96 U/L (34-104) 03/15/22 13:39 Troponin I High Sens 11.4 pg/ml (0-14) 03/15/22 13:39 Total Protein 6.4 gm/dl (6.0-8.3) 03/15/22 13:39 Albumin 3.4 gm/dl (3.4-5.0) 03/15/22 13:39 Globulin 3.0 gm/dl (2.5-4.0) 03/15/22 13:39 Albumin/Globulin Ratio 1.1 (0.9-2) 03/15/22 13:39 Lipase 126 U/L (11-82) H 03/15/22 13:39 Urine Color Yellow 03/15/22 14:13 Urine Appearance Clear (Clear) 03/15/22 14:13 Urine pH 7.0 (4.5-7.5) 03/15/22 14:13 Ur Specific [place] 1.011 (1.000-1.030) 03/15/22 14:13 Urine Protein Negative (Negative) 03/15/22 14:13 Urine Glucose (UA) Negative (Negative) 03/15/22 14:13 Urine Ketones Negative (Negative) 03/15/22 14:13 Urine Blood Negative (Negative) 03/15/22 14:13 Urine Nitrite Negative (Negative) 03/15/22 14:13 Urine Bilirubin Negative (Negative) 03/15/22 14:13 Urine Urobilinogen Negative (Negative) 03/15/22 14:13 Ur Leukocyte Esterase Negative (Negative) 03/15/22 14:13 SARS-CoV-2, RNA, NAAT NEGATIVE (NEGATIVE) 03/15/22 13:39 Impressions Chest X-Ray 03/15/22 13:08 XR chest 1V portable HISTORY: Generalized abdominal pain. COMPARISON: Chest 11/30/2021. FINDINGS: The cardiac silhouette remains mildly enlarged. Bibasilar interstitial thickening persists. No new focal lung consolidations. No evidence for pulmonary edema. No pleural effusions. No pneumothorax. A left subclavian Port-A-Cath terminates at the SVC. IMPRESSION: Mild cardiomegaly and chronic bibasilar interstitial thickening. ACT 112: Negative or not required by law. Electronically signed by: Jake Dejesus M.D. 03/15/2022 1:39 PM Abdomen/Pelvis CT 03/15/22 13:10 CT abd pelvis wo con CLINICAL HISTORY: Epigastric pain. History of pancreatic cancer with metastatic disease and chronic pancreatitis COMPARISON STUDY: 03/05/2022 CT DOSE: 502.53 mGy.cm TECHNIQUE: Standard CT of the Abdomen and Pelvis was performed without IV contrast. The patient did not receive oral contrast. A dose lowering technique was utilized adhering to the principles of ALARA. FINDINGS: Lung base: Multiple pulmonary nodules are again seen at the lung bases. There is again evidence of previous mitral valve surgery. Abdominal cavity: There is again evidence for periaortic adenopathy. No gross abdominal ascites is seen. There is again evidence for peritoneal seeding characteristic of carcinomatosis. Liver: There are again diffuse liver metastases which are not as well-seen on this noncontrast study.. Spleen: The spleen is homogeneous in attenuation on these limited noncontrast images. There is again evidence for mild splenomegaly. Pancreas: There is again a large cystic mass at the head of the pancreas with cystic changes seen throughout the body the pancreas. Increased inflammatory changes are seen within the peripancreatic fat, again characteristic of pancreatitis. The findings have slightly worsened since the previous study. Gall Bladder: The gallbladder is well distended with no evidence for cholelithiasis, wall thickening or pericholecystic edema.. Adrenal glands: The adrenal glands are normal in size and attenuation on these limited noncontrast images. Kidneys: The kidneys are homogeneous in attenuation on these limited noncontrast images. There is no evidence for gross renal mass, calculus or hydronephrosis bilaterally. Bowel: The bowel loops are normally placed within the abdomen and pelvis without evidence for dilatation or obstruction. There is no evidence for mass lesion. There is again evidence for sigmoid diverticulosis without evidence for diverticulitis. There are no inflammatory changes present. There is no evidence for free air. Bladder: There is no evidence for focal bladder wall thickening, calculus or diverticulum. : There is again enlarged, fibroid uterus. Vasculature: There is no evidence for focal aneurysmal dilatation of the abdomin al aorta. Osseous structures: There is no acute osseous pathology. Extensive degenerative changes are again seen along with lytic lesions of L1 and L3. IMPRESSION: 1. Compared to the previous study of 10 days ago, there is evidence for increased inflammatory changes surrounding the pancreas characteristic of worsening pancreatitis. 2. No other evidence for new acute intra-abdominal or pelvic abnormality on these limited noncontrast images. 3. There is again evidence for pancreatic mass and metastatic disease which is unchanged. ACT 112: Negative or not required by law. Electronically signed by: Zack Logan M.D. 03/15/2022 2:13 PM PG Care Time/CCT Total # of Minutes Spent Total Time Spent with Patient: Total time spent is greater than 50% in coordination of care (as documented) at patient's floor/unit and/or counseling patient: Coding Level of Care Code 36209 Initial Inpt Care Lvl 3 Diagnoses Acute pancreatitis K85.90 Acute pancreatitis complication: unspecified Pancreatitis type: unspecified pancreatitis type Pancreatic cancer C25.9 Pancreatic malignancy location: unspecified Hypothyroidism E03.9 Hypertension I10 Diabetes mellitus type II, uncontrolled E11.65 (1) Pancreatic cancer Pancreatic malignancy location: unspecified Qualified Code(s): C25.9 - Malignant neoplasm of pancreas, unspecified (2) Acute pancreatitis Acute pancreatitis complication: unspecified Pancreatitis type: unspecified pancreatitis type Qualified Code(s): K85.90 - Acute pancreatitis without necrosis or infection, unspecified
[2022-03-15] MEDS ORDERED: SCOPOLAMINE 1 MG TDSY TD ONE (20:12)
[2022-03-15] MEDS ORDERED: ACETAMINOPHEN 500 MG TAB PO PRN (22:03)
[2022-03-15] MEDS ORDERED: DEXTROSE 50% 50 ML SYRINGE IV PRN (22:03)
[2022-03-15] MEDS ORDERED: DICLOFENAC SOD 1% GEL 100 GM TUBE EXT PRN (22:03)
[2022-03-15] MEDS ORDERED: CARBOHYDRATES FOR HYPOGLYCEMIA PO PRN (22:03)
[2022-03-15] MEDS ORDERED: GLUCOSE 40% GEL 15 GM TUBE PO PRN (22:03)
[2022-03-15] MEDS ORDERED: HYDROmorphone INJ 0.5 MG/0.5 ML SYR IV PRN (22:03)
[2022-03-15] MEDS ORDERED: GLUCOSE 10 TAB/TUBE PO PRN (22:03)
[2022-03-15] MEDS ORDERED: GLUCAGON FOR INJ 1 MG VIAL SQ PRN (22:03)
[2022-03-15] MEDS: SODIUM CHLORIDE 0.9% 1000ML 1,000 ML IV SCH (22:21)
[2022-03-15] MEDS: CHECK SCOPOLAMINE PATCH PLACEMENT SCH (22:23)
[2022-03-15] MEDS: RIVAROXABAN 20 MG TAB PO SCH (22:23)
[2022-03-15] MEDS ORDERED: LANTUS PER UNIT CHARGE SQ SCH (22:30)
[2022-03-15] MEDS: INSULIN ASPART PER UNIT SC SCH (23:04)
[2022-03-15] MEDS: GABAPENTIN 100 MG CAP PO SCH (23:31)
[2022-03-16] MEDS: CHECK SCOPOLAMINE PATCH PLACEMENT SCH ×3 (00:01→17:03)
[2022-03-16] MEDS: SODIUM CHLORIDE 0.9% 1000ML 1,000 ML IV SCH ×2 (05:21→13:20)
[2022-03-16] MEDS: INSULIN ASPART PER UNIT SC SCH ×4 (06:09→17:14)
[2022-03-16] MEDS ORDERED: LEVOTHYROXINE SODIUM 75 MCG TABLET PO SCH (06:30)
--- NOTE | 2022-03-16 07:30 | Hospitalist Progress Note ---
Date of Service March 16, 2022 Assessment & Plan (1) Acute pancreatitis: Plan: 76yo Female PMH pancreatic cancer with mets to bone liver lungs, HTN, DM Hypothyroid HLD CKD GERD here for abd tenderness nausea vomitting. (1) Abd pain/nausea/vomiting- with mild elevation of lipase likely from pancreatic irritation 2/2 cancer: -not acutely tender and has a minimally elevated lipase. Suspect this may be progression of the patient's known pancreatic cancer with worsening chronic pain. -in ED given morphine dilaudid, will transition to PO oxycodone for pain as trial for home regime -resumed clear liquid diet advance as tolerated -dc'd IVF -lipase downtrending -Plan to discharge on home regime of oxycodone 5mg PRN and zofran PRN with clear liquid diet if she develops similar pains at home again to reduce frequency of hospitalization. (2) Pancreatic cancer: -discussed with oncology, given no acute change in status or imaging do not need to be seen at this time, will discuss with oncology management of home narcotics -discussed with palliative care, when she no longer is on chemotherapy she qualifies for hospice care -patient has a history of mesenteric vein thrombosis, for which she is on Xarelto anticoagulation -Plan to discuss POLST form while in hospital (3) Hypothyroidism: Continue Synthroid as ordered (4) Hypertension: Continue lisinopril (5) Diabetes mellitus type II, uncontrolled: I will place patient on sliding scale insulin. Patient is on glargine 42 units every afternoon, will cut to 21 units while patient remains n.p.o. and Hold metformin FENa: clear liquid diet advance as tolerated Code Status: DNR/DNI DVT PPX: Lovenox Case Management: will discuss if patient requires home health at this time. Dispo: med/surg Blanca Nelson Do PGY 2, FCM (2) Pancreatic cancer: (3) Hypothyroidism: (4) Hypertension: (5) Diabetes mellitus type II, uncontrolled: Admission and Anticipated Discharge Date Admission Date: March 15, 2022 Subjective Patient seen at bedside, calm comfortable cooperative. She states her abdominal pain is improved from before. Patient states she has had multiple rounds of chemo for her pancreatic cancer, is aware it has spread to other organs. She regrets not getting checked earlier to find her pancreatic cancer. Patient states she has lived a good life, feels bad for younger children who get cancer. She looks forward to reaching age 77 and having another anniversary with her . Patient lives with her at home, children and grandchildren live close by as neighbors or downstairs, likes playing with her great grandchildren. She states she walks without a cane or walker, is planning to have assistance with cleaning come to house. She would like to be at home with her family, is aware her condition is getting worse getting hospitalized more often. She states she was able to sleep and eat well, she has better appetite without chemotherapy. States she follows with Dr. Palacio for oncology appointment this week, had a PET scan yesterday doesn't know results yet. Patient states she had pain earlier in the week held off coming to the hospital to visit her brother with a terminal diagnosis, brother yesterday the viewing is on 5pm she would like to be discharged before then. Review of Systems Review of Systems: Negative fever chills Negative headache dizziness Negative chest pain palpitations SOB Negative nausea vomitting diarrhea constipation Negative numbness tingling rash swelling Physical Exam Constitutional: WD/WN, vitals as above Eyes: PERRL, conjunctivae normal, anicteric sclerae ENMT: external ear and nose normal, oropharynx normal Neck: trachea midline, no thyromegaly Respiratory: normal respiratory effort, lungs clear to auscultation Cardiovascular: RRR, no murmur, no edema Chest (Breasts): Chest: normal inspection of chest Gastrointestinal (Abdomen): Inspection/Auscultation: + abdomen distended (mild) Percussion/Palpation: + abdomen tender (mild tendernessumbilical region) and abdomen soft Skin: no rashes, warm and dry Results & Data Results & Data ([facility]) Vital Signs (Past 12 Hours) Vital Signs Temp Pulse Pulse Resp BP BP Pulse Ox 03/15/22 22:05 36.4 C L 97 H 18 139/69 99 03/15/22 22:03 36.4 C L 97 H 18 139/69 99 03/15/22 21:57 78 20 115/77 99 O2 Del Method 03/15/22 22:05 Room Air 03/15/22 22:03 Room Air 03/15/22 21:57 Room Air Diagnostic Findings Laboratory Results WBC 10.76 K/ul (4.8-10.8) 03/15/22 13:39 RBC 2.55 M/uL (3.93-5.22) L 03/15/22 13:39 Hgb 8.5 g/dl (12.0-16.0) L 03/15/22 13:39 Hct 26.2 % (34.1-44.9) L 03/15/22 13:39 MCV 102.7 fL (80.0-100.0) H 03/15/22 13:39 MCH 33.3 pg (25.0-34.0) 03/15/22 13:39 MCHC 32.4 g/dL (32.0-36.0) 03/15/22 13:39 RDW Std Deviation 59.9 fL (36.4-46.3) H 03/15/22 13:39 RDW Coeff of Juanjose 15.9 % (11.5-14.5) H 03/15/22 13:39 Plt Count 217 K/uL (130-400) 03/15/22 13:39 MPV 8.6 fL (9.4-12.3) L 03/15/22 13:39 Immature Gran % (Auto) 0.5 % 03/15/22 13:39 Neut % (Auto) 82.3 % 03/15/22 13:39 Lymph % (Auto) 10.1 % 03/15/22 13:39 [place] % (Auto) 4.9 % 03/15/22 13:39 Eos % (Auto) 1.7 % 03/15/22 13:39 Baso % (Auto) 0.5 % 03/15/22 13:39 Neut # (Auto) 8.86 K/uL (1.4-6.5) H 03/15/22 13:39 Lymph # (Auto) 1.09 K/uL (1.2-3.4) L 03/15/22 13:39 [place] # (Auto) 0.53 K/uL (0.24-0.82) 03/15/22 13:39 Eos # (Auto) 0.18 K/uL (0-0.50) 03/15/22 13:39 Baso # (Auto) 0.05 K/uL (0-0.2) 03/15/22 13:39 Immature Gran # (Auto) 0.05 K/uL (0.00-0.02) H 03/15/22 13:39 Sodium 134 mmol/L (136-145) L 03/16/22 07:16 Potassium 4.4 mmol/L (3.5-5.1) 03/16/22 07:16 Chloride 103 mmol/L (98-107) 03/16/22 07:16 Carbon Dioxide 28 mmol/L (21-32) 03/16/22 07:16 Anion Gap 3 (3-11) 03/16/22 07:16 BUN 15 mg/dl (6-23) 03/16/22 07:16 Creatinine 0.87 mg/dl (0.6-1.2) 03/16/22 07:16 Est Cr Clr Drug Dosing 52.6 ml/min 03/16/22 07:16 Est GFR ( Amer) 76.1 ml/min 03/16/22 07:16 Est GFR (Non-Af Amer) 65.6 ml/min 03/16/22 07:16 BUN/Creatinine Ratio 17.2 (10-20) 03/16/22 07:16 Glucose 78 mg/dl (70-99(Fasting)) 03/16/22 07:16 POC Glucose 188 mg/dl (70-99) H 03/16/22 12:16 Calcium 8.2 mg/dl (8.5-10.1) L 03/16/22 07:16 Magnesium 1.7 mg/dl (1.7-2.4) 03/16/22 07:16 Total Bilirubin 0.3 mg/dl (0.2-1.0) 03/16/22 07:16 AST 12 U/L (13-39) L 03/16/22 07:16 ALT 8 U/L (7-52) 03/16/22 07:16 Alkaline Phosphatase 81 U/L (34-104) 03/16/22 07:16 Troponin I High Sens 11.4 pg/ml (0-14) 03/15/22 13:39 Total Protein 5.2 gm/dl (6.0-8.3) L 03/16/22 07:16 Albumin 2.9 gm/dl (3.4-5.0) L 03/16/22 07:16 Globulin 2.3 gm/dl (2.5-4.0) L 03/16/22 07:16 Albumin/Globulin Ratio 1.3 (0.9-2) 03/16/22 07:16 Lipase 38 U/L (11-82) 03/16/22 07:16 Urine Color Yellow 03/15/22 14:13 Urine Appearance Clear (Clear) 03/15/22 14:13 Urine pH 7.0 (4.5-7.5) 03/15/22 14:13 Ur Specific [place] 1.011 (1.000-1.030) 03/15/22 14:13 Urine Protein Negative (Negative) 03/15/22 14:13 Urine Glucose (UA) Negative (Negative) 03/15/22 14:13 Urine Ketones Negative (Negative) 03/15/22 14:13 Urine Blood Negative (Negative) 03/15/22 14:13 Urine Nitrite Negative (Negative) 03/15/22 14:13 Urine Bilirubin Negative (Negative) 03/15/22 14:13 Urine Urobilinogen Negative (Negative) 03/15/22 14:13 Ur Leukocyte Esterase Negative (Negative) 03/15/22 14:13 SARS-CoV-2, RNA, NAAT NEGATIVE (NEGATIVE) 03/15/22 13:39 Impressions Chest X-Ray 03/15/22 13:08 XR chest 1V portable HISTORY: Generalized abdominal pain. COMPARISON: Chest 11/30/2021. FINDINGS: The cardiac silhouette remains mildly enlarged. Bibasilar interstitial thickening persists. No new focal lung consolidations. No evidence for pulmonary edema. No pleural effusions. No pneumothorax. A left subclavian Port-A-Cath terminates at the SVC. IMPRESSION: Mild cardiomegaly and chronic bibasilar interstitial thickening. ACT 112: Negative or not required by law. Electronically signed by: Jake Dejesus M.D. 03/15/2022 1:39 PM Abdomen/Pelvis CT 03/15/22 13:10 CT abd pelvis wo con CLINICAL HISTORY: Epigastric pain. History of pancreatic cancer with metastatic disease and chronic pancreatitis COMPARISON STUDY: 03/05/2022 CT DOSE: 502.53 mGy.cm TECHNIQUE: Standard CT of the Abdomen and Pelvis was performed without IV contrast. The patient did not receive oral contrast. A dose lowering technique was utilized adhering to the principles of ALARA. FINDINGS: Lung base: Multiple pulmonary nodules are again seen at the lung bases. There is again evidence of previous mitral valve surgery. Abdominal cavity: There is again evidence for periaortic adenopathy. No gross abdominal ascites is seen. There is again evidence for peritoneal seeding characteristic of carcinomatosis. Liver: There are again diffuse liver metastases which are not as well-seen on this noncontrast study.. Spleen: The spleen is homogeneous in attenuation on these limited noncontrast images. There is again evidence for mild splenomegaly. Pancreas: There is again a large cystic mass at the head of the pancreas with cystic changes seen throughout the body the pancreas. Increased inflammatory changes are seen within the peripancreatic fat, again characteristic of pancreatitis. The findings have slightly worsened since the previous study. Gall Bladder: The gallbladder is well distended with no evidence for c holelithiasis, wall thickening or pericholecystic edema.. Adrenal glands: The adrenal glands are normal in size and attenuation on these limited noncontrast images. Kidneys: The kidneys are homogeneous in attenuation on these limited noncontrast images. There is no evidence for gross renal mass, calculus or hydronephrosis bilaterally. Bowel: The bowel loops are normally placed within the abdomen and pelvis without evidence for dilatation or obstruction. There is no evidence for mass lesion. There is again evidence for sigmoid diverticulosis without evidence for diverticulitis. There are no inflammatory changes present. There is no evidence for free air. Bladder: There is no evidence for focal bladder wall thickening, calculus or diverticulum. : There is again enlarged, fibroid uterus. Vasculature: There is no evidence for focal aneurysmal dilatation of the abdominal aorta. Osseous structures: There is no acute osseous pathology. Extensive degenerative changes are again seen along with lytic lesions of L1 and L3. IMPRESSION: 1. Compared to the previous study of 10 days ago, there is evidence for increased inflammatory changes surrounding the pancreas characteristic of worsening pancreatitis. 2. No other evidence for new acute intra-abdominal or pelvic abnormality on these limited noncontrast images. 3. There is again evidence for pancreatic mass and metastatic disease which is unchanged. ACT 112: Negative or not required by law. Electronically signed by: Zack Logan M.D. 03/15/2022 2:13 PM Medications Administered Current Inpatient Medications Acetaminophen (Acetaminophen 500 Mg Tab) 1,000 mg PO Q8H PRN PRN Reason: fever or pain Stop: 04/14/22 22:02 Dextrose (Dextrose 50% 50 Ml Syringe) 25 - 50 ml IV UD PRN; Protocol PRN Reason: Hypoglycemia Protocol Stop: 04/14/22 22:02 Diclofenac Sodium (Diclofenac Sod 1% Gel 100 Gm Tube) 2 gm EXT BID PRN; Protoc ol PRN Reason: arthritic pain Stop: 04/14/22 22:02 Gabapentin (Gabapentin 100 Mg Cap) 200 mg PO BID [facility], [facility]1983 Stop: 04/14/22 22:02 Last Admin: 03/16/22 08:57 Dose: 200 mg Glucagon (Glucagon For Inj 1 Mg Vial) 1 mg SQ UD PRN; Protocol PRN Reason: Hypoglycemia Protocol Stop: 04/14/22 22:02 Glucose (Glucose 40% Gel 15 Gm Tube) 15 - 30 gm PO UD PRN; Protocol PRN Reason: Hypoglycemia Protocol Stop: 04/14/22 22:02 Glucose (Glucose 10 Tab/Tube) 4 - 8 tab PO UD PRN; Protocol PRN Reason: Hypoglycemia Treatment Stop: 04/14/22 22:02 Hydromorphone HCl (Hydromorphone Inj 0.5 Mg/0.5 Ml Syr) 0.5 mg IV Q6H PRN PRN Reason: Pain Stop: 03/29/22 22:02 Last Admin: 03/16/22 08:12 Dose: 0.5 mg Sodium Chloride (Nss 1000ml) 1,000 mls @ 125 mls/hr IV .Q8H [facility], [facility]1983 Stop: 04/14/22 22:02 Last Admin: 03/16/22 13:20 Dose: 125 mls/hr Insulin Aspart (Insulin Aspart Per Unit) 0 units SC ACHS PEDRO PABLO Stop: 04/14/22 22:14 Last Admin: 03/16/22 13:20 Dose: 4 units Insulin Glargine (Lantus Per Unit Charge) 21 units SQ QPM PEDRO PABLO Stop: 04/14/22 22:29 Last Admin: 03/15/22 23:43 Dose: 21 units Levothyroxine Sodium (Levothyroxine Sodium 75 Mcg Tablet) 75 mcg PO DAILYBB [facility]1983 Stop: 04/15/22 06:29 Last Admin: 03/16/22 06:04 Dose: 75 mcg Lisinopril (Lisinopril 10 Mg Tab) 10 mg PO DAILY [facility] Stop: 04/15/22 08:59 Last Admin: 03/16/22 09:05 Dose: 10 mg Mirabegron (Mirabegron Er 25 Mg Tab) 25 mg PO DAILY [facility] Stop: 04/15/22 08:59 Last Admin: 03/16/22 08:57 Dose: 25 mg Miscellaneous (Check Scopolamine Patch Placement) 1 each N/A QS PEDRO PABLO Stop: 03/18/22 05:59 Last Admin: 03/16/22 08:08 Dose: 1 each Miscellaneous (Remove Transderm-Scop Patch) 1 each N/A ONE ONE Stop: 03/18/22 06:01 Miscellaneous (Carbohydrates For Hypoglycemia ) 15 - 30 gm PO UD PRN PRN Reason: Hypoglycemia Protocol Stop: 04/14/22 22:02 Oxycodone HCl (Oxycodone Hcl Ir 5 Mg Tab (Immediate Release)) 5 mg PO Q6H PRN PRN Reason: Pain Stop: 03/30/22 11:47 Rivaroxaban (Rivaroxaban 20 Mg Tab) 20 mg PO QDD [facility] Stop: 04/14/22 22:02 Last Admin: 03/15/22 22:23 Dose: Not Given Resident Activity Tracking Resident Involvement: Resident Care Provided Care Provided: Adult Hospital Medicine (1) Pancreatic cancer Pancreatic malignancy location: unspecified Qualified Code(s): C25.9 - Malignant neoplasm of pancreas, unspecified (2) Acute pancreatitis Acute pancreatitis complication: unspecified Pancreatitis type: unspecified pancreatitis type Qualified Code(s): K85.90 - Acute pancreatitis without necrosis or infection, unspecified
[2022-03-16 08:29] LABS: Albumin Globulin Ratio 1.3 (0.9-2); Albumin Level 2.9 gm/dl (3.4-5.0); BUN Creatinine Ratio 17.2 (10-20); Bilirubin,Total 0.3 mg/dl (0.2-1.0); Calcium 8.2 mg/dl (8.5-10.1); Creatinine Clr Calc Pharmacy 52.6 ml/min; Est GFR (African American) 76.1 ml/min; Est GFR (Non-African American) 65.6 ml/min; Globulin 2.3 gm/dl (2.5-4.0); Magnesium 1.7 mg/dl (1.7-2.4); Potassium 4.4 mmol/L (3.5-5.1); Total Protein 5.2 gm/dl (6.0-8.3)
[2022-03-16] MEDS ORDERED: Nursing to Pharmacy Communication SCH (08:45)
[2022-03-16] MEDS: GABAPENTIN 100 MG CAP PO SCH (08:57)
[2022-03-16] MEDS ORDERED: MIRABEGRON ER 25 MG TAB PO SCH (09:00)
[2022-03-16] MEDS ORDERED: lisinopril 10 MG TAB PO SCH (09:00)
[2022-03-16] MEDS ORDERED: oxyCODONE HCL IR 5 MG TAB (IMMEDIATE RELEASE) PO PRN (11:48)
--- NOTE | 2022-03-16 14:25 | Electrocardiogram Report ---
Test Reason : Blood Pressure : / mmHG Vent. Rate : 086 BPM Atrial Rate : 086 BPM P-R Int : 176 ms QRS Dur : 100 ms QT Int : 424 ms P-R-T Axes : 070 009 029 degrees QTc Int : 507 ms Poor data quality, interpretation may be adversely affected Sinus rhythm with occasional Premature ventricular complexes Low voltage QRS Incomplete right bundle branch block Poor R wave progression, consider anterior ND vs. lead placement vs. LVH Abnormal ECG When compared with ECG of 04-MAR-2022 21:17, Premature ventricular complexes are now Present Confirmed by Leonardo Ceja ([id number]) on 03/16/2022 2:25:15 PM Referred By: REFERRED SELF Confirmed By:Leonardo Ceja
[2022-03-16] MEDS ORDERED: fentaNYL 12 MCG/HR TDSY TD SCH (16:15)
[2022-03-16] MEDS: RIVAROXABAN 20 MG TAB PO SCH (17:04)
--- NOTE | 2022-03-16 17:14 | Discharge Summary ---
Date of Service March 16, 2022 Admission HPI Per Admitting Provider This is a 76-year-old female with past medical history of metastatic pancreatic cancer that presents today complaining of abdominal pain. Patient is pleasant good historian. is present at bedside. Patient was admitted here with similar complaints. Patient has a history of metastatic adenocarcinoma, previously diagnosed 08/01. She just finished chemotherapy on 02/23. Patient had initially been admitted with nausea with some vomiting along with epigastric pain. Patient tells me she was discharged and is feeling much better. She was sticking to a clear liquid diet. However, she did have a little bit of barbecue chicken and feels that this may have set off of further pain. Starting 48 hours prior to admission, the pain returned and is similar presentation as before. This is notably epigastric with some radiation along the diaphragmatic border. He says it also radiates into her shoulder, mainly the left. She has been nauseous and has diminished p.o. intake. She did restart the clear liquid diet but does not think it was very effective in clearing her symptoms. Patient had a PET scan scheduled earlier today which she did get done. No read is available for this yet. She then presented to the emergency room for further evaluation. At this time, she appears to be comfortable after analgesia in the ER. Lipase was minimally elevated to 128 and ER is asking us to admit for acute pancreatitis. Admission Exam Per Admitting Provider Constitutional: cooperative; no acute distress Eyes: nonicteric Neck: trachea midline, no thyromegaly Respiratory: normal respiratory effort Auscultation: lungs clear to auscultation bilaterally; no crackles, no rales, no rhonchi and no wheezes Cardiovascular: Rate/Rhythm: regular rate and regular rhythm Heart Sounds: normal S1 and normal S2 Gastrointestinal (Abdomen): Inspection/Auscultation: abdomen normal to inspection and + hypoactive bowel sounds Percussion/Palpation: abdomen soft; abdomen nontender, no guarding, abdomen not rigid and no hepatosplenomegaly Skin: no rashes, warm and dry Neurologic: patellar DTR's 2+ bilat, sensation intact and PERRL, EOMI, accommodation nl, no face palsy, no dysarthria Principal Diagnosis pancreatic cancer Discharge Exam General: Grossly A&O. NAD. Cooperative. HEENT: Atraumatic, normocephalic. EOMI Pulm: CTAB. -wheezes, -rales, -rhonchi. Symmetrical chest rise. No respiratory distress. Cardiac: RRR, +3/6 systolic murmur, loudest at aortic area. Trace BLE edema. Abdominal: Nontender, nondistended, soft. No epigastric tenderness. Discharge Data Allergies Allergy/AdvReac Type Severity Reaction Status Date / Time diflunisal Allergy Unknown Dolobid - Verified 03/15/22 15:28 Unknown Consultations 03/15/22 15:40 ED Decision to Admit Stat Ordered Studies Cardiac Enzymes 03/16/22 Range/Units 07:16 AST 12 L (13-39) U/L Comprehensive Metabolic Panel 03/16/22 Range/Units 07:16 Sodium 134 L (136-145) mmol/L Potassium 4.4 (3.5-5.1) mmol/L Chloride 103 (98-107) mmol/L Carbon Dioxide 28 (21-32) mmol/L BUN 15 (6-23) mg/dl Creatinine 0.87 (0.6-1.2) mg/dl Glucose 78 (70-99(Fasting)) mg/dl Calcium 8.2 L (8.5-10.1) mg/dl AST 12 L (13-39) U/L ALT 8 (7-52) U/L Alkaline Phosphatase 81 (34-104) U/L Total Protein 5.2 L (6.0-8.3) gm/dl Albumin 2.9 L (3.4-5.0) gm/dl Intake and Output 03/16/22 03/16/22 03/16/22 06:59 14:59 22:59 Intake Total 875 / 1875 997.917 / 997.917 Output Total 300 / 300 Balance 575 / 1575 997.917 / 997.917 Intake: IV 875 / 1875 997.917 / 997.917 Sodium Chloride 0.9% 1000ML 1, 875 / 875 997.917 / 997.917 000 ml @ 125 mls/hr IV .Q8H [facility] Rx#:[id number] Output: Urine 300 / 300 Other: Weight 71.7 kg 71.7 kg Patient Weight 03/17/22 06:59 Weight 71.7 kg Chest X-Ray 03/15/22 13:08 XR chest 1V portable HISTORY: Generalized abdominal pain. COMPARISON: Chest 11/30/2021. FINDINGS: The cardiac silhouette remains mildly enlarged. Bibasilar interstitial thickening persists. No new focal lung consolidations. No evidence for pulmonary edema. No pleural effusions. No pneumothorax. A left subclavian Port-A-Cath terminates at the SVC. IMPRESSION: Mild cardiomegaly and chronic bibasilar interstitial thickening. ACT 112: Negative or not required by law. Electronically signed by: Jake Dejesus M.D. 03/15/2022 1:39 PM Abdomen/Pelvis CT 03/15/22 13:10 CT abd pelvis wo con CLINICAL HISTORY: Epigastric pain. History of pancreatic cancer with metastatic disease and chronic pancreatitis COMPARISON STUDY: 03/05/2022 CT DOSE: 502.53 mGy.cm TECHNIQUE: Standard CT of the Abdomen and Pelvis was performed without IV contrast. The patient did not receive oral contrast. A dose lowering technique was utilized adhering to the principles of ALARA. FINDINGS: Lung base: Multiple pulmonary nodules are again seen at the lung bases. There is again evidence of previous mitral valve surgery. Abdominal cavity: There is again evidence for periaortic adenopathy. No gross abdominal ascites is seen. There is again evidence for peritoneal seeding characteristic of carcinomatosis. Liver: There are again diffuse liver metastases which are not as well-seen on this noncontrast study.. Spleen: The spleen is homogeneous in attenuation on these limited noncontrast images. There is again evidence for mild splenomegaly. Pancreas: There is again a large cystic mass at the head of the pancreas with cystic changes seen throughout the body the pancreas. Increased inflammatory changes are seen within the peripancreatic fat, again characteristic of pancreatitis. The findings have slightly worsened since the previous study. Gall Bladder: The gallbladder is well distended with no evidence for chol elithiasis, wall thickening or pericholecystic edema.. Adrenal glands: The adrenal glands are normal in size and attenuation on these limited noncontrast images. Kidneys: The kidneys are homogeneous in attenuation on these limited noncontrast images. There is no evidence for gross renal mass, calculus or hydronephrosis bilaterally. Bowel: The bowel loops are normally placed within the abdomen and pelvis without evidence for dilatation or obstruction. There is no evidence for mass lesion. There is again evidence for sigmoid diverticulosis without evidence for diverticulitis. There are no inflammatory changes present. There is no evidence for free air. Bladder: There is no evidence for focal bladder wall thickening, calculus or diverticulum. : There is again enlarged, fibroid uterus. Vasculature: There is no evidence for focal aneurysmal dilatation of the abdominal aorta. Osseous structures: There is no acute osseous pathology. Extensive degenerative changes are again seen along with lytic lesions of L1 and L3. IMPRESSION: 1. Compared to the previous study of 10 days ago, there is evidence for increased inflammatory changes surrounding the pancreas characteristic of worsening pancreatitis. 2. No other evidence for new acute intra-abdominal or pelvic abnormality on these limited noncontrast images. 3. There is again evidence for pancreatic mass and metastatic disease which is unchanged. ACT 112: Negative or not required by law. Electronically signed by: Zack Logan M.D. 03/15/2022 2:13 PM Hospital Course (1) Pancreatic cancer: 76yo Female PMH pancreatic cancer with mets, HTN, DM Hypothyroidism, HLD, CKD, and GERD here for epigastric abdominal tenderness, nausea, and vomiting. Pain/inflammation from pancreatic cancer -She has had several prior hospitalizations w/ similar presentation -CT abd w/ increased inflammatory changes of pancreas -Minimally elevated lipase, downtrended to normal -Per patient's oncology provider, will start 12mg fentanyl patch, patch will need to be changed every 3 days. Intended for short-term use only, e.g. 1 week. 30 MME. -Oxycodone 5mg PRN only for breakthrough pain -W/ the above narcotic regimen, instructed patient to check BP if episodes of dizziness/weakness -Low fat diet for 2 weeks Pancreatic cancer: -discussed with oncology, see pain regimen recs above -discussed with palliative care, when she no longer is on chemotherapy she qualifies for hospice care -patient has a history of mesenteric vein thrombosis, for which she is on Xarelto anticoagulation -PCP to continue goals of care discussion and discussion of POLST form. Patient was DNR/DNI this admission Hypoglycemic episode: - Hypoglycemia to 50s while on inpatient regimen, received 21u lantus prior evening and 4u aspart a few hours prior - Reduction in insulin regimen; see below - Check A1c at outpatient clinic. Last A1c was 5.9 in 11/2021. (goal A1c for her age 7-7.9) It is possible that there is improved glycemic control w/ unintentional weight loss 2/2 pancreatic cancer. She had hypoglycemia to 60s in 11/2021 and 01/2022. Diabetes mellitus type II, uncontrolled: - Resume home metformin - Insulin aspart discontinued - Insulin Basaglar decreased from 42u qhs to 10u qhs Anemia - Hb 8.5 this admission, stable per chart review History of mesenteric vein thrombosis -Continue home Xarelto Hypothyroidism: -Continue home levothyroxine Hypertension: -Continue lisinopril (2) Hypothyroidism: (3) Hypertension: (4) Type 2 diabetes, HbA1c goal < 7%: (5) Hypoglycemic episode in patient with diabetes mellitus: (6) Anemia: Total Time Total Time Spent Total Time Spent (In Minutes): <30 Discharge Plan Discharge Items Patient Disposition: Home - Self-Care Reason For Visit: ABDOMINAL PAIN Discharge Diagnosis: pancreatic cancer Activity: Per Instructions section Non-emergency contact: Primary Care Provider Call non-emergency contact if: you have any medication questions, your symptoms worsen and you have a fever Follow-up/Referrals: Aniyah Fletcher PA-C [Family Provider] - (f/u within 1 week) Manny Wren DO [Primary Care Provider] - (hospital discharge follow up within 1 week of discharge) Diet: Regular Addtl Attending Provider Instructions: You were admitted to [facility] for abdominal pain. This was thought to be a flare up of pain from your pancreatic cancer. Your pain regimen has been adjusted and you will be temporarily wearing a fentanyl patch. Change this patch every 3 days. Additional patches and refills will be managed by your oncology team. I only recommend short term use (<7 days) of this. Please follow up with Aniyah Fletcher in the oncology office. The oxycodone can be taken for breakthrough pain, but please use with caution. Your blood pressures were borderline low prior to discharge and the narcotic pain medications can lower this. Check your blood pressure if you feel dizzy. Skip a dose of your blood pressure medicine lisinopril if your blood pressure is lower than 90 (top number) or 60 (bottom number). Consider eating a lower fat diet for the next 2 weeks as this may help with some of the abdominal pain. You were given a dose of Xarelto prior to leaving the hospital. Your blood sugars were low this admission. Please recheck your A1c in the outpatient setting because the goal A1c is >7%. Yours was 5.9% meaning your diabetes was controlled too well in November and this may have contributed to the multiple instances of low sugars. Changes to diabetes medications: Discontinuation of the short acting insulin (you were previously taking 15mg, 10mg, 10mg). Reduction of the long acting insulin basaglar from 42mg to 10mg once a night. You will need to take a dose of the 10mg long acting insulin tonight. Continue the metformin. Call your pcp if any new or concerning symptoms. Visit the emergency room if severe or emergent symptoms. Follow up with PCP within 1 week. Pending Studies at Discharge: No Stand-Alone Forms: My [facility] [employer], Smoking Cessation Medications and DC Order Prescriptions: Continued ascorbic acid (vitamin C) 1,000 mg tablet 1 gm PO DAILY cyanocobalamin (vitamin B-12) 500 mcg tablet 1,000 mcg PO DAILY furosemide [Lasix] 20 mg tablet 20 mg PO DAILY PRN (Reason: edema) Qty: 90 3RF Xarelto 20 mg tablet 20 mg PO QDD Rx Instructions: PER PT "TOOK TODAY", 03/15/22. must administer with evening meal levothyroxine [Synthroid] 75 mcg tablet 75 mcg PO QAM Qty: 90 3RF metformin 1,000 mg tablet 1,000 mg PO BID Qty: 180 3RF Myrbetriq 25 mg tablet extended release 24 hr 25 mg PO DAILY Qty: 30 2RF lisinopril 10 mg tablet 10 mg PO DAILY Qty: 90 3RF gabapentin 100 mg capsule 200 mg PO BID Qty: 120 3RF (DME) OneTouch Verio test strips Strip See Rx Instructions .ROUTE .MEDSUPPLY Rx Instructions: use to test three times daily cholecalciferol (vitamin D3) [Vitamin D3] 2,000 unit Tablet 2,000 unit PO QAM omeprazole 20 mg Tablet,Delayed Release (Dr/Ec) 20 mg PO DAILY PRN (Reason: Heartburn) ondansetron HCl 8 mg tablet 8 mg PO Q8 PRN (Reason: Nausea) acetaminophen [Tylenol Extra Strength] 500 mg Tablet 1,000 mg PO Q8H PRN (Reason: fever or pain) Qty: 90 0RF diclofenac sodium [Voltaren Arthritis Pain] 1 % Gel 2 g EXT BID PRN (Reason: arthritic pain) Qty: 100 0RF Changed insulin glargine [Basaglar KwikPen U-100 Insulin] 100 unit/mL (3 mL) insulin pen 10 unit SQ QPM 30 Days Qty: 0 0RF Discontinued insulin aspart U-100 [Novolog Flexpen U-100 Insulin] 100 unit/mL (3 mL) ins ulin pen 10 unit subcut BID Rx Instructions: 15 U @ bkft, 10 U lunch&supper; sliding scale insulin aspart U-100 [Novolog Flexpen U-100 Insulin] 100 unit/mL (3 mL) insulin pen 15 unit SUBCUT QAM Discharge Orders: Discharge Order (Routine); Ordered 03/16/22 Ordered By: Goldy Hawkins/Other Patient Handouts: ED Diet: Diabetes Admission Data Admit Date/Time: 03/15/22 16:37 Attending Provider: Mindy Becerra Admit Provider: Bertin Hodges Primary Care Provider: Manny Wren Other Providers: Bertin Hodges Other Interventions: Discharge Summary Assessment (RN) Last Done: 03/16/22 19:10 Supervising Physician Co-Signing Physician Notes Resident Physician Supervision Note: I independently interviewed and examined the patient and verified the [place] history and physical, reviewed labs and image studies and agree with resident Dr. Daniel findings and care plan. Resident Activity Tracking Resident Involvement: Resident Care Provided Care Provided: Adult Hospital Medicine
[2022-03-17] MEDS ORDERED: CHECK fentaNYL PATCH PLACEMENT SCH
== END 2022-03-16 20:40 | disposition home or self-care (01) | DRG 436 ==
LOC: ED 12:46 → EDINP 16:37 → SUATTDRO 16:37 → INTOOBSV 16:37 → 3N 21:57

== ENCOUNTER 2022-06-04 18:36 | Inpatient (IN) ==
[2022-06-04 19:19] LABS: Basophils # (auto) 0.05 K/uL (0-0.2); Basophils % (auto) 0.5 %; Eosinophils # (auto) 0.21 K/uL (0-0.50); Hematocrit (blood only) 24.9 % (34.1-44.9); Hemoglobin 8.6 g/dl (12.0-16.0); Immature Granulocytes # (auto) 0.07 K/uL (0.00-0.02); Immature Granulocytes % (auto) 0.7 %; Lymphocytes # (auto) 0.76 K/uL (1.2-3.4); Lymphocytes % (auto) 7.3 %; Mean Corpuscular Hemoglobin 33.6 pg (25.0-34.0); Mean Corpuscular Hgb Conc 34.5 g/dL (32.0-36.0); Mean Corpuscular Volume 97.3 fL (80.0-100.0); Monocytes # (auto) 1.09 K/uL (0.24-0.82); Monocytes % (auto) 10.5 %; Neutrophils # (auto) 8.22 K/uL (1.4-6.5); Platelet Count 261 K/uL (130-400); RDW Coefficient of Variation 20.6 % (11.5-14.5); RDW Standard Deviation 72.1 fL (36.4-46.3); Red Blood Count 2.56 M/uL (3.93-5.22)
[2022-06-04 19:38] LABS: Alanine Aminotransferase 13 U/L (7-52); Albumin Level 3.3 gm/dl (3.4-5.0); Alkaline Phosphatase 254 U/L (34-104); Anion Gap 9 (3-11); Aspartate Aminotransferase 29 U/L (13-39); BUN Creatinine Ratio 17.3 (10-20); Bilirubin,Total 0.6 mg/dl (0.2-1.0); Blood Urea Nitrogen 43 mg/dl (6-23); Calcium 8.5 mg/dl (8.5-10.1); Carbon Dioxide 24 mmol/L (21-32); Chloride 93 mmol/L (98-107); Est GFR (African American) 21.3 ml/min; Est GFR (Non-African American) 18.4 ml/min; Globulin 3.4 gm/dl (2.5-4.0); Glucose 245 mg/dl (70-99(Fasting)); Lipase 14 U/L (11-82); Potassium 4.5 mmol/L (3.5-5.1); Sodium 126 mmol/L (136-145); Total Protein 6.7 gm/dl (6.0-8.3)
[2022-06-04 20:22] LABS: Anisocytosis Present; Polychromasia 1+; Rouleaux 1+; Tear Drop Cells 1+
[2022-06-04] MEDS ORDERED: ONDANSETRON INJ 2 MG/ML 2 ML VIAL IV STA ×2 (20:48→22:48)
[2022-06-04] MEDS ORDERED: MoRPHine SULFATE 4 MG/ML 1 ML CARP\\VIAL IV STA (20:48)
[2022-06-04] MEDS: SODIUM CHLORIDE 0.9% 1000ML 1,000 ML IV SCH (21:13)
--- NOTE | 2022-06-04 22:29 | CT Scan Report ---
CT abd pelvis wo con CLINICAL HISTORY: saritha hx pancreatic ca TECHNIQUE: Helical axial images of the abdomen and pelvis were obtained. Automated dose lowering tech niques and/or adjustment according to patient size were utilized for this exam. This exam was perfor med without intravenous contrast. CT DOSE: 493.95 mGy.cm COMPARISON: Comparison is made to CT abdomen pelvis 05/25/2022 FINDINGS: Lower chest: Numerous pulmonary nodules are seen. Bilateral calcifications are seen. Liver: Numerous hepatic lesions are seen. Gallbladder and biliary tree: No calcified gallstones. Normal caliber wall. No intra- or extrahepatic biliary ductal dilation. Pancreas: Pancreatic nodules are seen. Although evaluation is limited by noncontrast technique, the a ppearance is similar to prior exam. Spleen: Unremarkable. Adrenals: There is a left adrenal nodule, similar in extent to prior exam. Kidneys and ureters: There is new left hydronephrosis secondary to ureteric obstruction from a retrop eritoneal mass. The right kidney is unremarkable. Bladder: Limited evaluation due to underdistention. Reproductive organs: Unremarkable. Bowel: Diverticulosis is seen without evidence of diverticulitis. The appendix is normal. A hiatal he rnia is seen. Lymph nodes Retroperitoneal: Minimal enlargement of a left soft tissue mass, now measures 46 x 58 mm compared to 42 x 58 mm in prior exam. Pelvic: Unremarkable. Mesenteric: Unremarkable. Peritoneum: Numerous peritoneal deposits are again seen, overall similar in size to prior exam. Vessels: Atherosclerotic calcifications are seen. Abdominal wall: Bilateral fat-containing inguinal hernias are seen. Bones: Degenerative changes in the visualized spine. IMPRESSION: 1. Interval development of left-sided hydronephrosis and hydroureter secondary to a large left retro peritoneal conglomerate which has enlarged in the interval. 2. Redemonstration of extensive metastatic disease in this patient with pancreatic malignancy. Homero , hepatic, adrenal, pulmonary, and mesenteric foci of disease are seen. 3. Additional findings as above. ACT 112: Negative or not required by law. Electronically signed by: Ramirez Ellison M.D. 06/04/2022 10:26 PM
[2022-06-04] MEDS ORDERED: MoRPHine SULFATE 10 MG/ML CARP/VIAL IV STA (22:48)
[2022-06-04 22:49] LABS: Appearance Urine Clear (Clear); Bacteria Urine Automated Negative (Negative); Bilirubin Urine Negative (Negative); Blood Urine Negative (Negative); Color Urine Yellow; Epithelial Cell Urine Auto >30 /lpf (0-5); Glucose Urine UA Negative (Negative); Ketones Urine Negative (Negative); Leukocyte Esterase Urine 2+ (Negative); Nitrite Urine Negative (Negative); Protein Urine Trace (Negative); RBC Urine Automated 0-4 /hpf (0-4); Specific Gravity Urine 1.011 (1.000-1.030); Urobilinogen Urine Negative (Negative)
--- NOTE | 2022-06-04 23:49 | History & Physical Report ---
Date of Service June 04, 2022 Assessment & Plan (1) ASRITHA (acute kidney injury): Plan: Creatinine 2.49 upon admission, with base 1.05 Question Secondary to large left retroperitoneal mass Consult oncology Dr. Palacio Consult urology Dr. Merida. Question is whether only option is to treat the mass, or is a urologic option possible IV fluids Repeat laboratories in a.m. (2) Hydronephrosis, left: Plan: Left hydroureteronephrosis/acute kidney injury- Secondary to large left retroperitoneal mass (3) Hydroureter on left: Plan: see above (4) Epigastric abdominal pain: Plan: Patient's most significant symptoms. Give pantoprazole 40 mg IV and famotidine 20 mg IV now Placed on pantoprazole 40 mg p.o. twice daily and famotidine 20 mg p.o. twice daily Add Carafate 4 times daily (5) Acute hyponatremia: Plan: Sodium 126 on admission, with base 137 IV fluids, and repeat laboratories in a.m. (6) Type 2 diabetes, HbA1c goal < 7%: Plan: Hold metformin Continue glargine 10 units daily Placed on Accu-Cheks with NovoLog coverage (7) Hypothyroidism: Plan: Continue levothyroxine 75 mcg daily (8) Hypertension: (9) Metastasis from pancreatic cancer: Plan: Worsening as noted on CT consult Dr. Palacio (10) Gastroesophageal reflux disease: (11) Portal vein thrombosis: Plan: For now hold Xarelto until determined no procedure will be performed Start heparin drip in a.m. 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 Primary Care Provider: Manny Wren DO The patient is a 76-year-old female with a past medical history including metastatic pancreatic cancer, diabetes mellitus, hypertension, hypothyroidism, chronic pain syndrome, GERD, mesenteric vein thrombosis, CKD, cervical radiculopathy, diabetic peripheral neuropathy, history of pancreatitis, portal vein thrombosis, bilateral sensorineural hearing loss and spinal stenosis. On 04/15/2022, patient had left subclavian Mediport removed, and a right IJ Mediport placed. CT scan of abdomen pelvis showed left hydroureteronephrosis, secondary to large left retroperitoneal conglomerate of mass that was increased in size compared to previous, with extensive metastases from pancreatic malignancy noted. Allergies Allergy/AdvReac Type Severity Reaction Status Date / Time No Known Allergies Allergy Verified 06/04/22 23:57 Home Medications Medication Instructions Recorded Confirmed Type ascorbic acid (vitamin C) 1,000 mg 1 gm PO DAILY 05/02/18 06/04/22 History tablet cholecalciferol (vitamin D3) 50 2,000 unit PO QAM 09/03/19 06/04/22 History mcg (2,000 unit) tablet (Vitamin D3) omeprazole 20 mg tablet,delayed 20 mg PO DAILY PRN Heartburn 09/03/19 06/04/22 History release furosemide 20 mg tablet (Lasix) 20 mg PO DAILY PRN edema #90 tabs 03/07/20 06/04/22 Rx ondansetron HCl 8 mg tablet 8 mg PO Q8 PRN Nausea 09/09/20 06/04/22 History metformin 1,000 mg tablet 1,000 mg PO BID #180 tabs 08/03/21 06/04/22 Rx lisinopril 10 mg tablet 10 mg PO DAILY #90 tabs 02/04/22 06/04/22 Rx blood sugar diagnostic (OneTouch 02/24/22 06/04/22 History Verio test strips) acetaminophen 500 mg tablet 1,000 mg PO Q8H PRN fever or pain 03/08/22 06/04/22 Rx (Tylenol Extra Strength) #90 tabs diclofenac sodium 1 % topical gel 2 g EXT BID PRN arthritic pain 03/08/22 06/04/22 Rx (Voltaren Arthritis Pain) #100 grams fentanyl 12 mcg/hr transdermal 1 patch transdermal Q72H 03/24/22 06/04/22 History patch oxycodone 5 mg capsule 5 mg PO Q4H PRN Pain 03/24/22 06/04/22 History ciprofloxacin HCl 500 mg tablet 500 mg PO BID 06/01/22 06/04/22 History (Cipro) gabapentin 300 mg capsule 300 mg PO BID 06/04/22 06/04/22 History insulin glargine 100 unit/mL (3 10 - 20 unit subcut QPM 06/04/22 06/04/22 History mL) subcutaneous pen (Basaglar KwikPen U-100 Insulin) levothyroxine 75 mcg tablet 75 mcg PO DAILYBB 06/04/22 06/04/22 History (Synthroid) pantoprazole 40 mg tablet,delayed 40 mg PO DAILY 06/04/22 06/04/22 History release rivaroxaban 20 mg tablet (Xarelto) 20 mg PO DAILY 06/04/22 06/04/22 History Past Med/Surg History Medical History (Updated 06/05/22 @ 02:41 by Venkat Cloud MD) Anemia Chronic Cervical radiculopathy Chronic kidney disease Degenerative disc disease Diabetes mellitus type II, uncontrolled Diabetic peripheral neuropathy associated with type 2 diabetes mellitus Dyslipidemia Edema of lower extremity Recent lasix rx Gastroesophageal reflux disease History of COVID-19 03/2021 > hospitalized for PNA ([facility]) History of IBS History of pancreatitis Hypertension Hypothyroidism Mesenteric vein thrombosis Per records, pt uncertain of details Pancreatic cancer Current chemo (last dose 04/13/22) Portal vein thrombosis Per remote records, pt uncertain of details Sensorineural hearing loss of both ears Spinal stenosis Surgical History H/O colonoscopy with polypectomy History of carpal tunnel surgery RT/LEFT History of dilation and curettage History of ERCP History of esophagogastroduodenoscopy (EGD) History of tooth extraction Hx of cataract surgery RT/LEFT Port-A-Cath in place Insertion of Mediport With Fluoroscopy Dr. Kern 09-06-19>LEFT SIDE "NOT WORKING NOW" REASON FOR PROCEDURE S/P tubal ligation Family History Brother No problems noted. Aunt Breast cancer maternal Sister Breast cancer FHx: pancreatic cancer Father Diabetes Lung disease Mother Diabetes Renal failure Peripheral vascular disease Other No family history of adverse response to anesthesia Social History Smoking Status: Never smoker Second Hand Exposure: Yes (mother smoked); Do You Dip or Chew Tobacco: No; Tobacco Cessation Education Requested by Patient: No Hx Alcohol Use: No Hx Substance Use: No Preferred Language: Pashto Communication Ability: Effective Visual Impairment: Diminished Hearing Ability: Hard of Hearing Terrazzo Layer Helper Required: No Beliefs That Will Affect Care: None marital status: Current Living Situation: Spouse current occupational status: retired Other Information That Helps Us Care for You: No Feels Safe at Home: Yes Safety Concerns: Feels Safe At This Time Childhood Exposure to Second-Hand Smoke: Yes Diet Comment: Low fat caffeine: Yes Dental Care, Regularly: Yes Physical Activity Frequency: Daily Physical Activity Frequency Comment: leg exercises Seatbelt Use: always Sunscreen Use: Yes Do you think of yourself as: straight/heterosexual Assistive Devices: Walker Assistive Devices Comment: uses walker at night Review of Systems Review of Systems: The patient denies chest pain, palpitations, shortness of breath, dyspnea on exertion, cough, lower extremity swelling, sore throat, fevers, chills, sweats, diarrhea , constipation, blood in urine or stool, dysuria, urinary frequency or urgency, lightheadedness, dizziness, headache, memory loss, loss of consciousness, rash, abnormal bruising or bleeding, imbalance, focal weakness, numbness or tingling in arms or legs, generalized art hralgias or myalgias, back or neck pain, or night sweats. The review of systems is otherwise negative other than for that already noted above, and at least 10 systems have been reviewed. Physical Exam Physical Exam: The patient is awake, alert and oriented 3, well developed and well nourished, normocephalic and atraumatic, lying in bed and in no acute distress. HEENT--PERRL, EOMI, mucous membranes and oropharynx dry. Neck--supple. No JVD. No bruits. Thyroid normal, trachea midline, no adenopathy. Heart--normal S1 and S2. No murmurs, rubs or gallops. Lungs--clear bilaterally, no respiratory distress, no accessory muscle use. Abdomen--normal bowel sounds and soft. Mild epigastric discomfort. No ndistended Extremities--no cyanosis or clubbing. No edema Dermatologic--normal skin turgor, normal color, no abnormal lymph nodes, no rash. Neurologic--cranial nerves II through XII grossly intact. Rheumatologic--normal range of motion. Psychiatric--normal affect. Results & Data Results & Data ([facility]) Vital Signs (Past 12 Hours) Vital Signs Temp Pulse Pulse Resp BP BP Pulse Ox 06/04/22 22:36 64 16 122/65 96 06/04/22 20:36 64 16 116/74 94 06/04/22 18:41 36.3 C L 106 H 18 126/64 99 O2 Del Method 06/04/22 22:36 06/04/22 20:36 Room Air 06/04/22 18:41 Room Air Laboratory Results Laboratory Results WBC 10.40 K/ul (4.8-10.8) 06/04/22 19:05 RBC 2.56 M/uL (3.93-5.22) L 06/04/22 19:05 Hgb 8.6 g/dl (12.0-16.0) L 06/04/22 19:05 Hct 24.9 % (34.1-44.9) L 06/04/22 19:05 MCV 97.3 fL (80.0-100.0) 06/04/22 19:05 MCH 33.6 pg (25.0-34.0) 06/04/22 19:05 MCHC 34.5 g/dL (32.0-36.0) 06/04/22 19:05 RDW Std Deviation 72.1 fL (36.4-46.3) H 06/04/22 19:05 RDW Coeff of Juanjose 20.6 % (11.5-14.5) H 06/04/22 19:05 Plt Count 261 K/uL (130-400) 06/04/22 19:05 MPV 9.0 fL (9.4-12.3) L 06/04/22 19:05 Immature Gran % (Auto) 0.7 % 06/04/22 19:05 Neut % (Auto) 79.0 % 06/04/22 19:05 Lymph % (Auto) 7.3 % 06/04/22 19:05 Gregg % (Auto) 10.5 % 06/04/22 19:05 Eos % (Auto) 2.0 % 06/04/22 19:05 Baso % (Auto) 0.5 % 06/04/22 19:05 Neut # (Auto) 8.22 K/uL (1.4-6.5) H 06/04/22 19:05 Lymph # (Auto) 0.76 K/uL (1.2-3.4) L 06/04/22 19:05 Gregg # (Auto) 1.09 K/uL (0.24-0.82) H 06/04/22 19:05 Eos # (Auto) 0.21 K/uL (0-0.50) 06/04/22 19:05 Baso # (Auto) 0.05 K/uL (0-0.2) 06/04/22 19:05 Immature Gran # (Auto) 0.07 K/uL (0.00-0.02) H 06/04/22 19:05 Polychromasia 1+ 06/04/22 19:05 Anisocytosis Present 06/04/22 19:05 Tear Drop Cells 1+ 06/04/22 19:05 Rouleaux 1+ 06/04/22 19:05 Sodium 126 mmol/L (136-145) L 06/04/22 19:05 Potassium 4.5 mmol/L (3.5-5.1) 06/04/22 19:05 Chloride 93 mmol/L (98-107) L 06/04/22 19:05 Carbon Dioxide 24 mmol/L (21-32) 06/04/22 19:05 Anion Gap 9 (3-11) 06/04/22 19:05 BUN 43 mg/dl (6-23) H 06/04/22 19:05 Creatinine 2.49 mg/dl (0.6-1.2) H 06/04/22 19:05 Est Cr Clr Drug Dosing Not Reportable 06/04/22 19:05 Est GFR ( Amer) 21.3 ml/min 06/04/22 19:05 Est GFR (Non-Af Amer) 18.4 ml/min 06/04/22 19:05 BUN/Creatinine Ratio 17.3 (10-20) 06/04/22 19:05 Glucose 245 mg/dl (70-99(Fasting)) H 06/04/22 19:05 Calcium 8.5 mg/dl (8.5-10.1) 06/04/22 19:05 Total Bilirubin 0.6 mg/dl (0.2-1.0) 06/04/22 19:05 AST 29 U/L (13-39) 06/04/22 19:05 ALT 13 U/L (7-52) 06/04/22 19:05 Alkaline Phosphatase 254 U/L (34-104) H 06/04/22 19:05 Total Protein 6.7 gm/dl (6.0-8.3) 06/04/22 19:05 Albumin 3.3 gm/dl (3.4-5.0) L 06/04/22 19:05 Globulin 3.4 gm/dl (2.5-4.0) 06/04/22 19:05 Albumin/Globulin Ratio 1.0 (0.9-2) 06/04/22 19:05 Lipase 14 U/L (11-82) 06/04/22 19:05 Urine Color Yellow 06/04/22: Urine Appearance Clear (Clear) 06/04/22: Urine pH 5.0 (4.5-7.5) 06/04/22: Ur Specific Crandall 1.011 (1.000-1.030) 06/04/22: Urine Protein Trace (Negative) H 06/04/22:32 Urine Glucose (UA) Negative (Negative) 06/04/22: Urine Ketones Negative (Negative) 06/04/22: Urine Blood Negative (Negative) 06/04/22: Urine Nitrite Negative (Negative) 06/04/22:32 Urine Bilirubin Negative (Negative) 06/04/22:32 Urine Urobilinogen Negative (Negative) 06/04/22:32 Ur Leukocyte Esterase 2+ (Negative) H 06/04/22:32 Urine WBC (Auto) 10-30 /hpf (0-5) H 06/04/22 22:32 Urine RBC (Auto) 0-4 /hpf (0-4) 06/04/22: U Hyaline Cast (Auto) 5-10 /lpf (0-5) H 06/04/22:32 U Epithel Cells (Auto) >30 /lpf (0-5) H 06/04/22 22:32 Urine Bacteria (Auto) Negative (Negative) 06/04/22:32 Ur Renal Epithelial Cell 5-10 /lpf (0-5) H 06/04/22 22:32 SARS-CoV-2, RNA, NAAT NEGATIVE (NEGATIVE) 06/04/22 22:30 Impressions Abdomen/Pelvis CT 06/04/22 20:42 CT abd pelvis wo con CLINICAL HISTORY: sartiha hx pancreatic ca TECHNIQUE: Helical axial images of the abdomen and pelvis were obtained. Automated dose lowering techniques and/or adjustment according to patient size were utilized for this exam. This exam was performed without intravenous contrast. CT DOSE: 493.95 mGy.cm COMPARISON: Comparison is made to CT abdomen pelvis 05/25/2022 FINDINGS: Lower chest: Numerous pulmonary nodules are seen. Bilateral calcifications are seen. Liver: Numerous hepatic lesions are seen. Gallbladder and biliary tree: No calcified gallstones. Normal caliber wall. No intra- or extrahepatic biliary ductal dilation. Pancreas: Pancreatic nodules are seen. Although evaluation is limited by noncontrast technique, the appearance is similar to prior exam. Spleen: Unremarkable. Adrenals: There is a left adrenal nodule, similar in extent to prior exam. Kidneys and ureters: There is new left hydronephrosis secondary to ureteric obstruction from a retroperitoneal mass. The right kidney is unremarkable. Bladder: Limited evaluation due to underdistention. Reproductive organs: Unremarkable. Bowel: Diverticulosis is seen without evidence of diverticulitis. The appendix is normal. A hiatal hernia is seen. Lymph nodes Retroperitoneal: Minimal enlargement of a left soft tissue mass, now measures 46 x 58 mm compared to 42 x 58 mm in prior exam. Pelvic: Unremarkable. Mesenteric: Unremarkable. Peritoneum: Numerous peritoneal deposits are again seen, overall similar in size to prior exam. Vessels: Atherosclerotic calcifications are seen. Abdominal wall: Bilateral fat-containing inguinal hernias are seen. Bones: Degenerative changes in the visualized spine. IMPRESSION: 1. Interval development of left-sided hydronephrosis and hydroureter secondary to a large left retroperitoneal conglomerate which has enlarged in the interval. 2. Redemonstration of extensive metastatic disease in this patient with pancreatic malignancy. Homero, hepatic, adrenal, pulmonary, and mesenteric foci of disease are seen. 3. Additional findings as above. ACT 112: Negative or not required by law. Electronically signed by: Ramirez Ellison M.D. 06/04/2022 10:26 PM Code Status & VTE Plan Code Status Full code VTE Prophylaxis Plan VTE Prophylaxis will be ordered: Yes PG Care Time/CCT Total # of Minutes Spent Total Time Spent with Patient: Total time spent is greater than 50% in coordination of care (as documented) at patient's floor/unit and/or counseling patient: Coding Level of Care Code 85203 Initial Inpt Care Lvl 3 Diagnoses SARITHA (acute kidney injury) N17.9 Hydronephrosis, left N13.30 Hydroureter on left N13.4 Epigastric abdominal pain R10.13 Acute hyponatremia E87.1 Type 2 diabetes, HbA1c goal < 7% E11.9 Hypothyroidism E03.9 Hypertension I10 Metastasis from pancreatic cancer C79.9; C25.9 Gastroesophageal reflux disease K21.9 Portal vein thrombosis I81 Mesenteric vein thrombosis K55.069
--- NOTE | 2022-06-05 00:12 | Emergency Department Note ---
History of Present Illness General Chief Complaint: Abdominal Pain Stated Complaint: ABD PAIN, VOMITTING, REF BY DR ARIELLE KNOWLES Time Seen by Provider: 06/04/22 20:41 History of Present Illness Provider Complaint: abdominal pain Onset (ago): 1 day(s) Pain Consistency: constant Severity: moderate Maximum Pain Intensity: 4 Current Pain Intensity: 4 Quality: + stabbing, + aching, + sharp and + dull Relieved By: + nothing Exacerbated By: + nothing Context: + history of similar episodes (History of metastatic pancreatic cancer); no foreign travel, no possible food poisoning, no sick contacts, no recent antibiotic use, no recent surgery/procedure or no recent injury Associated Symptoms: no nausea, no vomiting, no diarrhea, no fever, no chills, no dysuria, no hematemesis, no hematochezia, no melena, no hematuria, no anorexia, no headache, no neck pain and no chest pain Difficulty urinating Home Medications Medication Instructions Recorded Confirmed Type ascorbic acid (vitamin C) 1,000 mg 1 gm PO DAILY 05/02/18 06/04/22 History tablet cholecalciferol (vitamin D3) 50 2,000 unit PO QAM 09/03/19 06/04/22 History mcg (2,000 unit) tablet (Vitamin D3) omeprazole 20 mg tablet,delayed 20 mg PO DAILY PRN Heartburn 09/03/19 06/04/22 History release furosemide 20 mg tablet (Lasix) 20 mg PO DAILY PRN edema #90 tabs 03/07/20 06/04/22 Rx ondansetron HCl 8 mg tablet 8 mg PO Q8 PRN Nausea 09/09/20 06/04/22 History metformin 1,000 mg tablet 1,000 mg PO BID #180 tabs 08/03/21 06/04/22 Rx lisinopril 10 mg tablet 10 mg PO DAILY #90 tabs 02/04/22 06/04/22 Rx blood sugar diagnostic (OneTouch 02/24/22 06/04/22 History Verio test strips) acetaminophen 500 mg tablet 1,000 mg PO Q8H PRN fever or pain 03/08/22 06/04/22 Rx (Tylenol Extra Strength) #90 tabs diclofenac sodium 1 % topical gel 2 g EXT BID PRN arthritic pain 03/08/22 1 Rx (Voltaren Arthritis Pain) #100 grams fentanyl 12 mcg/hr transdermal 1 patch transdermal Q72H 03/24/22 06/04/22 History patch oxycodone 5 mg capsule 5 mg PO Q4H PRN Pain 03/24/22 06/04/22 History ciprofloxacin HCl 500 mg tablet 500 mg PO BID 06/01/22 06/04/22 History (Cipro) gabapentin 300 mg capsule 300 mg PO BID 06/04/22 06/04/22 History insulin glargine 100 unit/mL (3 10 - 20 unit subcut QPM 06/04/22 06/04/22 History mL) subcutaneous pen (Basaglar KwikPen U-100 Insulin) levothyroxine 75 mcg tablet 75 mcg PO DAILYBB 06/04/22 06/04/22 History (Synthroid) pantoprazole 40 mg tablet,delayed 40 mg PO DAILY 06/04/22 06/04/22 History release rivaroxaban 20 mg tablet (Xarelto) 20 mg PO DAILY 06/04/22 06/04/22 History Allergies Allergy/AdvReac Type Severity Reaction Status Date / Time No Known Allergies Allergy Verified 06/04/22 23:57 Past Med/Surg History Medical History Anemia Chronic Cervical radiculopathy Chronic kidney disease Degenerative disc disease Diabetes mellitus type II, uncontrolled Diabetic peripheral neuropathy associated with type 2 diabetes mellitus Dyslipidemia Edema of lower extremity Recent lasix rx Gastroesophageal reflux disease History of COVID-19 03/2021 > hospitalized for PNA ([facility]) History of IBS History of pancreatitis Hypertension Hypothyroidism Mesenteric vein thrombosis Per records, pt uncertain of details Pancreatic cancer Current chemo (last dose 04/13/22) Portal vein thrombosis Per remote records, pt uncertain of details Sensorineural hearing loss of both ears Spinal stenosis Surgical History H/O colonoscopy with polypectomy History of carpal tunnel surgery RT/LEFT History of dilation and curettage History of ERCP History of esophagogastroduodenoscopy (EGD) History of tooth extraction Hx of cataract surgery RT/LEFT Port-A-Cath in place Insertion of Mediport With Fluoroscopy Dr. Kern 09-06-19>LEFT SIDE "NOT WORKING NOW" REASON FOR PROCEDURE S/P tubal ligation Family History Brother No problems noted. 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: No Beliefs That Will Affect Care: None marital status: Current Living Situation: Spouse current occupational status: retired Feels Safe at Home: Yes Childhood Exposure to Second-Hand Smoke: Yes Diet Comment: Low fat caffeine: Yes Dental Care, Regularly: Yes Physical Activity Frequency: Daily Physical Activity Frequency Comment: leg exercises Seatbelt Use: always Sunscreen Use: Yes Do you think of yourself as: straight/heterosexual Assistive Devices: Cane, Glasses and Walker Review of Systems A total of 10 systems reviewed and were otherwise negative Physical Exam Vital Signs: Vital Signs - 24 hr 06/04/22 18:41 06/04/22 20:36 06/04/22 22:36 Temperature 36.3 C L Temperature Source Temporal Artery Sc an Pulse Rate 106 H Pulse Rate [Right Finger] 64 64 Pulse Rhythm [Righ t Finger] Regular Regular Pulse Strength [Ri ght Finger] Normal Respiratory Rate 18 16 16 Respiratory Effort / Characteristics Non-Labored Non-Labored Respiratory Depth Normal Normal Normal Blood Pressure 126/64 Blood Pressure [Ri ght Arm] 116/74 122/65 Blood Pressure Clarissa n 84 Blood Pressure Clarissa n [Right Arm] 88 84 Pulse Oximetry 99 94 96 Oxygen Delivery Me thod Room Air Room Air Sepsis Recent Feve r Within 48 Hours No Sepsis New/Unexpla ined Change in Men germania Status No Sepsis Action Take n by Nursing No Action Required Physical Exam: Physical Exam GENERAL: She is oriented to person, place, and time. She appears well-developed and well-nourished. She does not appear distressed. HENT: Exam performed. -Head: Normocephalic and atraumatic. -Right Ear: External ear normal. No mastoid tenderness. -Left Ear: External ear normal. No mastoid tenderness. -Mouth/Throat: The oropharynx is clear and moist. No trismus in the jaw. No dental abscesses or uvula swelling. No oropharyngeal exudate or tonsillar abscesses. EYES: Conjunctivae and EOM are normal. Pupils are equal, round, and reactive to light. Right eye exhibits no discharge. Left eye exhibits no discharge. No scleral icterus. NECK: Normal range of motion. Neck supple. No JVD present. No spinous process tenderness present. No carotid bruit present. No rigidity. No tracheal deviation and normal range of motion present. No Brudzinski's sign and no Kernig's sign noted. CV: Normal rate, regular rhythm, normal heart sounds and intact distal pulses. There is no peripheral edema. Palpable radial pulses bue. PULM/CHEST: Effort normal and breath sounds normal. No respiratory distress. No stridor. She has no wheezes. She has no rales. -Chest Wall: She exhibits no tenderness. ABD: The abdomen is soft. Bowel sounds are normal. She has no distension. No mass is present. There is tenderness to palpation of the epigastric area. There is no rebound, no guarding, no Robertson's sign and no tenderness at McBurney's point. Rovsig negative MUSC/SKEL: Normal range of motion. There is no peripheral edema, tenderness or deformity. LYMPH: No cervical adenopathy. NEURO: She is alert and oriented to person, place, and time. She has normal strength. No cranial nerve deficit or sensory deficit. Coordination and gait normal. GCS eye subscore is 4. GCS verbal subscore is 5. GCS motor subscore is 6. Cerebellar tests wnl. SKIN: Skin is warm and dry. She is not diaphoretic. PSYCH: She has a normal mood and affect. Behavior is normal. Judgment and t hought content normal. Course Course 2040: The patient was evaluated in room B8. A complete history and physical exam was performed Cardiac monitoring: An order was placed for continuous cardiac monitoring. The monitor shows a rate of 90 with sinus rhythm 2250: Vital signs stable. Labs show sodium of 1.6. Creatinine of 2.49. Patient is able to make urine. CT of the abdomen pelvis showed left-sided hydronephrosis and hydroureter secondary to a left large retroperitoneal conglomerate which is increased since the CT scan done 11 days ago. There is redemonstration of metastatic disease and pancreatic malignancy. Discussed the case with admitting team Dr. Fallon who admit the patient to his service. Administered Medications Sodium Chloride (Nss 1000ml) 1,000 mls @ 125 mls/hr IV .Q8H PEDRO PABLO Stop: 07/04/22 20:44 Last Admin: 06/04/22 21:13 Dose: 125 mls/hr Documented By: ASA Discontinued Medications Morphine Sulfate (Morphine Sulfate 4 Mg/Ml 1 Ml Carp\\Vial) 4 mg IV NOW STA Stop: 06/04/22 20:49 Last Admin: 06/04/22 20:56 Dose: 4 mg Documented By: ASA Morphine Sulfate (Morphine Sulfate 10 Mg/Ml Carp/Vial) 6 mg IV NOW STA Stop: 06/04/22 22:49 Last Admin: 06/04/22 23:03 Dose: 6 mg Documented By: ASA Ondansetron HCl (Ondansetron Inj 2 Mg/Ml 2 Ml Vial) 4 mg IV NOW STA Stop: 06/04/22 20:49 Last Admin: 06/04/22 20:56 Dose: 4 mg Documented By: ASA Medical Decision Making Laboratory Data Result diagrams: 06/04/22 19:05 06/04/22 19:05 Lab Results 06/04/22 06/04/22 06/04/22 Range/Units 19:05 19:05 22:30 WBC 10.40 (4.8-10.8) K/ul RBC 2.56 L (3.93-5.22) M/uL Hgb 8.6 L (12.0-16.0) g/dl Hct 24.9 L (34.1-44.9) % MCV 97.3 (80.0-100.0) fL MCH 33.6 (25.0-34.0) pg MCHC 34.5 (32.0-36.0) g/dL RDW Std Deviation 72.1 H (36.4-46.3) fL RDW Coeff of Juanjose 20.6 H (11.5-14.5) % Plt Count 261 (130-400) K/uL MPV 9.0 L (9.4-12.3) fL Immature Gran % (Auto) 0.7 % Neut % (Auto) 79.0 % Lymph % (Auto) 7.3 % Garden % (Auto) 10.5 % Eos % (Auto) 2.0 % Baso % (Auto) 0.5 % Neut # (Auto) 8.22 H (1.4-6.5) K/uL Lymph # (Auto) 0.76 L (1.2-3.4) K/uL Garden # (Auto) 1.09 H (0.24-0.82) K/uL Eos # (Auto) 0.21 (0-0.50) K/uL Baso # (Auto) 0.05 (0-0.2) K/uL Immature Gran # (Auto) 0.07 H (0.00-0.02) K/uL Polychromasia 1+ Anisocytosis Present Tear Drop Cells 1+ Rouleaux 1+ Sodium 126 L (136-145) mmol/L Potassium 4.5 (3.5-5.1) mmol/L Chloride 93 L (98-107) mmol/L Carbon Dioxide 24 (21-32) mmol/L Anion Gap 9 (3-11) BUN 43 H (6-23) mg/dl Creatinine 2.49 H (0.6-1.2) mg/dl Est Cr Clr Drug Dosing Not Reportable Est GFR ( Amer) 21.3 ml/min Est GFR (Non-Af Amer) 18.4 ml/min BUN/Creatinine Ratio 17.3 (10-20) Glucose 245 H (70-99(Fasting)) mg/dl Calcium 8.5 (8.5-10.1) mg/dl Total Bilirubin 0.6 (0.2-1.0) mg/dl AST 29 (13-39) U/L ALT 13 (7-52) U/L Alkaline Phosphatase 254 H (34-104) U/L Total Protein 6.7 (6.0-8.3) gm/dl Albumin 3.3 L (3.4-5.0) gm/dl Globulin 3.4 (2.5-4.0) gm/dl Albumin/Globulin Ratio 1.0 (0.9-2) Lipase 14 (11-82) U/L Urine Color Urine Appearance (Clear) Urine pH (4.5-7.5) Ur Specific [place] (1.000-1.030) Urine Protein (Negative) Urine Glucose (UA) (Negative) Urine Ketones (Negative) Urine Blood (Negative) Urine Nitrite (Negative) Urine Bilirubin (Negative) Urine Urobilinogen (Negative) Ur Leukocyte Esterase (Negative) Urine WBC (Auto) (0-5) /hpf Urine RBC (Auto) (0-4) /hpf U Hyaline Cast (Auto) (0-5) /lpf U Epithel Cells (Auto) (0-5) /lpf Urine Bacteria (Auto) (Negative) Ur Renal Epithelial Cell (0-5) /lpf SARS-CoV-2, RNA, NAAT NEGATIVE (NEGATIVE) 06/04/22 Range/Units 22:32 WBC (4.8-10.8) K/ul RBC (3.93-5.22) M/uL Hgb (12.0-16.0) g/dl Hct (34.1-44.9) % MCV (80.0-100.0) fL MCH (25.0-34.0) pg MCHC (32.0-36.0) g/dL RDW Std Deviation (36.4-46.3) fL RDW Coeff of Juanjose (11.5-14.5) % Plt Count (130-400) K/uL MPV (9.4-12.3) fL Immature Gran % (Auto) % Neut % (Auto) % Lymph % (Auto) % Garden % (Auto) % Eos % (Auto) % Baso % (Auto) % Neut # (Auto) (1.4-6.5) K/uL Lymph # (Auto) (1.2-3.4) K/uL Garden # (Auto) (0.24-0.82) K/uL Eos # (Auto) (0-0.50) K/uL Baso # (Auto) (0-0.2) K/uL Immature Gran # (Auto) (0.00-0.02) K/uL Polychromasia Anisocytosis Tear Drop Cells Rouleaux Sodium (136-145) mmol/L Potassium (3.5-5.1) mmol/L Chloride (98-107) mmol/L Carbon Dioxide (21-32) mmol/L Anion Gap (3-11) BUN (6-23) mg/dl Creatinine (0.6-1.2) mg/dl Est Cr Clr Drug Dosing Est GFR ( Amer) ml/min Est GFR (Non-Af Amer) ml/min BUN/Creatinine Ratio (10-20) Glucose (70-99(Fasting)) mg/dl Calcium (8.5-10.1) mg/dl Total Bilirubin (0.2-1.0) mg/dl AST (13-39) U/L ALT (7-52) U/L Alkaline Phosphatase (34-104) U/L Total Protein (6.0-8.3) gm/dl Albumin (3.4-5.0) gm/dl Globulin (2.5-4.0) gm/dl Albumin/Globulin Ratio (0.9-2) Lipase (11-82) U/L Urine Color Yellow Urine Appearance Clear (Clear) Urine pH 5.0 (4.5-7.5) Ur Specific [place] 1.011 (1.000-1.030) Urine Protein Trace H (Negative) Urine Glucose (UA) Negative (Negative) Urine Ketones Negative (Negative) Urine Blood Negative (Negative) Urine Nitrite Negative (Negative) Urine Bilirubin Negative (Negative) Urine Urobilinogen Negative (Negative) Ur Leukocyte Esterase 2+ H (Negative) Urine WBC (Auto) 10-30 H (0-5) /hpf Urine RBC (Auto) 0-4 (0-4) /hpf U Hyaline Cast (Auto) 5-10 H (0-5) /lpf U Epithel Cells (Auto) >30 H (0-5) /lpf Urine Bacteria (Auto) Negative (Negative) Ur Renal Epithelial Cell 5-10 H (0-5) /lpf SARS-CoV-2, RNA, NAAT (NEGATIVE) Imaging Data Radiologist's Impression: Abdomen/Pelvis CT 06/04/22 20:42 CT abd pelvis wo con CLINICAL HISTORY: gabriella hx pancreatic ca TECHNIQUE: Helical axial images of the abdomen and pelvis were obtained. Automated dose lowering techniques and/or adjustment according to patient size were utilized for this exam. This exam was performed without intravenous contrast. CT DOSE: 493.95 mGy.cm COMPARISON: Comparison is made to CT abdomen pelvis 05/25/2022 FINDINGS: Lower chest: Numerous pulmonary nodules are seen. Bilateral calcifications are seen. Liver: Numerous hepatic lesions are seen. Gallbladder and biliary tree: No calcified gallstones. Normal caliber wall. No intra- or extrahepatic biliary ductal dilation. Pancreas: Pancreatic nodules are seen. Although evaluation is limited by noncontrast technique, the appearance is similar to prior exam. Spleen: Unremarkable. Adrenals: There is a left adrenal nodule, similar in extent to prior exam. Kidneys and ureters: There is new left hydronephrosis secondary to ureteric obstruction from a retroperitoneal mass. The right kidney is unremarkable. Bladder: Limited evaluation due to underdistention. Reproductive organs: Unremarkable. Bowel: Diverticulosis is seen without evidence of diverticulitis. The appendix is normal. A hiatal hernia is seen. Lymph nodes Retroperitoneal: Minimal enlargement of a left soft tissue mass, now measures 46 x 58 mm compared to 42 x 58 mm in prior exam. Pelvic: Unremarkable. Mesenteric: Unremarkable. Peritoneum: Numerous peritoneal deposits are again seen, overall similar in size to prior exam. Vessels: Atherosclerotic calcifications are seen. Abdominal wall: Bilateral fat-containing inguinal hernias are seen. Bones: Degenerative changes in the visualized spine. IMPRESSION: 1. Interval development of left-sided hydronephrosis and hydroureter secondary to a large left retroperitoneal conglomerate which has enlarged in the interval. 2. Redemonstration of extensive metastatic disease in this patient with pancreatic malignancy. Homero, hepatic, adrenal, pulmonary, and mesenteric foci of disease are seen. 3. Additional findings as above. ACT 112: Negative or not required by law. Electronically signed by: Ramirez Ellison M.D. 06/04/2022 10:26 PM MDM Narrative Vital signs stable. Labs show sodium of 1.6. Creatinine of 2.49. Patient is able to make urine. CT of the abdomen pelvis showed left-sided hydronephrosis and hydroureter secondary to a left large retroperitoneal conglomerate which is increased since the CT scan done 11 days ago. There is redemonstration of metastatic disease and pancreatic malignancy. Discussed the case with admitting team Dr. Fallon who admit the patient to his service. Impression & Plan GABRIELLA (acute kidney injury), Pancreatic cancer, Acute hyponatremia Discharge Plan Visit Data Chief Complaint: Abdominal Pain Stated Complaint: ABD PAIN, VOMITTING, REF BY DR ARIELLE KNOWLES ED Provider: Yosef Martin Discharge Problem: GABRIELLA (acute kidney injury), Pancreatic cancer, Acute hyponatremia Patient Disposition: Admitted As Inpatient Forms Stand Alone Forms: [facility] Prescriptions Prescriptions: No Action fentanyl 12 mcg/hr patch 72 hour 1 patch transdermal Q72H oxycodone 5 mg capsule 5 mg PO Q4H PRN (Reason: Pain) ascorbic acid (vitamin C) 1,000 mg tablet 1 gm PO DAILY furosemide [Lasix] 20 mg tablet 20 mg PO DAILY PRN (Reason: edema) Qty: 90 3RF metformin 1,000 mg tablet 1,000 mg PO BID Qty: 180 3RF lisinopril 10 mg tablet 10 mg PO DAILY Qty: 90 3RF Label Comments: QAM ciprofloxacin HCl [Cipro] 500 mg tablet 500 mg PO BID (DME) OneTouch Verio test strips Strip See Rx Instructions .ROUTE .MEDSUPPLY Rx Instructions: use to test three times daily cholecalciferol (vitamin D3) [Vitamin D3] 2,000 unit Tablet 2,000 unit PO QAM omeprazole 20 mg Tablet,Delayed Release (Dr/Ec) 20 mg PO DAILY PRN (Reason: Heartburn) ondansetron HCl 8 mg tablet 8 mg PO Q8 PRN (Reason: Nausea) Xarelto 20 mg tablet 20 mg PO DAILY gabapentin 300 mg capsule 300 mg PO BID pantoprazole 40 mg tablet,delayed release (DR/EC) 40 mg PO DAILY levothyroxine [Synthroid] 75 mcg tablet 75 mcg PO DAILYBB insulin glargine [Basaglar KwikPen U-100 Insulin] 100 unit/mL (3 mL) insulin pen 10 - 20 unit SQ QPM acetaminophen [Tylenol Extra Strength] 500 mg Tablet 1,000 mg PO Q8H PRN (Reason: fever or pain) Qty: 90 0RF diclofenac sodium [Voltaren Arthritis Pain] 1 % Gel 2 g EXT BID PRN (Reason: arthritic pain) Qty: 100 0RF Referrals Referrals: Manny Wren DO [Primary Care Provider] -
[2022-06-05] MEDS ORDERED: ACETAMINOPHEN 500 MG TAB PO PRN (02:18)
[2022-06-05] MEDS ORDERED: DICLOFENAC SOD 1% GEL 100 GM TUBE EXT PRN (02:18)
[2022-06-05] MEDS ORDERED: DEXTROSE 50% 50 ML SYRINGE IV PRN (02:18)
[2022-06-05] MEDS ORDERED: GLUCAGON FOR INJ 1 MG VIAL SQ PRN (02:18)
[2022-06-05] MEDS ORDERED: GLUCOSE 10 TAB/TUBE PO PRN (02:18)
[2022-06-05] MEDS ORDERED: CARBOHYDRATES FOR HYPOGLYCEMIA PO PRN (02:18)
[2022-06-05] MEDS ORDERED: GLUCOSE 40% GEL 15 GM TUBE PO PRN (02:18)
[2022-06-05] MEDS ORDERED: PANTOprazole 40 MG in SYRINGE 0 ML IV ONE (02:30)
[2022-06-05] MEDS ORDERED: FAMOTIDINE 20 MG in SYRINGE 3 ML IV ONE (02:30)
[2022-06-05] MEDS: SODIUM CHLORIDE 0.9% 1000ML 1,000 ML IV SCH ×3 (02:40→21:24)
[2022-06-05] MEDS ORDERED: ONDANSETRON 8MG OD TAB PO PRN (03:03)
[2022-06-05] MEDS ORDERED: oxyCODONE HCL IR 5 MG TAB (IMMEDIATE RELEASE) PO PRN (03:04)
[2022-06-05] MEDS: LEVOTHYROXINE SODIUM 75 MCG TABLET PO SCH (05:49)
[2022-06-05 07:43] LABS: Hematocrit (blood only) 20.8 % (34.1-44.9); Hemoglobin 6.9 g/dl (12.0-16.0); Mean Corpuscular Hemoglobin 32.2 pg (25.0-34.0); Mean Corpuscular Hgb Conc 33.2 g/dL (32.0-36.0); Mean Corpuscular Volume 97.2 fL (80.0-100.0); Platelet Count 208 K/uL (130-400); RDW Coefficient of Variation 20.8 % (11.5-14.5); RDW Standard Deviation 73.8 fL (36.4-46.3); Red Blood Count 2.14 M/uL (3.93-5.22); White Blood Count 8.33 K/ul (4.8-10.8)
[2022-06-05 07:49] LABS: Anisocytosis Present; Basophils # (auto) 0.03 K/uL (0-0.2); Basophils % (auto) 0.4 %; Eosinophils # (auto) 0.27 K/uL (0-0.50); Eosinophils % (auto) 3.2 %; Immature Granulocytes # (auto) 0.06 K/uL (0.00-0.02); Immature Granulocytes % (auto) 0.7 %; Lymphocytes # (auto) 0.89 K/uL (1.2-3.4); Lymphocytes % (auto) 10.7 %; Monocytes # (auto) 0.88 K/uL (0.24-0.82); Monocytes % (auto) 10.6 %; Neutrophils % (auto) 74.4 %; Toxic Vacuolation 1+
[2022-06-05 07:57] LABS: Estimated Average Glucose 151 mg/dl; Hemoglobin A1C 6.9 % (4.5-5.6)
[2022-06-05] MEDS: SUCRALFATE 1 GM/10 ML UDC PO SCH ×4 (08:04→21:26)
[2022-06-05] MEDS: CHECK fentaNYL PATCH PLACEMENT SCH ×3 (08:04→23:16)
[2022-06-05 08:08] LABS: Albumin Level 2.7 gm/dl (3.4-5.0); BUN Creatinine Ratio 16.7 (10-20); Bilirubin,Total 0.5 mg/dl (0.2-1.0); Calcium 7.8 mg/dl (8.5-10.1); Creatinine Clr Calc Pharmacy 18.6 ml/min; Est GFR (African American) 22.3 ml/min; Est GFR (Non-African American) 19.2 ml/min; Globulin 2.7 gm/dl (2.5-4.0); Magnesium 1.6 mg/dl (1.7-2.4); Potassium 4.4 mmol/L (3.5-5.1); Total Protein 5.4 gm/dl (6.0-8.3)
[2022-06-05] MEDS: INSULIN ASPART PER UNIT SC SCH ×4 (08:47→21:26)
[2022-06-05] MEDS: GABAPENTIN 300 MG CAP PO SCH ×2 (09:22→21:26)
[2022-06-05] MEDS: CHOLECALCIFEROL 1,000 UNITS 25 MCG TAB PO SCH (09:22)
[2022-06-05] MEDS: ASCORBIC ACID 500 MG TAB PO SCH (09:23)
[2022-06-05] MEDS: PANTOprazole 40 MG TAB PO SCH (09:23)
[2022-06-05] MEDS ORDERED: SODIUM CHLORIDE 0.9% 250 ML IV PRN (10:38)
[2022-06-05] MEDS ORDERED: ACETAMINOPHEN 325 MG TAB PO SCH (10:38)
[2022-06-05] MEDS ORDERED: diphenhydrAMINE Capsule 25 MG CAP PO SCH (10:38)
[2022-06-05] MEDS: MAGNESIUM SULFATE / D5W 1 GM/100 ML BAG IV SCH ×2 (10:51→21:12)
--- NOTE | 2022-06-05 12:00 | Hospitalist Progress Note ---
Date of Service June 05, 2022 Assessment & Plan (1) GABRIELLA (acute kidney injury): Plan: - Creatinine 2.49 upon admission, with base 1.05 - Believe GABRIELLA to be secondary to large left retroperitoneal mass - Patient started on IVF with little to no improvement on repeat creatinine this AM - Discussed case with Dr. Merida (urology), will see in consult, appreciate assistance * Uncertain if stent placement would be an option for her as there is still concern that mass could compress the stent * Dr. Merida to discuss options with patient - Lisinopril stopped (2) Hydronephrosis, left: Plan: Left hydroureteronephrosis/hydroureter and acute kidney injury- - See above (3) Retroperitoneal mass: Plan: - Unsure etiology, could have component of hemorrhage given worsening anemia (4) Acute on chronic anemia: Plan: - Hgb has ranged 7.7 to 9.8 over the past 6 months - Likely chronic anemia related to chemotherapy for metastatic pancreatic ca - Hgb dropped from 8.4 on 06/04 to 6.9 this AM, a component of this is almost definitely dilutional from fluids - Suspect blood loss also contributing but not through GI tract, so ? retroperitoneal mass with some degree of hemorrhage - Type and crossmatch for 2 units of PRBCs and transfuse. Premedicate prior. No Lasix in between units. - Pt also takes Xarelto for portal vein thrombosis which is on hold - Repeat CBC post transfusion and tomorrow AM (5) Epigastric abdominal pain: Plan: Patient's most significant symptoms. - Give pantoprazole 40 mg IV and famotidine 20 mg IV now - Placed on pantoprazole 40 mg p.o. twice daily and famotidine 20 mg p.o. twice daily - Add Carafate 4 times daily - Symptoms resolved per patient (6) Acute hyponatremia: Plan: Sodium 126 on admission, with base 137 - IV fluids and repeat Na is 130 this AM (7) Type 2 diabetes, HbA1c goal < 7%: Plan: - Hold metformin - Continue glargine 10 units daily - Placed on Accu-Cheks with NovoLog coverage (8) Hypothyroidism: Plan: - Continue levothyroxine 75 mcg daily (9) Hypertension: Plan: - takes Lisinopril at home which is on hold given GABRIELLA - Furthermore, BP marginal w/o antihypertensive (10) Metastasis from pancreatic cancer: Plan: - Worsening per CT report - Per pt, oncology has conveyed nothing more to be done - Discussed with patient if anyone has discussed initiating hospice and she said no - Pt would like to research hospice agencies but is on board with initiating (11) Portal vein thrombosis: Plan: For now hold Xarelto until determined no procedure will be performed - Would not initiate anticoagulation with Heparin gtt given worsening anemia (12) Mesenteric vein thrombosis: Plan: - For now hold Xarelto given worsening anemia Plan Magnesium supplemented for level of 1.6. Patient seems that she is accepting of her terminal prognosis and is willing/ready to enter into hospice but just wants to research the agencies prior to selecting one which is more than reasonable. I asked case management to print out a list of hospice agencies in [email or web address] to provide to patient and her so that they can look it over. I did explain we would be happy to make a referral to an agency of their choice if that would be of help. We also discussed code status this afternoon as she is presently listed as a full code. Given her prognosis, and her acceptance of that prognosis, I asked if she would want heroic measures to sustain her life which she stated she would not. She requested DNR/DNI status and subsequently code status has been formally changed in the computer to reflect those wishes. Plan d/w Dr. Carranza. Admission and Anticipated Discharge Date Admission Date: June 04, 2022 Subjective Patient seen on daily rounds this morning. Pt hospitalized due to epigastric pain. Noted to have slight enlargement of retroperitoneal mass with associated compression of L ureter and kidney and acute kidney injury. This morning, pt appears comfortable. She notes that the abdominal pain has subsided and denies n/v. Hgb this morning was low at 6.9 from 8.4 yesterday and she is willing to have blood transfusion. The ER did perform a rectal exam per patient and was negative. She also notes that she recently was contacted by Dr. Palacio and informed that there was nothing more that could be done to treat her metastatic pancreatic cancer. However, there have been no discussions this far regarding initiating hospice. She is interested but would like to do some research with her prior to selecting an agency. Review of Systems Review of Systems: All systems reviewed and are unremarkable except as noted in HPI and below. Denies fever, chills, fatigue, headache, nasal congestion, sore throat, cough, chest pain, shortness of breath, palpitations, orthopnea, PND, n/v/d, constipation, dysuria, hematuria, frequency, back pain, joint pain or swelling, easy bruising or bleeding, skin lesions or rashes. Physical Exam Physical Exam: GENERAL: 76 yo Well-developed, well-nourished WF. NAD. LUNGS: Clear to auscultation bilaterally. No W/R/R. CARDIOVASCULAR: Regular rate and rhythm. ABDOMEN: Soft, non-tender, mildly distended, normoactive x 4 quad. EXTREMITIES: No edema. Non-tender. Peripheral pulses +2/4. NEUROLOGIC: A&O x3. Nonfocal PSYCHIATRIC: Cooperative. Appropriate mood and affect. SKIN: Warm, dry, intact. generalized pallor. Results & Data Results & Data ([facility]) Vital Signs (Past 12 Hours) Vital Signs Temp Pulse Resp BP Pulse Ox O2 Del Method 06/05/22 07:46 36.5 C 95 H 16 103/63 96 Room Air 06/05/22 02:30 Room Air 06/05/22 02:23 36.4 C L 99 H 18 124/69 97 Room Air 06/05/22 02:21 36.4 C L 99 H 18 124/69 97 Room Air Laboratory Results 06/05/22 06:50 06/05/22 06:50 PG Care Time/CCT Total # of Minutes Spent Total Time Spent with Patient: Total time spent is greater than 50% in coordination of care (as documented) at patient's floor/unit and/or counseling patient: Coding Level of Care Code 43172 Subseq Hosp Care Lvl 3 Diagnoses GABRIELLA (acute kidney injury) N17.9 Hydronephrosis, left N13.30 Retroperitoneal mass R19.00 Acute on chronic anemia D64.9 Epigastric abdominal pain R10.13 Acute hyponatremia E87.1 Type 2 diabetes, HbA1c goal < 7% E11.9 Hypothyroidism E03.9 Hypertension I10 Metastasis from pancreatic cancer C79.9; C25.9 Portal vein thrombosis I81 Mesenteric vein thrombosis K55.069
--- NOTE | 2022-06-05 14:41 | Electrocardiogram Report ---
Test Reason : Blood Pressure : / mmHG Vent. Rate : 095 BPM Atrial Rate : 095 BPM P-R Int : 196 ms QRS Dur : 110 ms QT Int : 402 ms P-R-T Axes : 050 -16 014 degrees QTc Int : 505 ms Poor data quality, interpretation may be adversely affected Normal sinus rhythm Low voltage QRS Incomplete right bundle branch block Prolonged QT Abnormal ECG When compared with ECG of 30-APR-2022 13:02, No significant change was found Confirmed by Leonardo Ceja ([id number]) on 06/05/2022 2:41:39 PM Referred By: Aniyah Herron Confirmed By:Leonardo Ceja
[2022-06-05] MEDS ORDERED: RIVAROXABAN 20 MG TAB PO SCH (15:30)
[2022-06-05] MEDS ORDERED: LANTUS PER UNIT CHARGE SQ SCH (21:00)
[2022-06-06] MEDS: LEVOTHYROXINE SODIUM 75 MCG TABLET PO SCH (05:32)
[2022-06-06 06:57] LABS: Basophils # (auto) 0.04 K/uL (0-0.2); Basophils % (auto) 0.4 %; Eosinophils # (auto) 0.28 K/uL (0-0.50); Eosinophils % (auto) 3.1 %; Hematocrit (blood only) 26.2 % (34.1-44.9); Hemoglobin 8.9 g/dl (12.0-16.0); Immature Granulocytes # (auto) 0.06 K/uL (0.00-0.02); Immature Granulocytes % (auto) 0.7 %; Lymphocytes # (auto) 0.85 K/uL (1.2-3.4); Lymphocytes % (auto) 9.4 %; Mean Corpuscular Volume 94.2 fL (80.0-100.0); Mean Platelet Volume 8.7 fL (9.4-12.3); Monocytes # (auto) 0.85 K/uL (0.24-0.82); Monocytes % (auto) 9.4 %; Neutrophils # (auto) 6.98 K/uL (1.4-6.5); Platelet Count 208 K/uL (130-400); RDW Coefficient of Variation 19.6 % (11.5-14.5); RDW Standard Deviation 64.5 fL (36.4-46.3); Red Blood Count 2.78 M/uL (3.93-5.22); White Blood Count 9.06 K/ul (4.8-10.8)
[2022-06-06 07:29] LABS: Albumin Globulin Ratio 0.9 (0.9-2); Albumin Level 2.6 gm/dl (3.4-5.0); BUN Creatinine Ratio 13.2 (10-20); Bilirubin,Total 0.6 mg/dl (0.2-1.0); Calcium 7.8 mg/dl (8.5-10.1); Creatinine Clr Calc Pharmacy 19.1 ml/min; Est GFR (Non-African American) 19.8 ml/min; Globulin 2.8 gm/dl (2.5-4.0); Magnesium 2.1 mg/dl (1.7-2.4); Potassium 4.6 mmol/L (3.5-5.1); Total Protein 5.4 gm/dl (6.0-8.3)
[2022-06-06] MEDS: PANTOprazole 40 MG TAB PO SCH (08:35)
[2022-06-06] MEDS: ASCORBIC ACID 500 MG TAB PO SCH (08:35)
[2022-06-06] MEDS: GABAPENTIN 300 MG CAP PO SCH (08:36)
[2022-06-06] MEDS: CHOLECALCIFEROL 1,000 UNITS 25 MCG TAB PO SCH (08:36)
[2022-06-06] MEDS: CHECK fentaNYL PATCH PLACEMENT SCH (08:36)
[2022-06-06] MEDS: SUCRALFATE 1 GM/10 ML UDC PO SCH ×2 (08:37→12:46)
[2022-06-06] MEDS ORDERED: fentaNYL 12 MCG/HR TDSY TD SCH (09:00)
[2022-06-06] MEDS: INSULIN ASPART PER UNIT SC SCH ×2 (09:11→12:44)
[2022-06-06] MEDS: SODIUM CHLORIDE 0.9% 1000ML 1,000 ML IV SCH (09:49)
--- NOTE | 2022-06-06 09:55 | Urology Consultation ---
Date of Consultation June 06, 2022 Assessment & Plan (1) Retroperitoneal mass: (2) Hydroureter on left: Plan Advanced/metastatic pancreatic cancer causing left ureteral obstruction secondary to encasement and compression of the ureter We had a lengthy conversation today about the pros and cons of left ureteral stent placement I think at this point she is very content to avoid surgery and stent placementI am in support of this as I fear that it will offer very little in terms of improvement of quality of life and quality of life seems to be her primary concern at the moment From a standpoint I think it is very reasonable to discharge her home If she decides to pursue a stent in the future we can always revisit as an outpatient History of Present Illness Attending Physician: Oswaldo Carranza MD History of Present Illness 76-year-old female with metastatic pancreatic cancer She has been under treatment for 2+ years Has done relatively well with his treatments but unfortunately is now progressing despite treatment She has left-sided hydro secondary to obstruction from a retroperitoneal mass extending off the back of the pancreas and through the retroperitoneum and obstructing the ureter She has some GABRIELLA Subjectively she denies any left flank pain, no urinary issues or dysuria Made a very berta conversation today about the appearance of her left kidney and options for management She is currently contemplating starting hospice I have explained that a left ureteral stone is a theoretical possibility and it could potentially help that left kidney drain, however it comes at the risk of having increased symptoms including hematuria and dysuria as well as the distinct possibility that the stent will not be successful in draining the kidney given the compression from the extrinsic mass Overall I have explained to her I then feel that it may not be appropriate to pursue the stent as I do not anticipate will improve her quality of life but actually increases the possibility of being detrimentalshe is extremely content with this and does not wish to pursue the surgery regardless Allergies Allergy/AdvReac Type Severity Reaction Status Date / Time No Known Allergies Allergy Verified 06/04/22 23:57 Home Medications Medication Instructions Recorded Confirmed Type ascorbic acid (vitamin C) 1,000 mg 1 gm PO DAILY 05/02/18 06/04/22 History tablet cholecalciferol (vitamin D3) 50 2,000 unit PO QAM 09/03/19 06/04/22 History mcg (2,000 unit) tablet (Vitamin D3) omeprazole 20 mg tablet,delayed 20 mg PO DAILY PRN Heartburn 09/03/19 06/04/22 History release furosemide 20 mg tablet (Lasix) 20 mg PO DAILY PRN edema #90 tabs 03/07/20 06/04/22 Rx ondansetron HCl 8 mg tablet 8 mg PO Q8 PRN Nausea 09/09/20 06/04/22 History metformin 1,000 mg tablet 1,000 mg PO BID #180 tabs 08/03/21 06/04/22 Rx lisinopril 10 mg tablet 10 mg PO DAILY #90 tabs 02/04/22 06/04/22 Rx blood sugar diagnostic (OneTouch 02/24/22 06/04/22 History Verio test strips) acetaminophen 500 mg tablet 1,000 mg PO Q8H PRN fever or pain 03/08/22 06/04/22 Rx (Tylenol Extra Strength) #90 tabs diclofenac sodium 1 % topical gel 2 g EXT BID PRN arthritic pain 03/08/22 06/04/22 Rx (Voltaren Arthritis Pain) #100 grams fentanyl 12 mcg/hr transdermal 1 patch transdermal Q72H 03/24/22 06/04/22 History patch oxycodone 5 mg capsule 5 mg PO Q4H PRN Pain 03/24/22 06/04/22 History ciprofloxacin HCl 500 mg tablet 500 mg PO BID 06/01/22 06/04/22 History (Cipro) gabapentin 300 mg capsule 300 mg PO BID 06/04/22 06/04/22 History insulin glargine 100 unit/mL (3 10 - 20 unit subcut QPM 06/04/22 06/04/22 History mL) subcutaneous pen (Blake Hernandez U-100 Insulin) levothyroxine 75 mcg tablet 75 mcg PO DAILYBB 06/04/22 06/04/22 History (Synthroid) pantoprazole 40 mg tablet,delayed 40 mg PO DAILY 06/04/22 06/04/22 History release rivaroxaban 20 mg tablet (Xarelto) 20 mg PO DAILY 06/04/22 06/04/22 History Patient History Medical History Anemia Chronic Cervical radiculopathy Chronic kidney disease Degenerative disc disease Diabetes mellitus type II, uncontrolled Diabetic peripheral neuropathy associated with type 2 diabetes mellitus Dyslipidemia Edema of lower extremity Recent lasix rx Gastroesophageal reflux disease History of COVID-19 03/2021 > hospitalized for PNA ([facility]) History of IBS History of pancreatitis Hypertension Hypothyroidism Mesenteric vein thrombosis Per records, pt uncertain of details Pancreatic cancer Current chemo (last dose 04/13/22) Portal vein thrombosis Per remote records, pt uncertain of details Sensorineural hearing loss of both ears Spinal stenosis Surgical History H/O colonoscopy with polypectomy History of carpal tunnel surgery RT/LEFT History of dilation and curettage History of ERCP History of esophagogastroduodenoscopy (EGD) History of tooth extraction Hx of cataract surgery RT/LEFT Port-A-Cath in place Insertion of Mediport With Fluoroscopy Dr. Kern 09-06-19>LEFT SIDE "NOT WORKING NOW" REASON FOR PROCEDURE S/P tubal ligation Family History Brother No problems noted. Aunt Breast cancer maternal Sister Breast cancer FHx: pancreatic cancer Father Diabetes Lung disease Mother Diabetes Renal failure Peripheral vascular disease Other No family history of adverse response to anesthesia Social History Smoking Status: Never smoker Second Hand Exposure: Yes (mother smoked); Do You Dip or Chew Tobacco: No; Tobacco Cessation Education Requested by Patient: No Hx Alcohol Use: No Hx Substance Use: No Preferred Language: Kiswahili Communication Ability: Effective Visual Impairment: Diminished Hearing Ability: Hard of Hearing Leading Firefighter Required: No Beliefs That Will Affect Care: None marital status: Current Living Situation: Spouse current occupational status: retired Other Information That Helps Us Care for You: No Feels Safe at Home: Yes Safety Concerns: Feels Safe At This Time Childhood Exposure to Second-Hand Smoke: Yes Diet Comment: Low fat caffeine: Yes Dental Care, Regularly: Yes Physical Activity Frequency: Daily Physical Activity Frequency Comment: leg exercises Seatbelt Use: always Sunscreen Use: Yes Do you think of yourself as: straight/heterosexual Assistive Devices: Walker Assistive Devices Comment: uses walker at night Review of Systems Constitutional: + fatigue; no fever and no chills Eyes: no worsening vision Ear, Nose, Mouth, Throat: no facial pain and no pain with swallowing Respiratory: no cough and no dyspnea Cardiovascular: no chest pain and no palpitations Gastrointestinal: + abdominal pain and + nausea; no vomiting Genitourinary: no dysuria, no difficulty urinating, no urinary frequency and no hematuria Musculoskeletal: + back pain Integumentary: no rash and no urticaria Neurologic: no gait abnormality and no unsteadiness Psychiatric: no behavioral changes and no depression Endocrine: no fatigue Physical Exam Physical Exam: Very appropriately interactive No demonstrable left CVA tenderness No suprapubic tenderness Constitutional: well developed and well nourished Respiratory: no respiratory distress Cardiovascular: Extremities: no pedal edema Gastrointestinal (Abdomen): Inspection/Auscultation: abdomen normal to inspection Results & Data ([facility]) Vital Signs (Past 12 Hours) Vital Signs Temp Pulse Resp BP Pulse Ox O2 Del Method 06/06/22 08:04 36.9 C 85 16 120/70 95 Room Air PG Care Time/CCT Total # of Minutes Spent Total Time Spent with Patient: Total time spent is greater than 50% in coordination of care (as documented) at patient's floor/unit and/or counseling patient: Coding Level of Care Code 95353 Inpt Consult Level 4 Diagnoses Retroperitoneal mass R19.00 Hydroureter on left N13.4
--- NOTE | 2022-06-06 10:34 | Discharge Summary ---
Date of Service June 06, 2022 Admission HPI Per Admitting Provider The patient is a 76-year-old female with a past medical history including metastatic pancreatic cancer, diabetes mellitus, hypertension, hypothyroidism, chronic pain syndrome, GERD, mesenteric vein thrombosis, CKD, cervical radiculopathy, diabetic peripheral neuropathy, history of pancreatitis, portal vein thrombosis, bilateral sensorineural hearing loss and spinal stenosis. On 04/15/2022, patient had left subclavian Mediport removed, and a right IJ Mediport placed. CT scan of abdomen pelvis showed left hydroureteronephrosis, secondary to large left retroperitoneal conglomerate of mass that was increased in size compared to previous, with extensive metastases from pancreatic malignancy noted. Principal Diagnosis 1. Retroperitoneal mass 2. L Hydronephrosis and hydroureter 3. GABRIELLA d/t #1/2 4. Acute on chronic anemia s/p blood transfusion 5. Hypomagnesemia-replaced/resolved Discharge Exam GENERAL: 76 yo Well-developed, well-nourished WF. NAD. LUNGS: Clear to auscultation bilaterally. No W/R/R. CARDIOVASCULAR: Regular rate and rhythm. ABDOMEN: Soft, non-tender, mildly distended, normoactive x 4 quad. EXTREMITIES: No edema. Non-tender. Peripheral pulses +2/4. NEUROLOGIC: A&O x3. Nonfocal PSYCHIATRIC: Cooperative. Appropriate mood and affect. SKIN: Warm, dry, intact. generalized pallor. Discharge Data Allergies Allergy/AdvReac Type Severity Reaction Status Date / Time No Known Allergies Allergy Verified 06/04/22 23:57 Consultations 06/04/22 22:41 ED Decision to Admit Stat 06/05/22 11:59 Consult Urology Routine Ordered Studies Abdomen/Pelvis CT 06/04/22 20:42 CT abd pelvis wo con CLINICAL HISTORY: gabriella hx pancreatic ca TECHNIQUE: Helical axial images of the abdomen and pelvis were obtained. Automated dose lowering techniques and/or adjustment according to patient size were utilized for this exam. This exam was performed without intravenous contrast. CT DOSE: 493.95 mGy.cm COMPARISON: Comparison is made to CT abdomen pelvis 05/25/2022 FINDINGS: Lower chest: Numerous pulmonary nodules are seen. Bilateral calcifications are seen. Liver: Numerous hepatic lesions are seen. Gallbladder and biliary tree: No calcified gallstones. Normal caliber wall. No intra- or extrahepatic biliary ductal dilation. Pancreas: Pancreatic nodules are seen. Although evaluation is limited by noncontrast technique, the appearance is similar to prior exam. Spleen: Unremarkable. Adrenals: There is a left adrenal nodule, similar in extent to prior exam. Kidneys and ureters: There is new left hydronephrosis secondary to ureteric obstruction from a retroperitoneal mass. The right kidney is unremarkable. Bladder: Limited evaluation due to underdistention. Reproductive organs: Unremarkable. Bowel: Diverticulosis is seen without evidence of diverticulitis. The appendix is normal. A hiatal hernia is seen. Lymph nodes Retroperitoneal: Minimal enlargement of a left soft tissue mass, now measures 46 x 58 mm compared to 42 x 58 mm in prior exam. Pelvic: Unremarkable. Mesenteric: Unremarkable. Peritoneum: Numerous peritoneal deposits are again seen, overall similar in size to prior exam. Vessels: Atherosclerotic calcifications are seen. Abdominal wall: Bilateral fat-containing inguinal hernias are seen. Bones: Degenerative changes in the visualized spine. IMPRESSION: 1. Interval development of left-sided hydronephrosis and hydroureter secondary to a large left retroperitoneal conglomerate which has enlarged in the interval. 2. Redemonstration of extensive metastatic disease in this patient with pancreatic malignancy. Homero, hepatic, adrenal, pulmonary, and mesenteric foci of disease are seen. 3. Additional findings as above. ACT 112: Negative or not required by law. Electronically signed by: Ramirez Ellison M.D. 06/04/2022 10:26 PM Hospital Course (1) GABRIELLA (acute kidney injury): - Creatinine 2.49 upon admission, with base 1.05 - Believe GABRIELLA to be secondary to large left retroperitoneal mass - Patient started on IVF with little to no improvement on repeat creatinine this AM - Discussed case with Dr. Merida (urology), will see in consult, appreciate assistance * Dr. Merida discussed options with patient, it was collaboratively decided not to pursue stent placement as it is not expected to improve her quality of life - Lisinopril stopped (2) Hydronephrosis, left: Left hydroureteronephrosis/hydroureter and acute kidney injury- - See above (3) Retroperitoneal mass: - Unsure etiology, could have component of hemorrhage given worsening anemia (4) Acute on chronic anemia: - Hgb has ranged 7.7 to 9.8 over the past 6 months - Likely chronic anemia related to chemotherapy for metastatic pancreatic ca - Hgb dropped from 8.4 on 06/04 to 6.9 this AM, a component of this is almost definitely dilutional from fluids - Suspect blood loss also contributing but not through GI tract, so ? retroperitoneal mass with some degree of hemorrhage - Type and crossmatch for 2 units of PRBCs and transfuse. Premedicate prior. No Lasix in between units. - Pt also takes Xarelto for portal vein thrombosis which is on hold - Repeat CBC post transfusion and tomorrow AM (5) Epigastric abdominal pain: Patient's most significant symptoms. - Give pantoprazole 40 mg IV and famotidine 20 mg IV now - Placed on pantoprazole 40 mg p.o. twice daily and famotidine 20 mg p.o. twice daily - Add Carafate 4 times daily - Symptoms resolved per patient (6) Acute hyponatremia: Sodium 126 on admission, with base 137 - IV fluids and repeat Na now up to 133 this AM (7) Type 2 diabetes, HbA1c goal < 7%: - Hold metformin - Continue glargine 10 units daily - Placed on Accu-Cheks with NovoLog coverage (8) Hypothyroidism: - Continue levothyroxine 75 mcg daily (9) Hypertension: - takes Lisinopril at home which is on hold given GABRIELLA - Furthermore, BP controlled without it (10) Metastasis from pancreatic cancer: - Worsening per CT report - Per pt, oncology has conveyed nothing more to be done - Discussed with patient if anyone has discussed initiating hospice and she said no - Pt would like to research hospice agencies but is on board with initiating, she would like to do this on her own and does not need us to make referral prior to d/c (11) Portal vein thrombosis: For now hold Xarelto until determined no procedure will be performed - Would not initiate anticoagulation with Heparin gtt given worsening anemia (12) Mesenteric vein thrombosis: - For now hold Xarelto given worsening anemia Plan Magnesium supplemented for level of 1.6 and level normalized. Patient seems that she is accepting of her terminal prognosis and is willing/ready to enter into hospice but just wants to research the agencies prior to selecting one which is more than reasonable. I asked case management to print out a list of hospice agencies in [facility] to provide to patient and her so that they can look it over which was provided to patient and her on 06/05. I did explain we would be happy to make a referral to an agency of their choice if that would be of help but she states she would like to do this on her own after discharge. We also discussed code status on 06/05 as she was listed as a full code. Given her prognosis, and her acceptance of that prognosis, I asked if she would want heroic measures to sustain her life which she stated she would not. She requested DNR/DNI status and subsequently code status has been formally changed in the computer to reflect those wishes. Patient has requested to be discharged home today, will plan to do that. Other than stopping her Lisinopril, all other medications will remain the same for now. Plan d/w Dr. Carranza who has also seen and evaluated this patient and agrees with aforementioned. Total Time Total Time Spent Total Time Spent (In Minutes): >30 minutes Discharge Plan Discharge Items Patient Disposition: Home - Self-Care Reason For Visit: EPIGASTRIC PAIN Discharge Diagnosis: retroperitoneal mass anemia compressed left kidney and ureter renal failure Activity: Resume your previous activity Non-emergency contact: Primary Care Provider Call non-emergency contact if: you have any medication questions and your symptoms worsen Follow-up/Referrals: Manny Wren, [Primary Care Provider] - Diet: Regular Addtl Attending Provider Instructions: You were hospitalized due to abdominal pain. You were found to have a large mass in the back of your abdominal cavity which is putting pressure on your left kidney and ureter (the tube that connects your kidney to your bladder and drains urine). As a result, your kidneys are beginning to fail. You were seen by urology, Dr. Merida, and options were discussed including possibly placement of a stent to open up the ureter, however, it was felt that this may not provide any added benefit or improve your quality of life, therefore it was decided collaboratively not to pursue the procedure. You were also noted to have a drop in your blood counts which prompted a blood transfusion. It is uncertain where you may be losing blood and possibly related to the mass in your abdomen. Fortunately, your blood counts have improved today after receiving blood. Hospice care was discussed with you during your stay. A list of hospice agencies was provided to your and your . We would recommend follow up with your primary care provider within 1 week of discharge from the hospital. If you have any questions/concerns that cannot be answered by your primary care provider, feel free to contact the nonemergency number listed on your discharge paperwork. Pending Studies at Discharge: No Stand-Alone Forms: My [facility], Smoking Cessation Medications and DC Order Prescriptions: Continued fentanyl 12 mcg/hr patch 72 hour 1 patch transdermal Q72H oxycodone 5 mg capsule 5 mg PO Q4H PRN (Reason: Pain) ascorbic acid (vitamin C) 1,000 mg tablet 1 gm PO DAILY furosemide [Lasix] 20 mg tablet 20 mg PO DAILY PRN (Reason: edema) Qty: 90 3RF metformin 1,000 mg tablet 1,000 mg PO BID Qty: 180 3RF lisinopril 10 mg tablet 10 mg PO DAILY Qty: 90 3RF Label Comments: QAM (DME) OneTouch Verio test strips Strip See Rx Instructions .ROUTE .MEDSUPPLY Rx Instructions: use to test three times daily cholecalciferol (vitamin D3) [Vitamin D3] 2,000 unit Tablet 2,000 unit PO QAM omeprazole 20 mg Tablet,Delayed Release (Dr/Ec) 20 mg PO DAILY PRN (Reason: Heartburn) ondansetron HCl 8 mg tablet 8 mg PO Q8 PRN (Reason: Nausea) Xarelto 20 mg tablet 20 mg PO DAILY gabapentin 300 mg capsule 300 mg PO BID pantoprazole 40 mg tablet,delayed release (DR/EC) 40 mg PO DAILY levothyroxine [Synthroid] 75 mcg tablet 75 mcg PO DAILYBB insulin glargine [Basaglar KwikPen U-100 Insulin] 100 unit/mL (3 mL) insulin pen 10 - 20 unit SQ QPM acetaminophen [Tylenol Extra Strength] 500 mg Tablet 1,000 mg PO Q8H PRN (Reason: fever or pain) Qty: 90 0RF diclofenac sodium [Voltaren Arthritis Pain] 1 % Gel 2 g EXT BID PRN (Reason: arthritic pain) Qty: 100 0RF Discontinued ciprofloxacin HCl [Cipro] 500 mg tablet 500 mg PO BID Discharge Orders: Discharge Order (Routine); Ordered 06/06/22 Ordered By: Mary Kate Johnson Admission Data Admit Date/Time: 06/04/22 23:49 Attending Provider: Oswaldo Carranza Admit Provider: Venkat Cloud Primary Care Provider: Manny Wren Other Providers: Venkat Cloud ; Ac Merida Other Interventions: Discharge Summary Assessment (RN) Last Done: 06/06/22 11:37 Supervising Physician Co-Signing Physician Notes I supervised Mary Kate Johnson PA-C on the care of this patient. I interviewed and examined the patient independently of her. The plan is as written in her note except for any following changes/exceptions: None 76yo F w/ metastatic pancreatic cancer. Metastasis seems to be pressing on her left ureter, causing hydronephrosis and acute renal failure. Patient discussed with urology and they elected to not pursue stent. She will pursue hospice, though no acute need leaving the hospital. Coding Level of Care Code D/C DAY MANAGEMENT >30 MINS Diagnoses GABRIELLA (acute kidney injury) N17.9 Hydronephrosis, left N13.30 Retroperitoneal mass R19.00 Acute on chronic anemia D64.9 Epigastric abdominal pain R10.13 Acute hyponatremia E87.1 Type 2 diabetes, HbA1c goal < 7% E11.9 Hypothyroidism E03.9 Hypertension I10 Metastasis from pancreatic cancer C79.9; C25.9 Portal vein thrombosis I81 Mesenteric vein thrombosis K55.069
== END 2022-06-06 13:37 | disposition home or self-care (01) | DRG 682 ==
LOC: ED 18:36 → SUATTDRO 23:49 → 3E 23:49